=== PATIENT | female | born 1965 | race Caucasian/White ===

== ENCOUNTER 2023-01-17 08:25 | Emergency (ER) | payer OTHER, SELFPAY ==
[2023-01-17] VITALS (9 sets, daily range): BP systolic 104–143; BP diastolic 54–88; PULSE 70–86; RESP 14–19; TEMP 36.4; O2SAT 91–100; BMI 24.0
--- NOTE | 2023-01-17 08:52 | ECG_ITS ---
The [facility] Test Date: 2023-01-17 Pat Name: DOMINGA KAUR Department: Room: - Gender: Female Diving Fisher: : 1965 Requested By: Order Number: [id number] Reading MD: LUCY MORA Measurements Intervals [place] Rate: 79 P: 40 WI: 138 QRS: 84 QRSD: 88 T: 65 QT: 370 QTc: 404 Interpretive Statements 1100 Sinus rhythm 8102 Low QRS voltage in chest leads ST/T wave changes, can't exclude inferolateral ischemia 9120 atypical ECG No previous ECG available for comparison Electronically Signed On 01-19-2023 16:49:05 EDT by LUCY MORA
--- NOTE | 2023-01-17 08:52 | XR_ITS ---
The [address] [address] Patient Name: DOMINGA KAUR MRN: [id number] date: 1965 Sex: F Assigned Patient Location: ER Current Patient Location: ER Accession/Order Number: [id number] Exam Date: 01/17/2023 09:08 Report Date: 01/17/2023 09:23 At the request of: DEBBIE WHITTINGTON Procedure: XR chest 2V EXAM: XR chest 2V HISTORY: cp COMPARISON: None. TECHNIQUE: PA and lateral views of the chest. FINDINGS: The cardiomediastinal silhouette is normal. No focal consolidation is identified. There is no pneumothorax. No pleural effusion is noted. The osseous structures are intact. XR/XR chest 2V IMPRESSION: No acute cardiopulmonary process. Electronically authenticated by: HUGO SIMON Date: 01/17/2023 09:23
[2023-01-17 09:00] LABS: Basophils Percent Auto 0.8 % (0.2-2.0); Eosinophils Absolute Auto 0.2 10^3/uL (0.0-0.7); Eosinophils Percent Auto 4.6 % (0.9-7.0); Hematocrit 40.6 % (36.0-48.0); Hemoglobin 13.5 g/dL (12.0-16.0); Immature Granulocytes Abs Auto 0.01 10^3/uL (0.00-0.03); Immature Granulocytes Pct Auto 0.3 % (0.0-0.5); Lymphocytes Absolute Auto 0.9 10^3/uL (1.2-3.8); Lymphocytes Percent Auto 23.3 % (20.5-60.0); Mean Corpuscular HGB Conc 33.3 g/dL (29.9-35.2); Mean Corpuscular Hemoglobin 29.7 pg (26.7-34.0); Mean Corpuscular Volume 89.2 fL (81.0-99.0); Mean Platelet Volume 9.8 fL (9.5-13.5); Monocytes Absolute Auto 0.4 10^3/uL (0.3-0.8); Monocytes Percent Auto 8.9 % (1.7-12.0); Neutrophils Absolute Auto 2.5 10^3/uL (1.4-6.5); Neutrophils Percent Auto 62.1 % (43.0-75.0); Platelet Count 233 10^3/uL (150-450); Red Blood Count 4.55 10^6/uL (4.20-5.40)
[2023-01-17] MEDS: ASPIRIN 81 MG TAB.CHEW 162 MG PO (09:01)
[2023-01-17 09:18] LABS: D Dimer 0.26 mg/L FEU (<=0.59)
[2023-01-17 09:32] LABS: Alanine Aminotransferase 31 U/L (14-59); Albumin Globulin Ratio 1.2; Albumin Level 3.8 g/dL (3.4-5.0); Alkaline Phosphatase 82 U/L (46-116); Anion Gap 7.7; Aspartate Amino Transferase 13 U/L (15-37); BUN Creatinine Ratio 28.2; Bilirubin Total 0.5 mg/dL (0.2-1.0); Calcium 8.6 mg/dL (8.5-10.1); Chloride 104 mmol/L (98-107); Estimated GFR (African America >60 (>=60); Estimated GFR (Non-African Ame >60 (>=60); Globulin 3.2 g/dL; Glucose 91 mg/dL (74-106); Potassium 3.7 mmol/L (3.5-5.1); Sodium 136 mmol/L (136-145)
--- NOTE | 2023-01-17 09:42 | ED_ITS ---
HPI - General Adult General Chief complaint: Chest Pain Stated complaint: CHEST PAIN L SIDE Time Seen by Provider: 01/17/23 08:52 Source: patient Mode of arrival: walk-in Limitations: no limitations History of Present Illness HPI narrative: Patient is a 57-year-old female who is presenting to the Emergency Room with chief complaint of intermittent left-sided chest pain for the past 4 days, but has been intermittent for several months. Patient does have a oncology social worker in [place]. 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 Patient is driving to [place] today, she wanted to be Safe before she drove to [place] with her child. Patient has a Holter monitor set up for Friday. Patient has no significant traveling in the past month or 2, she has Travel to [place] before, 3 and half hour trip, But makes frequent stops. She states it's intermittent sharp pain that feels like radiates to her left thoracic area. It does not go into her neck, jaw, shoulder or arm. No correlation to shortness of breath, diaphoresis, nausea or vomiting. Patient's never been a smoker. Patient's father had a heart attack in his 50s. She does take losartan. No diabetes, cholesterol. No other acute complaints. No recent heavy lifting twisting or turning. Patient knows that she needs to have a outpatient stress test and echocardiogram. Patient has had difficulty with Medicaid and her insurance helping pay for the stress test, but she is working through this with her oncology social worker in [place], Dr. Méndez (sp?) No nausea, vomiting, diarrhea, no acute complaints. . All systems are negative except as noted/marked. All systems reviewed and otherwise negative. . Nurses note and vital signs reviewed and patient is not hypoxic. General: The patient appears well and in no apparent distress. Patient is resting comfortably on cart. Patient is not toxic, lethargic, or listless Skin: Warm, dry, no pallor noted. There is no rash noted. No petechiae, purpura. Head: Normocephalic, atraumatic Eye: Normal conjunctiva, no drainage, EOMI. PERRL Ears, Nose, Mouth, and Throat: oral mucosa is moist. Nares patent. Mouth without vesicles. Cardiovascular: Regular Rate and Rhythm, no murmur, gallop, rub; No reproducible tenderness to palpation To anterior, lateral, posterior chest wall. No rash. Respiratory: Patient is in no distress, no accessory muscle use, lungs are clear to auscultation, no wheezing, rales or rhonchi Back: non-tender, no CVA tenderness bilaterally to percussion. No CT LS midline pain GI: soft, no tenderness to palpation, no masses appreciated. No rebound, guarding, or rigidity noted. No flank pain bilateral, No distention Musculoskeletal: Patient has full range of motion of all of the extremities, no motor, sensory, or focal neurological deficits Neurological: A&O x3, normal speech Psychiatric: Cooperative Related Data Home Medications Medication Instructions Recorded Confirmed aripiprazole 2 mg tablet 2 mg PO DAILY 01/17/23 01/17/23 biotin 10,000 mcg capsule 10,000 mcg PO DAILY 01/17/23 01/17/23 bupropion HCl 150 mg 24 hr tablet, 300 mg PO DAILY 01/17/23 01/17/23 extended release Allergies Allergy/AdvReac Type Severity Reaction Status Date / Time No Known Drug Allergies Allergy Verified 01/17/23 08:30 Exam Constitutional Vital Signs, click to edit/add: Last Vital Signs Temp 97.6 F 01/17/23 08:31 Pulse 80 01/17/23 09:00 Resp 19 01/17/23 09:00 BP 143/88 H 01/17/23 09:00 Pulse Ox 99 01/17/23 09:00 O2 Del Method Room Air 01/17/23 08:31 Course Vital Signs Vital signs: Vital Signs Temperature 97.6 F 01/17/23 08:31 Pulse Rate 86 01/17/23 08:31 Respiratory Rate 16 01/17/23 08:31 Blood Pressure 140/54 01/17/23 08:31 Pulse Oximetry 100 01/17/23 08:31 Oxygen Delivery Method Room Air 01/17/23 08:31 Temperature 97.6 F 01/17/23 08:31 Pulse Rate 80 01/17/23 09:00 Respiratory Rate 19 01/17/23 09:00 Blood Pressure 143/88 H 01/17/23 09:00 Pulse Oximetry 99 01/17/23 09:00 Oxygen Delivery Method Room Air 01/17/23 08:31 Medical Decision Making MDM Narrative Medical decision making narrative: EKG, chest x-ray, lab work were negative. D-dimer negative. Education done at bedside. Patient knows the next step is to perform outpatient cardiac stress test and echocardiogram. Follow-up with PCP as needed. Patient felt better piece of mind is no acute findings on today's testing. Patient was recommended start taking baby aspirin a day. Lab Data Lab results reviewed: Yes I reviewed the patient's lab results Labs: Lab Results 01/17/23 Range/Units 08:41 WBC 4.0 (4.0-11.0) 10^3/uL RBC 4.55 (4.20-5.40) 10^6/uL Hgb 13.5 (12.0-16.0) g/dL Hct 40.6 (36.0-48.0) % MCV 89.2 (81.0-99.0) fL MCH 29.7 (26.7-34.0) pg MCHC 33.3 (29.9-35.2) g/dL RDW 13.0 (11.0-15.0) % Plt Count 233 (150-450) 10^3/uL MPV 9.8 (9.5-13.5) fL Neut % (Auto) 62.1 (43.0-75.0) % Lymph % (Auto) 23.3 (20.5-60.0) % [place] % (Auto) 8.9 (1.7-12.0) % Eos % (Auto) 4.6 (0.9-7.0) % Baso % (Auto) 0.8 (0.2-2.0) % Neut # (Auto) 2.5 (1.4-6.5) 10^3/uL Lymph # (Auto) 0.9 L (1.2-3.8) 10^3/uL [place] # (Auto) 0.4 (0.3-0.8) 10^3/uL Eos # (Auto) 0.2 (0.0-0.7) 10^3/uL Baso # (Auto) 0.0 (0.0-0.1) 10^3/uL Abs Immat Gran (auto) 0.01 (0.00-0.03) 10^3/uL Imm/Tot Granulo (auto) 0.3 (0.0-0.5) % D-Dimer 0.26 (<=0.59) mg/L FEU Sodium 136 (136-145) mmol/L Potassium 3.7 (3.5-5.1) mmol/L Chloride 104 (98-107) mmol/L Carbon Dioxide 28.0 (21.0-32.0) mmol/L Anion Gap 7.7 BUN 22.0 H (7.0-18.0) mg/dL Creatinine 0.78 (0.55-1.02) mg/dL Est GFR ( Amer) >60 (>=60) Est GFR (Non-Af Amer) >60 (>=60) BUN/Creatinine Ratio 28.2 Glucose 91 (74-106) mg/dL Calcium 8.6 (8.5-10.1) mg/dL Total Bilirubin 0.5 (0.2-1.0) mg/dL AST 13 L (15-37) U/L ALT 31 (14-59) U/L Alkaline Phosphatase 82 (46-116) U/L Troponin I High Sens 4.0 (4.0-51.3) pg/mL NT-Pro-B Natriuret Pep 50.0 (<=900.0) pg/mL Total Protein 7.0 (6.4-8.2) g/dL Albumin 3.8 (3.4-5.0) g/dL Globulin 3.2 g/dL Albumin/Globulin Ratio 1.2 Lipase 37.0 (16.0-77.0) U/L ECG Data Attestation: I personally reviewed and interpreted this ECG as follows: (EKG interpretation. Normal sinus rhythm at 79 beats a minute. Normal axis deviation. No acute ST elevation, no acute ectopy. QTC of 404.) Discharge Plan Discharge Chief Complaint: Chest Pain Clinical Impression: Chest pain Patient Disposition: Home, Self-Care Condition: Fair Prescriptions / Home Meds: No Action aripiprazole 2 mg tablet 2 mg PO DAILY biotin 10,000 mcg capsule 10,000 mcg PO DAILY bupropion HCl 150 mg tablet extended release 24 hr 300 mg PO DAILY Instructions: Chest Pain (ED) Additional Instructions: Continue to follow up with her oncology social worker, pursue Holter monitor on Friday, and pursue a stress test and echocardiogram when available soon as possible. Stand Alone Forms: Portal Instructions Referrals: ELVER GROSS [Primary Care Provider] - 1 week
== END 2023-01-17 10:10 | disposition home or self-care (01) ==
PROVIDERS: Emergency Provider Emergency Medicine; PCP Family Medicine
DX: R07.9 Chest pain, unspecified (principal); Z79.899 Other long term (current) drug therapy
CPT/HCPCS: 36415; 71046; 80053; 83690; 83880; 84484; 85025; 85378; 93005; 99285

== ENCOUNTER 2023-02-04 00:40 | Observation (INO) | payer OTHER, SELFPAY ==
[2023-02-04] VITALS (43 sets, daily range): BP systolic 112–127; BP diastolic 68–78; PULSE 57–102; RESP 11–22; TEMP 36.6–37.1; O2SAT 96–98; BMI 23.7; BMI 23.5
--- NOTE | 2023-02-04 01:05 | ED_ITS ---
HPI - Chest Pain General Chief Complaint: Chest Pain Stated Complaint: chest pain Time Seen by Provider: 02/04/23 00:59 Source: patient Mode of arrival: ambulance Limitations: no limitations History of Present Illness HPI narrative: chest pain on and off for a couple of years. States same pain again tonight. abrupt onset. pain 7/10 tonight. left sided chest pain. pain resolved after 20 minutes. Family history of heart disease. Father with TN in his 50s. States she has upcoming appointment with cardiology next week MD complaint: Reports chest pain Risk Factors Coronary artery disease risk factors: family history of CAD before age 50 Related Data Home Medications Medication Instructions Recorded Confirmed aripiprazole 2 mg tablet 2 mg PO DAILY 01/17/23 02/04/23 biotin 10,000 mcg capsule 10,000 mcg PO DAILY 01/17/23 02/04/23 bupropion HCl 150 mg 24 hr tablet, 300 mg PO DAILY 01/17/23 02/04/23 extended release Allergies Allergy/AdvReac Type Severity Reaction Status Date / Time No Known Drug Allergies Allergy Verified 02/04/23 00:44 Review of Systems ROS Status of ROS 10 or more systems reviewed and unremarkable except as noted in history and below [facility] Social History Smoking status: Never smoker Exam Constitutional Vital Signs, click to edit/add: Last Vital Signs Temp 98.7 F 02/04/23 00:40 Pulse 62 02/04/23 05:30 Resp 14 02/04/23 05:30 BP 122/68 02/04/23 05:30 Pulse Ox 98 02/04/23 05:30 O2 Del Method Room Air 02/04/23 00:40 Common normals: no apparent distress, average body habitus, oriented x3, no limitations, healthy appearing, alert and well nourished [facility] Common normals: normocephalic and head/scalp atraumatic Eye Common normals: PERRL, EOMs intact bilaterally, conjunctivae normal and no scleral icterus Respiratory Common normals: normal respiratory effort, no retractions, no use of accessory muscles and clear to auscultation bilaterally Cardio Common normals: regular rate, regular rhythm, S1 normal heart sound and S2 normal heart sound GI Common normals: Normal to inspection, nondistended, normoactive bowel sounds present, soft to palpation and non-tender Extremity Common normals: normal to inspection and full ROM Neuro Common normals: oriented x3, CN's II-XII intact bilaterally, moves all extremities and no focal motor deficits Psych Appearance: grossly normal Course Course Hospital Course: patient presents with recurrent episodes of chest pain on and off for a couple of years. chest pain again this AM similar to past episodes. Pain resolved by the time she arrived to the ER. Serial troponin neg x 2. d-dimer neg. EKG with RAD. low voltage. No acute findings and cxray WNL. She does have family history of TN in her father. States he had heart attack in his 50s. Discussed with the patient she should have a stress test. She is agreeable to stay in the hospital for workup. Discussed with Dr Pool and will plan obs admission Vital Signs Vital signs: Vital Signs Temperature 98.7 F 02/04/23 00:40 Pulse Rate 69 02/04/23 00:40 Respiratory Rate 15 02/04/23 00:40 Blood Pressure 127/77 02/04/23 00:40 Pulse Oximetry 98 02/04/23 00:40 Oxygen Delivery Method Room Air 02/04/23 00:40 Temperature 98.7 F 02/04/23 00:40 Pulse Rate 62 02/04/23 05:30 Respiratory Rate 14 02/04/23 05:30 Blood Pressure 122/68 02/04/23 05:30 Pulse Oximetry 98 02/04/23 05:30 Oxygen Delivery Method Room Air 02/04/23 00:40 MDM - Chest Pain Lab Data Labs: Lab Results 02/04/23 02/04/23 Range/Units 00:45 03:45 WBC 4.3 (4.0-11.0) 10^3/uL RBC 4.37 (4.20-5.40) 10^6/uL Hgb 12.6 (12.0-16.0) g/dL Hct 39.6 (36.0-48.0) % MCV 90.6 (81.0-99.0) fL MCH 28.8 (26.7-34.0) pg MCHC 31.8 (29.9-35.2) g/dL RDW 12.6 (11.0-15.0) % Plt Count 243 (150-450) 10^3/uL MPV 10.1 (9.5-13.5) fL Neut % (Auto) 44.5 (43.0-75.0) % Lymph % (Auto) 39.1 (20.5-60.0) % [place] % (Auto) 8.2 (1.7-12.0) % Eos % (Auto) 6.6 (0.9-7.0) % Baso % (Auto) 1.4 (0.2-2.0) % Neut # (Auto) 1.9 (1.4-6.5) 10^3/uL Lymph # (Auto) 1.7 (1.2-3.8) 10^3/uL [place] # (Auto) 0.4 (0.3-0.8) 10^3/uL Eos # (Auto) 0.3 (0.0-0.7) 10^3/uL Baso # (Auto) 0.1 (0.0-0.1) 10^3/uL Abs Immat Gran (auto) 0.01 (0.00-0.03) 10^3/uL Imm/Tot Granulo (auto) 0.2 (0.0-0.5) % D-Dimer 0.25 (<=0.59) mg/L FEU Sodium 141 (136-145) mmol/L Potassium 3.3 L (3.5-5.1) mmol/L Chloride 105 (98-107) mmol/L Carbon Dioxide 30.4 (21.0-32.0) mmol/L Anion Gap 8.9 BUN 17.0 (7.0-18.0) mg/dL Creatinine 0.81 (0.55-1.02) mg/dL Est GFR ( Amer) >60 (>=60) Est GFR (Non-Af Amer) >60 (>=60) BUN/Creatinine Ratio 21.0 Glucose 109 H (74-106) mg/dL Calcium 8.7 (8.5-10.1) mg/dL Troponin I High Sens 4.8 5.3 (4.0-51.3) pg/mL NT-Pro-B Natriuret Pep 62.0 (<=900.0) pg/mL Discharge Plan Discharge Chief Complaint: Chest Pain Clinical Impression: Chest pain Patient Disposition: Home, Self-Care Prescriptions / Home Meds: No Action aripiprazole 2 mg tablet 2 mg PO DAILY biotin 10,000 mcg capsule 10,000 mcg PO DAILY bupropion HCl 150 mg tablet extended release 24 hr 300 mg PO DAILY Additional Instructions: follow up with Cardiology. Return if pain recurs Stand Alone Forms: Portal Instructions Referrals: ELVER GROSS [Primary Care Provider] - 1 week
--- NOTE | 2023-02-04 01:08 | ECG_ITS ---
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
--- NOTE | 2023-02-04 01:08 | XR_ITS ---
The [address] [address] Patient Name: DOMINAG KAUR MRN: [id number] date: 1965 Sex: F Assigned Patient Location: ER Current Patient Location: ER Accession/Order Number: [id number] Exam Date: 02/04/2023 01:20 Report Date: 02/04/2023 01:35 At the request of: NASIMA GARCIA Procedure: XR chest 1V EXAM: XR chest 1V HISTORY: chest pain COMPARISON: Chest radiographs dated 01/17/2023. TECHNIQUE: One view of the chest was obtained. FINDINGS: The cardiac silhouette is normal in size. The lungs are clear. There is no significant pneumothorax or pleural effusion. No acute osseous abnormality is seen. XR/XR chest 1V IMPRESSION: 1. No acute cardiopulmonary abnormality. Electronically authenticated by: Jennifer SCHAEFER Date: 02/04/2023 01:35
[2023-02-04 01:26] LABS: Basophils Absolute Auto 0.1 10^3/uL (0.0-0.1); Basophils Percent Auto 1.4 % (0.2-2.0); Eosinophils Absolute Auto 0.3 10^3/uL (0.0-0.7); Eosinophils Percent Auto 6.6 % (0.9-7.0); Hematocrit 39.6 % (36.0-48.0); Hemoglobin 12.6 g/dL (12.0-16.0); Immature Granulocytes Abs Auto 0.01 10^3/uL (0.00-0.03); Immature Granulocytes Pct Auto 0.2 % (0.0-0.5); Lymphocytes Absolute Auto 1.7 10^3/uL (1.2-3.8); Lymphocytes Percent Auto 39.1 % (20.5-60.0); Mean Corpuscular HGB Conc 31.8 g/dL (29.9-35.2); Mean Corpuscular Hemoglobin 28.8 pg (26.7-34.0); Mean Corpuscular Volume 90.6 fL (81.0-99.0); Mean Platelet Volume 10.1 fL (9.5-13.5); Monocytes Absolute Auto 0.4 10^3/uL (0.3-0.8); Monocytes Percent Auto 8.2 % (1.7-12.0); Neutrophils Absolute Auto 1.9 10^3/uL (1.4-6.5); Neutrophils Percent Auto 44.5 % (43.0-75.0); Platelet Count 243 10^3/uL (150-450); Red Blood Count 4.37 10^6/uL (4.20-5.40); Red Cell Distribution Width 12.6 % (11.0-15.0); White Blood Count 4.3 10^3/uL (4.0-11.0)
[2023-02-04 01:33] LABS: D Dimer 0.25 mg/L FEU (<=0.59)
[2023-02-04 01:44] LABS: Anion Gap 8.9; Calcium 8.7 mg/dL (8.5-10.1); Carbon Dioxide 30.4 mmol/L (21.0-32.0); Chloride 105 mmol/L (98-107); Estimated GFR (African America >60 (>=60); Estimated GFR (Non-African Ame >60 (>=60); Glucose 109 mg/dL (74-106); Potassium 3.3 mmol/L (3.5-5.1); Sodium 141 mmol/L (136-145)
[2023-02-04 02:07] LABS: Troponin I High Sensitivity 4.8 pg/mL (4.0-51.3)
[2023-02-04 04:19] LABS: Troponin I High Sensitivity 5.3 pg/mL (4.0-51.3)
--- NOTE | 2023-02-04 06:53 | CA_ITS ---
Patient: DOMINGA KAUR Exam Date: 02/04/2023 : 1965 Gender:F Ordering : Shaikh Ana Pool . Admission #: [id number] Family : DR ELVER GROSS M.D. Order #: [id number] CLICK HERE TO VIEW EXAM ECHOCARDIOGRAM REPORT PROCEDURE: CA ECHO DOPPLER COMPLETE INDICATIONS: chest pain COMPARISON: None. DESCRIPTION: COMPLETE ECHOCARDIOGRAM Real-time transthoracic echocardiography with 2D, M-mode, spectral and color flow Doppler performed. QUALITY: Technical quality was good. LEFT VENTRICLE: Normal chamber size. Borderline left ventricular hypertrophy. Normal systolic function. LV EF: Normal left ventricular ejection fraction, (>55%). DIASTOLIC: Normal diastolic function. ATRIAL SEPTUM: LEFT ATRIUM: Normal chamber size. RIGHT ATRIUM: Normal chamber size. RIGHT VENTRICLE: Normal chamber size. Normal right ventricular systolic function. TRICUSPID VALVE: Normal mobility and thickness. No stenosis with no regurgitation. MITRAL VALVE: Normal mobility and thickness. No evidence of mitral valve stenosis. There is no mitral annular calcification. No mitral regurgitation. AORTIC VALVE: Normal trileaflet appearance. No visible sclerosis. Normal leaflet mobility. No evidence of aortic valve stenosis. No aortic regurgitation. AORTIC ROOT: Normal diameter and appearance. PULMONIC VALVE: Normal thickness and mobility. No stenosis. Trivial regurgitation. PERICARDIUM: No evidence of pericardial effusion. IVC: Collapses with inspirations. PLEURA: CONCLUSION: 1. Normal ventricular function. LVEF is 55 to 60%. 2. No significant valvular dysfunction. 3. No pericardial effusion. Adult Echocardiography Procedure Report Left Ventricle LVEDD (3.7 - 5.6 cm): 4.52 cm LVESD (2.2 - 4.0 cm): 3.17 cm LVIVS thickness (0.6 - 1.2 cm): 0.86 cm LVPW thickness (0.5 - 1.0 cm): 1.06 cm e': 0.13 m/s E - e': 5.24 LVOT Max Gradient: 2.91 mm[Hg] LVOT Area (cm2): 0.85 m/s Peak Velocity (LVOT): 0.85 m/s LVOT Diameter 2.14 cm Left Atrium Left Atrium Systolic Dimension: 2.82 cm Mitral Valve MV E to A Ratio: 0.84 Mitral Valve A-Wave Peak Velocity: 0.80 m/s Mitral Valve E-Wave Peak Velocity: 0.67 m/s Right Ventricle Aorta AO Root Diam: 3.32 cm Ascending Ao Diam: 3.13 cm Aortic Valve AoV Area (Peak Porfirio): 3.03 cm2, 3.03 cm2 Peak Velocity(Antegrade Flow): 1.01 m/s Peak Gradient(Antegrade Flow): 4.07 mm[Hg] Tricuspid Valve Pulmonic Valve Peak Velocity: 0.66 m/s Peak Gradient: 2.10 mm[Hg], 1.45 mm[Hg] Right Atrium Right Atrium Systolic Pressure: 47.40 ml, 47.40 ml Dictated by: John Guaman M.D. on 02/04/2023 at 18:50 Approved by: John Guaman M.D. on 02/04/2023 at 18:51
--- NOTE | 2023-02-04 11:19 | P.HP_ITS ---
H&P: HPI History of Present Illness Chief complaint: Chest pain Narrative: HPI and hospital course: 57 y o female presented with acute onset left sided chest pain, pressure like, no associated symptoms. Started when she was resting. Resolved in an hour or so. Reports intermittent chest pain, sporadic, not exertional, usually at rest, resolves in half an hour. This has been going on for about a year or two. She has no known hx of CAD/CHF. Non smoker and denies hx if HTN, HLD and T2 DM. Dad had premature CAD. But no other family has hx of CAD/CHF. Patient reports mod exercise at home 3/week and never experiences symptoms concerning for underlying CAD. Her w/u included negative troponins, normal D dimer, no acute ischemic changes on EKG. ECHO - official read is not available - will need to f/u on it. likely non cardiac and possibly related to poorly controlled depression/anxiety disorder Admission Diagnosis Chest r/o ACS Depression Poor memory Discharge diagnosis as above Discharge status stable Review of Systems ROS Status of ROS 10 or more systems reviewed and unremarkable except as noted in history and below PFSH PFS Medical History Depression ?F32.A - Depression, unspecified (ICD-10) Fracture of left tibia and fibula ?S82.202A - Unspecified fracture of shaft of left tibia, initial encounter for closed fracture (ICD-10) ?S82.402A - Unspecified fracture of shaft of left fibula, initial encounter for closed fracture (ICD-10) Memory loss of unknown cause ?R41.3 - Other amnesia (ICD-10) Family History Father Family history of cancer Family history of myocardial infarction Grandmother Family history of diabetes mellitus Family history of hypertension Family history of myocardial infarction Social History Within the past year, how often did you have a drink containing alcohol: never Score interpretation: A score less than 3 is consistent with normal alcohol consumption. 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 Known occupational exposures/hazards: No Highest level of school completed/degree received: Bachelor's degree Are you now , , , , never or living with a partner: never In a typical week, how many times do you talk on the telephone with family, friends, or neighbors: 3 or more times per week How often do you get together with friends or relatives: 3 or more times per week How often do you attend protestant or anglican services: never Do you belong to any clubs or organizations such as protestant groups unions, [employer] or [employer] groups, or school groups: no Total score: 1 Score interpretation: A score of less than or equal to 1 indicates the most socially isolated. Little interest or pleasure in doing things: not at all Feeling down, depressed, or hopeless: more than half the days Feel stressed/tense/nervous/anxious/difficulty sleeping: very much Life stressors: other Life stressor details: memory loss Do you think of yourself as: straight/heterosexual Gender Identity: female Meds Home Medications and Allergies Home Medications Medication Instructions Recorded Confirmed Type aripiprazole 2 mg tablet 2 mg PO DAILY 01/17/23 02/04/23 History biotin 10,000 mcg capsule 10,000 mcg PO DAILY 01/17/23 02/04/23 History bupropion HCl 150 mg 24 hr tablet, 300 mg PO DAILY 01/17/23 02/04/23 History extended release Allergies Allergy/AdvReac Type Severity Reaction Status Date / Time No Known Drug Allergies Allergy Verified 02/04/23 00:44 Exam Constitutional Vital Signs, click to edit/add: Last Vital Signs Temp 97.8 F 02/04/23 08:26 Pulse 62 02/04/23 09:55 Resp 18 02/04/23 08:26 BP 112/71 02/04/23 08:26 Pulse Ox 98 02/04/23 08:26 O2 Del Method Room Air 02/04/23 08:26 Documenting provider has reviewed patient's vital signs: yes Common normals: no apparent distress and oriented x3 General appearance: cooperative HENMT Common normals: normocephalic and head/scalp atraumatic Head and scalp: normocephalic and atraumatic Eye Common normals: conjunctivae normal and no scleral icterus Conjunctiva: conjunctiva(e) normal Respiratory Common normals: normal respiratory effort and clear to auscultation bilaterally Effort & inspection: able to speak in complete sentences Auscultation: clear to auscultation bilaterally Cardio Common normals: regular rate, S1 normal heart sound and S2 normal heart sound Rate: regular rate Heart sounds: S1 normal and S2 normal GI Common normals: Normal to inspection, nondistended, normoactive bowel sounds present, soft to palpation, non-tender and no hepatosplenomegaly Palpation: soft and no hepatosplenomegaly Extremity Common normals: no clubbing, cyanosis or edema Neuro Common normals: oriented x3, moves all extremities and no focal motor deficits Psych Common normals: mental status grossly normal, denies hallucinations, denies homicidal ideation and denies suicidal ideation Results Labs Labs: Short CBC 02/04/23 Range/Units 00:45 WBC 4.3 (4.0-11.0) 10^3/uL Hgb 12.6 (12.0-16.0) g/dL Hct 39.6 (36.0-48.0) % Plt Count 243 (150-450) 10^3/uL BMP 02/04/23 00:45 Sodium 141 Potassium 3.3 L Chloride 105 Carbon Dioxide 30.4 BUN 17.0 Creatinine 0.81 Glucose 109 H Calcium 8.7 Assessment and Plan Assessment and Plan (1) Chest pain: (2) Depression: Plan Admitted for CP - negative troponins. CP resolved. Ongoing for a year or two. Unlikely to be cardiac based on her hx, description of symptoms, risk factors. However, it is not unreasonable to order a exercise stress test for her to reliably r/o underlying CAD. Unfortunately, we do not have a physician in house to be able to do it. Will write her a prescription for outpatient exercise st ress test and she can f/u with her PCP and outpatient mobile web application developer for the results and continued care/management.
--- NOTE | 2023-02-04 12:36 | CM.NOTE ---
Rounded with Dr. Pool this AM. Dr. Pool had lengthy conversation with patient regarding chest pain and likely non-cardiac and will set patient up for outpatient stress test and nursing aware results needs to be sent to her women's soccer coach Dr. Devine in [place]. No other anticipated dischage needs. Dr. Pool also had lengthy conversation with patient about memory issues the patient voiced and the she has a follow up with [facility] in February. Dr. Pool encouraged patient to keep this appointment.
== END 2023-02-04 12:43 | disposition home or self-care (01) ==
LOC: ER 07:04 → MS 07:08
PROVIDERS: Admitting Provider Internal Medicine; Emergency Provider Internal Medicine; PCP Family Medicine; Visit Provider Internal Medicine
DX: R07.89 Other chest pain (principal); F32.A Depression, unspecified; R41.3 Other amnesia; F41.9 Anxiety disorder, unspecified; Z79.899 Other long term (current) drug therapy
CPT/HCPCS: 36415; 71045; 80048; 83880; 84484; 85025; 85378; 93005; 93306; 99285; G0378

== ENCOUNTER 2023-02-10 07:00 | Outpatient (OUT) | payer OTHER, SELFPAY ==
--- NOTE | 2023-02-10 12:42 | P.STRESS_ITS ---
Stress Test Stress Test Allergies Allergy/AdvReac Type Severity Reaction Status Date / Time No Known Drug Allergies Allergy Verified 02/04/23 00:44 Requesting physician: Shaikh Corine Procedure: Exercise stress test General Information: Reason for Stress Test: Angina Cardiac History and Risk Factors: No personal history. Father had LA, brother had MVP. Resting 12 - Lead Electrocardiogram: Rate & rhythm: Normal sinus at a rate of 71. [place]: Normal T-waves: Normal orientation ST-segments: Normal orientation Stress Test: Protocol: [place] protocol was followed. Exercise capacity: Good exercise capacity. Total exercise time of 9 minutes reached [place] stage 3 at 3.4MPH, 14% grade, & 10.1 METs. Blood pressure: Initial: 108/78, Maximum: 198/100, Recovery: 120/76 Rate & rhythm: Patient remained in sinus rhythm during the exercise and recovery portions of the study.? The maximum heart rate was 153, which was 93% of the maximum predicted heart rate 164. Rare PVCs & PACs ST-segments & T-waves: Approximately 4 minutes into recovery, there was up to 1mm ST-segment depression in the inferolateral leads. Patient response/symptoms: There were no symptoms similar to the chief complaint. Interpretation: This is an abnormal exercise stress test based on inferolateral ST-segment depression. Mohan Treadmill Score is 4, which places patient in a moderate risk category. Clinical correlation is required.
--- OUTSIDE RECORDS SUMMARY | 2023-03-18 17:32 | XMS_ITS | CCD ---
Author Name Unknown Address [address] [place] [address] Organization [facility] Care Team Providers Care Dispenser Operator Name Role Phone ESPERANZA GARCIA Unavailable Unavailable Rai, PhD Chaka Attending Provider [phone] MD Ghislaine Gross Primary Care Provider CINDY, DR HUGO Gongora Admitting Unavailable CINDY, DR HUGO Gongora Attending Unavailable CINDY, DR HUGO Gongora Consulting Unavailable PRISCILA, DR ELIDA Pack Admitting Unavailagusto FRANCOIS, DR ELIDA Pack Attending Unavailagusto FRANCOIS, DR ELIDA Pack Consulting Unavailabl e BETI SINGER Consulting Unavailable BELEN MARIN Consulting Unavailable CINDY, DR HUGO Gongora Consulting Unavailable CINDY, DR HUGO Gongora Admitting Unavailable CINDY, DR HUGO Gongora Attending Unavailable RENATO, DR RAYA Primary Care Unavailable MARLENE LEACH Consulting Unavailable GHISLAINE GROSS Primary Care Unavailable WILBER PRINGLE Consulting Unavailable EKTA Saez, WILBER Admitting Unavailable WILBER PRINGLE Attending Unavailable AG PEACOCK Consulting Unavailable GHISLAINE GROSS Primary Care Unavailable PRISCILA, DR ELIDA Pack Admitting Unavailagusto FRANCOIS, DR ELIDA Pack Attending Unavailagusto WHITE, DR HUGO Gongora Consulting Unavailable PRISCILA, DR ELIDA Pack Consulting UnavailLUKE Monge Consulting Unavailable YOKASTA BAINS Consulting Unavailable NATACHA DASH Admitting Unavailable NATACHA DASH Attending Unavailable GHISLAINE GROSS Primary Care Unavailable DR SHARON WOODRUFF Consulting Unavailable NATACHA DASH Admitting Unavailable NATACHA DASH Attending Unavailable GHISLAINE GROSS Primary Care Unavailable KACY, DR HERRERA Consulting Unavailable SHAIKH RAMEY Attending Unavailable Allergies Allergy Classification Reported Allergen(s) Allergy Type Date of Onset Reaction(s) Facility (3 sources) naproxen; Translations: [NAPROXEN] Drug Allergy 05-24-2017 [facility] Repository Problems Active Problems Problem Classification Problem Date Documented Da te Episodic/Chronic Anxiety disorders (1 source) Anxiety disorder, unspecified; Translations: [ANXIETY DISORDER UNSPECIFIED] Onset: 01-09-2021 Chronic Esophageal disorders (1 source) Gastro-esophageal reflux disease without esophagitis; Translations: [GERD WITHOUT ESOPHAGITIS] Onset: 02-11-2022 Chronic Essential hypertension (2 sources) Essential (primary) hypertension; Translations: [ESSENTIAL PRIMARY HYPERTENSION] Onset: 09-17-2021 Chronic Nonspecific chest pain (12 sources) Chest pain, unspecified; Translations: [Precordial pain] Onset: 05-25-2017 Episodic Other aftercare (2 sources) Other longterm (current) drug therapy; Translations: [OTH CORRECTION CURRENT DRUG THERAPY] Onset: 09-17-2021 Episodic Residual codes; unclassified (4 sources) Obstructive sleep apnea (adult) (pediatric); Translations: [OBSTRUCTIVE SLEEP APNEA] Onset: 04-17-2022 Chronic Residual codes; unclassified (1 source) Hypersomnia, unspecified; Translations: [HYPERSOMNIA UNSPECIFIED] Onset: 03-28-2022 Chronic Residual codes; unclassified (1 source) Acquired absence of other specified parts of digestive tract; Translations: [ACQ ABSENCE OTH PART DIGESTV TRACT] Onset: 07-15-2022 Episodic Past or Other Problems Problem Classification Problem Date Documented Da te Episodic/Chronic Abdominal pain (4 sources) Epigastric pain; Translations: [EPIGASTRIC PAIN] Onset: 02-07-2022 Episodic Chronic obstructive pulmonary disease and bronchiectasis (4 sources) Bronchitis, not specified as acute or chronic; Translations: [BRONCHITIS NOT SPEC ACUTE/CHRON] Onset: 02-11-2021 Episodic Other lower respiratory disease (1 source) Snoring; Translations: [SNORING] Onset: 03-28-2022 Episodic Residual codes; unclassified (4 sources) Other amnesia; Translations: [OTHER AMNESIA] Onset: 03-20-2022 Episodic Residual codes; unclassified (1 source) Insomnia, unspecified; Translations: [INSOMNIA UNSPECIFIED] Onset: 12-29-2022 Episodic Results Test Name Value Interpretation Reference Range Facil ity BNPon 07-13-2022 Natriuretic peptide B (Bld) [Mass/Vol] 51.0 pg/mL Normal <=900.0 [facility] pital Comment on above: Performed By: #### B LINEN CONTROLLER, CMADM, CMP #### [facility] [address] [address] [address] Fawn Anthony CARDIAC HUGO ADMITon 023 CK [Catalytic activity/Vol] 51 U/L Normal 26-192 [facility] Comment on above: Performed By: #### B LINEN CONTROLLER, CMADM, CMP ####[facility] [id number] [address]Dr. Fawn Anthony CK.MB [Mass/Vol] 1.15 ng/mL Normal <=3.60 [facility] Comment on above: Performed By: #### B LINEN CONTROLLER, CMADM, CMP ####[facility] [id number] [address]Dr[address] Anthony HSTROP 4.1 pg/mL Normal 4.0-51.3 [facility] Comment on above: Result Comment: CUT- OFF POINTS HAVE BEEN ESTABLISHED BASED ON THE FOURTH UNIVERSAL DEFINITIONS OF MYOCARDIAL INFARCTION. THE UPPER REFERENCE LIMIT (URL) OF TROPONIN, DEFINED THE 99TH PERCENTILE OF cTnI DISTRIBUTION IN A REFERENCE POPULATION, HAS BEEN CONFIRMED THE DECISION THRESHOLD FOR [place] DIAGNOSIS. Performed By: #### B LINEN CONTROLLER, CMADM, CMP ####[facility] [id number] [address]DrSe Anthony FREDDIE 29 ng/mL Normal 9-82 [facility] Comment on above: Performed By: #### B LINEN CONTROLLER, CMADM, CMP ####[facility] [id number] [id number][address] Fawn Anthony CBC AUTO DIFFon 07-13-2022 BASO # 0.1 103/ul Normal 0.0-0.1 [facility] Comment on above: Performed By: #### C BC #### [facility] [address] [address] [address] Fawn Anthony Basophils/100 WBC (Bld) 1.1 % Normal 0.2-2.0 [facility] Comment on above: Performed By: #### C BC #### [facility] [address] [place] [address] Dr. Fawn Anthony EO # 0.3 103/ul Normal 0.0-0.7 [facility] Comment on above: Performed By: #### C BC #### [facility] [address] [place] [address] Dr. Fawn Anthony Eosinophils/100 WBC (Bld) 5.7 % Normal 0.9-7.0 [facility] Comment on above: Performed By: #### C BC #### [facility] [address] [place] [address] Dr. Fawn Anthony Erythrocyte distribution wid th (RBC) [Ratio] 13.0 % Normal 11.0-15.[address] [facility] Comment on above: Performed By: #### C BC #### [facility] [address] [place] [address] Dr. Fawn Anthony Hematocrit (Bld) [Volume fraction] 39.7 % Normal 3 6.0-48.0 [facility] Comment on above: Performed By: #### C BC #### [facility] [address] [place] [address] Dr. Fawn Anthony Hemoglobin (Bld) [Mass/Vol] 13.0 g/dL Normal 12.0-16. 0 [facility] Comment on above: Performed By: #### C BC #### [facility] [address] [place] [address] Dr. Fawn Anthony IG # 0.02 10e3/ul Normal 0.00-0.03 [facility] Comment on above: Performed By: #### C BC #### [facility] [address] [place] [address] Dr. Fawn Anthony IG % 0.4 % Normal 0.0-0.5 [facility] Comment on above: Performed By: #### C BC #### [facility] [address] [place] [address] Dr. Fawn Anthony LYMPH # 2.0 103/ul Normal 1.2-3.8 [facility] Comment on above: Performed By: #### C BC #### [facility] [address] [place] [address] Dr. Fawn Anthony Lymphocytes/100 WBC (Bld) 36.9 % Normal 20.5-60.0 [facility] Comment on above: Performed By: #### C BC #### [facility] [address] [place] [address] Dr. Fawn Anthony MANUAL DIFF REQ NO Normal [facility] Comment on above: Performed By: #### C BC #### [facility] [address] [place] [address] Dr. Fawn Anthony MCH (RBC) [Entitic mass] 28.7 pg Normal 26.7-34.0 [facility] Comment on above: Performed By: #### C BC #### [facility] [address] [place] [address] Dr. Fawn Anthony MCHC (RBC) [Mass/Vol] 32.7 g/dL Normal 29.9-35.2 [facility] Comment on above: Performed By: #### C BC #### [facility] [address] [place] [address] Dr. Fawn Anthony MCV (RBC) [Entitic vol] 87.6 fL Normal 81.0-99.0 [facility] Comment on above: Performed By: #### C BC #### [facility] [address] [place] [address] Dr. Fawn Anthony MONO # 0.4 103/ul Normal 0.3-0.8 [facility] Comment on above: Performed By: #### C BC #### [facility] [address] [place] [address] Dr. Fawn Anthony Monocytes/100 WBC (Bld) 8.1 % Normal 1.7-12.0 [facility] Comment on above: Performed By: #### C BC #### [facility] [address] [place] [address] Dr. Fawn Anthony NEUT # 2.6 103/ul Normal 1.4-6.5 [facility] ospital Comment on above: Performed By: #### C BC #### [facility] [address] [place] [address] Dr. Fawn Anthony Neutrophils/100 WBC (Bld) 47.8 % Normal 43.0-75.0 [facility] Comment on above: Performed By: #### C BC #### [facility] [address] [place] [address] Dr. Fawn Anthony Platelet mean volume (Bld) [Entitic vol] 9.2 fL Critically low 9.5-13.[address] [facility] Comment on above: Performed By: #### C BC #### [facility] [address] [place] [address] Dr. Fawn Anthony PLT 232 103/ul Normal 150-450 [facility] Comment on above: Performed By: #### C BC #### [facility] [address] [place] [address] Dr. Fawn Anthony RBC 4.53 106/ul Normal 4.20-5.40 [facility] Comment on above: Performed By: #### C BC #### [facility] [address] [place] [address] Dr. Fawn Anthony WBC 5.5 103/ul Normal 4.0-11.0 [facility] Comment on above: Performed By: #### C BC #### [facility] [address] [place] [address] Dr. Fawn Anthony PROF 14(COMP METB)on 023 Albumin [Mass/Vol] 3.8 g/dL Normal 3.4-5.[address] [facility] Comment on above: Performed By: #### B LINEN CONTROLLER, ROSARIODM, CMP #### [facility] [address] [place] [address] Dr. Fawn Anthony Albumin/Globulin [Mass ratio] 1.2 {ratio} Normal [facility] Comment on above: Performed By: #### B LINEN CONTROLLER, CMADM, CMP #### [facility] [address] [place] [address] Dr. Fawn Anthony ALP [Catalytic activity/Vol] 89 U/L Normal 46-116 [facility] Comment on above: Performed By: #### B LINEN CONTROLLER, CMADM, CMP #### [facility] [address] [address] [address] Fawn Anthony ALT [Catalytic activity/Vol] 22 U/L Normal 14-59 [facility] Comment on above: Performed By: #### B LINEN CONTROLLER, CMADM, CMP #### [facility] [address] [address] [address] Fawn Anthony Anion gap [Moles/Vol] 9.5 mmol/L Normal [facility] Comment on above: Performed By: #### B LINEN CONTROLLER, CMADM, CMP #### [facility] [address] [place] [address] Dr. Fawn Anthony AST [Catalytic activity/Vol] 15 U/L Normal 15-37 [facility] Comment on above: Performed By: #### B LINEN CONTROLLER, CMADM, CMP #### [facility] [address] [address] [address] Fawn Anthony Bilirubin [Mass/Vol] 0.3 mg/dL Normal 0.2-1.0 [facility] Comment on above: Performed By: #### B LINEN CONTROLLER, CMADM, CMP #### [facility] [address] [address] [address] Fawn Anthony Calcium [Mass/Vol] 8.6 mg/dL Normal 8.5-10.1 [facility] Comment on above: Performed By: #### B LINEN CONTROLLER, CMADM, CMP #### [facility] [address] [address] [address] Fawn Anthony Chloride [Moles/Vol] 102 mmol/L Normal 98-107 [facility] Comment on above: Performed By: #### B LINEN CONTROLLER, CMADM, CMP #### [facility] [address] [address] [address] Fawn Anthony CO2 [Moles/Vol] 31.0 mmol/L Normal 21.0-32.0 [facility] Comment on above: Performed By: #### B LINEN CONTROLLER, CMADM, CMP #### [facility] [address] [address] [address] Fawn Anthony Creatinine [Mass/Vol] 0.74 mg/dL Normal 0.55-1.02 [facility] Comment on above: Performed By: #### B LINEN CONTROLLER, CMADM, CMP #### [facility] [address] [address] [address] Fawn Anthony EGFR-AF MALIAN >60 Normal >=60 [facility] Comment on above: Performed By: #### B LINEN CONTROLLER, CMADM, CMP #### [facility] [address] [address] [address] Fawn Anthony EGFR-NON AF MALIAN >60 Normal >=60 [facility] Comment on above: Performed By: #### B LINEN CONTROLLER, CMADM, CMP #### [facility] [address] [address] [address] Fawn Anthony Globulin (S) [Mass/Vol] 3.2 g/dL Normal [facility] Comment on above: Performed By: #### B LINEN CONTROLLER, CMADM, CMP #### [facility] [address] [address] [address] Fawn Anthony Glucose [Mass/Vol] 100 mg/dL Normal 74-106 [facility] Comment on above: Performed By: #### B LINEN CONTROLLER, CMADM, CMP #### [facility] [address] [address] [address] Fawn Anthony Potassium [Moles/Vol] 3.5 mmol/L Normal 3.5-5.1 [facility] Comment on above: Performed By: #### B LINEN CONTROLLER, CMADM, CMP #### [facility] [address] [address] [address] Fawn Anthony Protein [Mass/Vol] 7.0 g/dL Normal 6.4-8.2 [facility] Comment on above: Performed By: #### B LINEN CONTROLLER, CMADM, CMP #### [facility] [address] [address] [address] Fawn Anthony Sodium [Moles/Vol] 139 mmol/L Normal 136-145 [facility] Comment on above: Performed By: #### B LINEN CONTROLLER, CMADM, CMP #### [facility] [address] [address] [address] Fawn Anthony Urea nitrogen [Mass/Vol] 14.0 mg/dL Normal 7.0-18.0 [facility] Comment on above: Performed By: #### B LINEN CONTROLLER, CMADM, CMP #### [facility] [address] [address] [address] Fawn Anthony Urea nitrogen/Creatinine [Mass ratio] 18.9 mg/mg Normal [facility] Comment on above: Performed By: #### B LINEN CONTROLLER, CMADM, CMP #### [facility] [address] [address] [address] Fawn Anthony PROTIMEon 07-13-2022 INR Coag (PPP) [Relative time] 0.98 {INR} Normal [facility] Comment on above: Performed By: #### P TT, PT ####[facility] [id number] [address]DrSe Anthony INR GUIDELINES SEE BELOW Normal [facility] Comment on above: Result Comment: BROCK RED INR: 2.0 - 3.0 CONDITIONS NOT LISTED BELOW 2.5 - 3.5 FOR PROSTHETIC HEART VALVE REPLACEMENT 2.5 - 3.5 RECURRENT THROMBOSIS Performed By: #### P TT, PT ####[facility] [id number] [address]DrSe Anthony PT Coag (PPP) [Time] 10.4 s Normal 9.0-11.6 [facility] Comment on above: Performed By: #### P TT, PT ####[facility] [address] [address]Dr. Fawn Anthony PTTon 07-13-2022 aPTT Coag (Bld) [Time] 30.1 s Normal 22.3-36.2 [facility] Comment on above: Performed By: #### P TT, PT ####[facility] [address] [address]DrSe Anthony TROPONIN, HIGH SENSITIVITYon 07-13-2022 HSTROP 4.3 pg/mL Normal 4.0-51.3 [facility] ospital Comment on above: Result Comment: CUT- OFF POINTS HAVE BEEN ESTABLISHED BASED ON THE FOURTH UNIVERSAL DEFINITIONS OF MYOCARDIAL INFARCTION. THE UPPER REFERENCE LIMIT (URL) OF TROPONIN, DEFINED THE 99TH PERCENTILE OF cTnI DISTRIBUTION IN A REFERENCE POPULATION, HAS BEEN CONFIRMED THE DECISION THRESHOLD FOR [place] DIAGNOSIS. Performed By: #### H STROPN #### [facility] [address] [place] [address] Dr. Fawn Anthony TSHon 07-13-2022 TSH 3.430 uIU/mL Normal 0.358-3.740 [facility] Comment on above: Performed By: #### T SH #### [facility] [address] [place] [address] Dr. Fawn Anthony XR CHEST 1 Von 07-13-2022 XR CHEST 1 V XR CHEST 1 V 07/14/19 23 12:24 AM EDT CLINICAL INDICATION: Unspecified chest pain COMPARISON: 02/07/2022 TECHNIQUE: Portable semiupright AP view of the chest. FINDINGS: There are no tubes or implants noted. The cardiomediastinal silhouette and pulmonary vasculature are within normal limits. No focal parenchymal opacities. No pneumothorax or pleural effusion. No displaced rib fractures. Osseous structures demonstrate degenerative changes. Soft tissues are grossly normal. IMPRESSION: No acute cardiopulmonary abnormality. Electronically authenticated by: AG PEACOCK Date: 2022-07-13 02:34 Normal [facility] CBC AUTO DIFFon 02-07-2022 BASO # 0.1 103/ul Normal 0.0-0.1 [facility] o[facility]ital Comment on above: Performed By: #### C BC #### [facility] [address] [place] [address] Dr. Fawn Anthony Basophils/100 WBC (Bld) 0.6 % Normal 0.2-2.0 [facility] Comment on above: Performed By: #### C BC #### [facility] [address] [place] [address] Dr. Fawn Anthony EO # 0.2 103/ul Normal 0.0-0.7 [facility] Comment on above: Performed By: #### C BC #### [facility] [address] [place] [address] Dr. Fawn Anthony Eosinophils/100 WBC (Bld) 1.8 % Normal 0.9-7.0 [facility] Comment on above: Performed By: #### C BC #### [facility] [address] [place] [address] Dr. Fawn Anthony Erythrocyte distribution wid th (RBC) [Ratio] 13.1 % Normal 11.0-15.0 [facility] Comment on above: Performed By: #### C BC #### [facility] [address] [place] [address] Dr. Fawn Anthony Hematocrit (Bld) [Volume fraction] 39.8 % Normal 3 6.0-48.0 [facility] Comment on above: Performed By: #### C BC #### [facility] [address] [place] [address] Dr. Fawn Anthony Hemoglobin (Bld) [Mass/Vol] 13.1 g/dL Normal 12.0-16. 0 [facility] Comment on above: Performed By: #### C BC #### [facility] [address] [place] [address] Dr. Fawn Anthony IG # 0.04 10e3/ul Critically high 0.00-0.03 [facility] Comment on above: Performed By: #### C BC #### [facility] [address] [place] [address] Dr. Fawn Anthony IG % 0.4 % Normal 0.0-0.5 [facility] Comment on above: Performed By: #### C BC #### [facility] [address] [place] [address] Dr. Fawn Anthony LYMPH # 1.6 103/ul Normal 1.2-3.8 [facility] Comment on above: Performed By: #### C BC #### [facility] [address] [place] [address] Dr. Fawn Anthony Lymphocytes/100 WBC (Bld) 15.6 % Critically low 20.5-6 0.0 [facility] Comment on above: Performed By: #### C BC #### [facility] [address] [address] [address] Fawn Anthony MANUAL DIFF REQ NO Normal [facility] Comment on above: Performed By: #### C BC #### [facility] [address] [address] [address] Fawn Anthony MCH (RBC) [Entitic mass] 28.6 pg Normal 26.7-34.0 [facility] Comment on above: Performed By: #### C BC #### [facility] [address] [place] [address] Dr. Fawn Anthony MCHC (RBC) [Mass/Vol] 32.9 g/dL Normal 29.9-35.2 [facility] Comment on above: Performed By: #### C BC #### [facility] [address] [place] [address] Dr. Fawn Anthony MCV (RBC) [Entitic vol] 86.9 fL Normal 81.0-99.0 [facility] Comment on above: Performed By: #### C BC #### [facility] [address] [place] [address] Dr. Fawn Anthony MONO # 0.5 103/ul Normal 0.3-0.8 [facility] o[facility] Comment on above: Performed By: #### C BC #### [facility] [address] [place] [address] Dr. Fawn Anthony Monocytes/100 WBC (Bld) 5.2 % Normal 1.7-12.0 [facility] Comment on above: Performed By: #### C BC #### [facility] [address] [address] [address] Fawn Anthony NEUT # 7.7 103/ul Critically high 1.4-6.5 [facility] Comment on above: Performed By: #### C BC #### [facility] [address] [place] [address] Dr. Fawn Anthony Neutrophils/100 WBC (Bld) 76.4 % Critically high 43.0- 75.0 [facility] Comment on above: Performed By: #### C BC #### [facility] [address] [place], [place] [address] Dr. Fawn Anthony Platelet mean volume (Bld) [Entitic vol] 9.7 fL Normal 9.5-13.5 [facility] Comment on above: Performed By: #### C BC #### [facility] [address] [place], [place] [address] Dr. Fawn Anthony PLT 257 103/ul Normal 150-450 [facility] Comment on above: Performed By: #### C BC #### [facility] [address] [place], [place] [address] Dr. Fawn Anthony RBC 4.58 106/ul Normal 4.20-5.40 [facility] Comment on above: Performed By: #### C BC #### [facility] [address] [address] [address] Fawn Anthony WBC 10.1 103/ul Normal 4.0-11.0 [facility] Comment on above: Performed By: #### C BC #### [facility] [address] [place], [place] [address] Dr. Fawn Anthony CTA CHEST WO W CONon 022 CTA CHEST WO W CON EXAMINATION: CTA ONOFRE ST WO W CON HISTORY: CHEST PAIN, UNSPECIFIED COMPARISON: Chest x-ray 02/07/2022. TECHNIQUE: CT angiography of the pulmonary arteries following the administration of intravenous contrast. Coronal and sagittal MIP (maximum intensity projection) images were performed. Dose reduction techniques were achieved by using automated exposure control and/or adjustment of mA and/or kV according to patient size and/or use of iterative reconstruction technique. FINDINGS: CTA: Satisfactory contrast bolus is seen in the pulmonary arterial tree. As seen, no pulmonary artery embolism identified. The pulmonary trunk appears normal caliber. Thoracic aorta is normal caliber. As seen, no dissection is identified. CT CHEST: HEART AND PERICARDIUM: Cardiac size appears within normal limits. No pericardial fluid or nodularity. THYROID: Visualized thyroid gland appears homogeneous. SUPRACLAVICULAR REGION AND AXILLA: No lymphadenopathy. MEDIASTINUM AND PATTIE: No lymphadenopathy or masses. ESOPHAGUS: The visualized esophagus appears unremarkable. LUNGS: Central airways are patent. Minor dependent atelectasis. 5 mm groundglass opacity in the posterior left apex (image 12). PLEURA: No effusions or pleural nodularity. No pneumothorax. UPPER ABDOMEN: Visualized abdominal soft tissues appear unremarkable, as seen. OSSEOUS STRUCTURES: No aggressive appearing osseous lesions. No compression fracture is identified. Minor endplate degenerative spur. IMPRESSION: 1. No pulmonary artery embolism, aortic aneurysm or dissection. 2. Mild dependent atelectasis is seen. No acute cardiopulmonary process. 3. 5 mm groundglass nodule in the left upper lobe. If the patient is high risk, [address] could be considered. Fleischner society recommendations for pulmonary nodule assessment: 2017 guidelines Subsolid nodules Solitary pure ground-glass nodule * nodule size <6mm * no CT follow-up required Electronically authenticated by: YOKASTA BAINS Date: 2022-02-07 19:59 Normal [facility] PROF 14(COMP METB)on 022 Albumin [Mass/Vol] 4.0 g/dL Normal 3.4-5.0 [facility] Comment on above: Performed By: #### H LAURA, CMP ####[facility] [address] [place] [address]Dr. Fawn Anthony Albumin/Globulin [Mass ratio] 1.3 {ratio} Normal [facility] Comment on above: Performed By: #### H LAURA, CMP ####[facility] [address] [place] [address]Dr. Fawn Anthony ALP [Catalytic activity/Vol] 77 U/L Normal 46-116 [facility] Comment on above: Performed By: #### H TRACIPN, CMP ####[facility] [address] [place] [id number]. Fawn Anthony ALT [Catalytic activity/Vol] 15 U/L Normal 14-59 [facility] Comment on above: Performed By: #### H TRACIPN, CMP ####[facility] [address] [place] [address]Dr. Fawn Anthony Anion gap [Moles/Vol] 9.9 mmol/L Normal [facility] Comment on above: Performed By: #### H STROPN, CMP ####[facility] [address] [place] [address]Dr. Fawn Anthony AST [Catalytic activity/Vol] 13 U/L Critically low 15- 37 [facility] Comment on above: Performed By: #### H LAURA, CMP ####[facility] [address] [place] [address]Dr. Fawn Anthony Bilirubin [Mass/Vol] 0.5 mg/dL Normal 0.2-1.0 [facility] Comment on above: Performed By: #### H STROPN, CMP ####[facility] [address] [place] [address]Dr. Fawn Anthony Calcium [Mass/Vol] 9.2 mg/dL Normal 8.5-10.1 [facility] Comment on above: Performed By: #### H LAURA, CMP ####[facility] [address] [place], [place] [address]Dr. Fawn Anthony Chloride [Moles/Vol] 103 mmol/L Normal 98-107 [facility] Comment on above: Performed By: #### H LAURA, CMP ####[facility] [address] [place], [place] [address]Dr. Fawn Anthony CO2 [Moles/Vol] 27.5 mmol/L Normal 21.0-32.0 [facility] Comment on above: Performed By: #### H STROVAZQUEZ, CMP ####[facility] [address] [place], [place] [address]Dr. Fawn Anthony Creatinine [Mass/Vol] 0.71 mg/dL Normal 0.55-1.02 [facility] Comment on above: Performed By: #### H STROPN, CMP ####[facility] [address] [place] [address]Dr. Fawn Anthony EGFR-AF MALIAN >60 Normal >=60 [facility] Comment on above: Performed By: #### H STROPN, CMP ####[facility] [address] [place] [address]Dr. Fawn Anthony EGFR-NON AF MALIAN >60 Normal >=60 [facility] Comment on above: Performed By: #### H STROPN, CMP ####[facility] [address] [place] [address]Dr. Fawn Anthony Globulin (S) [Mass/Vol] 3.2 g/dL Normal [facility] Comment on above: Performed By: #### H STROPN, CMP ####[facility] [address] [place] [address]Dr. Fawn Anthony Glucose [Mass/Vol] 125 mg/dL Critically high 74-106 [facility] Comment on above: Performed By: #### H STROPN, CMP ####[facility] [address] [place] [address]Dr. Fawn Anthony Potassium [Moles/Vol] 3.4 mmol/L Critically low 3.5-5.1 [facility] Comment on above: Performed By: #### H STROPN, CMP ####[facility] [address] [place], [place] [address]Dr. Fawn Anthony Protein [Mass/Vol] 7.2 g/dL Normal 6.4-8.2 [facility] Comment on above: Performed By: #### H STROPN, CMP ####[facility] [address] [place], [place] [address]Dr. Fawn Anthony Sodium [Moles/Vol] 137 mmol/L Normal 136-145 [facility] Comment on above: Performed By: #### H STROPN, CMP ####[facility] [address] [place], [place] [address]Dr. Fawn Anthony Urea nitrogen [Mass/Vol] 15.0 mg/dL Normal 7.0-18.0 [facility] Comment on above: Performed By: #### H STROPN, CMP ####[facility] [address] [place], [place] [address]Dr. Fawn Anthony Urea nitrogen/Creatinine [Mass ratio] 21.1 mg/mg Normal [facility] Comment on above: Performed By: #### H STROPN, CMP ####[facility] [address] [place], [place] [address]Dr. Fawn Anthony TROPONIN, HIGH SENSITIVITYon 02-07-2022 HSTROP 4.8 pg/mL Normal 4.0-51.3 [facility] Comment on above: Result Comment: CUT- OFF POINTS HAVE BEEN ESTABLISHED BASED ON THE FOURTH UNIVERSAL DEFINITIONS OF MYOCARDIAL INFARCTION. THE UPPER REFERENCE LIMIT (URL) OF TROPONIN, DEFINED THE 99TH PERCENTILE OF cTnI DISTRIBUTION IN A REFERENCE POPULATION, HAS BEEN CONFIRMED THE DECISION THRESHOLD FOR VT DIAGNOSIS. Performed By: #### H STROVAZQUEZ #### [facility] [address] [place], [place] [address] Dr. Fawn Anthony HSTROP 4.6 pg/mL Normal 4.0-51.3 [facility] Comment on above: Result Comment: CUT- OFF POINTS HAVE BEEN ESTABLISHED BASED ON THE FOURTH UNIVERSAL DEFINITIONS OF MYOCARDIAL INFARCTION. THE UPPER REFERENCE LIMIT (URL) OF TROPONIN, DEFINED THE 99TH PERCENTILE OF cTnI DISTRIBUTION IN A REFERENCE POPULATION, HAS BEEN CONFIRMED THE DECISION THRESHOLD FOR VT DIAGNOSIS. Performed By: #### H LAURA, CMP ####[facility] [address] [place], [place] [address]PmDr. Fawn Anthony XR CHEST 1 Von 02-07-2022 XR CHEST 1 V CHEST X-RAY, 1 VIEW HISTORY: Chest pain. COMPARISON: 09/13/2021. FINDINGS: The heart, pattie, and mediastinum are unremarkable. The lungs are grossly clear. There are no pleural effusions. There is no pneumothorax. IMPRESSION: No evidence of acute cardiopulmonary disease. Electronically authenticated by: LUKE GUERRA Date: 2022-02-07 18:39 Normal [facility] SCREENING MAMMOGRAM W/KALLI, BILATERAL*on 12-14-2021 SCREENING MAMMOGRAM W/KALLI, BILATERAL* COMPARISON: Dating back to December 12, 2020 and November 19 2019. TECHNIQUE: 2D and 3D Tomosynthesis of the right and left breasts was performed. FINDINGS: Breast composition demonstrates scattered fibroglandular densities. Overall appearance stable. No suspicious microcalcifications, dominant mass lesions, or distortion is present. IMPRESSION: BI-RADS 1- Negative Mammogram Board Certified Radiologist. Accredited by the ACR and FDA. MAMMOGRAPHY IS VERY IMPORTANT TO YOUR HEALTH. THE CURRENT [place] [employer] AND [employer] GUIDELINES RECOMMENDS ANNUAL MAMMOGRAPHY BEGINNING AT AGE 40 THIS FACILITY USES A REMINDER SYSTEM TO ENSURE ALL PATIENTS RECEIVE REMINDER NOTIFICATIONS AT THE APPROPRIATE TIME BASED ON THE RECOMMENDATIONS OF THIS EXAM. Report reported and signed by Cosme Valentin on 12/17/2021 1400 Normal [facility] Specialist TROPONIN, HIGH SENSITIVITYon 09-14-2021 HSTROP 4.9 pg/mL Normal 4.0-51.3 [facility] Comment on above: Result Comment: CUT- OFF POINTS HAVE BEEN ESTABLISHED BASED ON THE FOURTH UNIVERSAL DEFINITIONS OF MYOCARDIAL INFARCTION. THE UPPER REFERENCE LIMIT (URL) OF TROPONIN, DEFINED THE 99TH PERCENTILE OF cTnI DISTRIBUTION IN A REFERENCE POPULATION, HAS BEEN CONFIRMED THE DECISION THRESHOLD FOR VT DIAGNOSIS. Performed By: #### H STROPN #### [facility] [address] [place] [address] Dr. Fawn Anthony XR CHEST 1 Von 09-14-2021 XR CHEST 1 V EXAMINATION: XR CHES T 1 V HISTORY: Chest pain COMPARISON: Chest x-rays 12/02/2020 TECHNIQUE: Portable chest FINDINGS: The lung parenchyma is free of consolidation or infiltrate. No pneumothorax or pleural effusion. The cardiac, mediastinal and hilar contours are normal. The visualized osseous structures exhibit no gross abnormality. IMPRESSION: Normal chest x-ray Electronically authenticated by: MARLENE LEACH Date: 2021-09-13 22:08 Normal [facility] [place] CBC AUTO DIFFon 09-13-2021 BASO # 0.1 103/ul Normal 0.0-0.1 [facility] Comment on above: Performed By: #### C BC #### [facility] [address] [place] [address] [address] Fawn Anthony Basophils/100 WBC (Bld) 1.1 % Normal 0.2-2.0 [facility] Comment on above: Performed By: #### C BC #### [facility] [address] [id number] Fawn Anthony EO # 0.2 103/ul Normal 0.0-0.7 [facility] Comment on above: Performed By: #### C BC #### [facility] [address] [id number] Fawn Anthony Eosinophils/100 WBC (Bld) 4.3 % Normal 0.9-7.0 [facility] Comment on above: Performed By: #### C BC #### [facility] [address] [place] [address] Dr. Fawn Anthony Erythrocyte distribution wid th (RBC) [Ratio] 13.2 % Normal 11.0-15.0 [facility] Comment on above: Performed By: #### C BC #### [facility] [address] [place] [address] Dr. Fawn Anthony Hematocrit (Bld) [Volume fraction] 39.8 % Normal 3 6.0-48.0 [facility] Comment on above: Performed By: #### C BC #### [facility] [address] [place] [address] Dr. Fawn Anthony Hemoglobin (Bld) [Mass/Vol] 13.2 g/dL Normal 12.0-16. 0 [facility] Comment on above: Performed By: #### C BC #### [facility] [address] [place] [address] Dr. Fawn Anthony IG # 0.02 10e3/ul Normal 0.00-0.03 [facility] Comment on above: Performed By: #### C BC #### [facility] [address] [place] [address] Dr. Fawn Anthony IG % 0.4 % Normal 0.0-0.5 [facility] Comment on above: Performed By: #### C BC #### [facility] [address] [place] [address] Dr. Fawn Anthony LYMPH # 1.9 103/ul Normal 1.2-3.8 [facility] Comment on above: Performed By: #### C BC #### [facility] [address] [place] [address] Dr. Fawn Anthony Lymphocytes/100 WBC (Bld) 34.3 % Normal 20.5-60.0 [facility] Comment on above: Performed By: #### C BC #### [facility] [address] [place] [address] Dr. Fawn Anthony MANUAL DIFF REQ NO Normal [facility] [place] Comment on above: Performed By: #### C BC #### [facility] [address] [place] [address] Dr. Fawn Anthony MCH (RBC) [Entitic mass] 29.1 pg Normal 26.7-34.0 [facility] Comment on above: Performed By: #### C BC #### [facility] [address] [place] [address] Dr. Fawn Anthony MCHC (RBC) [Mass/Vol] 33.2 g/dL Normal 29.9-35.2 [facility] Comment on above: Performed By: #### C BC #### [facility] [address] [place] [address] Dr. Fawn Anthony MCV (RBC) [Entitic vol] 87.9 fL Normal 81.0-99.0 [facility] Comment on above: Performed By: #### C BC #### [facility] [address] [place] [address] Dr. Fawn Anthony MONO # 0.5 103/ul Normal 0.3-0.8 [facility] Comment on above: Performed By: #### C BC #### [facility] [address] [place] [address] Dr. Fawn Anthony Monocytes/100 WBC (Bld) 8.3 % Normal 1.7-12.0 [facility] Comment on above: Performed By: #### C BC #### [facility] [address] [place] [address] Dr. Fawn Anthony NEUT # 2.9 103/ul Normal 1.4-6.5 [facility] Comment on above: Performed By: #### C BC #### [facility] [address] [place] [address] Dr. Fawn Anthony Neutrophils/100 WBC (Bld) 51.6 % Normal 43.0-75.0 [facility] Comment on above: Performed By: #### C BC #### [facility] [address] [place] [address] Dr. Fawn Anthony Platelet mean volume (Bld) [Entitic vol] 9.4 fL Critically low 9.5-13.5 [facility] pital Comment on above: Performed By: #### C BC #### [facility] [address] [place] [address] Dr. Fawn Anthony PLT 245 103/ul Normal 150-450 [facility] Comment on above: Performed By: #### C BC #### [facility] [address] [place] [address] Dr. Fawn Anthony RBC 4.53 106/ul Normal 4.20-5.40 [facility] Comment on above: Performed By: #### C BC #### [facility] [address] [place] [address] Dr. Fawn Anthony WBC 5.5 103/ul Normal 4.0-11.0 [facility] Comment on above: Performed By: #### C BC #### [facility] [address] [place] [address] Dr. Fawn nAthony PROF 14(COMP METB)on 022 Albumin [Mass/Vol] 3.7 g/dL Normal 3.4-5.0 [facility] Comment on above: Performed By: #### H LAURA, CMP #### [facility] [address] [place] [address] Dr. Fawn Anthony Albumin/Globulin [Mass ratio] 1.1 {ratio} Normal [facility] Comment on above: Performed By: #### H LAURA, CMP #### [facility] [address] [place] [address] Dr. Fawn Anthony ALP [Catalytic activity/Vol] 79 U/L Normal 46-116 [facility] Comment on above: Performed By: #### H TRACIPN, CMP #### [facility] [address] [place] [address] Dr. Fawn Anthony ALT [Catalytic activity/Vol] 27 U/L Normal 14-59 [facility] Comment on above: Performed By: #### H TRACIPN, CMP #### [facility] [address] [place] [address] Dr. Fawn Anthony Anion gap [Moles/Vol] 9.4 mmol/L Normal [facility] Comment on above: Performed By: #### H STROPN, CMP #### [facility] [address] [place] [address] Dr. Fawn Anthony AST [Catalytic activity/Vol] 15 U/L Normal 15-37 [facility] Comment on above: Performed By: #### H STROPN, CMP #### [facility] [address] [place] [address] Dr. Fawn Anthony Bilirubin [Mass/Vol] 0.5 mg/dL Normal 0.2-1.0 [facility] Comment on above: Performed By: #### H TRACIPN, CMP #### [facility] [address] [place] [address] Dr. Fawn Anthony Calcium [Mass/Vol] 8.7 mg/dL Normal 8.5-10.1 [facility] Comment on above: Performed By: #### H TRACIPN, CMP #### [facility] [address] [place] [address] Dr. Fawn Anthony Chloride [Moles/Vol] 105 mmol/L Normal 98-107 [facility] Comment on above: Performed By: #### H TRACIPN, CMP #### [facility] [address] [place] [address] Dr. Fawn Anthony CO2 [Moles/Vol] 28.2 mmol/L Normal 21.0-32.0 [facility] Comment on above: Performed By: #### H TRACIPN, CMP #### [facility] [address] [place] [address] Dr. Fawn Anthony Creatinine [Mass/Vol] 0.92 mg/dL Normal 0.55-1.02 [facility] Comment on above: Performed By: #### H STROPN, CMP #### [facility] [address] [place] [address] Dr. Fawn Anthony EGFR-AF MALIAN >60 Normal >=60 [facility] Comment on above: Performed By: #### H STROPN, CMP #### [facility] [address] [place] [address] Dr. Fawn Anthony EGFR-NON AF MALIAN >60 Normal >=60 [facility] Comment on above: Performed By: #### H TRACIPN, CMP #### [facility] [address] [place] [address] [address] Fawn Anthony Globulin (S) [Mass/Vol] 3.3 g/dL Normal [facility] Comment on above: Performed By: #### H TRACIPN, CMP #### [facility] [address] [place] [address] Dr. Fawn Anthony Glucose [Mass/Vol] 105 mg/dL Normal 74-106 [facility] Comment on above: Performed By: #### H TRACIPN, CMP #### [facility] [address] [place] [address] Dr. Fawn Anthony Potassium [Moles/Vol] 3.6 mmol/L Normal 3.5-5.1 [facility] Comment on above: Performed By: #### H TRACIPN, CMP #### [facility] [address] [place] [address] Dr. Fawn Anthony Protein [Mass/Vol] 7.0 g/dL Normal 6.4-8.2 [facility] Comment on above: Performed By: #### H LAURA, CMP #### [facility] [address] [place] [address] Dr. Fawn Anthony Sodium [Moles/Vol] 139 mmol/L Normal 136-145 [facility] Comment on above: Performed By: #### H TRACIPN, CMP #### [facility] [address] [place] [address] Dr. Fawn Anthony Urea nitrogen [Mass/Vol] 9.0 mg/dL Normal 7.0-18.0 [facility] Comment on above: Performed By: #### H TRACIPN, CMP #### [facility] [address] [place] [address] Dr. Fawn Anthony Urea nitrogen/Creatinine [Mass ratio] 9.8 mg/mg Normal [facility] Comment on above: Performed By: #### H TRACIPN, CMP #### [facility] [address] [place] [address] Dr. Fawn Anthony TROPONIN, HIGH SENSITIVITYon 09-13-2021 HSTROP 5.6 pg/mL Normal 4.0-51.3 [facility] Comment on above: Result Comment: CUT- OFF POINTS HAVE BEEN ESTABLISHED BASED ON THE FOURTH UNIVERSAL DEFINITIONS OF MYOCARDIAL INFARCTION. THE UPPER REFERENCE LIMIT (URL) OF TROPONIN, DEFINED THE 99TH PERCENTILE OF cTnI DISTRIBUTION IN A REFERENCE POPULATION, HAS BEEN CONFIRMED THE DECISION THRESHOLD FOR VT DIAGNOSIS. Performed By: #### H STROPN, CMP #### [facility] [address] [place] [address] Dr. Fawn Anthony CBC AUTO DIFFon 12-02-2020 BASO # 0.1 103/ul Normal 0.0-0.1 [facility] Comment on above: Performed By: #### C BC #### [facility] [address] [place] [address] Maricruz Kristen Basophils/100 WBC (Bld) 0.9 % Normal 0.2-2.0 [facility] Comment on above: Performed By: #### C BC #### [facility] [address] [place] [address] Maricruz Kristen EO # 0.2 103/ul Normal 0.0-0.7 [facility] Comment on above: Performed By: #### C BC #### [facility] [address] [place] [address] Maricruz Kristen Eosinophils/100 WBC (Bld) 3.3 % Normal 0.9-7.0 [facility] Comment on above: Performed By: #### C BC #### [facility] [address] [place], [place] [id number] Maricruz Kristen Erythrocyte distribution wid th (RBC) [Ratio] 12.7 % Normal 11.0-15.[address] [facility] Comment on above: Performed By: #### C BC #### [facility] [address] [place] [address] Maricruz Kristen Hematocrit (Bld) [Volume fraction] 44.5 % Normal 3 6.0-48.0 [facility] Comment on above: Performed By: #### C BC #### [facility] [address] [id number] Maricruz Kristen Hemoglobin (Bld) [Mass/Vol] 14.2 g/dL Normal 12.0-16. 0 [facility] Comment on above: Performed By: #### C BC #### [facility] [address] [place] [address] Maricruz Kristen IG # 0.05 10e3/ul Critically high 0.00-0.03 [facility] Comment on above: Performed By: #### C BC #### [facility] [address] [place] [address] Maricruz Kristen IG % 0.7 % Critically high 0.0-0.5 [facility] [place] Comment on above: Performed By: #### C BC #### [facility] [address] [place] [address] Maricruz Kristen LYMPH # 1.8 103/ul Normal 1.2-3.8 [facility] Comment on above: Performed By: #### C BC #### [facility] [address] [place] [address] Maricruz Kristen Lymphocytes/100 WBC (Bld) 26.4 % Normal 20.5-60.0 [facility] Comment on above: Performed By: #### C BC #### [facility] [address] [place] [address] Maricruz Kristen MANUAL DIFF REQ NO Normal [facility] [place] Comment on above: Performed By: #### C BC #### [facility] [address] [place] [address] Maricruz Kristen MCH (RBC) [Entitic mass] 29.1 pg Normal 26.7-34.0 [facility] Comment on above: Performed By: #### C BC #### [facility] [address] [place] [address] Maricruz Kristen MCHC (RBC) [Mass/Vol] 31.9 g/dL Normal 29.9-35.2 [facility] Comment on above: Performed By: #### C BC #### [facility] [address] [place], [place] [id number] Maricruzfuentes Bustillosen MCV (RBC) [Entitic vol] 91.2 fL Normal 81.0-99.0 [facility] Comment on above: Performed By: #### C BC #### [facility] [address] [place], [place] [id number] Maricruzfuentes Bustillosen MONO # 0.5 103/ul Normal 0.3-0.8 [facility] Comment on above: Performed By: #### C BC #### [facility] [address] [place], [place] [id number] Maricruz Kristen Monocytes/100 WBC (Bld) 7.6 % Normal 1.7-12.0 [facility] Comment on above: Performed By: #### C BC #### [facility] [address] [place] [address] Maricruz Kristen NEUT # 4.3 103/ul Normal 1.4-6.5 [facility] Comment on above: Performed By: #### C BC #### [facility] [address] [place], [place] [id number] Maricruz Kristen Neutrophils/100 WBC (Bld) 61.1 % Normal 43.0-75.0 [facility] Comment on above: Performed By: #### C BC #### [facility] [address] [place], [place] [address] Maricruzfuentes Bustillosen Platelet mean volume (Bld) [ Entitic vol] 10.0 fL Normal 9.5-13.[address] [facility] Comment on above: Performed By: #### C BC #### [facility] [address] [place], [place] [address] Maricruz Kristen PLT 259 103/ul Normal 150-450 [facility] Comment on above: Performed By: #### C BC #### [facility] [address] [place], [place] [address] Maricruz Kristen RBC 4.88 106/ul Normal 4.20-5.40 [facility] Comment on above: Performed By: #### C BC #### [facility] [address] [place], [place] [address] Maricruz Kristen WBC 7.0 103/ul Normal 4.0-11.0 [facility] Comment on above: Performed By: #### C BC #### [facility] [address] [place], [place] [address] Maricruzfuentes Peterson PROF 14(COMP METB)on 021 Albumin [Mass/Vol] 4.1 g/dL Normal 3.5-5.0 [facility] Comment on above: Performed By: #### C UCHE HSTROPN #### [facility] [address] [place] [address] Maricruz Kristen Albumin/Globulin [Mass ratio] 1.0 {ratio} Normal [facility] Comment on above: Performed By: #### C UCHE HSTROPN #### [facility] [address] [place], [place] [address] Maricruz Kristen ALP [Catalytic activity/Vol] 96 U/L Normal 38-126 [facility] Comment on above: Performed By: #### C UCHE HSTROPN #### [facility] [address] [place], [place] [address] Maricruz Kristen ALT [Catalytic activity/Vol] 83 U/L Critically high 9- 52 [facility] Comment on above: Performed By: #### C UCHE HSTROPN #### [facility] [address] [place] [address] Maricruz Kristen Anion gap [Moles/Vol] 13.2 mmol/L Normal [facility] Comment on above: Performed By: #### C UCHE HSTROPN #### [facility] [address] [place], [place] [address] Maricruz Kristen AST [Catalytic activity/Vol] 40 U/L Critically high 14 -36 [facility] Comment on above: Performed By: #### C UCHE, HSTROPN #### [facility] [address] [place], [place] [address] Maricruz Kristen Bilirubin [Mass/Vol] 0.5 mg/dL Normal 0.2-1.3 [facility] Comment on above: Performed By: #### C UCHE HSTROPN #### [facility] [address] [id number] Maricruz Kristen Calcium [Mass/Vol] 9.0 mg/dL Normal 8.4-10.[address] [facility] Comment on above: Performed By: #### C UCHE, HSTROPN #### [facility] [address] [id number] Maricruz Kristen Chloride [Moles/Vol] 104 mmol/L Normal 98-107 [facility] Comment on above: Performed By: #### C MP, HSTROPN #### [facility] [address] [place] [address] Maricruz Kristen CO2 [Moles/Vol] 29.6 mmol/L Normal 22.0-30.0 [facility] Comment on above: Performed By: #### C UCHE, HSTROPN #### [facility] [address] [place] [address] Maricruz Kristen Creatinine [Mass/Vol] 0.80 mg/dL Normal 0.52-1.04 [facility] Comment on above: Performed By: #### C UCHE, HSTROPN #### [facility] [address] [place], [place] [address] Maricruz Kristen EGFR-AF MALIAN >60 Normal >=60 [facility] Comment on above: Performed By: #### C UCHE, HSTROPN #### [facility] [address] [place], [place] [address] Maricruz Kristen EGFR-NON AF MALIAN >60 Normal >=60 [facility] Comment on above: Performed By: #### C MP, HSTROPN #### [facility] [address] [place], [place] [address] Maricruz Kristen Globulin (S) [Mass/Vol] 4.0 g/dL Normal T [facility] Comment on above: Performed By: #### C MP, HSTROPN #### [facility] [address] [place] [address] Maricruz Kristen Glucose [Mass/Vol] 98 mg/dL Normal 74-[address] [facility] Comment on above: Performed By: #### C UCHE, HSTROPN #### [facility] [address] [place], [place] [address] Maricruz Kristen Potassium [Moles/Vol] 3.8 mmol/L Normal 3.4-5.0 [facility] Comment on above: Performed By: #### C MP, HSTROPN #### [facility] [address] [place], [place] [address] Maricruz Kristen Protein [Mass/Vol] 8.1 g/dL Normal 6.1-8.[address] [facility] Comment on above: Performed By: #### C MP, HSTROPN #### [facility] [address] [place], [place] [address] Maricruz Kristen Sodium [Moles/Vol] 143 mmol/L Normal 137-[address] [facility] Comment on above: Performed By: #### C MP, HSTROPN #### [facility] [address] [place] [address] Maricruz Kristen Urea nitrogen [Mass/Vol] 9.0 mg/dL Normal 7.0-17.0 [facility] Comment on above: Performed By: #### C MP, HSTROPN #### [facility] [address] [place], [place] [address] Maricruz Kristen Urea nitrogen/Creatinine [Mass ratio] 11.2 mg/mg Normal [facility] Comment on above: Performed By: #### C MP, HSTROPN #### [facility] [address] [place] [address] Maricruz Kristen TROPONIN, HIGH SENSITIVITYon 12-02-2020 HSTROP <4.0 Normal 4.0-35.5 [facility] Comment on above: Result Comment: CUT- OFF POINTS HAVE BEEN ESTABLISHED BASED ON THE FOURTH UNIVERSAL DEFINITIONS OF MYOCARDIAL INFARCTION. THE UPPER REFERENCE LIMIT (URL) OF TROPONIN, DEFINED THE 99TH PERCENTILE OF cTnI DISTRIBUTION IN A REFERENCE POPULATION, HAS BEEN CONFIRMED THE DECISION THRESHOLD FOR VT DIAGNOSIS. Performed By: #### C MP, HSTROPN #### [facility] [address] [place], [place] [id number] Maricruz Kristen XR CHEST 2 Von 12-02-2020 XR CHEST 2 V CHEST X RAY, 2 VIEWS CLINICAL INFORMATION: Chest pain. COMPARISONS: Chest x-ray dated 05/12/2014. FINDINGS: No focal consolidation to suggest pneumonia. No pleural effusions or pneumothorax. No overt pulmonary edema. Cardiomediastinal silhouette within normal limits. IMPRESSION: 1. No acute cardiopulmonary disease. Electronically authenticated by: BELEN MARIN Date: 2020-12-02 16:43 Normal [facility] CBC and Differentialon 05-25 Abs Baso <0.03 Normal <0.11 [facility] Abs Greer 0.71 k/uL Normal <0.87 [facility] Abs Neut 4.37 k/uL Normal 1.45-7.50 [facility] Basophils/100 WBC Auto (Bld) 0.3 % Normal [facility] DTYPE Auto Diff Normal [facility] Eosinophils 0.24 10*3/uL Normal <0.46 [facility] Eosinophils/100 leukocytes 3.6 % Normal [facility] Erythrocyte distribution width Auto Ratio (RBC) 13.0 % Normal 11.5-15.0 [facility] Erythrocytes (RBC) 4.00 10*6/uL Normal 3.90-5.20 [facility] Hematocrit (HCT) 36.5 % Normal 36.0-46.0 [facility] Hemoglobin mass conc (Bld) 12.1 g/dL Normal 11.5-15.5 [facility] Lymphocytes 1.32 10*3/uL Normal 1.00-4.00 [facility] Lymphocytes/100 leukocytes 19.8 % Normal [facility] MCH 30.3 pG Normal 26.0-34.0 [facility] MCHC mass conc (RBC) 33.2 g/dL Normal 30.5-36.0 [facility] MCV 91.3 fL Normal 80.0-100.0 [facility] Monocytes/100 leukocytes 10.7 % Normal [facility] Neutrophils/100 WBC Auto (Bld) 65.6 % Normal [facility] Platelet mean volume (PMV) 10.0 fL Normal 9.0-12.7 [facility] Platelets 219 10*3/uL Normal 150-400 [facility] WBC (Leukocytes) 6.66 10*3/uL Normal 3.70-11.[address] [facility] Comp Metabolic Panelon 05-25 Alanine aminotransferase (ALT) 46 U/L High 0-45 [facility] Albumin 3.7 g/dL Normal 3.5-5.0 [facility] Alkaline phosphatase (ALP) 87 U/L Normal 40-150 [facility] Anion gap 15 mmol/L Normal 9-18 [facility] Aspartate aminotransferase (AST) 33 U/L Normal 7-4 0 [facility] Bilirubin (total) 0.4 mg/dL Normal 0.0-1.5 [facility] Calcium 8.9 mg/dL Normal 8.5-10.5 [facility] Chloride 100 mmol/L Normal 98-110 [facility] CO2 24 mmol/L Normal 23-32 [facility] Creatinine 0.70 mg/dL Normal 0.70-1.40 [facility] Glucose mass conc 113 mg/dL High 65-100 [facility] Potassium molar conc 4.1 mmol/L Normal 3.5-5.0 [facility] Protein 7.1 g/dL Normal 6.0-8.4 [facility] Sodium 139 mmol/L Normal 132-148 [facility] Urea nitrogen 13 mg/dL Normal 8-25 [facility] D dimeron 05-25-2017 D dimer 490 ng/mL FEU Normal <500 [facility] Comment on above: Result Comment: The D-dimer assay can be used to exclude pulmonary embolism (PE) and deep vein thrombosis (DVT) in conjunction with a low pre-test probability.For patients with a suspected DVT, a D-dimer level below 500 ng/mL FEU has a negative predictive value of 99.2%, a sensitivity of 98.9%, and a specificity of 36.1%. For patients with a suspected PE, a D-dimer level below 500 ng/mL FEU has a negative predictive value of 99.1%, a sensitivity of 97.8%, and a specificity of 41.7%. ED NOTEon 05-25-2017 ED NOTE HNO ID: [id number] thor: Ivory Smith (Rn) LUIS EDUARDO Nicholservice: Emergency MedicineAuthor Type: Registered NurseType: ED NotesFiled: 05/25/2017 1:46 AMNote Text: DC instructions reviewed, return to ed reviewed, fu care reviewed, rxreviewed. Encouraged pt to ask questions, none at this time. Ptambulatory from ed with family. Normal [facility] ED NOTE HNO ID: [id number] thor: Mayra (Rn) LUIS EDUARDO Ghoshervice: Emergency MedicineAuthor Type: Registered NurseType: ED NotesFiled: 05/24/2017 11:30 PMNote Text:Pt was diagnosed with bronchitis 2 days ago and placed on Amoxicillin.About 35 min ago pt started to have a pressure in her epigastric area ,tingling in her right arm. Pt also feels that she is not getting anybetter and still feels SOB. Also complains of a harsh nonproductivecough. Symptoms are starting to lessen. Normal [facility] ED PROV NOTEon 05-25-2017 ED PROV NOTE HNO ID: [id number] thor: KIRBY Fonsecaervice: Emergency MedicineAuthor Type: PhysicianType: ED Provider NotesFiled: 05/25/2017 1:34 AMNote Text:ED Provider NotePatient Name: Dominga CabelloMRN: [id number] DATE: 05/24/17HistoryPatient presents with:Shortness of BreathHPI Comments: 52-year-old female. She developed a dry cough, harsh, 2days ago, with some shortness of breath, went to her family doctor and wasput on amoxicillin and an albuterol inhaler. She says she tends todevelop bronchitis very easily. She continues to have the coughing.Around 40 minutes prior to coming in, she developed a sharp low [place] epigastric discomfort, nonradiating. It seems to resolvespontaneously, right now just a dull pressure. She developed sometingling in her right hand and arm that is gone away spontaneously. Noleft arm or neck or jaw discomfort. She feels like she is subjectivelyhaving a low-grade fever, but has not formally taken her temperature. Nosore throat or body aches or earaches. Patient denies leg pain orswelling or recent prolonged immobilizationShe has not taken anything for this. No history of heart or lung orthromboembolic disease hypertension diabetes or high cholesterol. Justmild asthma in the past. She is a nonsmoker. She has a family history ofheart diseaseHistory provided by: PatientLanguage technical adjuster used: NoPAST MEDICAL HISTORYDiagnosis Date- ADHD- Major depressionPAST SURGICAL HISTORYProcedure Laterality Date- SECTION HX- CHOLECYSTECTOMY HX- ORTHOPEDICS SURGERY HXNo family history on file.Social HistorySocial History Main Topics- Smoking status: Never Smoker- Smokeless tobacco: Never Used- Alcohol use No- Drug use: No- Sexual activity: Not AskedALLERGIESAllergen Reactions- Naproxen HivesReview of SystemsConstitutional: Positive for chills and fever. Negative for fatigue.HENT: Negative for facial swelling.Eyes: Negative for pain and visual disturbance.Respiratory: Positive for cough, chest tightness and shortness of breath.Negative for wheezing.Cardiovascular: Negative for chest pain, palpitations and leg swelling.Gastrointestinal: Negative for abdominal pain, diarrhea, nausea andvomiting.Genitourinary: Negative for difficulty urinating and dysuria.Musculoskeletal: Negative for arthralgias, back pain, myalgias and neckpain.Skin: Negative for rash.Neurological: Negative for syncope and headaches.Hematological: Does not bruise/bleed easily.Psychiatric/Behavioral: Negative for suicidal ideas.Physical ExamBP 126/77 Pulse 85 Temp (Src) 99.8 (Oral) Resp 18 Ht 5' 10 (1.78m) Wt 204 lb (92.5kg) SpO2 98% LMP 04/04/2017 BMI 29.27kg/(m2).Physical ExamConstitutional: She is oriented to person, place, and time. She appearswell-developed and well-nourished. No distress.HENT:Head: Normocephalic and atraumatic.Eyes: EOM are normal. Pupils are equal, round, and reactive to light.Neck: Neck supple. No JVD present. No tracheal deviation present. Nothyromegaly present.Cardiovascular: Normal rate, regular rhythm, normal heart sounds andintact distal pulses. Exam reveals no gallop and no friction rub.No murmur heard.Pulmonary/Chest: Effort normal and breath sounds normal. No respiratorydistress. She has no wheezes. She has no rales.Abdominal: Soft. Bowel sounds are normal. She exhibits no distension andno mass. There is no tenderness. There is no rebound and no guarding.No pulsatile masses or HSMMusculoskeletal: She exhibits no edema or tenderness.Neurological: She is alert and oriented to person, place, and time. Nocranial nerve deficit. Coordination normal.Skin: Skin is warm and dry. No rash noted.Psychiatric: She has a normal mood and affect. Her behavior is normal.Nursing note and vitals reviewed.Diagnostic TestingED Labs Ordered and Reviewed - No data to display ProceduresEKG I interpret as showing sinus rhythm rate of 84, normal intervals, noacute ST or T-wave changes pending internal review chest x-ray read as noacute pathology per radiologistCBC metabolic panel and TSH unremarkableD-dimer negativeEye sensitivity troponin negativeSecond troponinUnchangedMedical Decision Making / ED CourseED CoursePatient kept under observation, no problems while here.Findings were discussed with the patient. Patient has no PE risk factorsand d-dimer is negative. She is low risk for ACS with negative serialtroponins. She is having cough which could be contributing to her chestdiscomfort, but no evidence of pneumonia.She also got relief with the GI cocktail here, so some of this could be GIupset/indigestion, possibly due to the medication. Otherwise, she isstable for discharge, can follow-up with her family doctor or familypractice here in a few days for reevaluation. Follow-up sooner if worseor return to ED. Condition at discharge stableEncounter Diagnosis ICD-10-CM1. Chest pain, unspecified type R07.9PlanThe Patient was Discharged homeCondition at time of disposition: stableSIGNATURE: Jian Fonseca MD05/25/17 0134 Normal Cl [facility] High Sens Troponin Ton 05-25 High Sensitivity MATT <6 Normal [facility] [facility] Comment on above: Result Comment: When assessing risk for acute coronary syndromes: In patients undergoing blood draw greater than or equal to 2 hours from symptom onset, with history of very low to moderate risk and non-ischemic ECG, an initial hs-Troponin T less than 12 ng/L AND a 1 hour delta hs-Troponin T less than 3 ng/L should be considered very low risk for 30 day MACE. High Sensitivity MATT <6 Normal <12 [facility] Comment on above: Result Comment: When assessing risk for acute coronary syndromes: In patients undergoing blood draw greater than or equal to 2 hours from symptom onset, with history of very low to moderate risk and non-ischemic ECG, an initial hs-Troponin T less than 12 ng/L AND a 1 hour delta hs-Troponin T less than 3 ng/L should be considered very low risk for 30 day MACE. Magnesiumon 05-25-2017 Magnesium 2.0 mg/dL Normal 1.7-2.6 [facility] PROGRESSon 05-25-2017 PROGRESS HNO ID: [id number] thor: Miriam Olivarez RtService: (none)Author Type: (none)Type: Progress NotesFiled: 05/25/2017 12:07 AMNote Text: Radiology Service Progress NotePATIENT NAME: Dominga CabelloMRN: [id number] OF SERVICE: May 24, 2017TIME: 11:47 PMPATIENT IDENTITY VERIFICATION COMPLETED USING TWO (2) METHODS: Patientconfirmed name verbally and Date of .PATIENT GENDER DATA: Female. status: : NoBreastfeeding status: N/APATIENT RELEVANT IMPLANT DATA REVIEWED: Not ApplicableRADIOLOGY DEPARTMENT: General X-ray: Exam(s) Completed: Chest X-RayPERIPHERAL IV DATA: Not applicableSIGNED BY: Miriam lOivarez RtFebruary 2017 11:47 PM Normal [facility] XR CHEST 1V FRONTALon 2017 XR CHEST 1V FRONTAL * * *Final Report* * *DATE OF EXAM: May 25 2017 12:06AM TWX [id number] - XR CHEST 1V FRONTAL / REASON: Chest pain * * * * Physician Interpretation * * * * EXAMINATION: CHEST RADIOGRAPH (PORTABLE SINGLE VIEW AP)Clinical History: Chest painComparison: None.RESULT:See impression.IMPRESSION:Lines, tubes, and devices: None.Lungs and pleura: Slight elevated right hemidiaphragm. Minimal bibasilar atelectasis. No focal consolidation, pneumothorax or visualized effusion.Cardiomediastinal silhouette: Within normal limits.Hospitality Workers: MADDIE Transcribe Date/Time: May 25 2017 12:10ADictated by : BELEN FOSTER MDThis examination was interpreted and the report reviewed and electronically signed by: BELEN FOSTER MD on May 25 2017 12:10AM [id number] Normal [facility] Encounters Encounter Date Encounter Type Care Provider Facility Start: 03-05-2023 End: 03-05-2023 ambulatory SHAIKH KAROLINE Not Available Start: 07-13-2022 End: 07-13-2022 ambulatory GHISLAINE GROSS Facility:[facility] Start: 04-17-2022 End: 04-18-2022 ambulatory NATACHA DASH Facility:[facility] Start: 03-20-2022 End: 03-21-2022 ambulatory NATACHA DASH Facility:[facility] Start: 02-07-2022 End: 02-07-2022 ambulatory GHISLAINE GROSS Facility:[facility] Start: 09-13-2021 End: 09-14-[address] HUGO WHITE Facility:[facility] Start: 05-29-2021 End: 05-29-2021 Patient encounter procedure PhD Chaka Atwood Work Phone: [facility] Start: 02-11-2021 End: 02-11-[address] HUGO WHITE Facility:[facility] Start: 12-02-2020 End: 12-02-[address] ELIDA FRANCOIS Facility:[facility] Start: 05-25-2017 End: 05-25-2017 Emergency department patient visit ESPERANZA John GARCIA [facility] Payers Date Payer Category Payer Unknown [id number] 2.16.84 [id number] 1966 Unknown [id number] 2..84 [id number] 1966 Unknown [id number] 2.16.84 [id number] 1966 Unknown [id number] 2.16.84 [id number] 1966 Unknown [id number] 2.16.84 [id number] 1966 Unknown [id number] 2.16.84 [id number] 1966 Unknown [id number] 2.16.84 [id number] 1966 Unknown [id number] [id number] 1959 Private Health Insurance [id number] Private Health Insurance [id number] 1958 Self-pay [id number] 1958 Unknown [id number] Social History Date Type Detail Facility Tobacco smoking stat [facility] Unknown if ever smoked [facility] Work Phone: Start: 1965 Sex Assigned At Female [facility] Clinical Note 02-08-2022 Note Date & Type Note Facility 02-08-2022 Note PROCEDURE: Keen IO VCT 64, 5 mm slice axial images were acquired with coronal reconstruction through the abdomen and pelvis without contrast. HISTORY: Right lower quadrant pain x 3 days FINDINGS: Prominent mesenteric interstitial stranding within the right lower quadrant with right pericolic space fluid extending into the renal pelvis and abnormal wall thickening of the distended appendix (exceeding 10 mm), a non-distended distal ileum. No bowel obstruction or free air. The remainder of the small and large bowel is unremarkable. No ascites. Unremarkable lung bases, liver, biliary tree (s/p cholecystecomy), pancreas, adrenal glands, kidneys, collecting systems and bladder. Non-specific raissa-pancreatic lymph nodes (low volume) with mild splenomegaly. IMPRESSION: Right lower quadrant inflammation consistent with both appendicitis and ileitis, indeterminate which is the primary source. Inflammatory bowel disease remains a consideration. Report reported and signed by Cosme Valentin on 02/08/2022 [facility] Specialist Clinical Note 12-14-2021 Note Date & Type Note Facility 12-14-2021 Note HISTORY: Short tern memory loss x 3 years PROCEDURE: Multiplanar, multisequence imaging including routine T1, T2 without contrast. FINDINGS: No worrisome intra- or extra-axial mass lesions, mass effect or hemorrhage identified. No evidence of major vessel ischemia is noted. Periventricular and subcortical white matter is normal without significant small vessel ischemic or demyelination changes. Ventricular size is normal for this age, and commensurate with the cerebral sulci. Normal signal flow void is present within the major cerebral vessels. Corpus callosum, yasmany, midbrain sellar contents and suprasellar cistern are normal. The 7th and 8th cranial nerve complexes, internal auditory canals are unremarkable. Calvarium, mastoid air cells, paranasal sinuses and orbital contents are unremarkable. IMPRESSION: Normal brain MRI Report reported and signed by Cosme Valentin on 12/17/2021 1416 [facility] Specialist Clinical Note 10-05-2021 Note Date & Type Note Facility 10-05-2021 Note HISTORY: Right side headache x 2 weeks, jaw pain, earache PROCEDURE: Without IV contrast, images of the brain were performed. FINDINGS: No worrisome intra- or extra-axial mass lesions, mass effect or hemorrhage are identified. No evidence of major vessel ischemia is noted. Ventricular size is normal for this age, and commensurate with the cerebral sulci. Calvarium and orbital contents are unremarkable. Normal aeration of mastoid air cells, tympanic cavities, and paranasal sinuses. IMPRESSION: Normal non-contrast brain CT Report reported and signed by Cosme Valentin on 10/05/2021 [id number] [facility] Receiving Lead Evaluation note Note Date & Type Note Facility Evaluation note No assessment information availa [facility] Work Phone: Summary Purpose Family History No Family History Records FoundNo Family History Records FoundNo Family History Records FoundNo Family History Records FoundNo Family History Records Found Advance Directives No Advanced Directives Records Found Advance Directive Response Recorded Date/ Time Advance Directives No January 16, 2017 1:26pm Chief Complaint and Reason for Visit Chief Complaint Cognitive Disability Additional Source Comments INFORMATION SOURCE (unrecogn ized section and content) DATE CREATED AUTHOR 09/19/2017 [facility] DATE CREATED AUTHOR 'S ORGANIZ ATION 09/17/2021 [facility] DATE CREATED AUTHOR AUTHOR'S ORGANIZ ATION 02/09/2022 [facility] Specialist DATE CREATED AUTHOR AUTHOR'S ORGANIZ ATION 07/16/2022 [facility] DATE CREATED AUTHOR AUTHOR'S ORGANIZ ATION 03/07/2023 [facility] d[facility] Specialists EPIC Care Teams (unrecognized sec tion and content) Team Status: Inactive Member Role Status Dates Chaka Atwood , PhD Attending Provider Active Ghislaine Gross MD Primary Care Provider Active Team Status: Active Member Role Status Dates Ghislaine Gross MD Primary Care Provider Active Goals (unrecognized section and content) Goals may be documented in a n alternate section FOR RECORDS PERTAINING TO PATIENTS WHO ARE OR HAVE BEEN ENROLLED IN A CHEMICAL DEPENDENCY/SUBSTANCEABUSE PROGRAM, SOME INFORMATION MAY BE OMITTED. This clinical summary was aggregated from multiple sources. Caution should be exercised in using it in the provision of clinical care. This summary normalizes information from multiple sources, and as a consequence, information in this document may materially change the coding, format and clinical context of patient data. In addition, data may be omitted in some cases. CLINICAL DECISIONS SHOULD BE BASED ON THE PRIMARY CLINICAL RECORDS. [facility]. provides no warranty or guarantee of the accuracy or completeness of information in this document.
== END 2023-02-10 07:01 | disposition home or self-care (01) ==
LOC: CARD 07:00
PROVIDERS: PCP Internal Medicine; Visit Provider Internal Medicine
DX: R07.9 Chest pain, unspecified (principal)
CPT/HCPCS: 93017

== ENCOUNTER 2023-12-11 07:00 | Emergency (ER) | payer OTHER, SELFPAY ==
[2023-12-11] VITALS (15 sets, daily range): BP systolic 105–124; BP diastolic 62–77; PULSE 66–77; TEMP 36.8; O2SAT 96–100; BMI 21.8
--- OUTSIDE RECORDS SUMMARY | 2023-12-11 07:06 | XMS_ITS | CCD ---
Author Organization [facility] Inform ion [facility] Care Team Providers Care Harness Mender Name Role Phone Rai, PhD Chaka Attending Provider MD Ghislaine Gross Primary Care Provider DR HUGO RUIZ Admitting Unavailable JOSEPH, DR HUGO Gongora Attending Unavailable JOSEPH, DR HUGO Gongora Consulting Unavailable PRISCILA, DR ELIDA Pack Admitting Unavailagusto FRANCOIS, DR ELIDA Pack Attending Unavailagusto FRANCOIS, DR ELIDA Pack Consulting UnavailBETI Murillo Consulting Unavailable BELEN MARIN Consulting Unavailable JOSEPH, DR HUGO Gongora Consulting Unavailable JOSEPH, DR HUGO Gongora Admitting Unavailable JOSEPH, DR HUGO Gongora Attending Unavailable RENATO, DR RAYA Primary Care Unavailable MARLENE LEACH Consulting Unavailable GHISLAINE GROSS Primary Care Unavailable WILBER PRINGLE Consulting Unavailable EKTA Saez, WILBER Admitting Unavailable WILBER PRINGLE Attending Unavailable AG PEACOCK Consulting Unavailable GHISLAINE GROSS Primary Care Unavailable PRISCILA, DR ELIDA Pack Admitting Unavailagusto FRANCOIS, DR ELIDA Pack Attending Unavailagusto RUIZ, DR HUGO Gongora Consulting Unavailable PRISCILA, DR ELIDA Pack Consulting UnavailLUKE Monge Consulting Unavailable YOKASTA BAINS Consulting Unavailable NATACHA DASH Admitting Unavailable NATACHA DASH Attending Unavailable GHISLAINE GROSS Primary Care Unavailable DR SHARON WOODRUFF Consulting Unavailable NATACHA DASH Admitting Unavailable NATACHA DASH Attending Unavailable GHISLAINE GROSS Primary Care Unavailable DR SHARON WOODRUFF Consulting Unavailable Ghislaine Gross Primary Care Provider Preston CORBIN, Roque Middleton Unavailable MADDISON ALFONSO Referring Unavailable GHISLAINE GROSS Primary Care Unavailable Ghislaine Gross MD Primary Care Provider [phone] Ghislaine Gross Primary Care Provider ERICA MADHAV A Attending Unavailable ERICA, MADHAV A Referring Unavailable GHISLAINE GROSS Primary Care Unavailable ERICA, MADHAV A Referring Unavailable GHISLAINE GROSS Primary Care Unavailable ERICA, MADHAV A Referring Unavailable GHISLAINE GROSS Primary Care Unavailable ERICA, MADHAV A Attending Unavailable GHISLAINE GROSS Primary Care Unavailable DELMY FARFAN Attending Unavailable GHISLAINE GROSS Primary Care Unavailable ERICA, MADHAV A Referring Unavailable GHISLAINE GROSS Primary Care Unavailable ERICA, MADHAV A Referring Unavailable GHISLAINE GROSS Primary Care Unavailable CAMI DIALLO Attending Unavailable GHISLAINE GROSS Referring Unavailable GHISLAINE GROSS Primary Care Unavailable CAMI DIALLO Attending Unavailable GHISLAINE GRSOS Referring Unavailable GHISLAINE GROSS Primary Care Unavailable CAMI DIALLO Attending Unavailable GHISLAINE GROSS Referring Unavailable GHISLAINE GROSS Primary Care Unavailable CAMI DIALLO Attending Unavailable GHISLAINE GROSS Referring Unavailable GHISLAINE GROSS Primary Care Unavailable SHAIKH RAMEY Attending Unavailable SHAIKH RAMEY Attending Unavailable CARLITA ROMERO Attending Unavailable Allergies Allergy Classification Reported Allergen(s) Allergy Type Date of Onset Reaction(s) Facility NSAIDs (1 source) Naproxen Drug Allergy 05-24-2017 [facility] (5 sources) Naproxen; Translations: [NAPROXEN] Drug Allergy 11-14-2016 [facility] (15 sources) Naproxen Drug Allergy 11-14-2016 [facility] Medications Current Medications Medication Drug Class(es) Dates Sig (Normalized) Sig (Original) Amoxicillin (15 sources) Penicillin-class Antibacterial AMOXICILLIN ORAL Take by mouth. 0 Active Comment on above: Take by mouth. ARIPiprazole 2 mg oral tablet (16 sources) Atypical Antipsychotic Start: 02-26-2023 take 1 tablet by mouth in the morning ARIPiprazole (ABILIFY) 2 mg tablet Take 1 tablet (2 mg total) by mouth in the morning. 30 tablet 5 02/26/2023 Active ARIPIPRAZOLE (AB ILIFY ORAL) Take by mouth. 0 Active Comment on above: Take by mouth. ascorbic acid 100 mg oral tablet (1 source) Vitamin C take 1 tablet by mouth in the morning ascorbic acid, vitamin C, (VITAMIN C) 100 MG tablet Take 1 tablet (100 mg total) by mouth in the morning. 0 Active biotin 10 mg oral capsule (1 source) Start: 12-13-2021 take 1 tablet by mouth twice daily biotin 10,000 mcg capsule 1 tablet Orally two times daily for 30 day(s) 0 12/13/2021 Active Bromelains (14 sources) bromelains (BROMELAIN ORAL) Take by mouth. 0 Active Comment on above: Take by mouth. 24 hr buPROPion hydrochloride 150 mg extended release oral tablet (16 sources) Aminoketone Start: 12-31-2022 take 1 tablet by mouth once daily in the morning buPROPion XL (WELLBUTRIN XL) 150 mg 24 hr tablet Take 150 mg by mouth every morning. 0 12/31/2022 Active take 1 tablet by pattie th every twenty-four hours in the morning buPROPion XL (WELLBUTRIN XL) 150 mg 24 h r tablet Take 1 tablet (150 mg total) by mouth in the morning. 0 Active Comment on above: Take 150 mg by mouth every morning. Citalopram (15 sources) Serotonin Reuptake Inhibitor CITALOPRAM HYDROBROMIDE (CITALOPRAM ORAL) Take by mouth. 0 Active Comment on above: Take by mouth. 24 hr desvenlafaxine succinate 25 mg extended release oral tablet (14 sources) Serotonin and Norepinephrine Reuptake Inhibitor Start: take 1 tablet by mouth once daily in the morning, then take 1 tablet by mouth every twenty-four hours desvenlafaxine ER (PRISTIQ) 25 mg 24 hr tablet Take 25 mg by mouth every morning. 0 04/28/2023 Active Start: 04-09-2023 take 1 tablet by pattie th every twenty-four hours in the morning desvenlafaxine (PRISTIQ) 25 mg 24 hr tablet Take 1 tablet (25 mg total) by mouth in the morning. 30 tablet 2 04/09/2023 Active Comment on above: Take 25 mg by mouth every morning. DEXTROAMPHETAMINE/A MPHETAMINE (ADDERALL ORAL) (15 sources) DEXTROAMPHETAMIN E/AMP HETAMINE (ADDERALL ORAL) Take by mouth. 0 Active Comment on above: Take by mouth. gabapentin 800 mg oral tablet (1 source) Anti-epileptic Agent Start: 3 gabapentin (NEURONTIN) 800 mg tablet TAKE ONE-HALF TABLET - ONE TABLET BY MOUTH AT BEDTIME 0 08/08/2022 Active losartan potassium 25 mg oral tablet (16 sources) Angiotensin 2 Receptor Cj Start: 2 take 1 tablet by mouth in the morning losartan (COZAAR) 25 mg tablet Take 1 tablet (25 mg total) by mouth in the morning. 0 09/18/2021 Active Comment on above: Take 25 mg by mouth once daily. Magnesium (1 source) take 1 tablet by mouth in the morning MAGNESIUM ORAL Take 1 tablet by mouth in the morning. 0 Active metoprolol tartrate 25 mg oral tablet (1 source) beta-Adrenergic Cj Start: 4 metoprolol tartrate (LOPRESSOR) 25 mg tablet Take 1 tablet 12hrs and 1 tablet 2 hrs prior to test 2 tablet 0 04/03/2023 Active multivit with minerals/lutein (MULTIVITAMIN 50 PLUS ORAL) (1 source) multivit with minerals/lutein (MULTIVITAMIN 50 PLUS ORAL) Multivitamin 0 Active omega 4-yvb-pta-fish oil (Fish OiL) 300-1,000 mg capsule (1 source) take 300-1000 mg by mouth in the morning omega 3-crt-dat-fish oil (Fish OiL) 300-1,000 mg capsule Take 1 tablet by mouth in the morning. 0 Active pyridoxine HCl, vitamin B6, (VITAMIN B-6 ORAL) (15 sources) pyridoxine HCl, vitamin B6, (VITAMIN B-6 ORAL) Take by mouth. 0 Active Comment on above: Take by mouth. soybean, fermented (NATTOKINASE ORAL) (14 sources) soybean, ferment ed (NATTOKINASE ORAL) Take by mouth. 0 Active Comment on above: Take by mouth. Turmeric extract (15 sources) turmeric (CURCUM IN [facility]) Problems Active Problems Problem Classification Problem Date Documented Date Episodic/Chronic Anxiety disorders (1 source) Anxiety disorder, unspecified; Translations: [ANXIETY DISORDER UNSPECIFIED] Onset: 01-09-2021 Chronic Asthma (1 source) Asthma; Translations: [Unspecified asthma, uncomplicated] Onset: 02-15-2022 02-15-2022 Chronic Cardiac dysrhythmias (1 source) Palpitations; Translations: [Palpitations] Onset: 04-17-2023 Episodic Esophageal disorders (2 sources) Gastro-esophageal reflux disease without esophagitis; Translations: [Gastroesophageal reflux disease] Onset: 02-11-2022 02-15-2022 Chronic Essential hypertension (4 sources) Essential (primary) hypertension; Translations: [Hypertensive disorder] Onset: 09-17-2021 02-15-2022 Chronic Mood disorders (2 sources) Recurrent major depressive episodes, moderate ; Translations: [Major depressive disorder, recurrent, moderate] Onset: 04-17-2017 01-13-2023 Chronic Nonspecific chest pain (12 sources) Chest pain, unspecified; Translations: [Precordial pain] Onset: 12-02-2020 Episodic Other aftercare (2 sources) Other prison (current) drug therapy; Translations: [OTH ASSISTED CURRENT DRUG THERAPY] Onset: 09-17-2021 Episodic Other hereditary and degenerative nervous system conditions (5 sources) Impaired cognition; Translations: [Mild cognitive impairment, so stated] 03-19-2023 Chronic Other hereditary and degenerative nervous system conditions (2 sources) Mild cognitive impairment, so stated; Translations: [Cognitive impairment, mild, so stated] Onset: 05-22-2023 Chronic Other nervous system disorders (1 source) Disturbance of attention; Translations: [Attention and concentration deficit] Onset: 04-17-2017 04-17-2017 Chronic Other nervous system disorders (2 sources) Cognitive deficit in communication skills; Translations: [Cognitive communication deficit] 05-22-2023 Chronic Other nervous system disorders (1 source) Attention and concentration deficit; Translations: [Attention and concentration deficit] Onset: 04-17-2017 Chronic Other screening for suspected conditions (not mental disorders or infectious disease) (1 source) Abnormal electrocardiogram [ECG] [EKG]; Translations: [Abnormal electrocardiogram (ECG) (EKG)] Onset: 04-17-2023 Episodic Residual codes; unclassified (4 sources) Obstructive sleep apnea (adult) (pediatric); Translations: [OBSTRUCTIVE SLEEP APNEA] Onset: 04-17-2022 Chronic Residual codes; unclassified (1 source) Hypersomnia, unspecified; Translations: [HYPERSOMNIA UNSPECIFIED] Onset: 03-28-2022 Chronic Residual codes; unclassified (1 source) Obstructive sleep apnea syndrome; Translations: [Obstructive sleep apnea (adult) (pediatric)] 05-22-2023 Chronic Residual codes; unclassified (1 source) Acquired absence of other specified parts of digestive tract; Translations: [ACQ ABSENCE OTH PART DIGESTV TRACT] Onset: 07-15-2022 Episodic Residual codes; unclassified (1 source) Family history of ischemic heart disease and other diseases of the circulatory system; Translations: [Family history of ischemic heart disease and other diseases of the circulatory system] Onset: 04-17-2023 Episodic Residual codes; unclassified (1 source) Failed encounter; Translations: [No-show for appointment] 09-19-2023 Episodic Past or Other Problems Problem Classification Problem Date Documented Da te Episodic/Chronic Abdominal pain (4 sources) Epigastric pain; Translations: [EPIGASTRIC PAIN] Onset: 02-07-2022 Episodic Appendicitis and other appendiceal conditions (1 source) Acute appendicitis with generalized peritonitis; Translations: [Acute appendicitis with generalized peritonitis, without abscess, unspecified whether gangrene present, unspecified whether perforation present] Onset: 02-08-2022 02-08-2022 Episodic Chronic obstructive pulmonary disease and bronchiectasis (4 sources) Bronchitis, not specified as acute or chronic; Translations: [BRONCHITIS NOT SPEC ACUTE/CHRON] Onset: 02-11-2021 Episodic Other lower respiratory disease (1 source) Snoring; Translations: [SNORING] Onset: 03-28-2022 Episodic Other nervous system disorders (1 source) Impaired cognition; Translations: [Other symptoms and signs involving cognitive functions and awareness] Onset: 11-27-2022 01-13-2023 Episodic Other nervous system disorders (1 source) Other symptoms and signs involving cognitive functions and awareness; Translations: [Other symptoms and signs involving cognitive functions and awareness] Onset: 01-13-2023 Episodic Residual codes; unclassified (5 sources) Other amnesia; Translations: [OTHER AMNESIA] Onset: 03-20-2022 Episodic Residual codes; unclassified (1 source) Insomnia, unspecified; Translations: [INSOMNIA UNSPECIFIED] Onset: 03-28-2022 Episodic Results Test Name Value Interpretation Reference Range Jermain Blanc 10-06-2023 CNPN Telephone (OTOLMN) YANIQUE CABELLO ([id number]) 1965 F [place] Date Time Provider Department 10/06/23 ESTEFANY BLOCKEN OTOLMN During your visit today, we recorded the following information about you: Allergies As of Date: 10/06/2023 Noted Allergy Reaction NAPROXEN 05/24/2017 4 - Hives Date Reviewed: 05/22/2023 Reviewed by: Irasema Miller OCCA - Fully Assessed Reason for Visit: Returning Patient's Call [[id number]] Cmt: Received voicemail from patient requesting contact information for local speech providers. This information was previously provided to patient via [employer] and email on 09/19/2023. A second email listing the local speech providers was sent to patient on 10/03/2023 via email (patients preferred mode of communication). Called patient. Clarified that local speech providers were sent to her via email. Patient currently driving and planning to look at her email once home. Prescriptions as of 10/06/2023 - desvenlafaxine ER (PRISTIQ) 25 mg 24 hr tablet Take 25 mg by mouth every morning. - buPROPion XL (WELLBUTRIN XL) 150 mg 24 hr tablet Take 150 mg by mouth every morning. - losartan (COZAAR) 25 mg tablet Take 25 mg by mouth once daily. - turmeric (CURCUMIN MISC) - soybean, fermented (NATTOKINASE ORAL) Take by mouth. - bromelains (BROMELAIN ORAL) Take by mouth. - pyridoxine HCl, vitamin B6, (VITAMIN B-6 ORAL) Take by mouth. - CITALOPRAM HYDROBROMIDE (CITALOPRAM ORAL) Take by mouth. - ARIPIPRAZOLE (ABILIFY ORAL) Take by mouth. - DEXTROAMPHETAMINE/AMPHE TAMINE (ADDERALL ORAL) Take by mouth. - AMOXICILLIN ORAL Take by mouth. Problem List As Of Date: 10/06/2023 (None) Encounter Status:Closed by [facility]ARVIS [facility] VINCENTYANIQUE ([id number]) 1965 F [place] Date Time Provider Department 10/06/23 LINDSEY GRIFFITH During your visit today, we recorded the following information about you: Lindsey Griffith LISW 10/06/2023 1:36 PM Signed Contacted pt regarding scheduled virtual visit; pt reports she was not aware of the visit. Pt expressed frustration with plan of care. Pt reports impression of plan was to get another MRI and then follow-up with Dr. Maldonado to obtain a diagnosis. Advised that per message from direct care worker insurance will not cover more than one MRI per year (last was 05/2023). Pt became emotional reporting immense frustration with the process. Reviewed plans from visits with Dr. Maldonado on 03/19/23 and 05/22/2023. Pt reported she completed the MRI and is awaiting local [employer] referrals from speech therapist to continue visits. Pt became increasingly upset with pscyhology referral was addressed stating No one here does that shit and I don't have the time. I don't have PTO or sick time to take away from my job to do these things . Pt reports financial resource strain; when MEDICAL BILLER CODER attempted to address pt abruptly ended the call. Will discuss plan with medical team and request local speech therapies with [facility] therapist. DAVID Marquis Elaine, RN 10/06/2023 3:48 PM Signed RN called patient per request of Lindsey Griffith and informed her that MRI could not be repeated because she just had a MRI in May and insurance will not typically pay for a repeat MRI unless she we are a medicatio or other reason. We typically don't do frequent MRIs. She was upset that she was not informed by Dr. Maldonado because she had memory loss and has had no treatment. I discussed plan from May 2023 visit with her which included Consult sleep to ensure CPAP is adequately helping her OISA which she completed, Encouraged consultation with psychiatrist to revisit role for readjusting depression meds --which she didn't do because she stated she there is no one in her area to see and she cannot miss time from work and Cognitive therapy --she didn't do and didn't understand what cognitive therapy was. RN explained that she would work with speech therapist to address difficulties and regain independence with self-care and improve her quality of life. She said she could only do this over the phone because she couldn't take time off from work. RN informed her she would need to check if they did virtual appts. When discussing follow up [address] Mcwilliams from May appt she abruptly ended the call stating she was at a doctor's appt and asked me to call back tomorrow. YULI Almeida Elaine, RN 10/07/2023 2:31 PM Signed RN called patient as promised yesterday. Shared plan from Dr. Maldonado regarding disability: That she could apply for diasability under psychiatry and c/c pain as her congitive issues are secondary to them. She should continue with speech therapy/cognitive therapy, pharmacy informatics manager her CRUZ with BIPAP and see her psychiatrist for other issues. She denied wanting to apply for disability at this time. She doesn't think it is a good idea. She thought that this was : crap and that Dr. Maldonado was arrogant to think that her dementia was related to her psychiatric issues. RN explained to her that there can be multiple reasons for cognitive issues, including pain, psychiatric issues and CRUZ. She said she has had depression her whole life. She is going to see speech therapist. She doesn't think the psychiatrist can do much for her except prescribe her meds and she already is managing her CRUZ. She is requesting MRI when she is able to have it. She was informed she has a f/u with Dr. Maldonado in Nov. She requested that I send her the appt information via text. RN will have coordinator mail appt to her. Yolanda Gonzalez RN Allergies As of Date: 10/06/2023 Noted Allergy Reaction NAPROXEN 05/24/2017 4 - Hives Date Reviewed: 05/22/2023 Reviewed by: Irasema Miller OCCA - Fully Assessed Reason for Visit: Appointment [[id number]] Prescriptions as of 10/07/2023 - desvenlafaxine ER (PRISTIQ) 25 mg 24 hr tablet Take 25 mg by mouth every morning. - buPROPion XL (WELLBUTRIN XL) 150 mg 24 hr tablet Take 150 mg by mouth every morning. - losartan (COZAAR) 25 mg tablet Take 25 mg by mouth once daily. - turmeric (CURCUMIN MISC) - soybean, fermented (NATTOKINASE ORAL) Take by mouth. - bromelains (BROMELAIN ORAL) Take by mouth. - pyridoxine HCl, vitamin B6, (VITAMIN B-6 ORAL) Take by mouth. - CITALOPRAM HYDROBROMIDE (CITALOPRAM ORAL) Take by mouth. - ARIPIPRAZOLE (ABILIFY ORAL) Take by mouth. - DEXTROAMPHETAMINE/AMPHE TAMINE (ADDERALL ORAL) Take by mouth. - AMOXICILLIN ORAL Take by mouth. Problem List As Of Date: 10/06/2023 (None) Encounter Status:Closed by LINDSEY GRIFFITH on (more content not included)... [facility] Telephone (OTOLMN) YANIQUE CABELLO ([id number]) 1965 F [place] Date Time Provider Department 10/06/23 JARVIS BLOCK OTOLMN During your visit today, we recorded the following information about you: Jarvis Block CCC-[employer] 10/06/2023 2:35 PM Signed Duplicate encounter opened in error. See previous telephone encounter for details of call. Allergies As of Date: 10/06/2023 Noted Allergy Reaction NAPROXEN 05/24/2017 4 - Hives Date Reviewed: 05/22/2023 Reviewed by: Irasema Miller OCCA - Fully Assessed Prescriptions as of 10/06/2023 - desvenlafaxine ER (PRISTIQ) 25 mg 24 hr tablet Take 25 mg by mouth every morning. - buPROPion XL (WELLBUTRIN XL) 150 mg 24 hr tablet Take 150 mg by mouth every morning. - losartan (COZAAR) 25 mg tablet Take 25 mg by mouth once daily. - turmeric (CURCUMIN MISC) - soybean, fermented (NATTOKINASE ORAL) Take by mouth. - bromelains (BROMELAIN ORAL) Take by mouth. - pyridoxine HCl, vitamin B6, (VITAMIN B-6 ORAL) Take by mouth. - CITALOPRAM HYDROBROMIDE (CITALOPRAM ORAL) Take by mouth. - ARIPIPRAZOLE (ABILIFY ORAL) Take by mouth. - DEXTROAMPHETAMINE/AMPHE TAMINE (ADDERALL ORAL) Take by mouth. - AMOXICILLIN ORAL Take by mouth. Problem List As Of Date: 10/06/2023 (None) Encounter Status:Closed by JARVIS BLOCK [facility]06/[facility]ANI[facility] CABELL[facility] ([id number]) 1965 F [place] Date Time Provider Department 10/06/23 YOLANDA GONZALEZ [facility] During your visit today, we recorded the following information about you: Yolanda Gonzalez RN 10/06/2023 3:49 PM Signed RN called patient per request of Lindsey Griffith and informed her that MRI could not be repeated because she just had a MRI in May and insurance will not typically pay for a repeat MRI unless she we are a medicatio or other reason. We typically don't do frequent MRIs. She was upset that she was not informed by Dr. Maldonado because she had memory loss and has had no treatment. I discussed plan from May 2023 visit with her which included Consult sleep to ensure CPAP is adequately helping her OISA which she completed, Encouraged consultation with psychiatrist to revisit role for readjusting depression meds --which she didn't do because she stated she there is no one in her area to see and she cannot miss time from work and Cognitive therapy --she didn't do and didn't understand what cognitive therapy was. RN explained that she would work with speech therapist to address difficulties and regain independence with self-care and improve her quality of life. She said she could only do this over the phone because she couldn't take time off from work. RN informed her she would need to check if they did virtual appts. When discussing follow up [address] Mcwilliams from May appt she abruptly ended the call stating she was at a doctor's appt and asked me to call back tomorrow. Yolanda Gonzalez RN Allergies As of Date: 10/06/2023 Noted Allergy Reaction NAPROXEN 05/24/2017 4 - Hives Date Reviewed: 05/22/2023 Reviewed by: Irasema Miller OCCA - Fully Assessed Prescriptions as of 10/06/2023 - desvenlafaxine ER (PRISTIQ) 25 mg 24 hr tablet Take 25 mg by mouth every morning. - buPROPion XL (WELLBUTRIN XL) 150 mg 24 hr tablet Take 150 mg by mouth every morning. - losartan (COZAAR) 25 mg tablet Take 25 mg by mouth once daily. - turmeric (CURCUMIN MISC) - soybean, fermented (NATTOKINASE ORAL) Take by mouth. - bromelains (BROMELAIN ORAL) Take by mouth. - pyridoxine HCl, vitamin B6, (VITAMIN B-6 ORAL) Take by mouth. - CITALOPRAM HYDROBROMIDE (CITALOPRAM ORAL) Take by mouth. - ARIPIPRAZOLE (ABILIFY ORAL) Take by mouth. - DEXTROAMPHETAMINE/AMPHE TAMINE (ADDERALL ORAL) Take by mouth. - AMOXICILLIN ORAL Take by mouth. Problem List As Of Date: 10/06/2023 (None) Encounter Status:Closed by YOLANDA GONZALEZ on 10/06/23 [facility] CNTHERAPYon 09-19-2023 CNTHERAPY OT/PT/Speech Visit (SPWCMN) YANIQUE CABELLO ([id number]) 1965 F [place] Date Time Provider Department 09/19/23 1:00 PM [facility] Provider Department [place] 09/19/2023 1:00 PM [id number] Reason for Visit: No Show [1558] Primary Visit Diagnosis:No-show for appointment [Z91.199] Allergies As of Date: 09/19/2023 Noted Allergy Reaction NAPROXEN 05/24/2017 4 - Hives Date Reviewed: 05/22/2023 Reviewed by: Irasema Miller OCCA - Fully Assessed Prescriptions as of 09/19/2023 - desvenlafaxine ER (PRISTIQ) 25 mg 24 hr tablet Take 25 mg by mouth every morning. - buPROPion XL (WELLBUTRIN XL) 150 mg 24 hr tablet Take 150 mg by mouth every morning. - losartan (COZAAR) 25 mg tablet Take 25 mg by mouth once daily. - turmeric (CURCUMIN MISC) - soybean, fermented (NATTOKINASE ORAL) Take by mouth. - bromelains (BROMELAIN ORAL) Take by mouth. - pyridoxine HCl, vitamin B6, (VITAMIN B-6 ORAL) Take by mouth. - CITALOPRAM HYDROBROMIDE (CITALOPRAM ORAL) Take by mouth. - ARIPIPRAZOLE (ABILIFY ORAL) Take by mouth. - DEXTROAMPHETAMINE/AMPHE TAMINE (ADDERALL ORAL) Take by mouth. - AMOXICILLIN ORAL Take by mouth. [facility] Telephone (NIQ) YANIQUE CABELLO ([id number]) 1965 F [facility] Date Time Provider Department 09/13/23 LINDSEY GRIFFITH During your visit today, we recorded the following information about you: Fran Rodríguez 09/13/2023 9:11 AM Signed 09/13/23 - [facility], message sent / reminder mailed for [facility] eval. - GL Allergies As of Date: 09/13/2023 Noted Allergy Reaction NAPROXEN 05/24/2017 4 - Hives Date Reviewed: 05/22/2023 Reviewed by: Irasema Miller OCCA - Fully Assessed Reason for Visit: Appointment [186] Cmt: 09/13/23 - [facility], message sent / reminder mailed for [facility] eval. - GL Prescriptions as of 09/13/2023 - desvenlafaxine ER (PRISTIQ) 25 mg 24 hr tablet Take 25 mg by mouth every morning. - buPROPion XL (WELLBUTRIN XL) 150 mg 24 hr tablet Take 150 mg by mouth every morning. - losartan (COZAAR) 25 mg tablet Take 25 mg by mouth once daily. - turmeric (CURCUMIN MISC) - soybean, fermented (NATTOKINASE ORAL) Take by mouth. - bromelains (BROMELAIN ORAL) Take by mouth. - pyridoxine HCl, vitamin B6, (VITAMIN B-6 ORAL) Take by mouth. - CITALOPRAM HYDROBROMIDE (CITALOPRAM ORAL) Take by mouth. - ARIPIPRAZOLE (ABILIFY ORAL) Take by mouth. - DEXTROAMPHETAMINE/AMPHE TAMINE (ADDERALL ORAL) Take by mouth. - AMOXICILLIN ORAL Take by mouth. Problem List As Of Date: 09/13/2023 (None) Encounter Status:Closed by FRAN RODRÍGUEZ on 09/13/23 Normal [facility] Jayashree 09-12-2023 CNPN Telephone ([facility]) YANIQUE CABELLO ([id number]) 1965 F [place] Date Time Provider Department 09/12/23 MADHAV MALDONADOLeonor During your visit today, we recorded the following information about you: Allergies As of Date: 09/12/2023 Noted Allergy Reaction NAPROXEN 05/24/2017 4 - Hives Date Reviewed: 05/22/2023 Reviewed by: Irasema Miller OCCA - Fully Assessed Primary Visit Diagnosis:Cognitive impairment, mild, so stated [G31.84] Order(s):CTR BRAIN HEALTH SOCIAL WORK CONSULT [[id number]] Order #: [id number]: 1 Prescriptions as of 09/12/2023 - desvenlafaxine ER (PRISTIQ) 25 mg 24 hr tablet Take 25 mg by mouth every morning. - buPROPion XL (WELLBUTRIN XL) 150 mg 24 hr tablet Take 150 mg by mouth every morning. - losartan (COZAAR) 25 mg tablet Take 25 mg by mouth once daily. - turmeric (CURCUMIN MISC) - soybean, fermented (NATTOKINASE ORAL) Take by mouth. - bromelains (BROMELAIN ORAL) Take by mouth. - pyridoxine HCl, vitamin B6, (VITAMIN B-6 ORAL) Take by mouth. - CITALOPRAM HYDROBROMIDE (CITALOPRAM ORAL) Take by mouth. - ARIPIPRAZOLE (ABILIFY ORAL) Take by mouth. - DEXTROAMPHETAMINE/AMPHE TAMINE (ADDERALL ORAL) Take by mouth. - AMOXICILLIN ORAL Take by mouth. Problem List As Of Date: 09/12/2023 (None) Encounter Status:Closed by MADHAV MALDONADO on 09/12/23 Normal [facility] CNTHERAPYon 09-12-2023 CNTHERAPY OT/PT/Speech Visit (SPWCMN) YANIQUE CABELLO ([id number]) 1965 F [place] Date Time Provider Department 09/12/23 1:00 PM [facility] Provider Department [place] 09/12/2023 1:00 PM [id number][facility] Reason for Visit: Speech Therapy [3489] Primary Visit Diagnosis:Cognitive impairment, mild, so stated [G31.84] Other Visit Diagnosis:Cognitive communication deficit [R41.841] Allergies As of Date: 09/12/2023 Noted Allergy Reaction NAPROXEN 05/24/2017 4 - Hives Date Reviewed: 05/22/2023 Reviewed by: Irasema Miller OCCA - Fully Assessed Prescriptions as of 09/12/2023 - desvenlafaxine ER (PRISTIQ) 25 mg 24 hr tablet Take 25 mg by mouth every morning. - buPROPion XL (WELLBUTRIN XL) 150 mg 24 hr tablet Take 150 mg by mouth every morning. - losartan (COZAAR) 25 mg tablet Take 25 mg by mouth once daily. - turmeric (CURCUMIN MISC) - soybean, fermented (NATTOKINASE ORAL) Take by mouth. - bromelains (BROMELAIN ORAL) Take by mouth. - pyridoxine HCl, vitamin B6, (VITAMIN B-6 ORAL) Take by mouth. - CITALOPRAM HYDROBROMIDE (CITALOPRAM ORAL) Take by mouth. - ARIPIPRAZOLE (ABILIFY ORAL) Take by mouth. - DEXTROAMPHETAMINE/AMPHE TAMINE (ADDERALL ORAL) Take by mouth. - AMOXICILLIN ORAL Take by mouth. Normal [facility] 09-03-2023 [facility] YANIQUE CABELLO ([id number]) 1965 F [place] Date Time Provider Department 09/03/23 MADHAV MALDONADO During your visit today, we recorded the following information about you: Kirsten Damon 09/03/2023 3:46 PM Signed General scheduling called - patient called to schedule MRI but no order on file - needs order placed. Pateint would like a call to confirm [phone] Yolanda Gonzalez RN 09/03/2023 5:08 PM Signed Patient called to inform her that she had MRI in May.--mail box is full will send MC message that The insurance does not usually pay for more than one MRI per year and we cannot request one at this point given last MRI in May per Dr. Maldonado. YULI Almeida Elaine, RN 09/04/2023 4:46 PM Signed Still unable to leave VM message. Yolanda Gonzalez RN Allergies As of Date: 09/03/2023 Noted Allergy Reaction NAPROXEN 05/24/2017 4 - Hives Date Reviewed: 05/22/2023 Reviewed by: Irasema Miller OCCA - Fully Assessed Reason for Visit: MRI Order [Other] Prescriptions as of 09/04/2023 - desvenlafaxine ER (PRISTIQ) 25 mg 24 hr tablet Take 25 mg by mouth every morning. - buPROPion XL (WELLBUTRIN XL) 150 mg 24 hr tablet Take 150 mg by mouth every morning. - losartan (COZAAR) 25 mg tablet Take 25 mg by mouth once daily. - turmeric (CURCUMIN MISC) - soybean, fermented (NATTOKINASE ORAL) Take by mouth. - bromelains (BROMELAIN ORAL) Take by mouth. - pyridoxine HCl, vitamin B6, (VITAMIN B-6 ORAL) Take by mouth. - CITALOPRAM HYDROBROMIDE (CITALOPRAM ORAL) Take by mouth. - ARIPIPRAZOLE (ABILIFY ORAL) Take by mouth. - DEXTROAMPHETAMINE/AMPHE TAMINE (ADDERALL ORAL) Take by mouth. - AMOXICILLIN ORAL Take by mouth. Problem List As Of Date: 09/03/2023 (None) Encounter Status:Closed by YOLANDA GONZALEZ on 09/03/23 [facility] CNOVon 05-22-2023 CN Office Visit (JEISONLeonor ) YANIQUE CABELLO ([id number]) 1965 F [facility] Date Time Provider Department 05/22/23 12:00 PM MADHAV MALDONADO During your visit today, we recorded the following information about you: Pulse Blood pressure Weight 67/minute 119/70 70.7 kg Irasema Miller OCCA 05/22/2023 11:52 AM Signed Yanique Cabello is a 58 year old year old woman accompanied by: patient. Do you have any changes or new concerns you would like to address at the visit today? No concerns Vital Signs: BP 119/70 Pulse 67 Wt 70.7 kg (155 lb 14.4 oz) LMP (LMP Unknown) BMI 22.37 kg/m? Madhav Maldonado MD 05/22/2023 12:27 PM Signed Tasks to improve attention/working memory 1. Good sleep hygiene (7-8 hrs of sleep) 2. Learning a new skill (Painting, Carpentry, Pottery, new language, Knitting). 3.Cognitive exercises (keep a daily journal, Puzzles) 4. Physical exercise and training (30 min/day X 4 days week) 5. Being on Antidepressant if needed 6.Yoga, Meditation, Jaison Chi 7.Have a clear schedule and structure in daily routine Madhav Maldonado MD 05/22/2023 2:02 PM Signed Ms.Lori Carla Cabello is a 58 year old woman here for follow up evaluation of memory concerns. She is here by herself. In the interval she notes continuing frustration with her memory. She notes that it is impacting her ability to work. She also notes pro sleep and waking up tired despite using CPAP recently.She is also depressed but does not want to add new antidepressants due to concerns about sideffects. Limited physical activity, no weight loss.She is taking vitamin supplements given her fucntional med consult. I reviewed her MRI brain which noted Hippocampal volumes at the 15 percentile when compared to age matched normal controls by quantitative analysis. 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 F/p in 6 months Madhav Maldonado MD I spent 40 min on the date of service which included preparing to see the patient, face to face patient care, performing medically appropriate examination, completing clinical documentation and on counseling/educating the patient/family. Referring Provider: MADHAV MALDONADO [[id number]] Allergies As of Date: 05/22/2023 Noted Allergy Reaction NAPROXEN 05/24/2017 4 - Hives Date Reviewed: 05/22/2023 Reviewed by: Irasema Miller OCCA - Fully Assessed Reason for Visit: Follow Up [171] Primary Visit Diagnosis:CRUZ on CPAP [G47.33] Order(s):CONSULT TO SLEEP MEDICINE - ADULT [[id number]] Order #: [id number]: 1 FUTURE Prescriptions as of 05/22/2023 - desvenlafaxine ER (PRISTIQ) 25 mg 24 hr tablet Take 25 mg by mouth every morning. - buPROPion XL (WELLBUTRIN XL) 150 mg 24 hr tablet Take 150 mg by mouth every morning. - losartan (COZAAR) 25 mg tablet Take 25 mg by mouth once daily. - turmeric (CURCUMIN MISC) - soybean, fermented (NATTOKINASE ORAL) Take by mouth. - bromelains (BROMELAIN ORAL) Take by mouth. - pyridoxine HCl, vitamin B6, (VITAMIN B-6 ORAL) Take by mouth. - CITALOPRAM HYDROBROMIDE (CITALOPRAM ORAL) Take by mouth. - ARIPIPRAZOLE (ABILIFY ORAL) Take by mouth. - DEXTROAMPHETAMINE/AMPHE TAMINE (ADDERALL ORAL) Take by mouth. - AMOXICILLIN ORAL Take by mouth. Problem List As Of Date: 05/22/2023 (None) Other instructions from your clinician: Tasks to improve attention/working memory 1. Good sleep hygiene (7-8 hrs of sleep) 2. Learning a new skill (Painting, Carpentry, Pottery, new language, Knitting). 3.Cognitive exercises (keep a daily journal, Puzzles) 4. Physical exercise and training (30 min/day X 4 days week) 5. Being on Antidepressant if needed 6.Yoga, Meditation, Jaison Chi 7.Have a clear schedule and structure in daily routine Visit Notes: >> Irasema Miller OCCA Thu May 22, 2023 11:51 AM Status: Signed Yanique Cabello is a 58 year old year old woman accompanied by: patient. Do you have any changes or new concerns you would like to address at the visit today? No concerns Vital Signs: BP 119/70 Pulse 67 Wt 70.7 kg (155 lb 14.4 oz) LMP (LMP Unknown) BMI 22.37 kg/m? Disposition: Return in about 6 months (around 11/20/2023). Follow-up and Disposition History for Encounter Date Provider Department Center 05/22/2023 [id number] MALDONADO [facility] Encounter Status:Closed by MADHAV MALDONADO on 05/22/23 [facility] CNTHERAPYon 05-22-2023 CNTHERAPY OT/PT/Speech Visit (SPWCMN) VINCENTYANIQUE A ([id number]) 1965 F [place] Date Time Provider Department 05/22/23 2:30 PM BLOCKJARVIS [facility] Date Time Provider Department [place] 05/22/2023 2:30 PM [id number], [facility] Reason for Visit: Speech Evaluation [1167] Primary Visit Diagnosis:Cognitive communication deficit [R41.841] Other Visit Diagnosis:Cognitive impairment, mild, so stated [G31.84] Allergies As of Date: 05/22/2023 Noted Allergy Reaction NAPROXEN 05/24/2017 4 - Hives Date Reviewed: 05/22/2023 Reviewed by: Irasema Miller OCCA - Fully Assessed Prescriptions as of 05/22/2023 - desvenlafaxine ER (PRISTIQ) 25 mg 24 hr tablet Take 25 mg by mouth every morning. - buPROPion XL (WELLBUTRIN XL) 150 mg 24 hr tablet Take 150 mg by mouth every morning. - losartan (COZAAR) 25 mg tablet Take 25 mg by mouth once daily. - turmeric (CURCUMIN MISC) - soybean, fermented (NATTOKINASE ORAL) Take by mouth. - bromelains (BROMELAIN ORAL) Take by mouth. - pyridoxine HCl, vitamin B6, (VITAMIN B-6 ORAL) Take by mouth. - CITALOPRAM HYDROBROMIDE (CITALOPRAM ORAL) Take by mouth. - ARIPIPRAZOLE (ABILIFY ORAL) Take by mouth. - DEXTROAMPHETAMINE/AMPHE TAMINE (ADDERALL ORAL) Take by mouth. - AMOXICILLIN ORAL Take by mouth. Normal [facility] 3D POST PROCESSINGon MRI 3D POST PROCESSING * * *Final Report* * * DATE OF EXAM: May 22 2023 8:49AM [facility] 0280 - MRI 3D POST PROCESSING / PROCEDURE REASON: Cognitive impairment, mild, so stated * * * * Physician Interpretation * * * * EXAMINATION: MRI BRAIN W QUANT WO IVCON, MRI 3D POST PROCESSING CLINICAL HISTORY: Cognitive impairment TECHNIQUE: Axial CHRISTIE FLAIR, CHRISTIE T2, diffusion and susceptibility weighted imaging without contrast, using the ADNI dementia protocol and 3-D post-processing using the [employer] software at an independent workstation with concurrent physician supervision and images were created, reviewed and archived. MQ: [id number] COMPARISON: None RESULT: QUALITATIVE: Acute Intracranial Process: None. Chronic Intracranial Process: The white matter is within normal limits of signal intensity for age. Number of chronic lacunar infarcts: None Location of chronic lacunar infarcts: Not applicable Age related white matter changes (ARWMC) rating: White matter lesions: 0 Basal ganglia lesions: 0 Prior intracranial hemorrhage: Parenchymal microhemorrhages: 0 Other (siderosis/macrohemorrh ages (>10mm): Not Applicable Amyloid Related Imaging Abnormalities: ARIA-E: N/A ARIA-H Microhemorrhage: N/A ARIA-H Siderosis: N/A Qualitative brain and hippocampal volume loss for age: Cortex: Normal and symmetric White Matter: Normal and symmetric Hippocampi: Normal and Symmetric Ventricles: Commensurate with volume loss. Brain Parenchymal Signal and Morphology: The brain parenchyma is otherwise within normal limits of signal and morphology. There is no evidence of an intracranial mass or extraaxial fluid collection. Other Significant Findings: Incidentally noted asymmetric severe chronic inflammatory changes in the left petrous air cells.. QUANTITATIVE: Exam Quality: Good for volumetric analysis. Segmentation: Accurate segmentation by visual inspection Quantitative Data: Total Hippocampal Volume: Percentile for Age: 15 Asymmetry Index: -4.8 Inferior Lateral Vent Volume: Percentile for age: 45 Asymmetry Index: 27 Superior Lateral Vent Volume: Percentile for age: 64 Asymmetry Index: 17.9 Temporal Lobe Cortex Volume: Temporal Lobe Percentile for Age: 33 Temporal Lobe Asymmetry Index: 4.81 Frontal Lobe Cortex Volume: Frontal Lobe Percentile for Age: 55 Frontal Lobe Asymmetry Index: -1.05 Parietal Lobe Cortex Volume: Parietal Lobe Percentile for Age:6 Occipital Lobe Cortex Volume: Occipital Lobe Percentile for Age: 88 Whole Brain Volume Brain Percentile for Age: 10 Concordance between qualitative and quantitative hippocampal volume assessment: Concordant Change in brain volumes: No previous volumetric study for comparison Brain Volume Change: N/A Hippocampal Volume Change: N/A Superior Lateral Ventricle Volume Change: N/A Inferior Lateral Ventricle Volume Change: N/A Mean hippocampal volume loss among normal elderly: 0.7% per year, (-0.3 to 1.7; Elvis 2008; also Malcolm 2010). IMPRESSION: * No evidence of an acute intracranial process or intracranial mass. * Mild generalized volume loss. * Hippocampal volumes at the 15 percentile when compared to age matched normal controls by quantitative analysis. * No appreciable white matter changes identified. * No evidence of parenchymal microhemorrhages by MRI. REFERENCES: White Matter Lesions: 0 = No lesions, including symmetrical, well-defined caps or bands 1 = Focal Lesions 2 = Beginning of Rupert 3 = Diffuse Involvement of Entire Region Basal Ganglia Lesions: 0 = No Lesions 1 = 1 Focal Lesion (>5mm) 2 = >1 Focal Lesion (>5mm) 3 = Confluent Lesions Malcolm Saenz, et al. The clinical use of structural MRI in Alzheimer disease. Nature Reviews Neurology 6;67 (2010). Elvis et al. Validation of a fully automated 3D hippocampal segmentation method using subjects with Alzheimer's disease mild cognitive impairment, and elderly controls. Neuroimage 43;59 (2008). Venus et al. A New Rating Scale for Age-Related White Matter Changes Applicable to MRI and CT. Stroke. 32:1318 (2001). * Asymmetry index defined as difference between left and right volumes divided by mean or [(L-R/Mean) x 100] (%). Age-matched reference charts measure total hippocampal volume (% of intracranial volume). See results from the analysis charts for details. Manager Shift: PSC[facility] Transcribe Date/Time: May 22 2023 9:37A Dictated by : ROXANNE PALAFOX MD This examination was interpreted and the report reviewed and electronically signed by: ROXANNE PALAFOX MD on May 22 2023 9:53AM EST [id number] Normal [facility] MRI BRAIN W QUANT WO IVCONon 05-22-2023 MRI BRAIN W QUANT WO IVCON * * *Final Report* * * DATE OF EXAM: May 22 2023 8:49AM [facility] 3015 - MRI BRAIN W QUANT WO IVCON / PROCEDURE REASON: Cognitive impairment, mild, so stated * * * * Physician Interpretation * * * * EXAMINATION: MRI BRAIN W QUANT WO IVCON, MRI 3D POST PROCESSING CLINICAL HISTORY: Cognitive impairment TECHNIQUE: Axial CHRISTIE FLAIR, CHRISTIE T2, diffusion and susceptibility weighted imaging without contrast, using the ADNI dementia protocol and 3-D post-processing using the [employer] software at an independent workstation with concurrent physician supervision and images were created, reviewed and archived. MQ: [id number] COMPARISON: None RESULT: QUALITATIVE: Acute Intracranial Process: None. Chronic Intracranial Process: The white matter is within normal limits of signal intensity for age. Number of chronic lacunar infarcts: None Location of chronic lacunar infarcts: Not applicable Age related white matter changes (ARWMC) rating: White matter lesions: 0 Basal ganglia lesions: 0 Prior intracranial hemorrhage: Parenchymal microhemorrhages: 0 Other (siderosis/macrohemorrh ages (>10mm): Not Applicable Amyloid Related Imaging Abnormalities: ARIA-E: N/A ARIA-H Microhemorrhage: N/A ARIA-H Siderosis: N/A Qualitative brain and hippocampal volume loss for age: Cortex: Normal and symmetric White Matter: Normal and symmetric Hippocampi: Normal and Symmetric Ventricles: Commensurate with volume loss. Brain Parenchymal Signal and Morphology: The brain parenchyma is otherwise within normal limits of signal and morphology. There is no evidence of an intracranial mass or extraaxial fluid collection. Other Significant Findings: Incidentally noted asymmetric severe chronic inflammatory changes in the left petrous air cells.. QUANTITATIVE: Exam Quality: Good for volumetric analysis. Segmentation: Accurate segmentation by visual inspection Quantitative Data: Total Hippocampal Volume: Percentile for Age: 15 Asymmetry Index: -4.8 Inferior Lateral Vent Volume: Percentile for age: 45 Asymmetry Index: 27 Superior Lateral Vent Volume: Percentile for age: 64 Asymmetry Index: 17.9 Temporal Lobe Cortex Volume: Temporal Lobe Percentile for Age: 33 Temporal Lobe Asymmetry Index: 4.81 Frontal Lobe Cortex Volume: Frontal Lobe Percentile for Age: 55 Frontal Lobe Asymmetry Index: -1.05 Parietal Lobe Cortex Volume: Parietal Lobe Percentile for Age:6 Occipital Lobe Cortex Volume: Occipital Lobe Percentile for Age: 88 Whole Brain Volume Brain Percentile for Age: 10 Concordance between qualitative and quantitative hippocampal volume assessment: Concordant Change in brain volumes: No previous volumetric study for comparison Brain Volume Change: N/A Hippocampal Volume Change: N/A Superior Lateral Ventricle Volume Change: N/A Inferior Lateral Ventricle Volume Change: N/A Mean hippocampal volume loss among normal elderly: 0.7% per year, (-0.3 to 1.7; Elvis 2008; also Malcolm 2010). IMPRESSION: * No evidence of an acute intracranial process or intracranial mass. * Mild generalized volume loss. * Hippocampal volumes at the 15 percentile when compared to age matched normal controls by quantitative analysis. * No appreciable white matter changes identified. * No evidence of parenchymal microhemorrhages by MRI. REFERENCES: White Matter Lesions: 0 = No lesions, including symmetrical, well-defined caps or bands 1 = Focal Lesions 2 = Beginning of Rupert 3 = Diffuse Involvement of Entire Region Basal Ganglia Lesions: 0 = No Lesions 1 = 1 Focal Lesion (>5mm) 2 = >1 Focal Lesion (>5mm) 3 = Confluent Lesions Malcolm Saenz, et al. The clinical use of structural MRI in Alzheimer disease. Nature Reviews Neurology 6;67 (2010). Elvis et al. Validation of a fully automated 3D hippocampal segmentation method using subjects with Alzheimer's disease mild cognitive impairment, and elderly controls. Neuroimage 43;59 (2008). Wahlund et al. A New Rating Scale for Age-Related White Matter Changes Applicable to MRI and CT. Stroke. 32:1318 (2001). * Asymmetry index defined as difference between left and right volumes divided by mean or [(L-R/Mean) x 100] (%). Age-matched reference charts measure total hippocampal volume (% of intracranial volume). See results from the analysis charts for details. Manager Shift: [facility] Transcribe Date/Time: May 22 2023 9:37A Dictated by : ROXANNE PALAFOX MD This examination was interpreted and the report reviewed and electronically signed by: ROXANNE PALAFOX MD on May 22 2023 9:53AM EST [id number] Normal [facility] No Panel Informationon 05-[address] [facility] [address] CTA COR ARTERIES W OR WO SCORINGon 04-17-2023 CT CTA COR ARTERIES W OR WO SCORING CT CTA COR ARTERIES W OR WO SCORING CLINICAL INFORMATION: Primary hypertension. Family history of early coronary artery disease. Palpitations. Chest pain. Abnormal EKG TECHNIQUE: Computed tomography (CT) of the heart was obtained using electrocardiography (ECG) triggering. 100 mL of Omni 350 contrast was administered intravenously. In preparation for the examination, the patient received and 0.4 mg sublingual nitroglycerin spray for coronary vasodilation. There were no complications 3-D volume rendered maximum intensity projection images were generated and reviewed under concurrent physician supervision on an independent workstation.. No FFR performed. All CT scans at this facility use dose modulation, iterative reconstruction, and/or weight based dosing when appropriate to reduce radiation dose to as low as reasonably achievable. COMPARISON: No relevant prior studies available. EXTRACARDIAC FINDINGS: The visualized lungs The pulmonary arteries are normal. The visualized thoracic aorta is normal. CARDIAC MORPHOLOGY: The right atrium is normal. The right ventricle is normal. The left atrium is normal. The left ventricle is normal. The pericardium is normal CALCIUM SCORE: Agatston Score: The total (aggregate) calcium score using the AJ-130 method is . Total volume score is 0. Less than 50% of similar patients have a similar coronary artery calcium {this is reported using the interactive ALVARADO form found at [email or web address]-[email or web address] rg} Individual major vessel AJ-130 scores are: LM = 0 LAD = 0 LCX = 0 RCA/PDA = 0 Other = [address] Angiogram: The overall quality of the CT angiographic examination is excellent. Coronary Artery Angiogram Findings: Stenoses are reported as maximum percentage diameter stenosis. Stenosis grading is reported using the following scheme: Normal: no stenosis Mild: 1-49% stenosis Moderate: 50-70% stenosis Severe: >70% stenosis Occluded The coronary artery system is right dominant with normal origins. The LM has no stenosis with no plaque. The proximal LAD and first diagonal branch (D1) have no stenosis with no plaque. The mid-distal LAD, D2 and D3 branches) have no stenosis with no plaque. The LCx and its obtuse marginal (OM) branches have no stenosis with no plaque. The RCA and acute marginal right posterior descending artery (RPDA)/right posterolateral {RPL} branches branches have no stenosis with no plaque. Small left atrial diverticulum. IMPRESSION: Normal coronary artery CTA No FFR performed. Total calcium score of 0 The coronary arteries and cardiac structures were co-interpreted by Dr. Kasie Miller MD of the department of radiology and Dr. Coleman of department of cardiology. The extracardiac structures including the lungs were solely interpreted by Dr. Kasie Miller MD of the department of radiology. Calcium Score interpretation and guidelines for asymptomatic individuals, 45 - 75 years of age are as follows: Estimated Risk of a Total Score Relative Risk Coronary Event Each Year 0 very low risk 2 per 1000 1-10 low risk 5 per 1000 11-100 intermediate risk 5 to 20 per 1000 101-400 moderately high risk more than 2 per 100 over 400 high risk between 2 and 5 per 100; approximately 15% chance of significant blockages; consideration should be given to obtaining stress echo or stress nuclear testing. Finalized by Kasie Miller MD on 04/17/2023 4:28 PM [facility] CBC W Auto Differential pane l (Bld)on 03-19-2023 Basophils (Bld) [#/Vol] 0.06 10*3/uL <0.11 k/uL [facility] Basophils/100 WBC (Bld) 1.0 % [facility] Differential cell count method Nom (Bld) Auto [facility] Eosinophils (Bld) [#/Vol] 0.49 10*3/uL High <0.46 k/uL [facility] Eosinophils/100 WBC (Bld) 8.0 % [facility] Erythrocyte distribution width (RBC) [Ratio] 12.6 % 11.5 - 15.0 % [facility] Hematocrit (Bld) [Volume fraction] 43.0 % 36.0 - 46.0 % [facility] Hemoglobin (Bld) [Mass/Vol] 13.8 g/dL 11.5 - 15.5 g/dL [facility] Immature granulocytes (Bld) [#/Vol] <0.10 k/uL [facility] Immature granulocytes/100 WBC (Bld) 0.3 % [facility] Lymphocytes (Bld) [#/Vol] 1.66 10*3/uL 1.00 - 4.00 k/uL [facility] Lymphocytes/100 WBC (Bld) 26.9 % [facility] MCH (RBC) [Entitic mass] 28.3 pg 26.0 - 34.0 pg [facility] MCHC (RBC) [Mass/Vol] 32.1 g/dL 30.5 - 36.0 g/dL [facility] MCV (RBC) [Entitic vol] 88.1 fL 80.0 - 100.0 fL [facility] Monocytes (Bld) [#/Vol] 0.36 10*3/uL <0.87 k/uL [facility] Monocytes/100 WBC (Bld) 5.8 % [facility] Neutrophils (Bld) [#/Vol] 3.57 10*3/uL 1.45 - 7.50 k/uL [facility] Neutrophils/100 WBC (Bld) 58.0 % [facility] Nucleated RBC (Bld) [#/Vol] <0.01 k/uL [facility] Nucleated RBC/100 WBC (Bld) [Ratio] 0.0 /100 WBC [facility] Platelet mean volume (Bld) [Entitic vol] 10.2 fL 9.0 - 12.7 fL [facility] Platelets (Bld) [#/Vol] 254 10*3/uL 150 - 400 k/uL [facility] RBC (Bld) [#/Vol] 4.88 10*6/uL 3.90 - 5.2 0 m/uL [facility] WBC (Bld) [#/Vol] 6.16 10*3/uL 3.70 - 11. 00 k/uL [facility] Basophils (Bld) [#/Vol] 0.06 10*3/uL Normal <0.11 [facility] Comment on above: Order Comment: Speci men Type: BLOOD SPECIMENOrdering Facility: [facility] Address: [address] [place] [address] Performed By: #### 5 7021-8, 4536-7 ####[facility] LABCLIA [id number] [place] [address] [place] Basophils/100 WBC (Bld) 1.0 % Normal [facility] Comment on above: Order Comment: Speci men Type: BLOOD SPECIMENOrdering Facility: [facility] Address: [address] [place] [address] Performed By: #### 5 7021-8, 7 ####[facility] LABCLIA [id number] [place] [address] [place] Differential cell count method Nom (Bld) Auto Normal [facility] Comment on above: Order Comment: Speci men Type: BLOOD SPECIMENOrdering Facility: [facility] Address: [address] [place] [address] Performed By: #### 5 7021-8, 7 ####[facility] LABCLIA [id number] [place] [address] [place] Eosinophils (Bld) [#/Vol] 0.49 10*3/uL High <0.46 [facility] Comment on above: Order Comment: Speci men Type: BLOOD SPECIMENOrdering Facility: [facility] Address: [address] [place] [address] Performed By: #### 5 7021-8, 4536-09 ####[facility] LABCLIA [id number] [place] [address] [place] Eosinophils/100 WBC (Bld) 8.0 % Normal [facility] Comment on above: Order Comment: Speci men Type: BLOOD SPECIMENOrdering Facility: [facility] Address: [address] [place] [address] Performed By: #### 5 7021-8, 4536-09 ####[facility] LABCLIA [id number] [place] [address] [place] Erythrocyte distribution width (RBC) [Ratio] 12.6 % Normal 11.5-15.0 [facility] Comment on above: Order Comment: Speci men Type: BLOOD SPECIMENOrdering Facility: [facility] Address: [address] [place] [address] Performed By: #### 5 7021-8, 4537-7 ####[facility] LABCLIA [id number] [place] [address] [place] Hematocrit (Bld) [Volume fraction] 43.0 % Normal 36.0-46.0 [facility] Comment on above: Order Comment: Speci men Type: BLOOD SPECIMENOrdering Facility: [facility] Address: [address] [place] [address] Performed By: #### 5 7021-8, 4537-7 ####[facility] LABCLIA [id number] [place] [address] [place] Hemoglobin (Bld) [Mass/Vol] 13.8 g/dL Normal 11.5-15.5 [facility] Comment on above: Order Comment: Speci men Type: BLOOD SPECIMENOrdering Facility: [facility] Address: [address] [place] [address] Performed By: #### 5 7021-8, 7-7 ####[facility] LABCLIA [id number] [place] [address] [place] Immature granulocytes (Bld) [#/Vol] 10*3/uL Normal <0.10 [facility] Comment on above: Order Comment: Speci men Type: BLOOD SPECIMENOrdering Facility: [facility] Address: [address] [place] [address] Performed By: #### 5 7021-8, 4537-7 ####[facility] LABCLIA [id number] [place] [address] [place] Immature granulocytes/100 WBC (Bld) 0.3 % Normal [facility] Comment on above: Order Comment: Speci men Type: BLOOD SPECIMENOrdering Facility: [facility] Address: [address] [place] [address] Performed By: #### 5 7021-8, 4536-7 ####[facility] LABCLIA [id number] [place] [address] [place] Lymphocytes (Bld) [#/Vol] 1.66 10*3/uL Normal 1.00-4.00 [facility] Comment on above: Order Comment: Speci men Type: BLOOD SPECIMENOrdering Facility: [facility] Address: [address] [place] [address] Performed By: #### 5 7021-8, 7 ####[facility] LABCLIA [id number] [place] [address] [place] Lymphocytes/100 WBC (Bld) 26.9 % Normal [facility] Comment on above: Order Comment: Speci men Type: BLOOD SPECIMENOrdering Facility: [facility] Address: [address] [place] [address] Performed By: #### 5 7021-8, 7 ####[facility] LABCLIA [id number] [place] [address] [place] MCH (RBC) [Entitic mass] 28.3 pg Normal 26.0-34.0 [facility] Comment on above: Order Comment: Speci men Type: BLOOD SPECIMENOrdering Facility: [facility] Address: [address] [place] [address] Performed By: #### 5 7021-8, 7 ####[facility] LABCLIA [id number] [place] [address] [place] MCHC (RBC) [Mass/Vol] 32.1 g/dL Normal 30.5-36.0 [facility] Comment on above: Order Comment: Speci men Type: BLOOD SPECIMENOrdering Facility: [facility] Address: [address] [place] [address] Performed By: #### 5 7021-8, 7 ####[facility] LABCLIA [id number] [place] [address] [place] MCV (RBC) [Entitic vol] 88.1 fL Normal 80.0-100.0 [facility] Comment on above: Order Comment: Speci men Type: BLOOD SPECIMENOrdering Facility: [facility] Address: [address] [place] [address] Performed By: #### 5 7021-8, 7 ####[facility] LABIA [id number] [place] [address] [place] Monocytes (Bld) [#/Vol] 0.36 10*3/uL Normal <0.87 [facility] Comment on above: Order Comment: Speci men Type: BLOOD SPECIMENOrdering Facility: [facility] Address: [address] [place] [address] Performed By: #### 5 7021-8, 7 ####[facility] LABCLIA [id number] [place] [address] [place] Monocytes/100 WBC (Bld) 5.8 % Normal [facility] Comment on above: Order Comment: Speci men Type: BLOOD SPECIMENOrdering Facility: [facility] Address: [address] [place] [address] Performed By: #### 5 7021-8, 7 ####[facility] LABCLIA [id number] [place] [address] [place] Neutrophils (Bld) [#/Vol] 3.57 10*3/uL Normal 1.45-7.50 [facility] Comment on above: Order Comment: Speci men Type: BLOOD SPECIMENOrdering Facility: [facility] Address: [address] [place] [address] Performed By: #### 5 7021-8, 4536-7 ####[facility] LABCLIA [id number] [place] [address] [place] Neutrophils/100 WBC (Bld) 58.0 % Normal [facility] Comment on above: Order Comment: Speci men Type: BLOOD SPECIMENOrdering Facility: [facility] Address: [address] [place] [address] Performed By: #### 5 7021-8, 4536-7 ####[facility] LABCLIA [id number] [place] [address] [place] Nucleated RBC (Bld) [#/Vol] 10*3/uL Normal <0.01 [facility] Comment on above: Order Comment: Speci men Type: BLOOD SPECIMENOrdering Facility: [facility] Address: [address] [place] [address] Performed By: #### 5 7021-8, 7 ####[facility] LABCLIA [id number] [place] [address] [place] Nucleated RBC/100 WBC (Bld) [Ratio] 0.0 /100 WBC Normal [facility] Comment on above: Order Comment: Speci men Type: BLOOD SPECIMENOrdering Facility: [facility] Address: [address] [place] [address] Performed By: #### 5 7021-8, 7 ####[facility] LABCLIA [id number] [place] [address] [place] Platelet mean volume (Bld) [Entitic vol] 10.2 fL Normal 9.0-12.7 [facility] Comment on above: Order Comment: Speci men Type: BLOOD SPECIMENOrdering Facility: [facility] Address: [address] [place] [address] Performed By: #### 5 7021-8, 4536-7 ####[facility] LABCLIA [id number] [place] [address] [place] Platelets (Bld) [#/Vol] 254 10*3/uL Normal 150-400 [facility] Comment on above: Order Comment: Speci men Type: BLOOD SPECIMENOrdering Facility: [facility] Address: [address] [place] [address] Performed By: #### 5 7021-8, 4537-7 ####[facility] LABCLIA [id number] [place] [address] [place] RBC (Bld) [#/Vol] 4.88 10*6/uL Normal 3.90-5.20 [facility] Comment on above: Order Comment: Speci men Type: BLOOD SPECIMENOrdering Facility: [facility] Address: [address] [place] [address] Performed By: #### 5 7021-8, 4537-7 ####[facility] LABCLIA [id number] [place] [address] [place] WBC (Bld) [#/Vol] 6.16 10*3/uL Normal 3.70-11.00 [facility] Comment on above: Order Comment: Speci men Type: BLOOD SPECIMENOrdering Facility: [facility] Address: [address] [place] [address] Performed By: #### 5 7021-8, 4537-7 ####[facility] LABCLIA [id number] [place] [address] [place] CNOVon 03-19-2023 [facility] YANIQUE CABELLO ([id number]) 1965 F [place] Date Time Provider Department 03/19/23 10:00 AM MADHAV MALDONADO During your visit today, we recorded the following information about you: Madhav Maldonado MD 03/20/2023 8:42 AM Signed Yanique Cabello 1965 [id number] [facility] [address] [facility] [address] March 19, 2023 Time: 11:48 AM EVALUATION/CONSULT NOTE History of Present Illness Yanique Cabello is a 57 year old right handed woman seen today for memory concerns. 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 This is causing a lot of stress and depression and she feels overwhelmed. He mother notes that she is more irritable, has trouble multitasking and loosing her train of thought at times.She also noted word finding. Manges ADLS, makes mistakes in IADLS bit still manges them. She is depressed and on antidepressants but still struggles with mood. Has CRUZ that was diagnosed and uses CPAP unclear if the pressures are appropriate. Limited physical activity. No frequent falls, no fluctuations in cognition, no hallucinations, no delusions, no change in personality , normal social performance. 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 Single Children: yes Social History Tobacco Use Smoking status: Never Smokeless tobacco: Never Substance Use Topics Alcohol use: No Drug use: No Social History reviewed by Madhav Maldonado MD Family History No h/o dementia, PD, stroke, or other neurological problems in the family Review of Systems Negative for all major organ systems except?CRUZ, depression, HTN PHYSICAL EXAM General: WN/WD in NAD, pleasant, cooperative Head: NC/AT Neck: no bruits bilat, no thyromegaly Cardio: RRR w/o m/r/g Lungs: CTAB Extremities: no BLAYNE MENTAL STATUS EXAM Level of Consciousness- normal Attention- normal Name- able to give complete name [place] Cognitive Assessment (MoCA) MoCA Past Scores MoCA 03/19/2023 MOCA TOTAL SCORE 21 out of 30 Visuospatial/ Executive 4 Naming 3 Attention 4 Language 2 Abstraction 2 Delayed Recall 0 Orientation 6 Education Level 0 DEMENTIA MSE Orientation - Alert: Normal - Attention:Normal - Name: Normal - Day:Normal - Date: Normal - Month: Normal - Year: Normal Repeat phrase: BETH RUIZ, [address] [place] [address] Remote Memory - Who is the [place] president now: Normal - Who was before him: Normal - Who was involved in [place]: Normal Calculation - $5.00 - ($0.40 X 4) = $3.40: Normal - Serial 3's - 47: Normal - 44: Normal - 41: Normal - 38: Normal - 35: Normal Comprehension/performan ce-body parts-L/R - Stick out your tongue and touch your left ear with right hand: Normal - Touch your nose with left hand: Normal - Touch your right ear: Normal - Point to my right arm: Normal - Praxis (toothbrush): Normal Frontal Lobe Function - Luria 3 step: 3 cycles w/o error bilaterally Social judgments/ Cognitive flexibility: - Empathy: Normal - Recognition of negative facial emotions: - Faux Pas test: Normal Restlessness/Irritablit y/Hyperorality: Normal Satisfies Apathy criteria: Yes Immediate Recall: Abnormal Short Term Memory: - Lester: Abnormal - Ruiz: Abnormal - 51: Abnormal - Marker st: Abnormal - [place]: Normal Language Function - Naming : Normal - Fluency: Normal - Repetition ( no ifs, ands, or buts ): Normal - Paraphasic Errors: Normal - Read and do close your eyes : Normal - Writing from dictation ( The sun rises in [place] ): Normal Naming performance - Number of first names in one minute: _17___ not including ___0_ repeats Apraxias: Absent Construction - Figure: No errors - Clock: No errors - Picture interpretation: No errors - Spatial memory: No errors Mood/Affect: depressed and anhedonic Impression - Memory deficit: No Immediate recall>> delayed - Deficit in 2+ areas of cognition: No NEUROLOGICAL EXAM Speech: normal with no dysarthria CRANIAL NERVES: II: VFFTC III, IV, : EOMI w/o nystagmus, normal smooth pursuit and saccades V: Facial sensation intact, jaw closure is normal VII: Eye closure AND smile normal. No facial droop or flattening of nasal-labial fold. VIII: Hearing is normal to finger rub bilat IX, X: The uvula elevates in the midline bilat XI: The sternocleidomastoid and trapezius have normal strength XII: The tongue protrudes in the midline COORDINATION: - Normal ALON / Fingertap /FTN / open-close / toe tap / foot tap MOTOR: - Strength = 5/5 throughout - Pronator Drift = negative - Bulk = normal, no fasciculations - Tone = normal - Tremor = none - Dyskines (more content not included)... Normal [facility] ESR Westergren method (Bld) [Velocity]on 03-19-2023 ESR (Bld) [Velocity] 2 mm/h 0 - 20 mm/hr [facility] ESR (Bld) [Velocity] 2 mm/h Normal 0-20 [facility] Comment on above: Order Comment: Speci men Type: BLOOD SPECIMENOrdering Facility: [facility] Address: [address] [place] [address] Performed By: #### 5 7021-8, 4537-7 ####[facility] LABCLIA [id number] [place] [address] [place] FOLATE SERUMon 03-19-2023 Folate [Mass/Vol] 6.0 ng/mL >4.7 ng/mL [facility] Folate SerPl-mCncon 03-19-20 Folate [Mass/Vol] 6.0 ng/mL Normal >4.7 [facility] Comment on above: Order Comment: Speci men Type: BLOOD SPECIMENOrdering Facility: [facility] Address: [address] [place] [address] Performed By: #### 2 132-9, 2284-8 ####[facility] LABCLIA [id number] [place] [address] [place] Methylmalonate SerPl-sCncon 03-19-2023 Methylmalonate [Moles/Vol] 0.15 umol/L Normal <=0.40 [facility] Comment on above: Order Comment: Speci men Type: BLOOD SPECIMENOrdering Facility: [facility] Address: [address] [place] [address] Result Comment: This test was developed and its performance characteristics determined by [facility]'s [facility] [place] ([facility]). It has not been cleared or approved by the FDA. [facility] is regulated under CLIA as qualified to perform high-complexity testing. This test is used for clinical purposes. It should not be regarded as investigational or for research. Performed By: #### 1 3964-2 ####[facility] LABIA [id number] [place] [address] [place] Reagin and Treponema pallidu m IgG and IgM [Interp]on 03-19-2023 T. pallidum IgG+IgM IA Ql (S) Non-Reactive Nonreactive [facility] T. pallidum IgG+IgM IA Ql (S) Non-Reactive Normal Nonreactive [facility] Comment on above: Order Comment: Speci men Type: BLOOD SPECIMENOrdering Facility: [facility] Address: [address] [place] [address] Performed By: #### 7 3752-8 ####[facility] [id number] [place] [address] [place] Reagin+T pallidum IgG+IgM Se rPl-Impon 03-19-2023 Reagin and Treponema pallidum IgG and IgM [Interp] Cannot exclude recent Treponemal infection if specimen collected within 7-10 days after appearance of suspect lesions or 2-3 weeks after an exposure. Clinical correlation is required. Normal [facility] Comment on above: Order Comment: Speci men Type: BLOOD SPECIMENOrdering Facility: [facility] Address: [address] [place] [address] Performed By: #### 7 3752-8 ####[facility] [id number] [place] [address] [place] SYPHILIS TOTAL W/REFLEXon Reagin and Treponema pallidum IgG and IgM [Interp] Cannot exclude recent Treponemal infection if specimen collected within 7-10 days after appearance of suspect lesions or 2-3 weeks after an exposure. Clinical correlation is required. [facility] T4 FREE/FREE THYROXon 2022 Free T4 [Mass/Vol] 1.1 ng/dL 0.9 - 1.7 ng/dL [facility] T4 Free SerPl-mCncon 023 Free T4 [Mass/Vol] 1.1 ng/dL Normal 0.9-1.7 [facility] Comment on above: Order Comment: Speci men Type: BLOOD SPECIMENOrdering Facility: [facility] Address: [address] [place] [address] Performed By: #### 3 024-7, 3026-2, 3016-3 ####[facility] LABCLIA [id number] [place] [address] [place] T4 SerPl-ncon 03-19-2023 T4 [Mass/Vol] 6.8 ug/dL Normal 5.5-10.2 [facility] Comment on above: Order Comment: Speci men Type: BLOOD SPECIMENOrdering Facility: [facility] Address: [address] [place] [address] Performed By: #### 3 024-7, 3026-2, 3016-3 ####[facility] LABCLIA [id number] [place] [address] [place] T4/THYROXINE BLOODon 023 T4 [Mass/Vol] 6.8 ug/dL 5.5 - 10.2 ug/dL [facility] TSH BLDon 03-19-2023 TSH Qn 1.190 m[IU]/L 0.270 - 4.200 mIU/L [facility] TSH SerPl-aCncon 03-19-2023 TSH Qn 1.190 m[IU]/L Normal 0.270-4.200 [facility] Comment on above: Order Comment: Speci men Type: BLOOD SPECIMENOrdering Facility: [facility] Address: [address] [place] [address] Performed By: #### 3 024-7, 3026-2, 3016-3 ####[facility] LABCLIA [id number] [place] [address] [place] VITAMIN B1 (THIAMINE), WHOLE BLOODon 03-19-2023 Thiamine (Bld) [Moles/Vol] 183.6 nmol/L Normal 84.3-213.3 [facility] Comment on above: Order Comment: Goldie diop Type: BLOOD SPECIMENOrdering Facility: [facility] Address: [address] [place] [address] Result Comment: This assay measures the concentration of thiamine diphosphate (TDP), the primary active form of vitamin B1. Approximately 90 percent of vitamin B1 present in whole blood is TDP. Thiamine and thiamine monophosphate, which comprise the remaining 10 percent, are not measured. This test was developed and its performance characteristics determined by [facility]'s [facility] [place] ([facility] It has not been cleared or approved by the FDA. [facility] is regulated under CLIA as qualified to perform high-complexity testing. This test is used for clinical purposes. It should not be regarded as investigational or for research. Performed By: #### B 1WB ####[facility] LABCLIA [id number] [place] [address] [place] VITAMIN B12 BLOODon 03-19-20 23 Cobalamin (Vitamin B12) [Mass/Vol] 638 pg/mL 232 - 1,245 pg/mL [facility] Vit B12 SerPl-mCncon 023 Cobalamin (Vitamin B12) [Mass/Vol] 638 pg/mL Normal 232-1245 [facility] Comment on above: Order Comment: Goldie diop Type: BLOOD SPECIMENOrdering Facility: [facility] Address: [address] [place] [address] Performed By: #### 2 132-9, 2284-8 ####[facility] LABCLIA [id number] [place] [address] [place] BNPon 07-13-2022 Natriuretic peptide B (Bld) [Mass/Vol] 51.0 pg/mL Normal <=900.0 [facility] Comment on above: Performed By: #### B MANAGER BUSINESS, CMADM, CMP #### [facility] [address] [place] [address] Dr. Fawn Anthony CARDIAC HUGO ADMITon 023 CK [Catalytic activity/Vol] 51 U/L Normal 26-192 [facility] Comment on above: Performed By: #### B MANAGER BUSINESS, CMADM, CMP ####[facility] [id number] [place] [address]DrSe Anthony CK.MB [Mass/Vol] 1.15 ng/mL Normal <=3.60 [facility] Comment on above: Performed By: #### B MANAGER BUSINESS, CMADM, CMP ####[facility] [id number] [place] [address]Dr. Fawn Anthony HSTROP 4.1 pg/mL Normal 4.0-51.3 [facility] Comment on above: Result Comment: CUT- OFF POINTS HAVE BEEN ESTABLISHED BASED ON THE FOURTH UNIVERSAL DEFINITIONS OF MYOCARDIAL INFARCTION. THE UPPER REFERENCE LIMIT (URL) OF TROPONIN, DEFINED THE 99TH PERCENTILE OF cTnI DISTRIBUTION IN A REFERENCE POPULATION, HAS BEEN CONFIRMED THE DECISION THRESHOLD FOR AR DIAGNOSIS. Performed By: #### B MANAGER BUSINESS, CMADM, CMP ####[facility] [id number] [place] [address]DrSe Anthony FREDDIE 29 ng/mL Normal 9-82 [facility] Comment on above: Performed By: #### B MANAGER BUSINESS, CMADM, CMP ####[facility] [id number] [place] [address]Dr. Fawn Anthony CBC AUTO DIFFon 07-13-2022 BASO # 0.1 103/ul Normal 0.0-0.1 [facility] Comment on above: Performed By: #### C BC #### [facility] Laboratory [address] [address] [address] Fawn Anthony Basophils/100 WBC (Bld) 1.1 % Normal 0.2-2.0 [facility] Comment on above: Performed By: #### C BC #### [facility] [address] [address] [address] Fawn Anthony EO # 0.3 103/ul Normal 0.0-0.7 [facility] Comment on above: Performed By: #### C BC #### [facility] [address] [place] [address] Dr. Fawn Anthony Eosinophils/100 WBC (Bld) 5.7 % Normal 0.9-7.0 [facility] Comment on above: Performed By: #### C BC #### [facility] [address] [place] [address] Dr. Fawn Anthony Erythrocyte distribution width (RBC) [Ratio] 13.0 % Normal 11.0-15.0 [facility] Comment on above: Performed By: #### C BC #### [facility] [address] [place] [address] Dr. Fawn Anthony Hematocrit (Bld) [Volume fraction] 39.7 % Normal 36.0-48.0 [facility] Comment on above: Performed By: #### C BC #### [facility] [address] [place] [address] Dr. Fawn Anthony Hemoglobin (Bld) [Mass/Vol] 13.0 g/dL Normal 12.0-16.0 [facility] Comment on above: Performed By: #### C BC #### [facility] [address] [place] [address] Dr. Fawn Anthony IG # 0.02 10e3/ul Normal 0.00-0.03 [facility] Comment on above: Performed By: #### C BC #### [facility] [address] [place] [address] Dr. Fawn Anthony IG % 0.4 % Normal 0.0-0.5 [facility] Comment on above: Performed By: #### C BC #### [facility] [address] [place] [address] Dr. Fawn Anthony LYMPH # 2.0 103/ul Normal 1.2-3.8 [facility] Comment on above: Performed By: #### C BC #### [facility] [address] [place] [address] Dr. Fawn Anthony Lymphocytes/100 WBC (Bld) 36.9 % Normal 20.5-60.0 [facility] Comment on above: Performed By: #### C BC #### [facility] [address] [place] [address] Dr. Fawn Anthony MANUAL DIFF REQ NO Normal [facility] Comment on above: Performed By: #### C BC #### [facility] [address] [place] [address] Dr. Fawn Anthony MCH (RBC) [Entitic mass] 28.7 pg Normal 26.7-34.0 [facility] Comment on above: Performed By: #### C BC #### [facility] [address] [place] [address] Dr. Fawn Anthony MCHC (RBC) [Mass/Vol] 32.7 g/dL Normal 29.9-35.2 [facility] Comment on above: Performed By: #### C BC #### [facility] [address] [place] [address] Dr. Fawn Anthony MCV (RBC) [Entitic vol] 87.6 fL Normal 81.0-99.0 [facility] Comment on above: Performed By: #### C BC #### [facility] [address] [place] [address] Dr. Fawn Anthony MONO # 0.4 103/ul Normal 0.3-0.8 [facility] Comment on above: Performed By: #### C BC #### [facility] [address] [place] [address] Dr. Fawn Anthony Monocytes/100 WBC (Bld) 8.1 % Normal 1.7-12.0 [facility] Comment on above: Performed By: #### C BC #### [facility] [address] [place] [address] Dr. Fawn Anthony NEUT # 2.6 103/ul Normal 1.4-6.5 [facility] Comment on above: Performed By: #### C BC #### [facility] [address] [place] [address] Dr. Fawn Anthony Neutrophils/100 WBC (Bld) 47.8 % Normal 43.0-75.0 [facility] Comment on above: Performed By: #### C BC #### [facility] [address] [place] [address] Dr. Fawn Anthony Platelet mean volume (Bld) [Entitic vol] 9.2 fL Critically low 9.5-13.5 [facility] Comment on above: Performed By: #### C BC #### [facility] [address] [place] [address] Dr. Fawn Anthony PLT 232 103/ul Normal 150-450 [facility] Comment on above: Performed By: #### C BC #### [facility] [address] [place] [address] Dr. Fawn Anthony RBC 4.53 106/ul Normal 4.20-5.40 [facility] Comment on above: Performed By: #### C BC #### [facility] [address] [place] [address] Dr. Fawn Anthony WBC 5.5 103/ul Normal 4.0-11.0 [facility] Comment on above: Performed By: #### C BC #### [facility] [address] [place] [address] Dr. Fawn Anthony PROF 14(COMP METB)on 023 Albumin [Mass/Vol] 3.8 g/dL Normal 3.4-5.0 [facility] Comment on above: Performed By: #### B MANAGER BUSINESS, CMADM, CMP #### [facility] [address] [place] [address] Dr. Fawn Anthony Albumin/Globulin [Mass ratio] 1.2 {ratio} Normal [facility] Comment on above: Performed By: #### B MANAGER BUSINESS, CMADM, CMP #### [facility] [address] [place] [address] Dr. Fawn Anthony ALP [Catalytic activity/Vol] 89 U/L Normal 46-116 [facility] Comment on above: Performed By: #### B MANAGER BUSINESS, CMADM, CMP #### [facility] [address] [place] [address] Dr. Fawn Anthony ALT [Catalytic activity/Vol] 22 U/L Normal 14-59 [facility] Comment on above: Performed By: #### B MANAGER BUSINESS, CMADM, CMP #### [facility] [address] [place], [place] [id number] Dr. Fawn Anthony Anion gap [Moles/Vol] 9.5 mmol/L Normal [facility] Comment on above: Performed By: #### B MANAGER BUSINESS, CMADM, CMP #### [facility] [address] [place] [address] Dr. Fawn Anthony AST [Catalytic activity/Vol] 15 U/L Normal 15-37 [facility] Comment on above: Performed By: #### B MANAGER BUSINESS, CMADM, CMP #### [facility] [address] [place] [address] Dr. Fawn Anthony Bilirubin [Mass/Vol] 0.3 mg/dL Normal 0.2-1.0 [facility] Comment on above: Performed By: #### B MANAGER BUSINESS, CMADM, CMP #### [facility] [address] [place] [address] Dr. Fawn Anthony Calcium [Mass/Vol] 8.6 mg/dL Normal 8.5-10.1 [facility] Comment on above: Performed By: #### B MANAGER BUSINESS, CMADM, CMP #### [facility] [address] [place] [address] Dr. Fawn Anthony Chloride [Moles/Vol] 102 mmol/L Normal 98-107 [facility] Comment on above: Performed By: #### B MANAGER BUSINESS, CMADM, CMP #### [facility] [address] [place] [address] Dr. Fawn Anthony CO2 [Moles/Vol] 31.0 mmol/L Normal 21.0-32.0 [facility] Comment on above: Performed By: #### B MANAGER BUSINESS, CMADM, CMP #### [facility] [address] [place] [address] Dr. Fawn Anthony Creatinine [Mass/Vol] 0.74 mg/dL Normal 0.55-1.02 [facility] Comment on above: Performed By: #### B MANAGER BUSINESS, CMADM, CMP #### [facility] [address] [place] [address] Dr. Fawn Anthony EGFR-AF COMORAN >60 Normal >=60 [facility] Comment on above: Performed By: #### B MANAGER BUSINESS, CMADM, CMP #### [facility] [address] [address] [address] Fawn Anthony EGFR-NON AF COMORAN >60 Normal >=60 [facility] Comment on above: Performed By: #### B MANAGER BUSINESS, CMADM, CMP #### [facility] [address] [address] [address] Fawn Anthony Globulin (S) [Mass/Vol] 3.2 g/dL Normal [facility] Comment on above: Performed By: #### B MANAGER BUSINESS, CMADM, CMP #### [facility] [address] [address] [address] Fawn Anthony Glucose [Mass/Vol] 100 mg/dL Normal 74-106 [facility] Comment on above: Performed By: #### B MANAGER BUSINESS, CMADM, CMP #### [facility] [address] [place] [address] Dr. Fawn Anthony Potassium [Moles/Vol] 3.5 mmol/L Normal 3.5-5.1 [facility] Comment on above: Performed By: #### B MANAGER BUSINESS, CMADM, CMP #### [facility] [address] [address] [address] Fawn Anthony Protein [Mass/Vol] 7.0 g/dL Normal 6.4-8.2 [facility] Comment on above: Performed By: #### B MANAGER BUSINESS, CMADM, CMP #### [facility] [address] [address] [address] Fawn Anthony Sodium [Moles/Vol] 139 mmol/L Normal 136-145 [facility] Comment on above: Performed By: #### B MANAGER BUSINESS, CMADM, CMP #### [facility] [address] [address] [address] Fawn Anthony Urea nitrogen [Mass/Vol] 14.0 mg/dL Normal 7.0-18.0 [facility] Comment on above: Performed By: #### B MANAGER BUSINESS, CMADM, CMP #### [facility] [address] [address] [address] Fawn Anthony Urea nitrogen/Creatinin e [Mass ratio] 18.9 mg/mg Normal [facility] Comment on above: Performed By: #### B MANAGER BUSINESS, CMADM, CMP #### [facility] [address] [address] [address] Fawn Anthony PROTIMEon 07-13-2022 INR Coag (PPP) [Relative time] 0.98 {INR} Normal [facility] Comment on above: Performed By: #### P TT, PT ####[facility] [address] [address]Dr. Fawn Anthony INR GUIDELINES SEE BELOW Normal [facility] Comment on above: Result Comment: BROCK RED INR: 2.0 - 3.0 CONDITIONS NOT LISTED BELOW 2.5 - 3.5 FOR PROSTHETIC HEART VALVE REPLACEMENT 2.5 - 3.5 RECURRENT THROMBOSIS Performed By: #### P TT, PT ####[facility] [address] [address]DrSe Anthony PT Coag (PPP) [Time] 10.4 s Normal 9.0-11.6 [facility] Comment on above: Performed By: #### P TT, PT ####[facility] [address] [address]Dr. Fawn Anthony PTTon 07-13-2022 aPTT Coag (Bld) [Time] 30.1 s Normal 22.3-36.2 [facility] Comment on above: Performed By: #### P TT, PT ####[facility] [address] [address]DrSe Anthony TROPONIN, HIGH SENSITIVITYon 07-13-2022 HSTROP 4.3 pg/mL Normal 4.0-51.3 [facility] Comment on above: Result Comment: CUT- OFF POINTS HAVE BEEN ESTABLISHED BASED ON THE FOURTH UNIVERSAL DEFINITIONS OF MYOCARDIAL INFARCTION. THE UPPER REFERENCE LIMIT (URL) OF TROPONIN, DEFINED THE 99TH PERCENTILE OF cTnI DISTRIBUTION IN A REFERENCE POPULATION, HAS BEEN CONFIRMED THE DECISION THRESHOLD FOR AR DIAGNOSIS. Performed By: #### H STROPN #### [facility] [address] [address] [address] Fawn Anthony TSHon 07-13-2022 TSH 3.430 uIU/mL Normal 0.358-3.740 [facility] Comment on above: Performed By: #### T SH #### [facility] [address] [place] [address] Dr. Fawn Anthony XR CHEST 1 Von 07-13-2022 XR CHEST 1 V XR CHEST 1 V 07/14/19 12:24 AM EDT CLINICAL INDICATION: Unspecified chest [...] AG [place]AC[place] Date: 2022-07-13 02:34 Normal [facility] CBC AUTO DIFFon 02-07-2022 BASO # 0.1 103/ul Normal 0.0-0.1 [facility] Comment on above: Performed By: #### C BC #### [facility] [address] [place] [address] Dr. Fawn Anthony Basophils/100 WBC (Bld) 0.6 % Normal 0.2-2.0 [facility] Comment on above: Performed By: #### C BC #### [facility] [address] [place] [address] Dr. Fawn Anthony EO # 0.2 103/ul Normal 0.0-0.7 [facility] Comment on above: Performed By: #### C BC #### [facility] [address] [place] [address] Dr. Fawn Anthony Eosinophils/100 WBC (Bld) 1.8 % Normal 0.9-7.0 [facility] Comment on above: Performed By: #### C BC #### [facility] [address] [place] [address] Dr. Fawn Anthony Erythrocyte distribution width (RBC) [Ratio] 13.1 % Normal 11.0-15.0 [facility] Comment on above: Performed By: #### C BC #### [facility] [address] [place] [address] Dr. Fawn Anthony Hematocrit (Bld) [Volume fraction] 39.8 % Normal 36.0-48.0 [facility] Comment on above: Performed By: #### C BC #### [facility] [address] [place] [address] Dr. Fawn Anthony Hemoglobin (Bld) [Mass/Vol] 13.1 g/dL Normal 12.0-16.0 [facility] Comment on above: Performed By: #### C BC #### [facility] [address] [place] [address] Dr. Fawn Anthony IG # 0.04 10e3/ul Critically high 0.00-0.03 [facility] Comment on above: Performed By: #### C BC #### [facility] [address] [place] [address] Dr. Fawn Anthony IG % 0.4 % Normal 0.0-0.5 [facility] Comment on above: Performed By: #### C BC #### [facility] [address] [place] [address] Dr. Fawn Anthony LYMPH # 1.6 103/ul Normal 1.2-3.8 [facility] Comment on above: Performed By: #### C BC #### [facility] [address] [place] [address] Dr. Fawn Anthony Lymphocytes/100 WBC (Bld) 15.6 % Critically low 20.5-60.0 [facility] Comment on above: Performed By: #### C BC #### [facility] [address] [place] [address] Dr. Fawn Anthony MANUAL DIFF REQ NO Normal [facility] Comment on above: Performed By: #### C BC #### [facility] [address] [place] [address] Dr. Fawn Anthony MCH (RBC) [Entitic mass] 28.6 pg Normal 26.7-34.0 [facility] Comment on above: Performed By: #### C BC #### [facility] [address] [place] [address] Dr. Fawn Anthony MCHC (RBC) [Mass/Vol] 32.9 g/dL Normal 29.9-35.2 [facility] Comment on above: Performed By: #### C BC #### [facility] [address] [address] [address] Fawn Anthony MCV (RBC) [Entitic vol] 86.9 fL Normal 81.0-99.0 [facility] Comment on above: Performed By: #### C BC #### [facility] [address] [address] [address] Fawn Anthony MONO # 0.5 103/ul Normal 0.3-0.8 [facility] Comment on above: Performed By: #### C BC #### [facility] [address] [address] [address] Fawn Anthony Monocytes/100 WBC (Bld) 5.2 % Normal 1.7-12.0 [facility] Comment on above: Performed By: #### C BC #### [facility] [address] [address] [address] Fawn Anthony NEUT # 7.7 103/ul Critically high 1.4-6.5 [facility] Comment on above: Performed By: #### C BC #### [facility] [address] [address] [address] Fawn Anthony Neutrophils/100 WBC (Bld) 76.4 % Critically high 43.0-75.0 [facility] Comment on above: Performed By: #### C BC #### [facility] [address] [address] [address] Fawn Anthony Platelet mean volume (Bld) [Entitic vol] 9.7 fL Normal 9.5-13.5 [facility] Comment on above: Performed By: #### C BC #### [facility] [address] [place] [address] Dr. Fawn Anthony PLT 257 103/ul Normal 150-450 [facility] Comment on above: Performed By: #### C BC #### [facility] [address] [address] [address] Fawn Anthony RBC 4.58 106/ul Normal 4.20-5.40 [facility] Comment on above: Performed By: #### C BC #### [facility] [address] [place], [place] [address] Dr. Fawn Anthony WBC 10.1 103/ul Normal 4.0-11.0 [facility] Comment on above: Performed By: #### C BC #### [facility] [address] [place], [place] [address] Dr. Fawn Anthony CTA CHEST WO W [...] YOKASTA BAINS Date: 2022-02-07 19:59 Normal [facility] PROF 14(COMP METB)on 022 Albumin [Mass/Vol] 4.0 g/dL Normal 3.4-5.0 [facility] Comment on above: Performed By: #### H LAURA, CMP ####[facility] [address] [address]Dr. Fawn Anthony Albumin/Globulin [Mass ratio] 1.3 {ratio} Normal [facility] Comment on above: Performed By: #### H LAURA, CMP ####[facility] [address] [address]Dr. Fawn Anthony ALP [Catalytic activity/Vol] 77 U/L Normal 46-116 [facility] Comment on above: Performed By: #### H LAURA, CMP ####[facility] [address] [address]Dr. Fawn Anthony ALT [Catalytic activity/Vol] 15 U/L Normal 14-59 [facility] Comment on above: Performed By: #### H LAURA, CMP ####[facility] [address] [address]Dr. Fawn Anthony Anion gap [Moles/Vol] 9.9 mmol/L Normal [facility] Comment on above: Performed By: #### H LAURA, CMP ####[facility] [address] [address]Dr. Fawn Anthony AST [Catalytic activity/Vol] 13 U/L Critically low 15-37 [facility] Comment on above: Performed By: #### H STROPN, CMP ####[facility] [address] [address]Dr. Fawn Anthony Bilirubin [Mass/Vol] 0.5 mg/dL Normal 0.2-1.0 [facility] Comment on above: Performed By: #### H STROPN, CMP ####[facility] [address] [address]Dr. Fawn Anthony Calcium [Mass/Vol] 9.2 mg/dL Normal 8.5-10.1 [facility] Comment on above: Performed By: #### H LAURA, CMP ####[facility] [address] [address]Dr. Fawn Anthony Chloride [Moles/Vol] 103 mmol/L Normal 98-107 [facility] Comment on above: Performed By: #### H LAURA, CMP ####[facility] [address] [address]Dr. Fawn Anthony CO2 [Moles/Vol] 27.5 mmol/L Normal 21.0-32.0 [facility] Comment on above: Performed By: #### H LAURA, CMP ####[facility] [address] [place], [place] [address]Dr. Fawn Anthony Creatinine [Mass/Vol] 0.71 mg/dL Normal 0.55-1.02 [facility] Comment on above: Performed By: #### H LAURA, CMP ####[facility] [address] [place], [place] [address]Dr. Fawn Anthony EGFR-AF COMORAN >60 Normal >=60 [facility] Comment on above: Performed By: #### H LAURA, CMP ####[facility] [address] [place], [place] [address]Dr. Fawn Anthony EGFR-NON AF COMORAN >60 Normal >=60 [facility] Comment on above: Performed By: #### H LAURA, CMP ####[facility] [address] [address]Dr. Fawn Anthony Globulin (S) [Mass/Vol] 3.2 g/dL Normal [facility] Comment on above: Performed By: #### H LAURA, CMP ####[facility] [address] [place], [place] [address]Dr. Fawn Anthony Glucose [Mass/Vol] 125 mg/dL Critically high 74-106 [facility] Comment on above: Performed By: #### H LAURA, CMP ####[facility] [address] [place], [place] [address]Dr. Fawn Anthony Potassium [Moles/Vol] 3.4 mmol/L Critically low 3.5-5.1 [facility] Comment on above: Performed By: #### H LAURA, CMP ####[facility] [address] [address]Dr. Shannenjohn Raj Protein [Mass/Vol] 7.2 g/dL Normal 6.4-8.2 [facility] Comment on above: Performed By: #### H LAURA, CMP ####[facility] [address] [address]Dr. Fawn Anthony Sodium [Moles/Vol] 137 mmol/L Normal 136-145 [facility] Comment on above: Performed By: #### H LAURA, CMP ####[facility] [address] [address]Dr. Fawn Anthony Urea nitrogen [Mass/Vol] 15.0 mg/dL Normal 7.0-18.0 [facility] Comment on above: Performed By: #### H LAURA, CMP ####[facility] [address] [address]Dr. Fawn Anthony Urea nitrogen/Creatinin e [Mass ratio] 21.1 mg/mg Normal [facility] Comment on above: Performed By: #### H LAURA, CMP ####[facility] [address] [address]Dr. Fawn Anthony TROPONIN, HIGH SENSITIVITYon 02-07-2022 HSTROP 4.8 pg/mL Normal 4.0-51.3 [facility] Comment on above: Result Comment: CUT- OFF POINTS HAVE BEEN ESTABLISHED BASED ON THE FOURTH UNIVERSAL DEFINITIONS OF MYOCARDIAL INFARCTION. THE UPPER REFERENCE LIMIT (URL) OF TROPONIN, DEFINED THE 99TH PERCENTILE OF cTnI DISTRIBUTION IN A REFERENCE POPULATION, HAS BEEN CONFIRMED THE DECISION THRESHOLD FOR AR DIAGNOSIS. Performed By: #### H LAURA #### [facility] [address] [id number] [address]Se Anthony HSTROP 4.6 pg/mL Normal 4.0-51.3 [facility] Comment on above: Result Comment: CUT- OFF POINTS HAVE BEEN ESTABLISHED BASED ON THE FOURTH UNIVERSAL DEFINITIONS OF MYOCARDIAL INFARCTION. THE UPPER REFERENCE LIMIT (URL) OF TROPONIN, DEFINED THE 99TH PERCENTILE OF cTnI DISTRIBUTION IN A REFERENCE POPULATION, HAS BEEN CONFIRMED THE DECISION THRESHOLD FOR AR DIAGNOSIS. Performed By: #### H LAURA, [facility] ####[facility] [address] [place], [place] [address]XfDr. Fawn Anthony XR CHEST 1 Von 02-07-2022 XR CHEST 1 V CHEST X-RAY, 1 VIEW HISTORY: Chest pain. COMPARISON: 09/13/2021. FINDINGS: The heart, pattie, and mediastinum are unremarkable. The lungs are grossly clear. There are no pleural effusions. There is no pneumothorax. IMPRESSION: No evidence of acute cardiopulmonary disease. Electronically authenticated by: LUKE GUERRA Date: 2022-02-07 18:39 Normal [facility] SCREENING MAMMOGRAM W/KALLI, BILATERAL*on 12-14-2021 SCREENING MAMMOGRAM [...] VERY IMPORTANT TO YOUR HEALTH. THE CURRENT [employer] GUIDELINES RECOMMENDS ANNUAL MAMMOGRAPHY BEGINNING AT AGE 40 THIS FACILITY USES A REMINDER SYSTEM TO ENSURE ALL PATIENTS RECEIVE REMINDER NOTIFICATIONS AT THE APPROPRIATE TIME BASED ON THE RECOMMENDATIONS OF THIS EXAM. 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 THE UPPER REFERENCE LIMIT (URL) OF TROPONIN, DEFINED THE 99TH PERCENTILE OF cTnI DISTRIBUTION IN A REFERENCE POPULATION, HAS BEEN CONFIRMED THE DECISION THRESHOLD FOR AR DIAGNOSIS. Performed By: #### H LAURA #### [facility] [address], [place] [address] Dr. Fawn Anthony XR CHEST 1 Von [...] MARLENE LEACH Date: 2021-09-13 22:08 Normal [facility] CBC AUTO DIFFon 09-13-2021 BASO # 0.1 103/ul Normal 0.0-0.1 [facility] Comment on above: Performed By: #### C BC #### [facility] [address] [place] [address] Dr. Fawn Anthony Basophils/100 WBC (Bld) 1.1 % Normal 0.2-2.0 [facility] Comment on above: Performed By: #### C BC #### [facility] [address] [place] [address] Dr. Fawn Anthony EO # 0.2 103/ul Normal 0.0-0.7 [facility] Comment on above: Performed By: #### C BC #### [facility] [address] [place] [address] Dr. Fawn Anthony Eosinophils/100 WBC (Bld) 4.3 % Normal 0.9-7.0 [facility] Comment on above: Performed By: #### C BC #### [facility] [address] [place] [address] Dr. Fawn Anthony Erythrocyte distribution width (RBC) [Ratio] 13.2 % Normal 11.0-15.0 [facility] Comment on above: Performed By: #### C BC #### [facility] [address] [place] [address] Dr. Fawn Anthony Hematocrit (Bld) [Volume fraction] 39.8 % Normal 36.0-48.0 [facility] Comment on above: Performed By: #### C BC #### [facility] [address] [place] [address] Dr. Fawn Anthony Hemoglobin (Bld) [Mass/Vol] 13.2 g/dL Normal 12.0-16.0 [facility] Comment on above: Performed By: #### C BC #### [facility] [address] [place] [address] Dr. Fawn Anthony IG # 0.02 10e3/ul Normal 0.00-0.03 [facility] Comment on above: Performed By: #### C BC #### [facility] [address] [place] [address] Dr. Fawn Anthony IG % 0.4 % Normal 0.0-0.5 [facility] Comment on above: Performed By: #### C BC #### [facility] [address] [place] [address] Dr. Fawn Anthony LYMPH # 1.9 103/ul Normal 1.2-3.8 [facility] Comment on above: Performed By: #### C BC #### [facility] [address] [place] [address] Dr. Fawn Anthony Lymphocytes/100 WBC (Bld) 34.3 % Normal 20.5-60.0 [facility] Comment on above: Performed By: #### C BC #### [facility] [address] [place] [address] Dr. Fawn Anthony MANUAL DIFF REQ NO Normal [facility] Comment on above: Performed By: #### C BC #### [facility] [address] [place] [address] Dr. Fawn Anthony MCH (RBC) [Entitic mass] 29.1 pg Normal 26.7-34.0 [facility] Comment on above: Performed By: #### C BC #### [facility] [address] [place] [address] Dr. Fawn Anthony MCHC (RBC) [Mass/Vol] 33.2 g/dL Normal 29.9-35.2 [facility] Comment on above: Performed By: #### C BC #### [facility] [address] [place] [address] Dr. Fawn Anthony MCV (RBC) [Entitic vol] 87.9 fL Normal 81.0-99.0 [facility] Comment on above: Performed By: #### C BC #### [facility] [address] [place] [address] Dr. Fawn Anthony MONO # 0.5 103/ul Normal 0.3-0.8 [facility] Comment on above: Performed By: #### C BC #### [facility] [address] [place] [address] Dr. Fawn Anthony Monocytes/100 WBC (Bld) 8.3 % Normal 1.7-12.0 [facility] Comment on above: Performed By: #### C BC #### [facility] [address] [place] [address] Dr. Fawn Anthony NEUT # 2.9 103/ul Normal 1.4-6.5 [facility] Comment on above: Performed By: #### C BC #### [facility] [address] [place] [address] Dr. Fawn Anthony Neutrophils/100 WBC (Bld) 51.6 % Normal 43.0-75.0 [facility] Comment on above: Performed By: #### C BC #### [facility] [address] [place] [address] Dr. Fawn Anthony Platelet mean volume (Bld) [Entitic vol] 9.4 fL Critically low 9.5-13.5 [facility] Comment on above: Performed By: #### C BC #### [facility] [address] [place] [address] Dr. Fawn Anthony PLT 245 103/ul Normal 150-450 [facility] Comment on above: Performed By: #### C BC #### [facility] [address] [place] [address] Dr. Fawn Anthony RBC 4.53 106/ul Normal 4.20-5.40 [facility] Comment on above: Performed By: #### C BC #### [facility] [address] [place] [address] Dr. Fawn Anthony WBC 5.5 103/ul Normal 4.0-11.0 [facility] Comment on above: Performed By: #### C BC #### [facility] [address] [address] [address] Fawn Anthony PROF 14(COMP METB)on 022 Albumin [Mass/Vol] 3.7 g/dL Normal 3.4-5.0 [facility] Comment on above: Performed By: #### H STROPN, CMP #### [facility] [address] [address] [address] Fawn Anthony Albumin/Globulin [Mass ratio] 1.1 {ratio} Normal [facility] Comment on above: Performed By: #### H STROPN, CMP #### [facility] [address] [address] [address] Fawn Anthony ALP [Catalytic activity/Vol] 79 U/L Normal 46-116 [facility] Comment on above: Performed By: #### H STROPN, CMP #### [facility] [address] [address] [address] Fawn Anthony ALT [Catalytic activity/Vol] 27 U/L Normal 14-59 [facility] Comment on above: Performed By: #### H STROPN, CMP #### [facility] [address] [address] [address] Fawn Anthony Anion gap [Moles/Vol] 9.4 mmol/L Normal [facility] Comment on above: Performed By: #### H STROPN, CMP #### [facility] [address] [address] [address] Fawn Anthony AST [Catalytic activity/Vol] 15 U/L Normal 15-37 [facility] Comment on above: Performed By: #### H STROPN, CMP #### [facility] [address] [address] [address] Fawn Anthony Bilirubin [Mass/Vol] 0.5 mg/dL Normal 0.2-1.0 [facility] Comment on above: Performed By: #### H STROPN, CMP #### [facility] [address] [address] [address] Fawn Anthony Calcium [Mass/Vol] 8.7 mg/dL Normal 8.5-10.1 [facility] Comment on above: Performed By: #### H STROPN, CMP #### [facility] [address] [address] [address] Fawn Anthony Chloride [Moles/Vol] 105 mmol/L Normal 98-107 [facility] Comment on above: Performed By: #### H STROPN, CMP #### [facility] [address] [address] [address] Fawn Anthony CO2 [Moles/Vol] 28.2 mmol/L Normal 21.0-32.0 [facility] Comment on above: Performed By: #### H STROPN, CMP #### [facility] [address] [place] [address] Dr. Fawn Anthony Creatinine [Mass/Vol] 0.92 mg/dL Normal 0.55-1.02 [facility] Comment on above: Performed By: #### H STROPN, CMP #### [facility] [address] [address] [address] Fawn Anthony EGFR-AF COMORAN >60 Normal >=60 [facility] Comment on above: Performed By: #### H STROPN, CMP #### [facility] [address] [place] [address] Dr. Fawn Anthony EGFR-NON AF COMORAN >60 Normal >=60 [facility] Comment on above: Performed By: #### H STROPN, CMP #### [facility] [address] [place] [address] Dr. Fawn Anthony Globulin (S) [Mass/Vol] 3.3 g/dL Normal [facility] Comment on above: Performed By: #### H STROPN, CMP #### [facility] [address] [address] [address] Fawn Anthony Glucose [Mass/Vol] 105 mg/dL Normal 74-106 [facility] Comment on above: Performed By: #### H STROPN, CMP #### [facility] [address] [place] [address] Dr. Fawn Anthony Potassium [Moles/Vol] 3.6 mmol/L Normal 3.5-5.1 [facility] Comment on above: Performed By: #### H STROPN, CMP #### [facility] [address] [place] [address] Dr. Fawn Anthony Protein [Mass/Vol] 7.0 g/dL Normal 6.4-8.2 [facility] Comment on above: Performed By: #### H STROPN, CMP #### [facility] [address] [place] [address] Dr. Fawn Anthony Sodium [Moles/Vol] 139 mmol/L Normal 136-145 [facility] Comment on above: Performed By: #### H TRACIPN, CMP #### [facility] [address] [place] [address] Dr. Fawn Anthony Urea nitrogen [Mass/Vol] 9.0 mg/dL Normal 7.0-18.0 [facility] Comment on above: Performed By: #### H TRACIPN, CMP #### [facility] [address] [place] [address] Dr. Fawn Anthony Urea nitrogen/Creatinin e [Mass ratio] 9.8 mg/mg Normal [facility] Comment on above: Performed By: #### H TRACIPN, CMP #### [facility] [address] [place] [address] Dr. Fawn Anthony TROPONIN, HIGH SENSITIVITYon 09-13-2021 HSTROP 5.6 pg/mL Normal 4.0-51.3 [facility] Comment on above: Result Comment: CUT- OFF POINTS HAVE BEEN ESTABLISHED BASED ON THE FOURTH UNIVERSAL DEFINITIONS OF MYOCARDIAL INFARCTION. THE UPPER REFERENCE LIMIT (URL) OF TROPONIN, DEFINED THE 99TH PERCENTILE OF cTnI DISTRIBUTION IN A REFERENCE POPULATION, HAS BEEN CONFIRMED THE DECISION THRESHOLD FOR AR DIAGNOSIS. Performed By: #### H STROPN, CMP #### [facility] [address] [place] [address] Dr. Fawn Anthony CBC AUTO DIFFon 12-02-2020 BASO # 0.1 103/ul Normal 0.0-0.1 [facility] Comment on above: Performed By: #### C BC #### [facility] [address] [place] [address] Maricruz Kristen Basophils/100 WBC (Bld) 0.9 % Normal 0.2-2.0 [facility] Comment on above: Performed By: #### C BC #### [facility] [address] [place] [address] Maricruz Kristen EO # 0.2 103/ul Normal 0.0-0.7 [facility] Comment on above: Performed By: #### C BC #### [facility] [address] [place] [address] Maricruz Kristen Eosinophils/100 WBC (Bld) 3.3 % Normal 0.9-7.0 [facility] Comment on above: Performed By: #### C BC #### [facility] [address] [place] [address] Maricruz Kristen Erythrocyte distribution width (RBC) [Ratio] 12.7 % Normal 11.0-15.0 [facility] Comment on above: Performed By: #### C BC #### [facility] [address] [place] [address] Maricruz Kristen Hematocrit (Bld) [Volume fraction] 44.5 % Normal 36.0-48.0 [facility] Comment on above: Performed By: #### C BC #### [facility] [address] [place] [address] Maricruz Kristen Hemoglobin (Bld) [Mass/Vol] 14.2 g/dL Normal 12.0-16.0 [facility] Comment on above: Performed By: #### C BC #### [facility] [address] [place] [address] Maricruz Kristen IG # 0.05 10e3/ul Critically high 0.00-0.03 [facility] Comment on above: Performed By: #### C BC #### [facility] [address] [place], [place] [id number] Maricruz Kristen IG % 0.7 % Critically high 0.0-0.5 [facility] Comment on above: Performed By: #### C BC #### [facility] [address] [place] [address] Maricruz Kristen LYMPH # 1.8 103/ul Normal 1.2-3.8 [facility] Comment on above: Performed By: #### C BC #### [facility] [address] [place], [place] [phone] Maricruz Peterson Lymphocytes/100 WBC (Bld) 26.4 % Normal 20.5-60.0 [facility] Comment on above: Performed By: #### C BC #### [facility] [address] [place], [place] [phone] Maricruz Peterson MANUAL DIFF REQ NO Normal [facility] Comment on above: Performed By: #### C BC #### [facility] [address] [place], [place] [phone] Maricruz Peterson MCH (RBC) [Entitic mass] 29.1 pg Normal 26.7-34.0 [facility] Comment on above: Performed By: #### C BC #### [facility] [address] [place] [address] Maricruz Peterson MCHC (RBC) [Mass/Vol] 31.9 g/dL Normal 29.9-35.2 [facility] Comment on above: Performed By: #### C BC #### [facility] [address] [place] [address] Maricruz Peterson MCV (RBC) [Entitic vol] 91.2 fL Normal 81.0-99.0 [facility] Comment on above: Performed By: #### C BC #### [facility] [address] [place] [address] Maricruzfuentes Bustillosen MONO # 0.5 103/ul Normal 0.3-0.8 [facility] Comment on above: Performed By: #### C BC #### [facility] [address] [place], [place] [phone] Maricruz Peterson Monocytes/100 WBC (Bld) 7.6 % Normal 1.7-12.0 [facility] Comment on above: Performed By: #### C BC #### [facility] [address] [place] [address] Maricruz Kristen NEUT # 4.3 103/ul Normal 1.4-6.5 [facility] Comment on above: Performed By: #### C BC #### [facility] [address], [place] [address] Maricruzfuentes Peterson Neutrophils/100 WBC (Bld) 61.1 % Normal 43.0-75.0 [facility] Comment on above: Performed By: #### C BC #### [facility] [address], [place] [address] Maricruzfuentes Peterson Platelet mean volume (Bld) [Entitic vol] 10.0 fL Normal 9.5-13.5 [facility] Comment on above: Performed By: #### C BC #### [facility] [address] [place] [address] Maricruz Kristen PLT 259 103/ul Normal 150-450 [facility] Comment on above: Performed By: #### C BC #### [facility] [address] [place], [place] [phone] Maricruz Kristen RBC 4.88 106/ul Normal 4.20-5.40 [facility] Comment on above: Performed By: #### C BC #### [facility] [address] [place] [address] Maricruz Kristen WBC 7.0 103/ul Normal 4.0-11.0 [facility] Comment on above: Performed By: #### C BC #### [facility] [address] [place] [address] Maricruz Kristen PROF 14(COMP METB)on 021 Albumin [Mass/Vol] 4.1 g/dL Normal 3.5-5.0 [facility] Comment on above: Performed By: #### C UCHE HSTROPN #### [facility] [address] [place] [address] Maricruz Kristen Albumin/Globulin [Mass ratio] 1.0 {ratio} Normal [facility] Comment on above: Performed By: #### C UCHE HSTROPN #### [facility] [address] [place] [address] Maricruz Kristen ALP [Catalytic activity/Vol] 96 U/L Normal 38-126 [facility] Comment on above: Performed By: #### C UCHE, HSTROPN #### [facility] [address], [place] [address] Maricruz Kristen ALT [Catalytic activity/Vol] 83 U/L Critically high 9-52 [facility] Comment on above: Performed By: #### C UCHE, HSTROPN #### [facility] [address], [place] [address] Maricruz Kristen Anion gap [Moles/Vol] 13.2 mmol/L Normal [facility] Comment on above: Performed By: #### C UCHE, HSTROPN #### [facility] [address] [id number] Maricruz Kristen AST [Catalytic activity/Vol] 40 U/L Critically high 14-36 [facility] Comment on above: Performed By: #### C UCHE, HSTROPN #### [facility] [address] [place], [place] [phone] Maricruz Kristen Bilirubin [Mass/Vol] 0.5 mg/dL Normal 0.2-1.3 [facility] Comment on above: Performed By: #### C UCHE, HSTROPN #### [facility] [address] [place], [place] [phone] Maricruz Kristen Calcium [Mass/Vol] 9.0 mg/dL Normal 8.4-10.2 [facility] Comment on above: Performed By: #### C UCHE, HSTROPN #### [facility] [address] [place], [place] [phone] Maricruz Kristen Chloride [Moles/Vol] 104 mmol/L Normal 98-107 [facility] Comment on above: Performed By: #### C UCHE, HSTROPN #### [facility] [address] [id number] Maricruz Kristen CO2 [Moles/Vol] 29.6 mmol/L Normal 22.0-30.0 [facility] Comment on above: Performed By: #### C UCHE, HSTROPN #### [facility] [address] [id number] Maricruz Kristen Creatinine [Mass/Vol] 0.80 mg/dL Normal 0.52-1.04 [facility] Comment on above: Performed By: #### C MP, HSTROPN #### [facility] [address] [place], [place] [phone] Maricruz Kristen EGFR-AF COMORAN >60 Normal >=60 [facility] Comment on above: Performed By: #### C MP, HSTROPN #### [facility] [address] [phone] Maricruz Kristen EGFR-NON AF COMORAN >60 Normal >=60 [facility] Comment on above: Performed By: #### C MP, HSTROPN #### [facility] [address] [place], [place] [phone] Maricruz Kristen Globulin (S) [Mass/Vol] 4.0 g/dL Normal [facility] Comment on above: Performed By: #### C UCHE, HSTROPN #### [facility] [address] [place] [address] Maricruz Kristen Glucose [Mass/Vol] 98 mg/dL Normal 74-106 [facility] Comment on above: Performed By: #### C UCHE, HSTROPN #### [facility] [address] [place] [address] Maricruz Kristen Potassium [Moles/Vol] 3.8 mmol/L Normal 3.4-5.0 [facility] Comment on above: Performed By: #### C UCHE, HSTROPN #### [facility] [address] [place] [address] Maricruz Kristen Protein [Mass/Vol] 8.1 g/dL Normal 6.1-8.2 [facility] Comment on above: Performed By: #### C UCHE, HSTROPN #### [facility] [address] [place] [address] Maricruz Kristen Sodium [Moles/Vol] 143 mmol/L Normal 137-145 [facility] Comment on above: Performed By: #### C MP, HSTROPN #### [facility] [address] [place] [address] Maricruz Kristen Urea nitrogen [Mass/Vol] 9.0 mg/dL Normal 7.0-17.0 [facility] Comment on above: Performed By: #### C MP, HSTROPN #### [facility] [address], [place] [address] Maricruz Peterson Urea nitrogen/Creatinin e [Mass ratio] 11.2 mg/mg Normal [facility] Comment on above: Performed By: #### C MP, HSTROPN #### [facility] [address] [id number] Maricruz Peterson TROPONIN, HIGH SENSITIVITYon 12-02-2020 HSTROP <4.0 Normal 4.0-35.5 [facility] Comment on above: Result Comment: CUT- OFF POINTS HAVE BEEN ESTABLISHED BASED ON THE FOURTH UNIVERSAL DEFINITIONS OF MYOCARDIAL INFARCTION. THE UPPER REFERENCE LIMIT (URL) OF TROPONIN, DEFINED THE 99TH PERCENTILE OF cTnI DISTRIBUTION IN A REFERENCE POPULATION, HAS BEEN CONFIRMED THE DECISION THRESHOLD FOR AR DIAGNOSIS. Performed By: #### C UCHE, HSTROPN #### [facility] [address] [id number] Maricruz Peterson XR CHEST 2 Von 12-02-2020 XR CHEST 2 V CHEST X RAY, 2 VIEWS CLINICAL INFORMATION: Chest pain. COMPARISONS: Chest x-ray dated 05/12/2014. FINDINGS: No focal consolidation to suggest pneumonia. No pleural effusions or pneumothorax. No overt pulmonary edema. Cardiomediastinal silhouette within normal limits. IMPRESSION: 1. No acute cardiopulmonary disease. Electronically authenticated by: BELEN MARIN Date: 2020-12-02 16:43 Normal [facility] Vital Signs Date Time Vital Sign Value Performing Clinician Faci lity 05-22-2023 11:50-0500 Body weight 70.72 kg Madhav Maldonado MD Work Phone: [facility] 05-22-2023 11:50-0500 Diastolic blood pressure 70 mm[Hg] Madhav Maldonado MD Work Phone: [facility] 05-22-2023 11:50-0500 Heart rate 67 /min Madhav Maldonado MD Work Phone: [facility] 05-22-2023 11:50-0500 Systolic blood pressure 119 mm[Hg] Madhav Maldonado MD Work Phone: [facility] Encounters Encounter Date Encounter Type Care Provider Facility Start: 11-20-2023 End: 11-20-2023 ambulatory CARLITA ROMERO Not Available Start: 11-04-2023 End: 11-04-2023 ambulatory [facility] Start: 10-15-2023 End: 10-15-2023 ambulatory [facility] Start: 10-06-2023 Telephone encounter Lindsey HERNANDEZ Work Phone: Neurology Comment on above: Appointment Returning Patient's Call (Received voicemail from patient requesting contact information for local speech providers. This information was previously provided to patient via [employer] and email on 09/19/2023. A second email listing the local speech providers was sent to patient on 10/03/2023 via email (patients preferred mode of communication). Called patient. Clarified that local speech providers were sent to her via email. Patient currently driving and planning to look at her email once home. ) Start: 09-19-2023 End: 09-19-2023 ambulatory Jarvis Block [employer] Work Phone: [facility] Start: 09-19-2023 End: 09-19-2023 Patient encounter procedure Jarvis Block [employer] Work Phone: [facility] Comment on above: No-show for appointm ent (Primary Dx) Start: 09-16-2023 E-mail encounter fro m caregiver Jarvis Block [employer] Work Phone: [facility] Start: 09-16-2023 Patient encounter procedure Jarvis Block [employer] Work Phone: [facility] Comment on above: Virtual Visit 09/18 Start: 09-13-2023 Telephone encounter Lindsey HERNANDEZ Work Phone: Neurology Comment on above: Appointment (09/13/23 - [facility], message sent / reminder mailed for [facility] eval./- GL /) Start: 09-12-2023 Telephone encounter Madhav musa MD Work Phone: Neurology Start: 09-12-2023 End: 09-12-2023 ambulatory Jarvis Block [facility] Work Phone: [facility] Start: 09-12-2023 End: 09-12-2023 Patient encounter procedure Jarvis Block [facility] Work Phone: [facility] Comment on above: Cognitive impairment , mild, so stated (Primary Dx); Cognitive communication deficit Start: 09-04-2023 End: 09-04-2023 ambulatory [facility] Start: 09-03-2023 ambulatory Jarvis Alexandr Tsai -[employer] Work Phone: Otolaryngology Comment on above: Speech Therapy Start: 09-03-2023 E-mail encounter fro m caregiver Jarvis Block [facility] Work Phone: Otolaryngology Start: 09-03-2023 Telephone encounter Madhav musa MD Work Phone: Neurology Comment on above: MRI Order Start: 06-20-2023 End: 06-20-2023 ambulatory [facility] Start: 06-09-2023 End: 06-09-2023 ambulatory SHAIKH KAROLINE Not Available Start: 05-22-2023 End: 05-22-2023 Patient encounter procedure Madhav Maldonado MD Work Phone: Neurology Comment on above: CRUZ on CPAP (Primary Dx) Start: 05-22-2023 End: 05-22-2023 ambulatory Jarvis Block [facility] Work Phone: [facility] Speech Therapy Comment on above: Cognitive communicat ion deficit (Primary Dx); Cognitive impairment, mild, so stated Start: 05-22-2023 End: 05-22-2023 Subsequent hospital visit by physician Drake Skyra (I-Stat/3t) Work Phone: Radiology Comment on above: Cognitive impairment , mild, so stated [G31.84] Start: 05-01-2023 Telephone encounter Colleen Ryan RN [facility] Start: 04-17-2023 End: 04-18-2023 ambulatory ISAIASSUNG ALFONSO [facility] Start: 03-19-2023 End: 03-19-2023 ambulatory MADHAV MALDONADO Facility:[facility] Start: 03-19-2023 End: 03-19-2023 Patient encounter procedure Madhav Maldonado MD Work Phone: Neurology Comment on above: Cognitive impairment , mild, so stated (Primary Dx) Start: 03-19-2023 End: 03-19-2023 ambulatory DELMY FARFAN Facility:[facility] Start: 03-05-2023 End: 03-05-2023 ambulatory SHAIKH CHIQUIMOI Not Available Start: 07-13-2022 End: 07-13-2022 ambulatory GHISLAINE GROSS Facility:[facility] Start: 04-17-2022 End: 04-18-2022 ambulatory NATACHA DASH Facility:[facility] Start: 03-20-2022 End: 03-21-2022 ambulatory NATACHA DASH Facility:[facility] Start: 02-07-2022 End: 02-07-2022 ambulatory GHISLAINE GROSS Facility:[facility] Start: 09-13-2021 End: 09-14-[address] HUGO RUIZ Facility:[facility] Start: 05-29-2021 End: 05-29-2021 Patient encounter procedure PhD Chaka Atwood Work Phone: [facility] Start: 02-11-2021 End: 02-11-[address] HUGO RUIZ Facility:[facility] Start: 12-02-2020 End: 12-02-[address] ELIDA FRANCOIS Facility:[facility] Procedures Date Procedure Procedure Detail Performing Clinician Start: 05-22-2023 3d rendering w/interp&postproc diff work station Madhav Maldonado MD Work Phone: Start: 05-22-2023 Mri brain brain stem w/o contrast material Madhav Maldonado MD Work Phone: Start: 11-14-2016 Colonoscopy Jarvis Pepper se [employer] Work Phone: Plan of Treatment Date Care Activity Detail Author Start: 02-28-2026 Screening for malign ant neoplasm of colon [facility] Start: 02-12-2024 Adult BMI Screening Adult BMI Screen ing [facility] Start: 02-12-2024 Tobacco Screening Tobacco Screening [facility] Start: 12-17-2023 End: 12-17-2023 Patient encounter procedure 12/17/2023 10:00 AM EDT Office Visit Neurology [address] [address] Madhav Maldonado MD [address] [place] [address] Memory Loss Neurology Comment on above: Memory Loss Start: 11-30-2023 Influenza vaccination [facility] Start: 10-06-2023 End: 10-06-2023 Social Work 10/06/2023 1:00 PM EDT Social Work Neurology [address] [address] Lindsey Griffith LISW [address] [id number] [facility] diez Neurology Comment on above: [facility] diez Start: 09-26-2023 End: 09-26-2023 Patient encounter procedure 09/26/2023 1:00 PM EDT OT/PT/Speech Visit [facility] Therapy [address] [place] [address] Jarvis Block, [employer] [address] [place], [place] [id number] SPEECH [facility] Comment on above: SPEECH Start: 09-19-2023 End: 09-19-2023 Patient encounter procedure 09/19/2023 1:00 PM EDT OT/PT/Speech Visit [facility] [address] [place] [address] Jarvis Block, [employer] [address] [place] [address] SPEECH [facility] Comment on above: SPEECH Start: 09-12-2023 End: 09-12-2023 Patient encounter procedure 09/12/2023 1:00 PM EDT OT/PT/Speech Visit [facility] [address] [place] [address] Jarvis Block [facility] [address] [place], [place] [id number] SPEECH [facility] Comment on above: SPEECH Start: 09-05-2023 End: 09-05-2023 Patient encounter procedure 09/05/2023 1:00 PM EDT OT/PT/Speech Visit [facility] Therapy [address] [place] [address] Jarvis Block, [facility] [address] [place], [place] [id number] SPEECH [facility] Speech Therapy Comment on above: SPEECH Start: 03-31-2023 Behavioral Health Screening Behavioral Health Screening [facility] Start: 03-31-2023 Depression Assessment Depression Ass essment [facility] Start: 03-19-2023 End: 06-18-2023 Methylmalonate [Moles/volume] in Serum or Plasma [facility] Work Phone: Comment on above: Expected: 03/19/2023 , Expires: 06/18/2023 Start: 03-19-2023 End: 06-18-2023 VITAMIN B1 (THIAMINE), WHOLE BLOOD [facility] Work Phone: Comment on above: Expected: 03/19/2023 , Expires: 06/18/2023 Start: 12-14-2022 Screening for malign ant neoplasm of breast Mammogram Screening [facility] Start: 11-29-2022 Covid-19 Vaccine () Covid-19 Vaccine () [facility] Start: 11-29-2022 COVID-19 Vaccine () COVID-19 Vaccine () [facility] Start: 11-29-2022 Influenza vaccination [facility] Start: 03-31-2022 Depression Assessment Depression Ass essment [facility] Start: 05-24-2020 Diabetes Screening Diabetes Screenin g [facility] Start: 11-14-2017 Screening for malign ant neoplasm of colon Colonoscopy [facility] Start: 2016 Administration of varicella zoster vaccine Zoster (Shingles) Vaccine (1 of 2) [facility] Start: 2016 Shingrix Vaccine (1 of 2) Shingrix Vaccine (1 of 2) [facility] Start: 2011 Lipid panel Lipid Screening [facility] Start: 2011 Screening for malign ant neoplasm of colon [facility] Start: 2006 Screening for malign ant neoplasm of breast Mammogram Screening [facility] Start: 1996 Screening for malign ant neoplasm of cervix HPV Testing [facility] Start: 1987 Screening for malign ant neoplasm of cervix [facility] Start: 1985 DTaP,Tdap and Td Vaccines (1 - Tdap) DTaP,Tdap and Td Vaccines (1 - Tdap) [facility] Start: 1985 Hepatitis B Vaccine (1 of 3 - 19+ 3-dose series) Hepatitis B Vaccine (1 of 3 - 19+ 3-dose series) [facility] Start: 1985 Urine microalbumin profile DTaP,Tdap,Td Vaccine (1 - Tdap) [facility] Start: 1984 Hepatitis C screening Hepatitis C Sc reening [facility] Start: 1984 HIV screening HIV Screening [facility] Start: 1978 Depression Screening Depression Scre ening [facility] Start: 1966 Covid-19 Vaccine (#1) Covid-19 Vacci ne (#1) [facility] Start: 1966 Hepatitis B Vaccine (1 of 3 - 3-dose series) Hepatitis B Vaccine (1 of 3 - 3-dose series) [facility] End: 04-17-2024 MRI 3D POST PROCESSING MRI 3D POST PROCESSING Radiology Routine Cognitive impairment, mild, so stated 1 Occurrences starting 03/19/2023 until 04/17/2024 [facility] Work Phone: Comment on above: 1 Occurrences starti ng 03/19/2023 until 04/17/2024 End: 04-17-2024 MRI BRAIN W QUANT WO IVCON MRI BRAIN W QUANT WO IVCON Radiology Routine Cognitive impairment, mild, so stated 1 Occurrences starting 03/19/2023 until 04/17/2024 [facility] Work Phone: Comment on above: 1 Occurrences starti ng 03/19/2023 until 04/17/2024 SPEECH PLAN OF CARE CERTIFICATION SPEECH PLAN OF CARE CERTIFICATION Procedures Routine Cognitive impairment, mild, so stated Cognitive communication deficit Ordered: 05/22/2023 [facility] Work Phone: Comment on above: Ordered: 05/22/2023 SPEECH PLAN OF CARE CERTIFICATION SPEECH PLAN OF CARE CERTIFICATION Procedures Routine Cognitive impairment, mild, so stated Cognitive communication deficit Ordered: 09/12/2023 [facility] Work Phone: Comment on above: Ordered: 09/12/2023 [facility] Immunizations Immunization Date Immunization Notes Care Provider [facility] 01-27-2020 influenza virus vaccine, unspecified formulation Colleen Ryan RN [facility] Payers Date Payer Category Payer Medicaid [id number] 1966 Unknown [id number] 2.16.84 [id number] 1966 Unknown [id number] 2.16.84 [id number] 1966 Unknown [id number] 2.16.84 [id number] 1966 Unknown [id number] 2.16.84 0.1.211577.3.579.2.593 1966 Unknown [id number] 2.16.84 0.1.411820.3.579.2.593 1966 Unknown [id number] 2.16.84 0.1.404079.3.579.2.593 1966 Unknown [id number] 2.16.84 0.1.892985.3.579.2.593 1966 Unknown [id number] 2.16.84 0.1.078581.3.579.2.1286 1966 Unknown [id number] 2.16.8 40.1.101473.3.579.2.1286 1966 Unknown [id number] 2.16.8 40.1.295983.3.579.2.1286 1966 Unknown [id number] 2.16.8 40.1.573906.3.579.2.1286 1966 Unknown [id number] 2.16.8 40.1.219665.3.579.2.1286 1966 Unknown [id number] 2.16.84 0.1.648094.3.579.2.1259 1966 Unknown [id number] 2.16.84 0.1.128151.3.579.2.1259 1966 Unknown [id number] 2.16.840 .[id number] 1959 Private Health Insurance [id number] 1959 Private Health Insurance [id number] 1958 Self-pay [id number] 1958 Unknown [id number] Social History Date Type Detail Facility Tobacco smoking stat us WVIS Unknown if ever smoked [facility] Work Phone: Start: 1965 Sex Assigned At Female [facility] Start: 08-05-2022 End: 03-19-2023 Tobacco smoking status WVIS Never smoked tobacco [facility] Start: 08-05-2022 End: 03-19-2023 Tobacco use and exposure Smokeless tobacco non-user [facility] Start: 03-19-2023 End: 05-22-2023 Alcohol intake Current non-drinker of alcohol (finding) [facility] Start: 03-19-2023 End: 05-22-2023 [facility] Start: 03-19-2023 End: 05-22-2023 [facility] use [facility] (1-100), lower number is lower risk 60 [facility] Start: 1965 Sex Assigned At Not on file [facility] Clinical Notes 10-05-2021 to 10-06-2023 Telephone Encounter - Yolanda Gonzalez RN - 10/06/2023 3:49 PM EDTTelephone Encounter - Yolanda Gonzalez RN - 10/06/2023 3:49 PM EDTTelephone Encounter - Yolanda Gonzalez RN - 10/06/2023 3:36 PM EDT Note Date & Type Note Facility 10-06-2023 Miscellaneous Notes RN called patient per request of Lindsey Griffith and informed her that MRI could not be repeated because she just had a MRI in May and insurance will not typically pay for a repeat MRI unless she we are a medicatio or other reason. We typically don't do frequent MRIs. She was upset that she was not informed by Dr. Maldonado because she had memory loss and has had no treatment. I discussed plan from May 2023 visit with her which included Consult sleep to ensure CPAP is adequately helping her OISA which she completed, Encouraged consultation with psychiatrist to revisit role for readjusting depression meds --which she didn't do because she stated she there is no one in her area to see and she cannot miss time from work and Cognitive therapy --she didn't do and didn't understand what cognitive therapy was. RN explained that she would work with speech therapist to address difficulties and regain independence with self-care and improve her quality of life. She said she could only do this over the phone because she couldn't take time off from work. RN informed her she would need to check if they did virtual appts. When discussing follow up [address] Mcwilliams from May appt she abruptly ended the call stating she was at a doctor's appt and asked me to call back tomorrow. Yolanda Gonzalez RN documented in this encounter [facility] 10-06-2023 Telephone encounter Note RN called patient per request of Lindsey Griffith and informed her that MRI could not be repeated because she just had a MRI in May and insurance will not typically pay for a repeat MRI unless she we are a medicatio or other reason. We typically don't do frequent MRIs. She was upset that she was not informed by Dr. Maldonado because she had memory loss and has had no treatment. I discussed plan from May 2023 visit with her which included Consult sleep to ensure CPAP is adequately helping her OISA which she completed, Encouraged consultation with psychiatrist to revisit role for readjusting depression meds --which she didn't do because she stated she there is no one in her area to see and she cannot miss time from work and Cognitive therapy --she didn't do and didn't understand what cognitive therapy was. RN explained that she would work with speech therapist to address difficulties and regain independence with self-care and improve her quality of life. She said she could only do this over the phone because she couldn't take time off from work. RN informed her she would need to check if they did virtual appts. When discussing follow up [address] Mcwilliams from May appt she abruptly ended the call stating she was at a doctor's appt and asked me to call back tomorrow. Yolanda Gonzalez RN [facility] 10-06-2023 Telephone encounter Note RN called patient per request of Lindsey Griffith and informed her that MRI could not be repeated because she just had a MRI in May and insurance will not typically pay for a repeat MRI unless she we are a medicatio or other reason. We typically don't do frequent MRIs. She was upset that she was not informed by Dr. Maldonado because she had memory loss and has had no treatment. I discussed plan from May 2023 visit with her which included Consult sleep to ensure CPAP is adequately helping her OISA which she completed, Encouraged consultation with psychiatrist to revisit role for readjusting depression meds --which she didn't do because she stated she there is no one in her area to see and she cannot miss time from work and Cognitive therapy --she didn't do and didn't understand what cognitive therapy was. RN explained that she would work with speech therapist to address difficulties and regain independence with self-care and improve her quality of life. She said she could only do this over the phone because she couldn't take time off from work. RN informed her she would need to check if they did virtual appts. When discussing follow up [address] Mcwilliams from May appt she abruptly ended the call stating she was at a doctor's appt and asked me to call back tomorrow. Yolanda Gonzalez RN [facility] 10-06-2023 Miscellaneous Notes RN called patient per request of Lindsey Griffith and informed her that MRI could not be repeated because she just had a MRI in May and insurance will not typically pay for a repeat MRI unless she we are a medicatio or other reason. We typically don't do frequent MRIs. She was upset that she was not informed by Dr. Maldonado because she had memory loss and has had no treatment. I discussed plan from May 2023 visit with her which included Consult sleep to ensure CPAP is adequately helping her OISA which she completed, Encouraged consultation with psychiatrist to revisit role for readjusting depression meds --which she didn't do because she stated she there is no one in her area to see and she cannot miss time from work and Cognitive therapy --she didn't do and didn't understand what cognitive therapy was. RN explained that she would work with speech therapist to address difficulties and regain independence with self-care and improve her quality of life. She said she could only do this over the phone because she couldn't take time off from work. RN informed her she would need to check if they did virtual appts. When discussing follow up [address] Mcwilliams from May appt she abruptly ended the call stating she was at a doctor's appt and asked me to call back tomorrow. Yolanda Eidam, RN Contacted pt regarding scheduled virtual visit; pt reports she was not aware of the visit. Pt expressed frustration with plan of care. Pt reports impression of plan was to get another MRI and then follow-up with Dr. Maldonado to obtain a diagnosis. Advised that per message from direct care worker insurance will not cover more than one MRI per year (last was 05/2023). Pt became emotional reporting immense frustration with the process. Reviewed plans from visits with Dr. Maldonado on 03/19/23 and 05/22/2023. Pt reported she completed the MRI and is awaiting local [employer] referrals from speech therapist to continue visits. Pt became increasingly upset with pscyhology referral was addressed stating No one here does that shit and I don't have the time. I don't have PTO or sick time to take away from my job to do these things . Pt reports financial resource strain; when [employer] attempted to address pt abruptly ended the call. Will discuss plan with medical team and request local speech therapies with [facility] therapist. DAVID Marquis documented in this encounter [facility] 10-06-2023 Telephone encounter Note Duplicate encounter opened in error. See previous telephone encounter for details of call. [facility] Work Phone: 10-06-2023 Miscellaneous Notes Duplicate encounter opened in error. See previous telephone encounter for details of call. documented in this encounter [facility] 10-06-2023 Telephone encounter Note Contacted pt regarding scheduled virtual visit; pt reports she was not aware of the visit. Pt expressed frustration with plan of care. Pt reports impression of plan was to get another MRI and then follow-up with Dr. Maldonado to obtain a diagnosis. Advised that per message from direct care worker insurance will not cover more than one MRI per year (last was 05/2023). Pt became emotional reporting immense frustration with the process. Reviewed plans from visits with Dr. Maldonado on 03/19/23 and 05/22/2023. Pt reported she completed the MRI and is awaiting local [employer] referrals from speech therapist to continue visits. Pt became increasingly upset with pscyhology referral was addressed stating No one here does that shit and I don't have the time. I don't have PTO or sick time to take away from my job to do these things . Pt reports financial resource strain; when MEDICAL BILLER CODER attempted to address pt abruptly ended the call. Will discuss plan with medical team and request local speech therapies with [facility] therapist. DAVID Marquis [facility] Work Phone: 09-19-2023 Note HNO ID: [id number] Author: JARVIS BLOCK, [facility] Service: ? Author Type: Speech Language Pathologist Type: Progress Notes Filed: 09/19/2023 13:40 Note Text: [facility] Speech Language Pathology Progress Note September 19, 2023 Patient did not show for scheduled appointment. Called patient. No response and voice mailbox full. Patient returned this clinicians call within 5 minutes. She quickly became emotional and agitated when discussing requirements for virtual visits (i.e.access to [employer] for secure Zoom access). 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 Listened with HEART. Shared with patient that Dr. Maldonado placed a referral to social work and that social work attempted to connect with her on 09/13/2023 (phone call and [employer] message sent). Patient insists she received no call and again declared that she was unable to access information on [employer]. Given the aforementioned access issues, transfer of care to a Speech Language Pathologist closer to home is advised. Patient again reported feelings of helplessness and hopelessness. Empathy provided and patient encouraged to contact this clinician with any further questions or should circumstances change. Jarvis Block M.A. [facility] Speech Language Pathology Cell/Pager: [phone] [facility] 09-19-2023 History of Present illness Narrative [facility] Speech Language Pathology Progress Note September 19, 2023 Patient did not show for scheduled appointment. Called patient. No response and voice mailbox full. Patient returned this clinicians call within 5 minutes. She quickly became emotional and agitated when discussing requirements for virtual visits (i.e.access to [employer] for secure Zoom access). 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 Listened with HEART. Shared with patient that Dr. Maldonado placed a referral to social work and that social work attempted to connect with her on 09/13/2023 (phone call and [employer] message sent). Patient insists she received no call and again declared that she was unable to access information on [employer]. Given the aforementioned access issues, transfer of care to a Speech Language Pathologist closer to home is advised. Patient again reported feelings of helplessness and hopelessness. Empathy provided and patient encouraged to contact this clinician with any further questions or should circumstances change. Jarvis Block M.A. [facility] Speech Language Pathology Cell/Pager: [phone] documented in this encounter [facility] 09-13-2023 Telephone encounter Note Summary: Appointment 09/13/23 - [facility], message sent / reminder mailed for [facility] VV eval. - GL [facility] 09-13-2023 Miscellaneous Notes Summary: Appointment 09/13/23 - F, message sent / reminder mailed for [facility] VV eval. - GL documented in this encounter [facility] 09-12-2023 Instructions Jarvis Block [employer] - 09/12/2023 2:03 PM EDT Speech Recommendations I will reach out to Dr. Maldonado regarding alternative supports available, and for suggestions for psychological support within the Brain Health team. Set an alarm on your phone to prompt you to organize / sort / discard papers on your desk. Set the alarm for a time you can reasonably stop what you are doing to sort / organized papers. We discussed setting an alarm for 10:00 on Friday or Friday. To set an alarm on your phone: Clock on the clock icon. At the bottom of the screen, click on alarm. Click the + sign at the top right corner. Set the time (10:00). Click on repeat and select either Friday or Friday (this way the alarm goes off every Friday or Friday) Add a label to the alarm - sort papers or something specific so you know what the alarm is for. Word finding strategies: Pause, breath, think about what you want to say. Talk around the word - be descriptive! Reading comprehension / attention strategies: Read for short intervals (this can be determined by number of pages, chapters, minutes, etc.). Consider setting a timer (as needed) to adhere to short work / reading windows. Highlight, underline annotate in margins/notebook. Try reading out loud - this can improve attention and comprehension (because the demands are higher). documented in this encounter [facility] 09-12-2023 Note HNO ID: [id number] Author: JARVIS BLOCK [employer] Service: ? Author Type: Speech Language Pathologist Type: Progress Notes Filed: 09/12/2023 14:13 Note Text: [facility] SPEECH-LANGUAGE PATHOLOGY RE-EVALUATION / RE-CERTIFICATION - VIRTUAL VISIT September 12, 2023 SUBJECTIVE: I have been through hell in the last 24 hours! Patient emotionally charged and tearful on multiple occasions. Patient made the following statements in relation to her brain health: it appears I am getting dementia , I am a fcorby brain idiot , and I have 20% of my memory out of 100%. Patient notes that it was extremely difficult for her to connect virtually. High levels of stress reported with virtual session. She spent an hour logging in, and had to request assistance from a stranger. Patient attended the virtual session in a parked car?? UPDATES: - more consistent with CPAP use; however, sleep quality remains poor as a result of RLS - exercises more often, as advised by Dr. Maldonado - everything I have to do to live is written down OBJECTIVE: Progress towards short term goals: Patient will contact psychiatrist to discuss alternative options for pharmacological management of depression. - antidepressant she is currently on is okay - suggested follow-up with psychology for psychotherapy; patient reluctant indicating that she has not has constructive encounters in the past; will reach out to Dr. Maldonado to request referral within the [facility] - goal completed 09/12/2023 Patient will establish one uniform note writing system to improve recall and task completion. - using one notebook for all notes, indicates this has been beneficial - using phone calendar to keep track of appointments - progressing towards goal, will continue Patient will identify a home base and use routine to avoid misplacing or forgetting target items as evidenced by a score of 2-sometimes or higher on MMQ item 5 (baseline 1- often ). - misplacing paperwork, trouble discerning what to keep and what to throw away - discussed strategies (see patient instruction section for details) - progressing towards goal, will continue Patient will verbalize 1-3 reading comprehension strategies across 2 consecutive sessions. - reading for short intervals - taking notes 50% of the time - I might read it 3 times but that doesn't mean I will retain it - encouraged patient to read out loud to improve retention and recall - progressing towards goal, will continue Further counseling and education on cognitive communication skills and tailored strategies. - reiterated impact of emotional and psychological state on brain health, specifically in relation to attention and memory - progressing towards goal, will continue ADDITIONAL INFORMATION: - ongoing complaints of anomia all the time - when asked about strategy use, patient stated, I sit and wait until it comes to me; sometimes it doesn't - reiterated word finding strategies, specifically, allowing time to pause and breath (reset) TRAINING AND INSTRUCTION WERE PROVIDED FOLLOWS: Cognitive-linguistic skills Patient / caregiver education: strategies PLAN OF CARE UPDATE: Name: Yanique Aguirre Vincent : May [birth year] 2023 CC#: [id number] Referring physician: Madhav Maldonado Date of Onset: 05/02/2021 Start of Care: May 22, 2023 Certification Period: July 21, 2023 to September 23, 2023 Planned Interventions, Frequency, and Duration: Continue skilled speech therapy 1 x week for 4 sessions (to start) completed virtually OR completed in person closer to home Treatment session #: 2 Time: 40 minutes DIAGNOSIS FOR TREATMENT: Cognitive communication disorder ASSESSMENT: Summary of progress towards goals: Yanique Cabello is not progressing toward goals. Patient demonstrates improvements in terms of goal 1 with positive response to unified note writing system. Session complicated by emotionality with frequent bouts of tearfulness. Patient verbalizing feelings of anger, frustration, hopelessness, and helplessness. Active listening and empathy employed. The patient may benefit from ongoing skilled speech therapy to progress toward set goals provided provided she maintains an open mind to therapeutic suggestions and strategies introduced by this clinician. PATIENT CONTINUES TO PRESENT WITH IMPAIRMENTS: Cognitive communication disorder CURRENT PROGNOSIS IS: Fair UPDATED TREATMENT GOALS FOR EPISODE OF CARE: -Long-term goal: improve cognitive communication skills -Short-term goals: Patient will establish one uniform note writing system to improve recall and task completion. Patient will identify a home base and use routine to avoid misplacing or forgetting target items as evidenced by a score of 2-sometimes or higher on MMQ item 5 (baseline 1- often ). Patient will verbalize 1-3 reading comprehension strategies across 2 consecutive sessions. F (more content not included)... [facility] 09-12-2023 History of Present illness Narrative [facility] SPEECH-LANGUAGE PATHOLOGY RE-EVALUATION / RE-CERTIFICATION - VIRTUAL VISIT September 12, 2023 SUBJECTIVE: I have been through hell in the last 24 hours! Patient emotionally charged and tearful on multiple occasions. Patient made the following statements in relation to her brain health: it appears I am getting dementia , I am a fcorby brain idiot , and I have 20% of my memory out of 100%. Patient notes that it was extremely difficult for her to connect virtually. High levels of stress reported with virtual session. She spent an hour logging in, and had to request assistance from a stranger. Patient attended the virtual session in a parked car?? UPDATES: - more consistent with CPAP use; however, sleep quality remains poor as a result of RLS - exercises more often, as advised by Dr. Maldonado - everything I have to do to live is written down OBJECTIVE: Progress towards short term goals: Patient will contact psychiatrist to discuss alternative options for pharmacological management of depression. - antidepressant she is currently on is okay - suggested follow-up with psychology for psychotherapy; patient reluctant indicating that she has not has constructive encounters in the past; will reach out to Dr. Maldonado to request referral within the [facility] - goal completed 09/12/2023 Patient will establish one uniform note writing system to improve recall and task completion. - using one notebook for all notes, indicates this has been beneficial - using phone calendar to keep track of appointments - progressing towards goal, will continue Patient will identify a home base and use routine to avoid misplacing or forgetting target items as evidenced by a score of 2-sometimes or higher on MMQ item 5 (baseline 1- often ). - misplacing paperwork, trouble discerning what to keep and what to throw away - discussed strategies (see patient instruction section for details) - progressing towards goal, will continue Patient will verbalize 1-3 reading comprehension strategies across 2 consecutive sessions. - reading for short intervals - taking notes 50% of the time - I might read it 3 times but that doesn't mean I will retain it - encouraged patient to read out loud to improve retention and recall - progressing towards goal, will continue Further counseling and education on cognitive communication skills and tailored strategies. - reiterated impact of emotional and psychological state on brain health, specifically in relation to attention and memory - progressing towards goal, will continue ADDITIONAL INFORMATION: - ongoing complaints of anomia all the time - when asked about strategy use, patient stated, I sit and wait until it comes to me; sometimes it doesn't - reiterated word finding strategies, specifically, allowing time to pause and breath (reset) TRAINING AND INSTRUCTION WERE PROVIDED FOLLOWS: Cognitive-linguistic skills Patient / caregiver education: strategies PLAN OF CARE UPDATE: Name: Yanique Aguirre Vincent : May 22, 2023 CC#: [id number] Referring physician: Madhav Maldonado Date of Onset: 05/02/2021 Start of Care: May 22, 2023 Certification Period: July 21, 2023 to September 23, 2023 Planned Interventions, Frequency, and Duration: Continue skilled speech therapy 1 x week for 4 sessions (to start) completed virtually OR completed in person closer to home Treatment session #: 2 Time: 40 minutes DIAGNOSIS FOR TREATMENT: Cognitive communication disorder ASSESSMENT: Summary of progress towards goals: Yanique Cabello is not progressing toward goals. Patient demonstrates improvements in terms of goal 1 with positive response to unified note writing system. Session complicated by emotionality with frequent bouts of tearfulness. Patient verbalizing feelings of anger, frustration, hopelessness, and helplessness. Active listening and empathy employed. The patient may benefit from ongoing skilled speech therapy to progress toward set goals provided provided she maintains an open mind to therapeutic suggestions and strategies introduced by this clinician. PATIENT CONTINUES TO PRESENT WITH IMPAIRMENTS: Cognitive communication disorder CURRENT PROGNOSIS IS: Fair UPDATED TREATMENT GOALS FOR EPISODE OF CARE: -Long-term goal: improve cognitive communication skills -Short-term goals: Patient will establish one uniform note writing system to improve recall and task completion. Patient will identify a home base and use routine to avoid misplacing or forgetting target items as evidenced by a score of 2-sometimes or higher on MMQ item 5 (baseline 1- often ). Patient will verbalize 1-3 reading comprehension strategies across 2 consecutive sessions. Further counseling and education on cognitive communication skills and tailored strategies. PLANNED INTERVENTIONS: Pt will benefit from continued skilled therapy services to meet the updated goals for this plan of care as listed above. Jarvis Block M.A. [facility] Speech Language Pathology Cell/Pager: [phone] PATIENT EDUCATION Results and recommendations, Plan of care, and Informational handouts Billing: Virtual Visit: Verified the correct individual and the ability to speak confidentially via name and date of . Patient consented to receive health care services via virtual visit for this encounter Patient has verified that they are currently in the [facility] during this virtual visit. Risks, benefits, and limitations of receiving care virtually were discussed with the patient. The patient expressed understanding and is willing to proceed. Reason for Visit: Patient initiated the request for the Speech Therapy virtual visit for cognitive communication deficits. Patient consented to Speech Therapy virtual visit. Patient is unable to come for a face to face visit due to COVID-19 known risk factors including diagnosis, age and comorbidities Video Platform: Zoom Clinical Decision Making: see assessment above Visit conducted from: [facility] SPEECH THERAPY Patient location at time of visit: [place] Virtual visit billable time: 40 minutes NEXT TREATMENT PRIORITY: - able to set an alarm and to improve organization / structure to papers - note writing (unified) - choosing a few things to complete - word finding strategies helpful? Jarvis Block M.A. [facility] Speech Language Pathology Cell/Pager: [phone] documented in this encounter [facility] 09-03-2023 Telephone encounter Note Patient called to inform her that she had MRI in May.--mail box is full will send MC message that The insurance does not usually pay for more than one MRI per year and we cannot request one at this point given last MRI in May per Dr. Maldonado. Yolanda Gonzalez RN [facility] 09-03-2023 Miscellaneous Notes Patient called to inform her that she had MRI in May.--mail box is full will send MC message that The insurance does not usually pay for more than one MRI per year and we cannot request one at this point given last MRI in May per Dr. Maldonado. Yolanda Gonzalez RN General scheduling called - patient called to schedule MRI but no order on file - needs order placed. Pateint would like a call to confirm [phone] documented in this encounter [facility] 09-03-2023 Telephone encounter Note General scheduling called - patient called to schedule MRI but no order on file - needs order placed. Pateint would like a call to confirm [phone] [facility] 05-22-2023 Instructions Jarvis Block [facility] - 05/22/2023 3:23 PM EST Speech Recommendations 05/22/2023 *Prioritize emotional / psychological well-being - speak with your careteam about alternative treatments for depression *Be consistent with CPAP use - good sleep promotes brain performance / health. Cognitive communication strategies: Eliminate distractions. Complete one task at a time until completed. Use written lists - simple (1-3 tasks) Reference lists often and check off as completed. When in doubt, write it down - this lightens the cognitive load. Establish one place for notes. Be consistent and reference notes often. Create a home base for items. Establish a routine to ensure items are returned to home base. Be consistent and intentional with returning items to home base. Work windows and brain breaks. Word finding strategies: Pause, breath, think about what you want to say. Talk around the word - be descriptive! Reading comprehension / attention strategies: Consider time of day and location - choose a quiet environment and minimize distractions. Symptoms responsiveness is lucas - read when low to no symptoms and is symptoms occur, take a break and return at a later time. Read for short intervals (this can be determined by number of pages, chapters, minutes, etc.). Consider setting a timer (as needed) to adhere to short work / reading windows. Highlight, underline annotate in margins/notebook. Consider creating a written outline or 1 sentence summary to prime recall of content (at chapter manzano or breaks in text). Reread and pre-read as needed. This includes a skim of notes / highlights. Try reading out loud - this can improve attention and comprehension (because the demands are higher). documented in this encounter [facility] 05-22-2023 Note HNO ID: [id number] Author: MADHAV MALDONADO MD Service: ? Author Type: Physician Type: Progress Notes Filed: 05/22/2023 14:02 Note Text: Ms.Lori Carla Cabello is a 58 year old woman here for follow up evaluation of memory concerns. She is here by herself. In the interval she notes continuing frustration with her memory. She notes that it is impacting her ability to work. She also notes pro sleep and waking up tired despite using CPAP recently.She is also depressed but does not want to add new antidepressants due to concerns about sideffects. Limited physical activity, no weight loss.She is taking vitamin supplements given her fucntional med consult. I reviewed her MRI brain which noted Hippocampal volumes at the 15 percentile when compared to age matched normal controls by quantitative analysis. 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 F/p in 6 months Madhav Maldonado MD I spent 40 min on the date of service which included preparing to see the patient, face to face patient care, performing medically appropriate examination, completing clinical documentation and on counseling/educating the patient/family. [facility] 05-22-2023 History of Present illness Narrative Ms.Lori Carla Cabello is a 58 year old woman here for follow up evaluation of memory concerns. She is here by herself. In the interval she notes continuing frustration with her memory. She notes that it is impacting her ability to work. She also notes pro sleep and waking up tired despite using CPAP recently.She is also depressed but does not want to add new antidepressants due to concerns about sideffects. Limited physical activity, no weight loss.She is taking vitamin supplements given her fucntional med consult. I reviewed her MRI brain which noted Hippocampal volumes at the 15 percentile when compared to age matched normal controls by quantitative analysis. 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 F/p in 6 months Madhav Maldonado MD I spent 40 min on the date of service which included preparing to see the patient, face to face patient care, performing medically appropriate examination, completing clinical documentation and on counseling/educating the patient/family. documented in this encounter [facility] 05-22-2023 Instructions Madhav Maldonado MD - 05/22/2023 12:27 PM EST Tasks to improve attention/working memory 1. Good sleep hygiene (7-8 hrs of sleep) 2. Learning a new skill (Painting, Carpentry, Pottery, new language, Knitting). 3.Cognitive exercises (keep a daily journal, Puzzles) 4. Physical exercise and training (30 min/day X 4 days week) 5. Being on Antidepressant if needed 6.Yoga, Meditation, Jaison Chi 7.Have a clear schedule and structure in daily routine documented in this encounter [facility] 05-22-2023 Nurse Note Yanique Cabello is a 58 year old year old woman accompanied by: patient. Do you have any changes or new concerns you would like to address at the visit today? No concerns Vital Signs: BP 119/70 Pulse 67 Wt 70.7 kg (155 lb 14.4 oz) LMP (LMP Unknown) BMI 22.37 kg/m documented in this encounter [facility] 05-22-2023 Note HNO ID: [id number] Author: JARVIS BLOCK [facility] Service: ? Author Type: Speech Language Pathologist Type: Progress Notes Filed: 05/22/2023 19:57 Note Text: [facility] SPEECH LANGUAGE PATHOLOGY CONSULT COGNITIVE COMMUNICATION EVALUATION May 22, 2023 PLAN OF CARE UPDATE: Name: Yanique Cabello : May 22, 2023 CC#: [id number] Referring physician: Madhav Maldonado Date of Onset: 05/02/2021 Start of Care: May 22, 2023 Certification Period: May 22, 2023 to July 20, 2023 Planned Interventions, Frequency, and Duration: Continue skilled speech therapy 1 x week for 4 sessions (to start) completed virtually OR completed in person closer to home Treatment session #: 1 Time: 60 minutes IMPRESSIONS: Memory and attention based symptoms seemingly exacerbated by depression and poor sleep. Cognitive communication symptoms negatively impacting patient quality of life. Patient receptive to counseling and education provided on this date. Encouraged patient to prioritize medical management of depression and sleep hygiene prior to consideration of skilled speech intervention. 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 Patient will establish one uniform note writing system to improve recall and task completion. Patient will identify a home base and use routine to avoid misplacing or forgetting target items as evidenced by a score of 2-sometimes or higher on MMQ item 5 (baseline 1- often ). Patient will verbalize 1-3 reading comprehension strategies across 2 consecutive sessions. Further counseling and education on cognitive communication skills and tailored strategies. RECOMMENDATIONS: Outpatient speech therapy Jarvis Block M.A. [facility] Speech Language Pathology Cell/Pager: [phone] DIAGNOSIS/HISTORY: Yanique Cabello is a 58 year old female referred by Madhav Maldonado for evaluation and treatment of cognitive communication skills. PMH notable for depression, ADHD, and CRUZ. PAST MEDICAL HISTORY Diagnosis Date ADHD Major depression Patient Stated Goals/ Problems: - memory loss and cognitive problems x a few years - I couldn't retain information anymore - symptoms consistent, non-progressive - difficulty multitasking and recalling keystrokes (when working) - I lost the ability to use my computer functionally - MRI normal, per patient - patient reports that she has had depression my whole life , previously managed well by a particular medication which patient stopped due to risk for cognitive side effects, two recent medications have not managed symptoms of depressions at all , per patient - CRUZ, patient has CPAP but reports it is use is not consistent - often wakes feeling fatigue, sleeping 8-10 hours, multiple night waking's (for extended periods of time) - unable to return to sleep because I am worrying about something - established with a psychiatrist for pharmacological management of depression - I will forget words - experiencing symptoms on a daily basis, multiple times per day ?Pt is identified by name and date: Yes? PAIN: No complaint or sign of pain. 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 However, oral motor skills appear normal based on speech production and observation of spontaneous oral motor movements. TESTS ADMINISTERED: Informational interview and Non-standardized evaluation, Repeatable Battery for the Assessment of Neuropsychological Status. SPEECH PRODUCTION Articulation: Within Functional Limits Intelligibility: Within Functional Limits Vocal Quality: Within Functional Limits Vocal Intensity: Within Functional Limits Rate / Prosody: Within Functional Limits COMMENTS: Speech is clear and intelligible. Reduced prosodic variance. EXPRESSIVE AND RECEPTIVE LANGUAGE: AUDITORY COMPREHENSION: Seemingly intact. READING COMPREHENSION: Patient read, comprehended, and completed 2 person reported outcome measures. VERBAL EXPRESSION: Fluent verbal expression speaking in well formed, g (more content not included)... [facility] 05-22-2023 History of Present illness Narrative [facility] SPEECH LANGUAGE PATHOLOGY CONSULT COGNITIVE COMMUNICATION EVALUATION May 22, 2023 PLAN OF CARE UPDATE: Name: Yanique Aguirre Cabello : May 22, 2023 CC#: [id number] Referring physician: Madhav Maldonado Date of Onset: 05/02/2021 Start of Care: May 22, 2023 Certification Period: May 22, 2023 to July 20, 2023 Planned Interventions, Frequency, and Duration: Continue skilled speech therapy 1 x week for 4 sessions (to start) completed virtually OR completed in person closer to home Treatment session #: 1 Time: 60 minutes IMPRESSIONS: Memory and attention based symptoms seemingly exacerbated by depression and poor sleep. Cognitive communication symptoms negatively impacting patient quality of life. Patient receptive to counseling and education provided on this date. Encouraged patient to prioritize medical management of depression and sleep hygiene prior to consideration of skilled speech intervention. 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 Patient will establish one uniform note writing system to improve recall and task completion. Patient will identify a home base and use routine to avoid misplacing or forgetting target items as evidenced by a score of 2-sometimes or higher on MMQ item 5 (baseline 1- often ). Patient will verbalize 1-3 reading comprehension strategies across 2 consecutive sessions. Further counseling and education on cognitive communication skills and tailored strategies. RECOMMENDATIONS: Outpatient speech therapy Jarvis Block M.A. [facility] Speech Language Pathology Cell/Pager: [phone] DIAGNOSIS/HISTORY: Yanique Cabello is a 58 year old female referred by Madhav Maldonado for evaluation and treatment of cognitive communication skills. PMH notable for depression, ADHD, and CRUZ. PAST MEDICAL HISTORY Diagnosis Date ADHD Major depression Patient Stated Goals/ Problems: - memory loss and cognitive problems x a few years - I couldn't retain information anymore - symptoms consistent, non-progressive - difficulty multitasking and recalling keystrokes (when working) - I lost the ability to use my computer functionally - MRI normal, per patient - patient reports that she has had depression my whole life , previously managed well by a particular medication which patient stopped due to risk for cognitive side effects, two recent medications have not managed symptoms of depressions at all , per patient - CRUZ, patient has CPAP but reports it is use is not consistent - often wakes feeling fatigue, sleeping 8-10 hours, multiple night waking's (for extended periods of time) - unable to return to sleep because I am worrying about something - established with a psychiatrist for pharmacological management of depression - I will forget words - experiencing symptoms on a daily basis, multiple times per day Pt is identified by name and date: Yes PAIN: No complaint or sign of pain. 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 VISION: Wears glasses HEARING: Appeared functional in a quiet room SOCIAL HISTORY: 17 year old son with Autism, [employer] business SOCIAL ENGAGEMENT / INTERESTS: - I like to read but I don't do a lot of it - go for walks BEHAVIORAL OBSERVATIONS: Alert and Oriented ORAL MECHANISM EVALUATION FACIAL SYMMETRY AT REST: Within Functional Limits MANAGEMENT OF SECRETIONS: Within Normal Limits DENTITION: Complete/Intact COMMENTS: Not assessed. However, oral motor skills appear normal based on speech production and observation of spontaneous oral motor movements. TESTS ADMINISTERED: Informational interview and Non-standardized evaluation, Repeatable Battery for the Assessment of Neuropsychological Status. SPEECH PRODUCTION Articulation: Within Functional Limits Intelligibility: Within Functional Limits Vocal Quality: Within Functional Limits Vocal Intensity: Within Functional Limits Rate / Prosody: Within Functional Limits COMMENTS: Speech is clear and intelligible. Reduced prosodic variance. EXPRESSIVE AND RECEPTIVE LANGUAGE: AUDITORY COMPREHENSION: Seemingly intact. READING COMPREHENSION: Patient read, comprehended, and completed 2 person reported outcome measures. VERBAL EXPRESSION: Fluent verbal expression speaking in well formed, grammatically correct sentences. Report of word finding difficulties during discourse. COGNITIVE COMMUNICATION: Attempted to complete the Repeatable Battery for the Assessment of Neuropsychological Status-Form A COMMENTS: - unable to compute index score for any subtest's - during immediate memory task patient became frustrated and tearful; quick to disengage and terminate activity ( that's it and I can't do this ) - patient felt too upset to focus on therapeutic, stating no one can help me, empathy and support provided - allowed time for patient to recover and settle - able to complete portions of language and visuospatial based activities, though none completed entirely - patient elected to complete PROM rather than returning to memory portions of standardized assessment SUBJECTIVE COGNITIVE COMMUNICATION SYMPTOMS: MEMORY: Recent memory (day to day activities / events, appointments): Uses calendar - I have to , electronic calendar on phone (primary), also carries around a wedding planner housing notes / reminders, uses alarms / alerts on phone as well Misplacing items: all the time - always puts lucas in the same place, paperwork is overwhelming and often misplaced Remembering where driving: Intact EXECUTIVE FUNCTION / ATTENTION: Managing finances: everything has to be set up on auto-pay or I would never remember to pay them on time Attention / concentration: most things just slip away after I read them Medication management: no issues - it's just such a routine Work-related tasks: no issues with current work-related responsibilities because its soeasy OUTCOME MEASURES: Multifactorial Memory Questionnaire (MMQ) MMQ Test Date Raw Score T-Score Interpretation of T-Score (range) Memory Mistakes May 22, 2023 29 32 Below average Memory Strategies May 22, 2023 53 65 Above average T-Score Interpretation T-score range Interpretation Below 20 Very low 20-29 Low 30-39 Below average 40-60 Average 60-70 Above average 71-80 High Above 80 Very high Satisfaction scale. Individuals with high scores on this scale are generally quite satisfied with their memory abilities. The lower the score, the worse one feels about his or her memory. Ability scale. Individuals with high scores on this scale have a better subjective impression of their memory capabilities than do those with lower scores. Strategy scale. Higher scores on this scale indicate a greater reported frequency of use of memory aids and strategies relative to lower scores. PATIENT EDUCATION (provided to patient): Results and recommendations, Plan of care, and Informational handouts - discussed negative impact of poor sleep and depression on cognitive performance - see patient instruction section for additional strategies discussed in depth with patient NEXT TREATMENT PRIORITY: - note writing (unified) - choosing a few things to complete - word finding strategies helpful? - depression managed / improved? - change to sleep with consistent CPAP use? Jarvis Block M.A. CCC-WEDDING PLANNER Speech Language Pathology Cell/Pager: [phone] documented in this encounter [facility] 05-22-2023 History of Present illness Narrative Radiology Service Progress Note PATIENT NAME: Yanique Cabello DATE OF SERVICE: May 22, 2023 TIME: 8:37 AM PATIENT IDENTITY VERIFICATION COMPLETED USING TWO (2) IDENTIFIERS: Name and Date of confirmed by patient verbally and Name and Date of confirmed by identification band. FALL SCREENING: Has the patient had 2 falls in the last year or 1 fall with injury or currently using an Ambulatory Assistive Device (Walker, Cane, Wheelchair, Crutches, etc.)? No PATIENT GENDER DATA: Female. status: : No status: NO. PATIENT RELEVANT IMPLANT DATA REVIEWED: Yes PATIENT PRESENTS WITH AN IMPLANTABLE OR ATTACHED PROPRIETARY TRADER: No RADIOLOGY DEPARTMENT: MR; Exam(s) Completed: Head: Routine Brain +adni PERIPHERAL IV DATA: Not applicable SIGNED BY: RT Jenelle(R) May 22, 2023 8:37 AM documented in this encounter [facility] 05-22-2023 Note HNO ID: [id number] Author: MOHINI HERNANDEZ RT(R) Service: Radiology Author Type: Technologist Type: Progress Notes Filed: 05/22/2023 08:46 Note Text: Radiology Service Progress Note PATIENT NAME: Yanique Cabello DATE OF SERVICE: May 22, 2023 TIME: 8:37 AM PATIENT IDENTITY VERIFICATION COMPLETED USING TWO (2) IDENTIFIERS: Name and Date of confirmed by patient verbally and Name and Date of confirmed by identification band. FALL SCREENING: Has the patient had 2 falls in the last year or 1 fall with injury or currently using an Ambulatory Assistive Device (Walker, Cane, Wheelchair, Crutches, etc.)? No PATIENT GENDER DATA: Female. status: : No status: NO. PATIENT RELEVANT IMPLANT DATA REVIEWED: Yes PATIENT PRESENTS WITH AN IMPLANTABLE OR ATTACHED PROPRIETARY TRADER: No RADIOLOGY DEPARTMENT: MR; Exam(s) Completed: Head: Routine Brain +adni PERIPHERAL IV DATA: Not applicable SIGNED BY: RT Jenelle(R) May 22, 2023 8:37 AM [facility] 05-01-2023 Miscellaneous Notes Received p/c from pt. Would like to start a carnivore Diet- States is all meats and animal products. Would like opinion. Diets of this nature are not necessarily recommended for long-term maintenance but rather perhaps short term weight loss in a rapid fashion The concern would be about excessive sodium as well as cholesterol intake, and insufficient plant based proteins, nutrients, fiber, and minerals Would recommend [employer] diet which can be found on their website www.heart.org for balanced nutritional intake as opposed to predominantly meat based diet Please let us know if any further questions or concerns Thank you Response called to pt documented in this encounter [facility] 05-01-2023 Telephone encounter Note Received p/c from pt. Would like to start a carnivore Diet- States is all meats and animal products. Would like opinion. [facility] Telephone encounter Note Diets of this nature are not necessarily recommended for long-term maintenance but rather perhaps short term weight loss in a rapid fashion The concern would be about excessive sodium as well as cholesterol intake, and insufficient plant based proteins, nutrients, fiber, and minerals Would recommend [employer] diet which can be found on their website www.heart.org for balanced nutritional intake as opposed to predominantly meat based diet Please let us know if any further questions or concerns Thank you [facility] 05-01-2023 Telephone encounter Note Response called to pt [facility] 03-19-2023 Note HNO ID: [id number] Author: Madhav Maldonado MD Service: ? Author Type: Physician Type: Progress Notes Filed: 03/20/2023 8:42 AM Note Text: Yanique Cabello 1965 [id number] [facility] [address] [facility] [address] March 19, 2023 Time: 11:48 AM EVALUATION/CONSULT NOTE History of Present Illness Yanique Cabello is a 57 year old right handed woman seen today for memory concerns. 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 This is causing a lot of stress and depression and she feels overwhelmed. He mother notes that she is more irritable, has trouble multitasking and loosing her train of thought at times.She also noted word finding. Manges ADLS, makes mistakes in IADLS bit still manges them. She is depressed and on antidepressants but still struggles with mood. Has CRUZ that was diagnosed and uses CPAP unclear if the pressures are appropriate. Limited physical activity. No frequent falls, no fluctuations in cognition, no hallucinations, no delusions, no change in personality , normal social performance. 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 Single Children: yes Social History Tobacco Use Smoking status: Never Smokeless tobacco: Never Substance Use Topics Alcohol use: No Drug use: No Social History reviewed by Madhav Maldonado MD Family History No h/o dementia, PD, stroke, or other neurological problems in the family Review of Systems Negative for all major organ systems except?CRUZ, depression, HTN PHYSICAL EXAM General: WN/WD in NAD, pleasant, cooperative Head: NC/AT Neck: no bruits bilat, no thyromegaly Cardio: RRR w/o m/r/g Lungs: CTAB Extremities: no BLAYNE MENTAL STATUS EXAM Level of Consciousness- normal Attention- normal Name- able to give complete name [place] Cognitive Assessment (MoCA) MoCA Past Scores MoCA 03/19/2023 MOCA TOTAL SCORE 21 out of 30 Visuospatial/ Executive 4 Naming 3 Attention 4 Language 2 Abstraction 2 Delayed Recall 0 Orientation 6 Education Level 0 DEMENTIA MSE Orientation - Alert: Normal - Attention:Normal - Name: Normal - Day:Normal - Date: Normal - Month: Normal - Year: Normal Repeat phrase: BETH RUIZ, [address] [place] [address] Memory - Who is the president now: Normal - Who was before him: Normal - Who was involved in [place]: Normal Calculation - $5.00 - ($0.40 X 4) = $3.40: Normal - Serial 3's - 47: Normal - 44: Normal - 41: Normal - 38: Normal - 35: Normal Comprehension/performance-body parts-L/R - Stick out your tongue and touch your left ear with right hand: Normal - Touch your nose with left hand: Normal - Touch your right ear: Normal - Point to my right arm: Normal - Praxis (toothbrush): Normal Frontal Lobe Function - Luria 3 step: 3 cycles w/o error bilaterally Social judgments/ Cognitive flexibility: - Empathy: Normal - Recognition of negative facial emotions: - Faux Pas test: Normal Restlessness/Irritablity/Hyperora lity: Normal Satisfies Apathy criteria: Yes Immediate Recall: Abnormal Short Term Memory: - Lester: Abnormal - Joseph: Abnormal - 51: Abnormal - Marker st: Abnormal - [place]: Normal Language Function - Naming : Normal - Fluency: Normal - Repetition ( no ifs, ands, or buts ): Normal - Paraphasic Errors: Normal - Read and do close your eyes : Normal - Writing from dictation ( [place] ): Normal Naming performance - Number of first names in one minute: _17___ not including ___0_ repeats Apraxias: Absent Construction - Figure: No errors - Clock: No errors - Picture interpretation: No errors - Spatial memory: No errors Mood/Affect: depressed and anhedonic Impression - Memory deficit: No Immediate recall>> delayed - Deficit in 2+ areas of cognition: No NEUROLOGICAL EXAM Speech: normal with no dysarthria CRANIAL NERVES: II: VFFTC III, IV, : EOMI w/o nystagmus, normal smooth pursuit and saccades V: Facial sensation intact, jaw closure is normal VII: Eye closure AND smile normal. No facial droop or flattening of nasal-labial fold. VIII: Hearing is normal to finger rub bilat IX, X: The uvula elevates in the midline bilat XI: The sternocleidomastoid and trapezius have normal strength XII: The tongue protrudes in the midline COORDINATION: - Normal ALON / Fingertap /FTN / open-close / toe tap / foot tap MOTOR: - Strength = 5/5 throughout - Pronator Drift = negative - Bulk = normal, no fasciculations - Tone = normal - Tremor = none - Dyskinesias = none - Facial expression = no hypomimia - Bradykinesia = no slowness of movement SENSATION: - LT: nl all 4 ext - PP: nl all 4 ext - No agraphesthesia, astereoagnosia, or neglect (more content not included)... [facility] 03-19-2023 History of Present illness Narrative Images from the original note were not included. Yanique Cabello 1965 [id number] [facility] [address] [facility] [address] March 19, 2023 Time: 11:48 AM EVALUATION/CONSULT NOTE History of Present Illness Yanique Cabello is a 57 year old right handed woman seen today for memory concerns. 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 This is causing a lot of stress and depression and she feels overwhelmed. He mother notes that she is more irritable, has trouble multitasking and loosing her train of thought at times.She also noted word finding. Manges ADLS, makes mistakes in IADLS bit still manges them. She is depressed and on antidepressants but still struggles with mood. Has CRUZ that was diagnosed and uses CPAP unclear if the pressures are appropriate. Limited physical activity. No frequent falls, no fluctuations in cognition, no hallucinations, no delusions, no change in personality , normal social performance. 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 Single Children: yes Social History Tobacco Use Smoking status: Never Smokeless tobacco: Never Substance Use Topics Alcohol use: No Drug use: No Social History reviewed by Madhav Maldonado MD Family History No h/o dementia, PD, stroke, or other neurological problems in the family Review of Systems Negative for all major organ systems except CRUZ, depression, HTN PHYSICAL EXAM General: WN/WD in NAD, pleasant, cooperative Head: NC/AT Neck: no bruits bilat, no thyromegaly Cardio: RRR w/o m/r/g Lungs: CTAB Extremities: no BLAYNE MENTAL STATUS EXAM Level of Consciousness- normal Attention- normal Name- able to give complete name [place] Cognitive Assessment (MoCA) MoCA Past Scores MoCA 03/19/2023 MOCA TOTAL SCORE 21 out of 30 Visuospatial/ Executive 4 Naming 3 Attention 4 Language 2 Abstraction 2 Delayed Recall 0 Orientation 6 Education Level 0 DEMENTIA MSE Orientation - Alert: Normal - Attention:Normal - Name: Normal - Day:Normal - Date: Normal - Month: Normal - Year: Normal Repeat phrase: BETH RUIZ, [address] [place] [address] Remote Memory - Who is the president now: Normal - Who was before him: Normal - Who was involved in [place]: Normal Calculation - $5.00 - ($0.40 X 4) = $3.40: Normal - Serial 3's - 47: Normal - 44: Normal - 41: Normal - 38: Normal - 35: Normal Comprehension/performance-body parts-L/R - Stick out your tongue and touch your left ear with right hand: Normal - Touch your nose with left hand: Normal - Touch your right ear: Normal - Point to my right arm: Normal - Praxis (toothbrush): Normal Frontal Lobe Function - Luria 3 step: 3 cycles w/o error bilaterally Social judgments/ Cognitive flexibility: - Empathy: Normal - Recognition of negative facial emotions: - Faux Pas test: Normal Restlessness/Irritablity/Hyperora lity: Normal Satisfies Apathy criteria: Yes Immediate Recall: Abnormal Short Term Memory: - Lester: Abnormal - Ruiz: Abnormal - 51: Abnormal - Marker st: Abnormal - [place]: Normal Language Function - Naming : Normal - Fluency: Normal - Repetition ( no ifs, ands, or buts ): Normal - Paraphasic Errors: Normal - Read and do close your eyes : Normal - Writing from dictation ( [place] ): Normal Naming performance - Number of first names in one minute: _17___ not including ___0_ repeats Apraxias: Absent Construction - Figure: No errors - Clock: No errors - Picture interpretation: No errors - Spatial memory: No errors Mood/Affect: depressed and anhedonic Impression - Memory deficit: No Immediate recall>> delayed - Deficit in 2+ areas of cognition: No NEUROLOGICAL EXAM Speech: normal with no dysarthria CRANIAL NERVES: II: VFFTC III, IV, : EOMI w/o nystagmus, normal smooth pursuit and saccades V: Facial sensation intact, jaw closure is normal VII: Eye closure & smile normal. No facial droop or flattening of nasal-labial fold. VIII: Hearing is normal to finger rub bilat IX, X: The uvula elevates in the midline bilat XI: The sternocleidomastoid and trapezius have normal strength XII: The tongue protrudes in the midline COORDINATION: - Normal ALON / Fingertap /FTN / open-close / toe tap / foot tap MOTOR: - Strength = 5/5 throughout - Pronator Drift = negative - Bulk = normal, no fasciculations - Tone = normal - Tremor = none - Dyskinesias = none - Facial expression = no hypomimia - Bradykinesia = no slowness of movement SENSATION: - LT: nl all 4 ext - PP: nl all 4 ext - No agraphesthesia, astereoagnosia, or neglect to 2x simultaneous stimulation REFLEXES: DTR's - R biceps = 2+ L biceps = 2+ - R triceps = 2+ L triceps = 2+ - R brachiorad = 2+ L brachiorad = 2+ - R knee jerk = 2+ L knee jerk = 2+ - R ankle jerk = 0 L ankle jerk = 0 Babinski: - R plantar response = downgoing - L plantar response = downgoing CEREBELLAR: - No Dysmetria//Dysdiadochokinesis - No Ataxia POSTURE/GAIT: - Arising from chair: could get up without the aide of arms - Posture: normal - Romberg: negative - Retropulsion: none - Gait: normal casual and heel, toe, tandem walk IMPRESSION/ASSESSMENT: cognitive changes likely in the context of CRUZ, depression Pleasant 57 year old year old female with deficits in attention, working memory, and processing speed. Independant with ADL's and IADL's. PLAN -MRI brain scan -Blood work: CBC, CMP, TSH, B1, B12, folate serum, RPR, MMA, T3, T4 -Psychology consult -Cognitive therapy consult -Counseled on tasks to improve working memory -Follow up after tests Madhav Maldonado MD [facility] Brain Health I spent 80 min on the date of service which included preparing to see the patient, face to face patient care, performing medically appropriate examination, completing clinical documentation and on counseling/educating the patient/family. documented in this encounter [facility] 03-19-2023 Note HNO ID: [id number] Author: Delmy Farfan MD Service: ? Author Type: Physician Type: Progress Notes Filed: 04/02/2023 10:16 AM Note Text: No show Connection aborted at 10:20 [facility] 02-08-2022 Note PROCEDURE: Arden Reed VCT 64, 5 mm slice axial images [...] and signed by Cosme Valentin on 02/08/2022 1442 [facility] Specialist 12-14-2021 Note HISTORY: Short tern memory loss [...] signed by Cosme Valentin on 12/17/2021 1416 [facility] Insurance Claims Assistant 10-05-2021 Note HISTORY: Right side headache x [...] signed by Cosme Valentin on 10/05/2021 0931 [facility] Insurance Claims Assistant Evaluation note No assessment inform ation [facility] Work Phone: Evaluation note Diagnosis Cognitive impairment, mild, so stated- Primary Mild cognitive impairment, so stated [facility]* Diagnosis CRUZ on CPAP- Primary Obstructive sleep apnea (adult) (pediatric) documented in this encounter [facility] note* Diagnosis Cognitive communication deficit- Primary Cognitive impairment, mild, so stated Mild cognitive impairment, so stated documented in this encounter [facility] note* Diagnosis Cognitive impairment, mild, so stated Mild cognitive impairment, so stated [facility]* Diagnosis Cognitive impairment, mild, so stated- Primary Mild cognitive impairment, so stated Cognitive communication deficit [facility] Diagnosis Cognitive impairment, mild, so stated- Primary Mild cognitive impairment, so stated [facility] Diagnosis No-show for appointment- Primary [facility] Complaint and Reason for Visit Chief Complaint Cognitive Disability Advance Directives No Advanced Directives Records Found Advance Directive Response Recorded Date/ Time Advance Directives No January 16, 2017 1:26pm Summary Purpose Family History No Family History Records FoundNo Family History Records FoundNo Family History Records FoundNo Family History Records FoundNo Family History Records FoundNo Family History Records FoundNo Family History Records Found Reason for Referral Specialty Diagnoses / Procedures Referred By Gracia andrea Referred To Contact [facility] Diagnoses Cognitive impairment, mild, so stated Procedures CONSULT TO SPEECH THERAPY OFFICE/OUTPATIENT [facility] 60-[place] [address] [place], [place] [address] [address] [facility] [place] [address] Referral ID Status Reason Start Date Expiration Date Visits Requested Visits Authorized [id number] Pending Review Auto-Generat ed Referral 3 03/18/2024 1 1 Specialty Diagnoses / Procedures Referred By Gracia andrea Referred To Contact Psychology Diagnoses Cognitive impairment, mild, so stated Procedures CONSULT TO PSYCHOLOGY OFFICE/OUTPATIENT [facility] 60-[place] [address] [place] [address] Referral ID Status Reason Start Date Expiration Date Visits Requested Visits Authorized [id number] Pending Review PCP Requested Referral 3 03/18/2024 1 1 Specialty Diagnoses / Procedures Referred By Gracia andrea Referred To Contact [facility] Diagnoses Cognitive impairment, mild, so stated Procedures MRI 3D POST PROCESSING 3D RENDERING W/INTERP&POSTPROC DIFF WORK STATION Madhav Maldonado MD [address] [place] [address] [facility] [place] [address] Referral ID Status Reason Start Date Expiration Date Visits Requested Visits Authorized [id number] Authorized Auto-Generat ed Referral 04/17/2024 1 1 Specialty Diagnoses / Procedures Referred By Gracia andrea Referred To Contact [facility] Diagnoses Cognitive impairment, mild, so stated Procedures MRI BRAIN W QUANT WO IVCON MRI BRAIN BRAIN STEM W/[place] [id number] [place] [address] [facility] [place] [address] Referral ID Status Reason Start Date Expiration Date Visits Requested Visits Authorized [id number] Pending Review Auto-Generat ed Referral 04/17/2024 1 1 Specialty Diagnoses / Procedures Referred By Gracia andrea Referred To Contact Diagnoses CRUZ on CPAP Procedures CONSULT TO SLEEP MEDICINE - ADULT OFFICE/OUTPATIENT [facility] 60 MINUTES Madhav Maldonado MD [address] [place] [address] Referral ID Status Reason Start Date Expiration Date Visits Requested Visits Authorized [id number] Authorized PCP Requested Referral 05/22/2023 05/21/2024 1 1 Specialty Diagnoses / Procedures Referred By Gracia andrea Referred To Contact [facility] Diagnoses Cognitive impairment, mild, so stated Cognitive communication deficit Procedures SPEECH REHAB FOLLOW UP ORDER TX SPEECH LANG VOICE COMMJ &/AUDITORY PROC IND Madhav Maldonado MD [address] [place] [address] [facility] [place] [address] Referral ID Status Reason Start Date Expiration Date Visits Requested Visits Authorized [id number] Pending Review PCP Requested Referral Auto-Generate d Referral 05/22/2023 08/20/2023 1 1 Referral ID Status Reason Start Date Expiration Date V isits Requested Visits Authorized [id number] Closed Auto-Generate d Referral 03/19/2023 04/17/2024 1 1 Referral ID Status Reason Start Date Expiration Date Visits Requested Visits Authorized [id number] Pending Peer to Peer Review Auto-Genera jeannie Referral Patient Cleared - Admin/Chair man/Directo r advise to proceed or did not respond 05/09/2023 07/08/2023 2 2 Additional Source Comments Care Teams (unrecognized sec tion and content) Team Status: Inactive Member Role Status Dates Chaka Atwood , PhD Attending Provider Active Ghislaine Gross MD Primary Care Provider Active Team Status: Active Member Role Status Dates Ghislaine Gross MD Primary Care Provider Active Harness Mender Relationship Specialty Start Date End Date Ghislaine Gross [address] [facility] [place] [phone] PCP - General Family Medicine 05/25/17 Roque Johnston MD [address] [place] [id number] Referring Neurology 01/27/23 Harness Mender Relationship Specialty Start Date End Date Ghislaine Gross MD [address] [place], [place] [phone] PCP - General Family Medicine 11/14/16 Harness Mender Relationship Specialty Start Date End Date Ghislaine Gross [address] [facility] [place] [phone] PCP - General Family Medicine 05/25/17 Roque Johnston MD [address] [place] [address] Referring Neurology 01/27/23 Harness Mender Relationship Specialty Start Date End Date Ghislaine Gross [address] [place] [phone] PCP - General Family Medicine 05/25/17 Roque Johnston MD [address] Dashawn [address] [place] [address], [place] [address] Referring Neurology 01/27/23 Harness Mender Relationship Specialty Start Date End Date Ghislaine Gross Ramone [address] [facility] [place] [phone] PCP - General Family Medicine 05/25/17 Roque Johnston MD [address] [facility] [address] T[address] [place] [address], [place] [address] Referring Neurology 01/27/23 Harness Mender Relationship Specialty Start Date End Date Ghislaine Gross [address] [facility] [place] [phone] PCP - General Family Medicine 05/25/17 Roque Johnston MD [address] [facility] [address] [place] [address], [place] [address] Referring Neurology 01/27/23 Harness Mender Relationship Specialty Start Date End Date Ghislaine Gross [address] [facility] [place] [phone] PCP - General Family Medicine 05/25/17 Roque Johnston MD [address] [place] [address], [place] [phone] Referring Neurology 01/27/23 Harness Mender Relationship Specialty Start Date End Date Ghislaine Gross [address] [facility] [place] [phone] PCP - General Family Medicine 05/25/17 Roque Johnston MD [address] [facility] [address] [place] [address], [place] [address] Referring Neurology 01/27/23 Harness Mender Relationship Specialty Start Date End Date Ghislaine Gross Ramone [address] [facility] [place] [phone] PCP - General Family Medicine 05/25/17 Roque Johnston MD [address] [facility] [address] [place] [address], [place] [address] Referring Neurology 01/27/23 Harness Mender Relationship Specialty Start Date End Date Ghislaine Gross Ramone [address] [facility] [place] [phone] PCP - General Family Medicine 05/25/17 Roque Johnston MD [address] [facility] [address] [place] [address], [place] [address] Referring Neurology 01/27/23 Harness Mender Relationship Specialty Start Date End Date Ghislaine Gross Ramone [address] [facility] [place] [phone] PCP - General Family Medicine 05/25/17 Roque Johnston MD [address] [facility] [address] [place] [address], [place] [phone] Referring Neurology 01/27/23 Harness Mender Relationship Specialty Start Date End Date Ghislaine Gross [address] [facility] [place] [place] [phone] PCP - General Family Medicine 05/25/17 Roque Johnston MD [address] [facility] [address] [place] [address] Referring Neurology 01/27/23 Goals (unrecognized section and content) Goals may be documented in a n alternate sectionNot on filedocumented as of this encounter INFORMATION SOURCE (unrecogn ized section and content) DATE CREATED AUTHOR 09/17/2021 [facility] pital DATE CREATED AUTHOR AUTHOR'S ORGANIZ ATION 02/09/2022 [facility] dical Specialist DATE CREATED AUTHOR AUTHOR'S ORGANIZ ATION 07/16/[address] [facility] DATE CREATED AUTHOR AUTHOR'S ORGANIZ ATION 04/20/2023 [facility] DATE CREATED AUTHOR AUTHOR'S ORGANIZ ATION 10/13/2023 [facility] DATE CREATED AUTHOR AUTHOR'S ORGANIZ ATION 11/06/2023 [facility] DATE CREATED AUTHOR AUTHOR'S ORGANIZ ATION 11/24/2023 [facility] dical Specialists EPIC Source Comments (unrecognize d section and content) In the event this informatio n is protected by the Federal Confidentiality of Alcohol and Drug Abuse Patient Records regulations: The Federal rules restrict any use of the information to criminally investigate or prosecute any alcohol or drug abuse patient.[facility] the event this information is protected by the Federal Confidentiality of Alcohol and Drug Abuse Patient Records regulations: The Federal rules restrict any use of the information to criminally investigate or prosecute any alcohol or drug abuse patient.[facility] the event this information is protected by the Federal Confidentiality of Alcohol and Drug Abuse Patient Records regulations: The Federal rules restrict any use of the information to criminally investigate or prosecute any alcohol or drug abuse patient.[facility] the event this information is protected by the Federal Confidentiality of Alcohol and Drug Abuse Patient Records regulations: The Federal rules restrict any use of the information to criminally investigate or prosecute any alcohol or drug abuse patient.[facility] the event this information is protected by the Federal Confidentiality of Alcohol and Drug Abuse Patient Records regulations: The Federal rules restrict any use of the information to criminally investigate or prosecute any alcohol or drug abuse patient.[facility] the event this information is protected by the Federal Confidentiality of Alcohol and Drug Abuse Patient Records regulations: The Federal rules restrict any use of the information to criminally investigate or prosecute any alcohol or drug abuse patient.[facility] the event this information is protected by the Federal Confidentiality of Alcohol and Drug Abuse Patient Records regulations: The Federal rules restrict any use of the information to criminally investigate or prosecute any alcohol or drug abuse patient.[facility] Hospital[facility] the event this information is protected by the Federal Confidentiality of Alcohol and Drug Abuse Patient Records regulations: The Federal rules restrict any use of the information to criminally investigate or prosecute any alcohol or drug abuse patient.[facility] Hospital[facility] the event this information is protected by the Federal Confidentiality of Alcohol and Drug Abuse Patient Records regulations: The Federal rules restrict any use of the information to criminally investigate or prosecute any alcohol or drug abuse patient.[facility] Hospital[facility] the event this information is protected by the Federal Confidentiality of Alcohol and Drug Abuse Patient Records regulations: The Federal rules restrict any use of the information to criminally investigate or prosecute any alcohol or drug abuse patient.[facility] HospitalIn the event this information is protected by the Federal Confidentiality of Alcohol and Drug Abuse Patient Records regulations: The Federal rules restrict any use of the information to criminally investigate or prosecute any alcohol or drug abuse patient.[facility] Hospital[facility] the event this information is protected by the Federal Confidentiality of Alcohol and Drug Abuse Patient Records regulations: The Federal rules restrict any use of the information to criminally investigate or prosecute any alcohol or drug abuse patient.[facility] HospitalIn the event this information is protected by the Federal Confidentiality of Alcohol and Drug Abuse Patient Records regulations: The Federal rules restrict any use of the information to criminally investigate or prosecute any alcohol or drug abuse patient.[facility] Hospital[facility] the event this information is protected by the Federal Confidentiality of Alcohol and Drug Abuse Patient Records regulations: The Federal rules restrict any use of the information to criminally investigate or prosecute any alcohol or drug abuse patient.[facility] HospitalIn the event this information is protected by the Federal Confidentiality of Alcohol and Drug Abuse Patient Records regulations: The Federal rules restrict any use of the information to criminally investigate or prosecute any alcohol or drug abuse patient.[facility] Reason for Visit (unrecogniz ed section and content) Reason Comments No Show Specialty Diagnoses / Procedures Referred By Contac t Referred To Contact [facility] Diagnoses G31.84ICD-10-CM Cognitive impairment, mild, so stated Procedures THERAPEUTIC EXERCISES RE, EA 15 MIN. Madhav Maldonado MD [address] [place] [address] [facility] [place] [address] Referral ID Status Reason Start Date Expiration Date V isits Requested Visits Authorized [id number] Authorized 09/09/2023 01/29/2024 30 30 Reason Comments Follow Up Specialty Diagnoses / Procedures Referred By Contac t Referred To Contact [facility] Diagnoses Cognitive impairment, mild, so stated Procedures MRI BRAIN W QUANT WO IVCON MRI BRAIN BRAIN STEM W/O CONTRAST MATERIAL Madhav Maldonado MD [address] [place] [address] [facility] [place] [address] Referral ID Status Reason Start Date Expiration Date Visits Requested Visits Authorized [id number] Pending Peer to Peer Review Auto-Genera jeannie Referral Patient Cleared - Admin/Chair man/Directo r advise to proceed or did not respond 05/09/2023 07/08/2023 2 2 Reason Comments Speech Evaluation Specialty Diagnoses / Procedures Referred By Gracia andrea Referred To Contact [facility] Diagnoses Cognitive impairment, mild, so stated Procedures CONSULT TO SPEECH THERAPY OFFICE/OUTPATIENT [facility] 60-74 MINUTES Madhav Maldonado MD [address] [place] [phone] [facility] [place] [address] Referral ID Status Reason Start Date Expiration Date V isits Requested Visits Authorized [id number] Closed Auto-Generate d Referral 03/31/2023 03/30/2024 1 1 Reason Comments Radiology MRI Specialty Diagnoses / Procedures Referred By Gracia andrea Referred To Contact [facility] Diagnoses Cognitive impairment, mild, so stated Procedures MRI 3D POST PROCESSING 3D RENDERING W/INTERP&POSTPROC DIFF WORK STATION Madhav Maldonado MD [address] [place] [phone] [facility] [place] [address] Referral ID Status Reason Start Date Expiration Date V isits Requested Visits Authorized [id number] Closed Auto-Generate d Referral 03/19/2023 04/17/2024 1 1 Reason Comments MRI Order Reason Comments Speech Therapy Reason Comments Appointment 09/13/23 - JERICHO Coombsge sent / reminder mailed for [facility].- GL Reason Comments Appointment Reason Comments Returning Patient's Call Received voicem ail from patient requesting contact information for local speech providers. This information was previously provided to patient via [employer] and email on 09/19/2023. A second email listing the local speech providers was sent to patient on 10/03/2023 via email (patients preferred mode of communication). Called patient. Clarified that local speech providers were sent to her via email. Patient currently driving and planning to look at her email once home. FOR RECORDS PERTAINING TO PATIENTS WHO ARE [...] BE BASED ON THE PRIMARY CLINICAL RECORDS. [facility]. provides no warranty or guarantee of the accuracy or completeness of information in this document.
--- NOTE | 2023-12-11 07:11 | ECG_ITS ---
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
--- NOTE | 2023-12-11 07:11 | XR_ITS ---
The [place] [id number] Patient Name: DOMINGA KAUR MRN: [id number] date: 1965 Sex: F Assigned Patient Location: ER Current Patient Location: ER Accession/Order Number: [id number] Exam Date: 12/11/2023 07:35 Report Date: 12/11/2023 08:05 At the request of: LAURA DIAMOND Procedure: XR chest 1V EXAMINATION: XR chest 1V HISTORY: SOB COMPARISON: 02/04/2023 TECHNIQUE: AP portable FINDINGS: LUNGS: No significant pulmonary parenchymal abnormalities. VASCULATURE: No increased pulmonary vasculature. PLEURA: No pneumothorax, effusion, or pleural thickening. CARDIAC: No cardiomegaly or cardiac silhouette abnormality. MEDIASTINUM: No visible mass or adenopathy. BONES: No fracture or visible bone lesion. OTHER: Negative. XR/XR chest 1V IMPRESSION: No acute cardiopulmonary process Electronically authenticated by: MARLENE AQUINO Date: 12/11/2023 08:05
--- NOTE | 2023-12-11 07:12 | ED.CHESTPAI1 ---
HPI - Chest Pain General Chief Complaint: Chest Pain Stated Complaint: CHEST PAIN Time Seen by Provider: 12/11/23 07:07 Source: patient Mode of arrival: ambulance Limitations: no limitations History of Present Illness HPI narrative: 58-year-old female presents for chest pain which is now resolved. It woke her up from sleep about an hour ago and was almost completely gone by the time the paramedics arrived. It was in the middle part of her chest and went into her back but not to her arms or neck. She is not short of breath and has no chest pain and no symptoms at all right now. She states that this happened about a year ago and she went to see a doctor but she does not remember what he did because she has early onset dementia. No fever or cough. Related Data Home Medications ?Medication ?Instructions ?Recorded ?Confirmed desvenlafaxine succinate 25 mg 25 mg PO DAILY 12/11/23 12/11/23 tablet,extended release 24 hr Allergies Allergy/AdvReac Type Severity Reaction Status Date / Time No Known Drug Allergies Allergy Verified 12/11/23 07:03 Review of Systems ROS Narrative A ten point review of systems is negative except as noted above. PFSH PFS Medical History Depression ?F32.A - Depression, unspecified (ICD-10) Fracture of left tibia and fibula ?S82.202A - Unspecified fracture of shaft of left tibia, initial encounter for closed fracture (ICD-10) ?S82.402A - Unspecified fracture of shaft of left fibula, initial encounter for closed fracture (ICD-10) Memory loss of unknown cause ?R41.3 - Other amnesia (ICD-10) Family History Father Family history of cancer Family history of myocardial infarction Grandmother Family history of diabetes mellitus Family history of hypertension Family history of myocardial infarction Social History Within the past year, how often did you have a drink containing alcohol: never Score interpretation: A score less than 3 is consistent with normal alcohol consumption. 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 Known occupational exposures/hazards: No Highest level of school completed/degree received: Bachelor's degree Are you now , , , , never or living with a partner: never In a typical week, how many times do you talk on the telephone with family, friends, or neighbors: 3 or more times per week How often do you get together with friends or relatives: 3 or more times per week How often do you attend latter day or jewish services: never Do you belong to any clubs or organizations such as latter day groups unions, fraWonder[employer] or athletic groups, or school groups: no Total score: 1 Score interpretation: A score of less than or equal to 1 indicates the most socially isolated. Little interest or pleasure in doing things: not at all Feeling down, depressed, or hopeless: more than half the days Feel stressed/tense/nervous/anxious/difficulty sleeping: very much Life stressors: other Life stressor details: memory loss Do you think of yourself as: straight/heterosexual Gender Identity: female Exam Narrative Exam Narrative: Nurses note and vital signs reviewed and patient is not hypoxic. General: The patient appears well and in no apparent distress. Patient is resting comfortably on cart. Skin: Warm, dry, no pallor noted. There is no rash noted. Head: Normocephalic, atraumatic Eye: Normal conjunctiva, no drainage Ears, Nose, Mouth, and Throat: oral mucosa is moist. Nares patent. Cardiovascular: Regular Rate and Rhythm, not tachycardic Respiratory: Patient is in no distress, no accessory muscle use, lungs are clear to auscultation, no wheezing, rales or rhonchi Back: non-tender GI: Soft and nontender Musculoskeletal: The patient has no evidence of calf tenderness, no pitting edema, symmetrical pulses noted bilaterally Neurological: Awake and alert Psychiatric: Cooperative Constitutional Vital Signs, click to edit/add: Last Vital Signs Temp 98.3 F 12/11/23 07:00 Pulse 69 12/11/23 08:20 Resp 14 12/11/23 08:20 BP 118/77 12/11/23 08:00 Pulse Ox 96 09/12/24 08:20 O2 Del Method Room Air 12/11/23 07:23 Course Vital Signs Vital signs: Vital Signs Temperature 98.3 F 12/11/23 07:00 Pulse Rate 77 12/11/23 07:00 Respiratory Rate 18 12/11/23 07:00 Blood Pressure 120/69 12/11/23 07:00 Pulse Oximetry 100 12/11/23 07:00 Oxygen Delivery Method Room Air 12/11/23 07:00 Temperature 98.3 F 12/11/23 07:00 Pulse Rate 69 12/11/23 08:20 Respiratory Rate 14 12/11/23 08:20 Blood Pressure 118/77 12/11/23 08:00 Pulse Oximetry 96 12/11/23 08:20 Oxygen Delivery Method Room Air 12/11/23 07:23 MDM - Chest Pain MDM Narrative Medical decision making narrative: Her workup including 2 sets of troponin is negative. She remained symptom-free and is able to be discharged home. Treatment diagnosis and follow-up were discussed with the patient. At this point I do not suspect acute coronary syndrome. Differential Diagnosis Differential diagnosis: Likely pneumothorax, stable angina, unstable angina pectoris, atypical chest pain, st elevation myocardial infarction and chest pain Lab Data Attestation: I reviewed the patient's lab results. Labs: Lab Results 12/11/23 12/11/23 Range/Units 07:07 08:37 WBC 5.8 (4.0-11.0) 10^3/uL RBC 4.35 (4.20-5.40) 10^6/uL Hgb 12.6 (12.0-16.0) g/dL Hct 39.0 (36.0-48.0) % MCV 89.7 (81.0-99.0) fL MCH 29.0 (26.7-34.0) pg MCHC 32.3 (29.9-35.2) g/dL RDW 13.0 (11.0-15.0) % Plt Count 164 (150-450) 10^3/uL MPV 9.8 (9.5-13.5) fL Neut % (Auto) 72.2 (43.0-75.0) % Lymph % (Auto) 15.4 L (20.5-60.0) % [place] % (Auto) 10.2 (1.7-12.0) % Eos % (Auto) 1.2 (0.9-7.0) % Baso % (Auto) 0.7 (0.2-2.0) % Neut # (Auto) 4.2 (1.4-6.5) 10^3/uL Lymph # (Auto) 0.9 L (1.2-3.8) 10^3/uL [place] # (Auto) 0.6 (0.3-0.8) 10^3/uL Eos # (Auto) 0.1 (0.0-0.7) 10^3/uL Baso # (Auto) 0.0 (0.0-0.1) 10^3/uL Abs Immat Gran (auto) 0.02 (0.00-0.03) 10^3/uL Imm/Tot Granulo (auto) 0.3 (0.0-0.5) % Sodium 141 (136-145) mmol/L Potassium 3.4 L (3.5-5.1) mmol/L Chloride 103 (98-107) mmol/L Carbon Dioxide 28.0 (21.0-32.0) mmol/L Anion Gap 13.4 BUN 12.0 (7.0-18.0) mg/dL Creatinine 0.80 (0.55-1.02) mg/dL Est GFR ( Amer) >60 (>=60) Est GFR (Non-Af Amer) >60 (>=60) BUN/Creatinine Ratio 15.0 Glucose 116 H (74-106) mg/dL Calcium 8.9 (8.5-10.1) mg/dL Troponin I High Sens <4.0 L 5.2 (4.0-51.3) pg/mL Imaging Data Chest x-ray: Radiologist's impression: ITS Impressions Chest X-Ray 12/11/23 07:11 IMPRESSION: No acute cardiopulmonary process Electronically authenticated by: MARLENE AQUINO Date: 12/11/2023 08:05 ECG Data Attestation: I personally reviewed and interpreted this ECG as follows: (EKG on my interpretation shows normal sinus rhythm with no acute changes and a rate of 70.) Heart Score History: Slightly/Non-Suspicious ECG: Normal Age: >45-<65 years Risk Factors: No Risk Factors Troponin: <Normal Limit Total Heart Score Recommendations & Risks:: 1 Discharge Plan Discharge Chief Complaint: Chest Pain Clinical Impression: Chest pain Patient Disposition: Home, Self-Care Time of Disposition Decision: 09:20 Condition: Good Mode of Transportation: Private Vehicle Prescriptions / Home Meds: No Action desvenlafaxine succinate 25 mg tablet extended release 24 hr 25 mg PO DAILY Print Language: Greek Instructions: Chest Pain (ED) Referrals: Shaikh Pool MD [Primary Care Provider] - 1 week
[2023-12-11 07:21] LABS: Basophils Percent Auto 0.7 % (0.2-2.0); Eosinophils Absolute Auto 0.1 10^3/uL (0.0-0.7); Eosinophils Percent Auto 1.2 % (0.9-7.0); Hemoglobin 12.6 g/dL (12.0-16.0); Immature Granulocytes Abs Auto 0.02 10^3/uL (0.00-0.03); Immature Granulocytes Pct Auto 0.3 % (0.0-0.5); Lymphocytes Absolute Auto 0.9 10^3/uL (1.2-3.8); Lymphocytes Percent Auto 15.4 % (20.5-60.0); Mean Corpuscular HGB Conc 32.3 g/dL (29.9-35.2); Mean Corpuscular Volume 89.7 fL (81.0-99.0); Mean Platelet Volume 9.8 fL (9.5-13.5); Monocytes Absolute Auto 0.6 10^3/uL (0.3-0.8); Monocytes Percent Auto 10.2 % (1.7-12.0); Neutrophils Absolute Auto 4.2 10^3/uL (1.4-6.5); Neutrophils Percent Auto 72.2 % (43.0-75.0); Platelet Count 164 10^3/uL (150-450); Red Blood Count 4.35 10^6/uL (4.20-5.40); White Blood Count 5.8 10^3/uL (4.0-11.0)
[2023-12-11] MEDS: ASPIRIN 81 MG TAB.CHEW 324 MG PO (07:29)
[2023-12-11 07:41] LABS: Calcium 8.9 mg/dL (8.5-10.1); Chloride 103 mmol/L (98-107); Estimated GFR (African America >60 (>=60); Estimated GFR (Non-African Ame >60 (>=60); Glucose 116 mg/dL (74-106); Potassium 3.4 mmol/L (3.5-5.1); Sodium 141 mmol/L (136-145); Troponin I High Sensitivity <4.0 pg/mL (4.0-51.3)
[2023-12-11 07:47] LABS: Anion Gap 13.4
[2023-12-11 09:13] LABS: Troponin I High Sensitivity 5.2 pg/mL (4.0-51.3)
== END 2023-12-11 09:31 | disposition home or self-care (01) ==
PROVIDERS: Emergency Provider Emergency Medicine; PCP Internal Medicine
DX: R07.9 Chest pain, unspecified (principal)
CPT/HCPCS: 36415; 71045; 80048; 84484; 85025; 93005; 99285

== ENCOUNTER 2024-03-23 07:43 | Outpatient (OUT) | payer OTHER, SELFPAY ==
--- OUTSIDE RECORDS SUMMARY | 2024-03-23 07:45 | XMS_ITS | CCD ---
Author Organization [facility] Care Team Providers Care Hospital Staff Pharmacist Name Role Phone PhD Chaka Atwood Attending Provider MD Ghislaine Gross Primary Care Provider CINDY, DR HUGO Gongora Admitting Unavailable CINDY, DR HUGO Gongora Attending Unavailable CINDY, DR HUGO Gongora Consulting Unavailable PRISCILA, DR ELIDA Pack Admitting Unavailagusto FRANCOIS, DR ELIDA Pack Attending Unavailagusto FRANCOIS, DR ELIDA Pack Consulting Unavailabl e ENMANUEL, BETI TOBIN Consulting Unavailable BELEN MARIN Consulting Unavailable CINDY, DR HUGO Gongora Consulting Unavailable CINDY, DR HUGO Gongora Admitting Unavailable CINDY, DR HUGO Gongora Attending Unavailable RENATO, DR RAYA Primary Care Unavailable MARLENE LEACH Consulting Unavailable GHISLAINE GROSS Primary Care Unavailable WILBER PRINGLE Consulting Unavailable EKTA ., WILBER Admitting Unavailable EKTA ., WILBER Attending Unavailable AG PEACOCK Consulting Unavailable GHISLAINE GROSS Primary Care Unavailable PRISCILA, DR ELIDA Pack Admitting Unavailagusto FRANCOIS, DR ELIDA Pack Attending Unavailagusto RUIZ, DR HUGO Gongora Consulting Unavailable PRISCILA, DR ELIDA Pack Consulting Unavailabl e CHARLIE LUKE Consulting Unavailable YOKASTA BAINS Consulting Unavailable NATACHA DASH Admitting Unavailable NATACHA DASH Attending Unavailable GHISLAINE GROSS Primary Care Unavailable KACY, DR HERRERA Consulting Unavailable NATACHA DASH Admitting Unavailable NATACHA DASH Attending Unavailable GHISLAINE GROSS Primary Care Unavailable KACY, DR HERRERA Consulting Unavailable Ghislaine Gross Primary Care Provider [phone] Roque Johnston MD Unavailable [phone] Ghislaine Gross MD Primary Care Provider Ghislaine Gross Primary Care Provider [phone] TAYLOR MALDONADOAN A Attending Unavailable ERICA, MADHAV A Referring Unavailable GHISLAINE GROSS G Primary Care Unavailable ERICA, MADHAV A Referring Unavailable RENATO, GHISLAINE G Primary Care Unavailable ERICA, MADHAV A Referring Unavailable RENATO, GHISLAINE G Primary Care Unavailable ERICA, MADHAV A Attending Unavailable RENATO, GHISLAINE G Primary Care Unavailable DELMY FARFAN Attending Unavailable RENATO, GHISLAINE G Primary Care Unavailable ERICA, MADHAV A Referring Unavailable RENATO, GHISLAINE G Primary Care Unavailable ERICA, MADHAV A Referring Unavailable RENATO, GHISLAINE G Primary Care Unavailable CAMI DIALLO Attending Unavailable RENATO, GHISLAINE G Referring Unavailable RENATO, GHISLAINE G Primary Care Unavailable CAMI DIALLO Attending Unavailable GHISLAINE GROSS G Referring Unavailable RENATO, GHISLAINE G Primary Care Unavailable CAMI DIALLO Attending Unavailable RENATO, GHISLAINE G Referring Unavailable RENATO, GHISLAINE G Primary Care Unavailable CAMI DIALLO Attending Unavailable GHISLAINE GROSS G Referring Unavailable RENATO, GHISLAINE G Primary Care Unavailable SHAIKH POOL Attending Unavailable SHAIKH POOL Attending Unavailable CARLITA GONZALEZ Attending Unavailable CAMI DIALLO Attending Unavailable GHISLAINE GROSS G Referring Unavailable RENATO, GHISLAINE G Primary Care Unavailable MALAS, HAZEM Referring Unavailable RENATO, GHISLAINE G Primary Care Unavailable Ghislaine Pablo Primary Care Un available Chaka Atwood Attending Unavailable Chaka Atwood Admitting Unavailable Shaikh Pool MD Unavailable Beth Roque MD Primary Care Provider [phone] Shaikh Pool MD Primary Care Provider [phone] Shaikh Pool MD Primary Care Provider [phone] Allergies Allergy Classification Reported Allergen(s) Allergy Type Date of Onset Reaction(s) Facility NSAIDs (1 source) Naproxen Drug Allergy 05-24-2017 [facility] (5 sources) Naproxen; Translations: [NAPROXEN] Drug Allergy 11-14-2016 [facility] (20 sources) Naproxen Drug Allergy 11-14-2016 [facility] (1 source) Naproxen Drug Allergy 02-09-2021 [facility] Repository Medications Current Medications Medication Drug Class(es) Dates Sig (Normalized) Sig (Original) Amoxicillin (15 sources) Penicillin-class Antibacterial AMOXICILLIN ORAL Take by mouth. 0 Active Comment on above: Take by mouth. 24 hr amphetamine aspartate 2.5 mg / amphetamine sulfate 2.5 mg / dextroamphetamine saccharate 2.5 mg / dextroamphetamine sulfate 2.5 mg extended release oral capsule (1 source) Central Nervous System Stimulant Start: 09-04-2023 take 1 capsule by mouth once daily in the morning amphetamine-dextro amphetamine XR (ADDERALL XR) 10 mg 24 hr capsule Indications: Attention and concentration deficit Take 1 capsule (10 mg total) by mouth in the morning. Max Daily Amount: 10 mg. 30 capsule 09/04/2023 Active ARIPiprazole 2 mg oral tablet (17 sources) Atypical Antipsychotic Start: 11-06-2022 End: 02-26-2023 take 1 tablet by mouth in the morning ARIPiprazole (ABILIFY) 2 mg tablet Take 1 tablet (2 mg total) by mouth in the morning. 30 tablet 5 02/26/2023 Active ARIPIPRAZOLE (AB ILIFY ORAL) Take by mouth. 0 Active Comment on above: Take by mouth. ascorbic acid 100 mg oral tablet (3 sources) Vitamin C take 1 tablet by mouth in the morning ascorbic acid, vitamin C, (VITAMIN C) 100 MG tablet Take 1 tablet (100 mg total) by mouth in the morning. Active biotin 10 mg oral capsule (7 sources) Start: 12-13-2021 take 1 tablet by mouth twice daily biotin 10,000 mcg capsule 1 tablet Orally two times daily for 30 day(s) 12/13/2021 Active take 1 capsule by mouth in the m orning biotin 10 MG capsule Take 1 capsule by mouth in the morning and 1 capsule before bedtime. Active Bromelains (18 sources) take 1 tablet by pattie th in the morning Bromelains (BROMELAIN PO) Take 1 tablet by mouth in the morning. Active bromelains (BROM ELAIN ORAL) Take by mouth. 0 Active Comment on above: Take by mouth. 24 hr buPROPion hydrochloride 150 mg extended release oral tablet (17 sources) Aminoketone Start: 12-31-2022 take 1 tablet by mouth once daily in the morning buPROPion XL (WELLBUTRIN XL) 150 mg 24 hr tablet Take 150 mg by mouth every morning. 0 12/31/2022 Active Start: 09-17-2022 End: 12-31-2022 take 1 tablet by mouth every twenty-four hours in the morning buPROPion XL (WELLBUTRIN XL) 300 mg 24 hr tablet Indications: Major depressive disorder, recurrent episode, moderate (CMS-HCC) Take 1 tablet (300 mg total) by mouth in the morning. 90 tablet 09/17/2022 12/31/2022 Discontinued (Reorder) take 1 tablet by pattie th every twenty-four hours in the morning buPROPion XL (WELLBUTRIN XL) 150 mg 24 hr tablet Take 1 tablet (150 mg total) by mouth in the morning. 0 Active Comment on above: Take 150 mg by mouth every morning. citalopram 20 mg oral tablet (16 sources) Serotonin Reuptake Inhibitor Start: 12-15-2023 take 1 tablet by mouth once daily citalopram (CeleXA) 20 mg tablet Take 1 tablet (20 mg total) by mouth nightly. 90 tablet 3 12/15/2023 Active CITALOPRAM HYDRO BROMIDE (CITALOPRAM ORAL) Take by mouth. 0 Active Comment on above: Take by mouth. 24 hr desvenlafaxine succinate 25 mg extended release oral tablet (18 sources) Serotonin and Norepinephrine Reuptake Inhibitor Start: 024 take 1 tablet by mouth once daily in the morning, then take 1 tablet by mouth every twenty-four hours desvenlafaxine ER (PRISTIQ) 25 mg 24 hr tablet Take 25 mg by mouth every morning. 0 04/28/2023 Active Start: 12-31-2022 take 1 tablet by pattie th every twenty-four hours in the morning desvenlafaxine (PRISTIQ) 25 mg 24 hr tablet Take 1 tablet (25 mg total) by mouth in the morning. 30 tablet 2 04/09/2023 Active Comment on above: Take 25 mg by mouth every morning. DEXTROAMPHETAMINE/AMPHET AMINE (ADDERALL ORAL) (15 sources) DEXTROAMPHETAMIN E/A MPHETAMINE (ADDERALL ORAL) Take by mouth. 0 Active Comment on above: Take by mouth. docosahexaenoic acid 120 mg / eicosapentaenoic acid 180 mg oral capsule (4 sources) take 1 tablet by mouth in the morning omega-3 1000 MG capsule capsule Take 1 tablet by mouth in the morning. Active losartan potassium 25 mg oral tablet (20 sources) Angiotensin 2 Receptor Cj Start: 09-19-19 End: 11-20-19 24 take 1 tablet by mouth once daily losartan (Cozaar) 25 MG tablet Indications: Essential (primary) hypertension (CMS/HCC) TAKE 1 TABLET BY MOUTH DAILY 100 tablet 1 09/23/2023 Active Comment on above: Take 25 mg by mouth once daily. Magnesium (3 sources) take 1 tablet by mouth in the morning MAGNESIUM ORAL Take 1 tablet by mouth in the morning. Active take 1 tablet by mouth in the mo rning MAGNESIUM ORAL Take 1 tablet by mouth in the morning. 0 Active metoprolol tartrate 25 mg oral tablet (1 source) beta-Adrenergic Cj Start: 04-03-2023 metopr olol tartrate (LOPRESSOR) 25 mg tablet Take 1 tablet 12hrs and 1 tablet 2 hrs prior to test 2 tablet 0 04/03/2023 Active multivit with minerals/lutein (MULTIVITAMIN 50 PLUS ORAL) (3 sources) multivit with minerals/lutein (MULTIVITAMIN 50 PLUS ORAL) Multivitamin Active multivit with mi nerals/lutein (MULTIVITAMIN 50 PLUS ORAL) Multivitamin 0 Active omega 9-ecx-gvl-fish oil (Fish OiL) 300-1,000 mg capsule (3 sources) take 300-1000 mg by mouth in the morning omega 5-xaa-lvs-fish oil (Fish OiL) 300-1,000 mg capsule Take 1 tablet by mouth in the morning. Active take 300-1000 mg by mouth in the morning omega 5-xtu-rvl-fish oil (Fish OiL) 300-1,000 mg capsule Take [...] on above: Take by mouth. Turmeric extract (19 sources) take 1 tablet by mouth in the morning TURMERIC PO Take 1 tablet by mouth in the morning. Active turmeric (CURCUM IN [facility]) Completed/Discontinued Medications Medication Drug Class(es) Dates Sig (Normalized) Sig (Original) gabapentin 800 mg oral tablet (2 sources) Anti-epileptic Agent Start: 08-08-2022 End: 06-20-2023 gabapentin (NEURONTIN) 800 mg tablet TAKE ONE-HALF TABLET - ONE TABLET BY MOUTH AT BEDTIME 08/08/2022 06/20/2023 Discontinued (Discontinued by another clinician) hydrocortisone 25 mg/ml topical cream (1 source) Corticosteroid Start: 06-18-2022 End: 02-11-2023 hydrocortisone (ANUSOL-HC) 2.5 % rectal cream Insert 1 Application into the rectum in the morning and at bedtime. 06/18/2022 02/11/2023 Discontinued (Therapy completed) sod sulf-pot chloride-mag sulf 1.479-0.188- 0.225 gram tablet (1 source) Start: 08-05-2022 End: 02-11-2023 sod sulf-pot chloride-mag sulf 1.479-0.188- 0.225 gram tablet Indications: History of colon polyps Please see instructional sheet given by physicians office. 24 tablet 08/05/2022 02/11/2023 Discontinued (Therapy completed) thiamine 100 mg oral tablet (3 sources) Start: 10-09-2023 End: 10-08-2024 take 1 tablet by mouth once daily thiamine (Vitamin B-1) 100 MG tablet Indications: Functional neurological symptom disorder with mixed symptoms (CMS/HCC) Take 1 tablet (100 mg) by mouth Daily 30 tablet 11 10/09/2023 11/20/2023 Discontinued (Therapy completed) Problems Active Problems Problem Classification Problem Date Documented Date Episodic/Chronic Acquired foot deformities (4 sources) Acquired hallux valgus; Translations: [Hallux valgus (acquired), unspecified foot] Onset: 06-29-2020 10-18-2022 Chronic Anxiety disorders (5 sources) Anxiety disorder, unspecified; Translations: [Anxiety] Onset: 01-12-2017 10-18-2022 Chronic Asthma (7 sources) Asthma; Translations: [Unspecified asthma, uncomplicated] Onset: 02-15-2022 02-15-2022 Chronic Attention-deficit, conduct, and disruptive behavior disorders (4 sources) Attention deficit hyperactivity disorder, predominantly inattentive type; Translations: [Attention-deficit hyperactivity disorder, predominantly inattentive type] Onset: 09-02-2015 10-18-2022 Chronic Blindness and vision defects (4 sources) Visual impairment; Translations: [Unspecified visual loss] Onset: 01-07-2017 10-18-2022 Chronic Disorders of lipid metabolism (4 sources) Hypertriglyceridemia; Translations: [Pure hyperglyceridemia] Onset: 07-15-2018 10-18-2022 Chronic Esophageal disorders (8 sources) Gastro-esophageal reflux disease without esophagitis; Translations: [Gastroesophageal reflux disease] Onset: 02-11-2022 02-15-2022 Chronic Essential hypertension (14 sources) Essential (primary) hypertension; Translations: [Hypertensive disorder] Onset: 09-29-2020 02-15-2022 Chronic Headache; including migraine (4 sources) New daily persistent headache; Translations: [New daily persistent headache (NDPH)] Onset: 10-18-2022 10-18-2022 Chronic Joint disorders and dislocations; trauma-related (4 sources) Chondromalacia of patella; Translations: [Chondromalacia patellae, unspecified knee] Onset: 02-07-2016 10-18-2022 Chronic Malaise and fatigue (4 sources) Fatigue; Translations: [Chronic fatigue, unspecified] Onset: 10-18-2022 10-18-2022 Chronic Menopausal disorders (4 sources) Menopausal flushing; Translations: [Menopausal and female climacteric states] Onset: 06-09-2023 06-09-2023 Chronic Miscellaneous mental health disorders (4 sources) Dissociative neurological symptom disorder; 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] Onset: 01-21-2023 01-21-2023 Chronic Mood disorders (13 sources) Recurrent major depressive episodes, moderate ; Translations: [Major depressive disorder, recurrent, moderate] Onset: 04-17-2017 01-13-2023 Chronic Osteoarthritis (4 sources) Osteoarthritis of right knee joint; Translations: [Unilateral primary osteoarthritis, right knee] Onset: 02-07-2016 10-18-2022 Chronic Other acquired deformities (4 sources) Contracture of joint of left ankle; Translations: [Contracture, left ankle] Onset: 06-29-2020 10-18-2022 Chronic Other aftercare (2 sources) Other fci (current) drug therapy; Translations: [OTH RETIREMENT CURRENT DRUG THERAPY] Onset: 09-17-2021 Episodic Other ear and sense organ disorders (4 sources) Decreased hearing ; Translations: [Unspecified hearing loss, unspecified ear] Onset: 10-18-2022 10-18-2022 Chronic Other ear and sense organ disorders (4 sources) Hearing loss in left ear; Translations: [Unspecified hearing loss, left ear] Onset: 11-19-2019 10-18-2022 Chronic Other ear and sense organ disorders (4 sources) Sensorineural hearing loss, bilateral; Translations: [Sensorineural hearing loss, bilateral] Onset: 12-15-2019 10-18-2022 Chronic Other hereditary and degenerative nervous system conditions (9 sources) Impaired cognition; Translations: [Mild cognitive impairment, so stated] Onset: 06-09-2023 03-19-2023 Chronic Other hereditary and degenerative nervous system conditions (9 sources) Mild cognitive impairment, so stated; Translations: [Mild cognitive impairment, so stated] Onset: 10-28-2022 10-28-2022 Chronic Other nervous system disorders (3 sources) Disturbance of attention; Translations: [Attention and concentration deficit] Onset: 04-17-2017 04-17-2017 Chronic Other nervous system disorders (2 sources) Cognitive deficit in communication skills; Translations: [Cognitive communication deficit] 05-22-2023 Chronic Other nervous system disorders (1 source) Attention and concentration deficit; Translations: [Attention and concentration deficit] Onset: 04-17-2017 Chronic Other nervous system disorders (4 sources) Neuropathy; Translations: [Polyneuropathy, unspecified] Onset: 12-06-2016 10-18-2022 Chronic Other nervous system disorders (4 sources) Poor concentration; Translations: [Attention and concentration deficit] Onset: 04-17-2017 10-18-2022 Chronic Other nervous system disorders (8 sources) Chronic pain; Translations: [Other chronic pain] Onset: 08-17-2020 10-18-2022 Chronic Residual codes; unclassified (4 sources) Obstructive sleep apnea (adult) (pediatric); Translations: [OBSTRUCTIVE SLEEP APNEA] Onset: 04-17-2022 Chronic Residual codes; unclassified (1 source) Hypersomnia, unspecified; Translations: [HYPERSOMNIA UNSPECIFIED] Onset: 03-28-2022 Chronic Residual codes; unclassified (5 sources) Obstructive sleep apnea syndrome; Translations: [Obstructive sleep apnea (adult) (pediatric)] Onset: 10-18-2022 05-22-2023 Chronic Residual codes; unclassified (4 sources) Hypersomnia; Translations: [Hypersomnia, unspecified] Onset: 10-18-2022 10-18-2022 Chronic Residual codes; unclassified (4 sources) Periodic limb movement disorder; Translations: [Periodic limb movement disorder] Onset: 10-21-2022 10-21-2022 Chronic Residual codes; unclassified (1 source) Acquired absence of other specified parts of digestive tract; Translations: [ACQ ABSENCE OTH PART DIGESTV TRACT] Onset: 07-15-2022 Episodic Residual codes; unclassified (1 source) Failed encounter; Translations: [No-show for appointment] 09-19-2023 Episodic Thyroid disorders (4 sources) Acquired hypothyroidism; Translations: [Hypothyroidism, unspecified] Onset: 09-02-2015 10-18-2022 Chronic Past or Other Problems Problem Classification Problem Date Documented Date Episodic/Chronic Abdominal pain (4 sources) Epigastric pain; Translations: [EPIGASTRIC PAIN] Onset: 02-07-2022 Episodic Appendicitis and other appendiceal conditions (7 sources) Acute appendicitis with generalized peritonitis; Translations: [Acute appendicitis with generalized peritonitis, without abscess, unspecified whether gangrene present, unspecified whether perforation present] Onset: 02-08-2022 02-08-2022 Episodic Cardiac dysrhythmias (1 source) Palpitations; Translations: [Palpitations] Onset: 04-17-2023 Episodic Chronic obstructive pulmonary disease and bronchiectasis (4 sources) Bronchitis, not specified as acute or chronic; Translations: [BRONCHITIS NOT SPEC ACUTE/CHRON] Onset: 02-11-2021 Episodic Conditions associated with dizziness or vertigo (4 sources) Dizziness; Translations: [Dizziness and giddiness] Onset: 10-18-2022 10-18-2022 Episodic Headache; including migraine (4 sources) Headache; Translations: [Chronic nonintractable headache] Onset: 03-05-2023 03-05-2023 Episodic Nonspecific chest pain (16 sources) Chest pain, unspecified; Translations: [Precordial pain] Onset: 12-02-2020 Episodic Other connective tissue disease (4 sources) Pain in bilateral legs; Translations: [Pain in right leg] Onset: 03-05-2023 03-05-2023 Episodic Other female genital disorders (4 sources) Pruritus of vagina; Translations: [Other specified noninflammatory disorders of vagina] Onset: 10-18-2022 10-18-2022 Episodic Other lower respiratory disease (1 source) Snoring; Translations: [SNORING] Onset: 03-28-2022 Episodic Other nervous system disorders (7 sources) Impaired cognition; Translations: [Other symptoms and signs involving cognitive functions and awareness] Onset: 11-27-2022 Resolved: 12-15-2023 01-13-2023 Episodic Other nervous system disorders (1 source) Other symptoms and signs involving cognitive functions and awareness; Translations: [Other symptoms and signs involving cognitive functions and awareness] Onset: 01-13-2023 Episodic Other non-traumatic joint disorders (4 sources) Pain in wrist; Translations: [Pain in unspecified wrist] Onset: 06-11-2019 10-18-2022 Episodic Other screening for suspected conditions (not mental disorders or infectious disease) (9 sources) Abnormal electrocardiogram [ECG] [EKG]; Translations: [Patient encounter status] Onset: 03-05-2023 03-05-2023 Episodic Other skin disorders (4 sources) Multiple actinic keratoses; Translations: [Actinic keratosis] Onset: 09-02-2015 10-18-2022 Episodic Other upper respiratory infections (8 sources) Acute pharyngitis; Translations: [Acute pharyngitis, unspecified] Onset: 09-02-2015 10-18-2022 Episodic Residual codes; unclassified (6 sources) Other amnesia; Translations: [OTHER AMNESIA] Onset: 05-29-2021 Episodic Residual codes; unclassified (1 source) Insomnia, unspecified; Translations: [INSOMNIA UNSPECIFIED] Onset: 03-28-2022 Episodic Residual codes; unclassified (1 source) Family history of ischemic heart disease and other diseases of the circulatory system; Translations: [Family history of ischemic heart disease and other diseases of the circulatory system] Onset: 04-17-2023 Episodic Residual codes; unclassified (4 sources) Insomnia; Translations: [Insomnia, unspecified] Onset: 10-18-2022 10-18-2022 Episodic Residual codes; unclassified (4 sources) Amnesia; Translations: [Other amnesia] Onset: 03-13-2021 10-18-2022 Episodic Results Test Name Value Interpretation Reference Range Facility Laboratory - Cytologyon 10-30 Pit Recorder Cyto stain Nom (Cvx/Vag) [ID] [facility] Comment on above: , CT(ASCP) CT scre ening location: [place] [place] [address]. [facility], CT(ASCP) CT scr eening location: [place] [address]. Cytology study comment Cyto stain Alexi (Cvx/Vag) [Interp] [facility] Comment on above: This Pap test has be en evaluated with computer assisted technology. Microscopic observation Cyto stain Nom (Cvx) [facility] Comment on above: Cytology Results: Ne gative for intraepithelial lesion or malignancy. Atrophic pattern; predominantly parabasal cells Specimen source Cyto stain Nom (Cvx/Vag) [facility] Comment on above: None given Statement of adequacy Cyto stain (Cvx/Vag) [Interp] [facility] Comment on above: Satisfactory for sandie luation. Endocervical/transformation zone component present. Laboratory - Microbiology an d Antimicrobial susceptibilityon 11-26-2023 HPV 16+18+31+33+35+39+45 +51+52+56+58+59+66+6 8 DNA ADWOA+probe Ql (Cvx) Not detected NOT DETECTED [facility] Comment on above: Not Detected High Risk HPV types (16,18,31,33,35,39,45,51,52, 56,58,59,66,68) were not detected. Other HPV types which cause anogenital lesions may be present. The significance of the other types of HPV in malignant processes has not been established. Methodology: Real Time PCR No Panel Informationon 11-25 (ALWAYS MESSAGE) [facility] Comment on above: EXPLANATORY NOTE: The Pap is a screening test for cervical cancer. It is not a diagnostic test and is subject to false negative and false positive results. It is most reliable when a satisfactory sample, regularly obtained, is submitted with relevant clinical findings and history, and when the Pap result is evaluated along with historic and current clinical information. Clinical information [facility] Comment on above: None given Date of previous biopsy [facility] Comment on above: NONE GIVEN Date of previous PAP smear [facility] Comment on above: NONE GIVEN Last menstrual period start date [facility] Comment on above: NONE GIVEN Performing Organization Information Site ID: [id number] Name[facility] Address: [address] [place] [address] [place] Director: Geoffrey Stratton M.D.,PhD Site ID: [id number] Name: [facility] [facility] Address: [address] [place] [address], [address] [place] [id number] Director: Mynor Huizar MD [facility] 10-06-2023 CNPN Telephone (OTOLMN) YANIQUE KAUR ([id number]) 1965 [facility] Date Time Provider Department 10/06/23 JARVIS BLOCK [...] information was previously provided to patient via [employer] and email on 09/19/2023. A second email [...] ARIPIPRAZOLE (ABILIFY ORAL) Take by mouth. - DEXTROAMPHETAMINE/AMPH ETAMINE (ADDERALL ORAL) Take by mouth. - AMOXICILLIN ORAL Take by mouth. Problem List As Of Date: 10/06/2023 (None) Encounter Status:Closed by JARVIS BLOCK [facility]06[facility] YANIQUE KAUR ([id number]) 1965 F [facility] Date Time Provider Department 10/06/23 LINDSEY DAWN During your visit today, we recorded the following information about you: Lindsey Dawn LISW 10/06/2023 1:36 PM Signed Contacted pt regarding scheduled virtual visit; pt reports she was not aware of the visit. Pt expressed frustration with plan of care. Pt reports impression of plan was to get another MRI and then follow-up with Dr. Maldonado to obtain a diagnosis. Advised that per message from animal daycare provider insurance will not cover more than one MRI per year (last was 05/2023). Pt became emotional reporting immense frustration with the process. Reviewed plans from visits with Dr. Maldonado on 03/19/23 and 05/22/2023. Pt reported she completed the MRI and is awaiting local [employer] referrals from speech therapist to continue visits. Pt became increasingly upset with pscyhology referral was addressed stating No one here does that shit and I don't have the time. I don't have PTO or sick time to take away from my job to do these things . Pt reports financial resource strain; when MARKET RESEARCH INTERVIEWER attempted to address pt abruptly ended the call. Will discuss plan with medical team and request local speech therapies with [facility] therapist. 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 She denied wanting to apply for disability at this time. She doesn't think it is a good idea. She thought that this was : emelyn and that Dr. Maldonado was arrogant to [...] ARIPIPRAZOLE (ABILIFY ORAL) Take by mouth. - DEXTROAMPHETAMINE/AMPH ETAMINE (ADDERALL ORAL) Take by mouth. - AMOXICILLIN ORAL Take by mouth. Problem List As Of Date: 10/06/2023 (None) Encounter Status:Closed by LINDSEY DAWN on (more content not included)... Normal [facility] Telephone (OTOLMN) KAURYANIQUE ([id number]) 1965 F [place] Date Time Provider Department 10/06/23 [facility] During your visit today, we recorded the following information about you: Jarvis Block, [facility] 10/06/2023 2:35 PM Signed Duplicate encounter opened [...] ARIPIPRAZOLE (ABILIFY ORAL) Take by mouth. - DEXTROAMPHETAMINE/AMPH ETAMINE (ADDERALL ORAL) Take by mouth. - AMOXICILLIN ORAL Take by mouth. Problem List As Of Date: 10/06/2023 (None) Encounter Status:Closed by JARVIS BLOCK on 10/06/23 [facility] Telephone (NEMN) VINCENTYANIQUE Aguirre ([id number]) 1965 F [place] Date Time Provider Department 10/06/23 YOLANDA GONZALEZ During your visit today, we recorded the following information about you: Yolanda Gonzalez RN 10/06/2023 3:49 PM Signed RN called patient per request of Lindsey Dawn and informed her that MRI could not [...] ARIPIPRAZOLE (ABILIFY ORAL) Take by mouth. - DEXTROAMPHETAMINE/AMPH ETAMINE (ADDERALL ORAL) Take by mouth. - AMOXICILLIN ORAL Take by mouth. Problem List As Of Date: 10/06/2023 (None) Encounter Status:Closed by YOLANDA GONZALEZ on 10/06/23 [facility] CNTHERAPYon 09-19-2023 CNTHERAPY OT/PT/Speech Visit (SPWCMN) YANIQUE KAUR ([id number]) 1965 F [place] Date Time Provider Department 09/19/23 1:00 PM JARVIS BLOCK [facility] Date Time Provider Department [place] 09/19/2023 1:00 PM [id number], [facility] [place] C Bld[address] Reason for Visit: No Show [...] ARIPIPRAZOLE (ABILIFY ORAL) Take by mouth. - DEXTROAMPHETAMINE/AMPH ETAMINE (ADDERALL ORAL) Take by mouth. - AMOXICILLIN ORAL Take by mouth. Normal [facility] Jayashree 09-13-2023 CNPN Telephone (NIQ) YANIQUE KAUR ([id number]) 1965 F [place] Date Time Provider Department 09/13/23 LINDSEY DAWN During your visit today, we recorded the following information about you: Fran Rodríguez 09/13/2023 9:11 AM Signed 09/13/23 - F, [employer] message sent / reminder mailed for [facility] eval. - GL Allergies As of Date: 09/13/2023 Noted Allergy Reaction NAPROXEN 05/24/2017 4 - Hives Date Reviewed: 05/22/2023 Reviewed by: Irasema Miller OCCA - Fully Assessed Reason for Visit: Appointment [186] Cmt: 09/13/23 - F, message sent / reminder mailed for [facility] eval. - GL Prescriptions as of 09/13/2023 [...] ARIPIPRAZOLE (ABILIFY ORAL) Take by mouth. - DEXTROAMPHETAMINE/AMPH ETAMINE (ADDERALL ORAL) Take by mouth. - AMOXICILLIN ORAL Take by mouth. Problem List As Of Date: 09/13/2023 (None) Encounter Status:Closed by FRAN RODRÍGUEZ on 09/13/23 [facility] Jayashree 09-12-2023 [facility] Telephone ([facility]) YANIQUE KAUR ([id number]) 1965 F [place] Date Time Provider Department 09/12/23 MADHAV MALDONADOLeonor During your visit today, we recorded the following information about you: Allergies As of Date: 09/12/2023 Noted Allergy Reaction NAPROXEN 05/24/2017 4 - Hives Date Reviewed: 05/22/2023 Reviewed by: Irasema Miller OCCA - Fully Assessed Primary Visit Diagnosis:Cognitive impairment, mild, so stated [G31.84] Order(s):CTR BRAIN HEALTH SOCIAL WORK CONSULT [[id number]] Order #: [id number]: 1 Prescriptions as of 09/12/2023 - desvenlafaxine [...] ARIPIPRAZOLE (ABILIFY ORAL) Take by mouth. - DEXTROAMPHETAMINE/AMPH ETAMINE (ADDERALL ORAL) Take by mouth. - AMOXICILLIN ORAL Take by mouth. Problem List As Of Date: 09/12/2023 (None) Encounter Status:Closed by MADHAV MALDONADO on 09/12/23 [facility] CNTHERAPYon 09-12-2023 CNTHERAPY OT/PT/Speech Visit (SPWCMN) YANIQUE KAUR ([id number]) 1965 F [place] Date Time Provider Department 09/12/23 1:00 PM [facility]ARVIS BLOCK [facility] Date Time Provider Department Center 09/12/2023 1:00 PM [id number], [facility] [place] [address] B[address] Reason for Visit: [...] ARIPIPRAZOLE (ABILIFY ORAL) Take by mouth. - DEXTROAMPHETAMINE/AMPH ETAMINE (ADDERALL ORAL) Take by mouth. - AMOXICILLIN ORAL Take by mouth. Normal [facility] 09-03-2023 [facility] YANIQUE KAUR ([id number]) 1965 F [place] Date Time Provider Department 09/03/23 MADHAV MALDONADOLeonor During your visit today, we recorded the following information about you: Kirsten Damon 09/03/2023 3:46 PM Signed General scheduling called - patient called to schedule MRI but no order on file - needs order placed. Pateint would like a call to confirm [phone] Yolanda Gonzalez, YULI 09/03/2023 5:08 PM Signed Patient called to [...] 4:46 PM Signed Still unable to leave message. Yolanda Gonzalez RN Allergies As of [...] ARIPIPRAZOLE (ABILIFY ORAL) Take by mouth. - DEXTROAMPHETAMINE/AMPH ETAMINE (ADDERALL ORAL) Take by mouth. - AMOXICILLIN ORAL Take by mouth. Problem List As Of Date: 09/03/2023 (None) Encounter Status:Closed by YOLANDA GONZALEZ on 09/03/23 [facility] CNOVon 05-22-2023 CNOV Office Visit ([facility] ) YANIQUE KAUR ([id number]) 1965 F [facility] Date Time Provider Department 05/22/23 12:00 PM MADHAV MALDONADO During your visit today, we recorded the following information about you: Pulse Blood pressure Weight 67/minute 119/70 70.7 kg Irasema Miller OCCA 05/22/2023 11:52 AM Signed Yanique Kaur is a 58 year old year old [...] Madhav Maldonado MD 05/22/2023 2:02 PM Signed MsNaun Kaur is a 58 year old woman here [...] counseling/educating the patient/family. Referring Provider: MADHAV MALDONADO [[id number]] Allergies As of Date: 05/22/2023 Noted Allergy Reaction NAPROXEN 05/24/2017 4 - Hives Date Reviewed: 05/22/2023 Reviewed by: Irasema Miller OCCA - Fully Assessed Reason for Visit: Follow Up [171] Primary Visit Diagnosis:CRUZ on CPAP [G47.33] Order(s):CONSULT TO SLEEP MEDICINE - ADULT [[id number]] Order #: [id number]: 1 FUTURE Prescriptions as of 05/22/2023 - [...] ARIPIPRAZOLE (ABILIFY ORAL) Take by mouth. - DEXTROAMPHETAMINE/AMPH ETAMINE (ADDERALL ORAL) Take by mouth. - AMOXICILLIN [...] routine Visit Notes: >> Irasema Miller OCCA Nadia May 22, 2023 11:51 AM Status: Signed Yanique Kaur is a 58 year old year old [...] for Encounter Date Provider Department Center 05/22/2023 [id number] MALDONADO U Bldg Encounter Status:Closed by MADHAV MALDONADO on 05/22/23 [facility] CNTHERAPYon 05-22-2023 CNTHERAPY OT[facility]PT[facility] YANIQUE KAUR ([id number]) 1965 F [place] Date Time Provider Department 05/22/23 2:30 PM JARVIS BLOCK [facility] Date Time Provider Department Center 05/22/2023 2:30 PM [id number], [facility] [place] C d[place] Reason for Visit: Speech Evaluation [4587] Primary Visit Diagnosis:Cognitive communication deficit [R41.841] Other [...] ARIPIPRAZOLE (ABILIFY ORAL) Take by mouth. - DEXTROAMPHETAMINE/AMPH ETAMINE (ADDERALL ORAL) Take by mouth. - AMOXICILLIN ORAL Take by mouth. Normal [facility] MRI 3D POST PROCESSINGon MRI 3D POST PROCESSING * * *Final Report* * * DATE OF EXAM: May 22 2023 8:49AM [facility] 0280 - MRI 3D POST PROCESSING / PROCEDURE REASON: Cognitive impairment, mild, so stated * * * * Physician Interpretation * * * * EXAMINATION: MRI BRAIN W QUANT WO IVCON, MRI 3D POST PROCESSING CLINICAL HISTORY: Cognitive impairment TECHNIQUE: Axial CHRISTIE FLAIR, CHRISTIE T2, diffusion and susceptibility weighted imaging without contrast, using the ADNI dementia protocol and 3-D post-processing using the NeuroQuant software at an independent workstation with concurrent [...] Prior intracranial hemorrhage: Parenchymal microhemorrhages: 0 Other (siderosis/macrohemorr hages (>10mm): Not Applicable Amyloid Related Imaging Abnormalities: [...] = Focal Lesions 2 = Beginning of [place] 3 = Diffuse Involvement of Entire Region [...] results from the analysis charts for details. Help Desk Agent: MADDIE Transcribe Date/Time: May 22 2023 9:37A Dictated by : ROXANNE PALAFOX MD This examination was interpreted and the report reviewed and electronically signed by: ROXANNE PALAFOX MD on May 22 2023 9:53AM EST [id number] Normal [facility] MRI BRAIN W QUANT WO IVCONon 05-22-2023 MRI BRAIN W QUANT WO IVCON * * *Final Report* * * DATE OF EXAM: May 22 2023 8:49AM [facility] 3015 - MRI BRAIN W QUANT WO [...] dementia protocol and 3-D post-processing using the Bizmore software at an independent workstation with concurrent [...] Prior intracranial hemorrhage: Parenchymal microhemorrhages: 0 Other (siderosis/macrohemorr hages (>10mm): Not Applicable Amyloid Related Imaging Abnormalities: [...] = Focal Lesions 2 = Beginning of [place] 3 = Diffuse Involvement of Entire Region [...] results from the analysis charts for details. Help Desk Agent: PSCB Transcribe Date/Time: May 22 2023 9:37A Dictated by : ROXANNE PALAFOX MD This examination was interpreted and the report reviewed and electronically signed by: ROXANNE PALAFOX MD on May 22 2023 9:53AM EST [id number] Normal [facility] No Panel Informationon 05-22 [facility] CT CTA COR ARTERIES W OR [...] using the interactive ALVARADO form found at [email or web address]-[email or web address] org} Individual major vessel AJ-130 scores are: LM [...] Miller MD of the department of radiology. __ Calcium Score interpretation and guidelines for asymptomatic individuals, 45 - 75 years of age are as follows: Estimated Risk of a Total Score Relative Risk Coronary Event Each Year __ 0 very low risk 2 per 1000 1-10 low risk 5 per 1000 11-100 intermediate risk 5 to 20 per 1000 101-400 moderately high risk more than 2 per 100 over 400 high risk between 2 and 5 per 100; approximately 15% chance of significant blockages; consideration should be given to obtaining stress echo or stress nuclear testing. __ Finalized by Kasie Miller MD on 04/17/2023 4:28 PM Normal [facility] CBC W Auto Differential pane l (Bld)on 03-19-2023 Basophils (Bld) [#/Vol] 0.06 10*3/uL <0.11 k/uL [facility] Basophils/100 WBC (Bld) 1.0 % [facility] Differential cell count method Nom (Bld) Auto [facility] Eosinophils (Bld) [#/Vol] 0.49 10*3/uL High <0.46 k/uL [facility] Eosinophils/100 WBC (Bld) 8.0 % [facility] Erythrocyte distribution width (RBC) [Ratio] 12.6 % 11.5 - 15.0 % [facility] Hematocrit (Bld) [Volume fraction] 43.0 % 36.0 - 46.0 % [facility] Hemoglobin (Bld) [Mass/Vol] 13.8 g/dL 11.5 - 15.5 g/dL [facility] Immature granulocytes (Bld) [#/Vol] <0.10 k/uL [facility] Immature granulocytes/100 WBC (Bld) 0.3 % [facility] Lymphocytes (Bld) [#/Vol] 1.66 10*3/uL 1.00 - 4.00 k/uL [facility] Lymphocytes/100 WBC (Bld) 26.9 % [facility] MCH (RBC) [Entitic mass] 28.3 pg 26.0 - 34.0 pg [facility] MCHC (RBC) [Mass/Vol] 32.1 g/dL 30.5 - 36.0 g/dL [facility] MCV (RBC) [Entitic vol] 88.1 fL 80.0 - 100.0 fL [facility] Monocytes (Bld) [#/Vol] 0.36 10*3/uL <0.87 k/uL [facility] Monocytes/100 WBC (Bld) 5.8 % [facility] Neutrophils (Bld) [#/Vol] 3.57 10*3/uL 1.45 - 7.50 k/uL [facility] Neutrophils/100 WBC (Bld) 58.0 % [facility] Nucleated RBC (Bld) [#/Vol] <0.01 k/uL [facility] Nucleated RBC/100 WBC (Bld) [Ratio] 0.0 /100 WBC [facility] Platelet mean volume (Bld) [Entitic vol] 10.2 fL 9.0 - 12.7 fL [facility] Platelets (Bld) [#/Vol] 254 10*3/uL 150 - 400 k/uL [facility] RBC (Bld) [#/Vol] 4.88 10*6/uL 3.90 - 5.2 0 m/uL [facility] WBC (Bld) [#/Vol] 6.16 10*3/uL 3.70 - 11. 00 k/uL [facility] Basophils (Bld) [#/Vol] 0.06 10*3/uL Normal <0.11 [facility] Comment on above: Order Comment: Speci men Type: BLOOD SPECIMENOrdering Facility: [facility] Address: [address] [place] [address] Performed By: #### 5 7021-8, 4537-7 ####[facility] [id number] [place] [address] [place] Basophils/100 WBC (Bld) 1.0 % Normal [facility] Comment on above: Order Comment: Speci men Type: BLOOD SPECIMENOrdering Facility: [facility] Address: [address] [place] [address] Performed By: #### 5 7021-8, 4537-7 ####[facility] [id number] [place] [address] [place] Differential cell count method Nom (Bld) Auto Normal [facility] Comment on above: Order Comment: Speci men Type: BLOOD SPECIMENOrdering Facility: [facility] Address: [address] [place] [address] Performed By: #### 5 7021-8, 4537-7 ####[facility] [id number] [place] [address] [place] Eosinophils (Bld) [#/Vol] 0.49 10*3/uL High <0.46 [facility] Comment on above: Order Comment: Speci men Type: BLOOD SPECIMENOrdering Facility: [facility] Address: [address] [place] [address] Performed By: #### 5 7021-8, 4536-7 ####[facility] [id number] [place] [address] [place] Eosinophils/100 WBC (Bld) 8.0 % Normal [facility] Comment on above: Order Comment: Speci men Type: BLOOD SPECIMENOrdering Facility: [facility] Address: [address] [place] [address] Performed By: #### 5 7021-8, 4536-7 ####[facility] [id number] [place] [address] [place] Erythrocyte distribution width (RBC) [Ratio] 12.6 % Normal 11.5-15.0 [facility] Comment on above: Order Comment: Speci men Type: BLOOD SPECIMENOrdering Facility: [facility] Address: [address] [place] [address] Performed By: #### 5 7021-8, 4536-7 ####[facility] [id number] [place] [address] [place] Hematocrit (Bld) [Volume fraction] 43.0 % Normal 36.0-46.0 [facility] Comment on above: Order Comment: Speci men Type: BLOOD SPECIMENOrdering Facility: [facility] Address: [address] [place] [address] Performed By: #### 5 7021-8, 4536-7 ####[facility]IA [id number] [place] [address] [place] Hemoglobin (Bld) [Mass/Vol] 13.8 g/dL Normal 11.5-15.5 [facility] Comment on above: Order Comment: Speci men Type: BLOOD SPECIMENOrdering Facility: [facility] Address: [address] [place] [address] Performed By: #### 5 7021-8, 4536-7 ####[facility] [id number] [place] [address] [place] Immature granulocytes (Bld) [#/Vol] 10*3/uL Normal <0.10 [facility] Comment on above: Order Comment: Speci men Type: BLOOD SPECIMENOrdering Facility: [facility] Address: [address] [place] [address] Performed By: #### 5 7021-8, 4536-7 ####[facility] [id number] [place] [address] [place] Immature granulocytes/100 WBC (Bld) 0.3 % Normal [facility] Comment on above: Order Comment: Speci men Type: BLOOD SPECIMENOrdering Facility: [facility] Address: [address] [place] [address] Performed By: #### 5 7021-8, 7 ####[facility] [id number] [place] [address] [place] Lymphocytes (Bld) [#/Vol] 1.66 10*3/uL Normal 1.00-4.00 [facility] Comment on above: Order Comment: Speci men Type: BLOOD SPECIMENOrdering Facility: [facility] Address: [address] [place] [address] Performed By: #### 5 7021-8, 7 ####[facility] [id number] [place] [address] [place] Lymphocytes/100 WBC (Bld) 26.9 % Normal [facility] Comment on above: Order Comment: Speci men Type: BLOOD SPECIMENOrdering Facility: [facility] Address: [address] [place] [address] Performed By: #### 5 7021-8, 4536-7 ####[facility]CL[facility] [id number] [place] [address] [place] MCH (RBC) [Entitic mass] 28.3 pg Normal 26.0-34.0 [facility] Comment on above: Order Comment: Speci men Type: BLOOD SPECIMENOrdering Facility: [facility] Address: [address] [place] [address] Performed By: #### 5 7021-8, 4536-7 ####[facility]IA [id number] [place] [address] [place] MCHC (RBC) [Mass/Vol] 32.1 g/dL Normal 30.5-36.0 [facility] Comment on above: Order Comment: Speci men Type: BLOOD SPECIMENOrdering Facility: [facility] Address: [address] [place] [address] Performed By: #### 5 7021-8, 7 ####[facility] [id number] [place] [address] [place] MCV (RBC) [Entitic vol] 88.1 fL Normal 80.0-100.0 [facility] Comment on above: Order Comment: Speci men Type: BLOOD SPECIMENOrdering Facility: [facility] Address: [address] [place] [address] Performed By: #### 5 7021-8, 4536-7 ####[facility] [id number] [place] [address] [place] Monocytes (Bld) [#/Vol] 0.36 10*3/uL Normal <0.87 [facility] Comment on above: Order Comment: Speci men Type: BLOOD SPECIMENOrdering Facility: [facility] Address: [address] [place] [address] Performed By: #### 5 7021-8, 4536-7 ####[facility] [id number] [place] [address] [place] Monocytes/100 WBC (Bld) 5.8 % Normal [facility] Comment on above: Order Comment: Speci men Type: BLOOD SPECIMENOrdering Facility: [facility] Address: [address] [place] [address] Performed By: #### 5 7021-8, 4536-7 ####[facility] [id number] [place] [address] [place] Neutrophils (Bld) [#/Vol] 3.57 10*3/uL Normal 1.45-7.50 [facility] Comment on above: Order Comment: Speci men Type: BLOOD SPECIMENOrdering Facility: [facility] Address: [address] [place] [address] Performed By: #### 5 7021-8, 4536-7 ####[facility] [id number] [place] [address] [place] Neutrophils/100 WBC (Bld) 58.0 % Normal [facility] Comment on above: Order Comment: Speci men Type: BLOOD SPECIMENOrdering Facility: [facility] Address: [address] [place] [address] Performed By: #### 5 7021-8, 7 ####[facility] [id number] [place] [address] [place] Nucleated RBC (Bld) [#/Vol] 10*3/uL Normal <0.01 [facility] Comment on above: Order Comment: Speci men Type: BLOOD SPECIMENOrdering Facility: [facility] Address: [address] [place] [address] Performed By: #### 5 7021-8, 4536-7 ####[facility] [id number] [place] [address] [place] Nucleated RBC/100 WBC (Bld) [Ratio] 0.0 /100 WBC Normal [facility] Comment on above: Order Comment: Speci men Type: BLOOD SPECIMENOrdering Facility: [facility] Address: [address] [place] [address] Performed By: #### 5 7021-8, 4537-7 ####[facility] [id number] [place] [address] [place] Platelet mean volume (Bld) [Entitic vol] 10.2 fL Normal 9.0-12.7 [facility] Comment on above: Order Comment: Speci men Type: BLOOD SPECIMENOrdering Facility: [facility] Address: [address] [place] [address] Performed By: #### 5 7021-8, 453-7 ####[facility] [id number] [place] [address] [place] Platelets (Bld) [#/Vol] 254 10*3/uL Normal 150-400 [facility] Comment on above: Order Comment: Speci men Type: BLOOD SPECIMENOrdering Facility: [facility] Address: [address] [place] [address] Performed By: #### 5 7021-8, 4536-7 ####[facility] [id number] [place] [address] [place] RBC (Bld) [#/Vol] 4.88 10*6/uL Normal 3.90-5.[address] [facility] Comment on above: Order Comment: Speci men Type: BLOOD SPECIMENOrdering Facility: [facility] Address: [address] [place] [address] Performed By: #### 5 7021-8, 4536-7 ####[facility] [id number] [place] [address] [place] WBC (Bld) [#/Vol] 6.16 10*3/uL Normal 3.70-11.[address] [facility] Comment on above: Order Comment: Speci men Type: BLOOD SPECIMENOrdering Facility: [facility] Address: [address] [place] [address] Performed By: #### 5 7021-8, 4537-7 ####[facility] LABHENRY [id number] [place] [id number] [place] [facility] CNOVon 03-19-2023 CNOV Office Visit (JEISONT ) KAURALISONI Carla ([id number]) 1965 F [place] Date Time Provider Department 03/19/23 10:00 AM MADHAV MALDONADO During your visit today, we recorded the following information about you: Madhav Maldonado MD 03/20/2023 8:42 AM Signed Yaniquephilip Kaur 1965 [address] [facility] [address] [facility] [address] March 19, 2023 Time: 11:48 AM EVALUATION/CONSULT NOTE History of Present Illness Yanique Kaur is a 57 year old right handed woman seen today for memory concerns. 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 [...] normal Name- able to give complete name Elizabeth Cognitive Assessment (MoCA) MoCA Past Scores MoCA 03/19/2023 MOCA TOTAL SCORE 21 out of 30 Visuospatial/ Executive 4 Naming 3 Attention 4 Language 2 Abstraction 2 Delayed Recall 0 Orientation 6 Education Level 0 DEMENTIA MSE Orientation - Alert: Normal - Attention:Normal - Name: Normal - Day:Normal - Date: Normal - Month: Normal - Year: Normal Repeat phrase: BETH RUIZ, [address] [place] [address] Remote Memory - Who is the president now: Normal - Who was before him: Normal - Who was involved in [place]: Normal Calculation - $5.00 - ($0.40 X 4) = $3.40: Normal - Serial 3's - 47: Normal - 44: Normal - 41: Normal - 38: Normal - 35: Normal Comprehension/performa nce-body parts-L/R - Stick out your tongue and [...] facial emotions: - Faux Pas test: Normal Restlessness/Irritabli ty/Hyperorality: Normal Satisfies Apathy criteria: Yes Immediate Recall: Abnormal Short Term Memory: - Lester: Abnormal - Ruiz: Abnormal - 51: Abnormal - Marker st: Abnormal - [place]: Normal Language Function - Naming : Normal [...] - Dyskines (more content not included)... Normal [facility] ESR Westergren method (Bld) [Velocity]on 03-19-2023 ESR (Bld) [Velocity] 2 mm/h 0 - 20 mm/hr [facility] ESR (Bld) [Velocity] 2 mm/h Normal 0-20 [facility] Comment on above: Order Comment: Speci men Type: BLOOD SPECIMENOrdering Facility: [facility] Address: [address] [place] [address] Performed By: #### 5 7021-8, 4537-7 ####[facility] [id number] [facility] [id number] [place] [address] [place] FOLATE SERUMon 03-19-2023 Folate [Mass/Vol] 6.0 ng/mL >4.7 ng/mL [facility] Folate SerPl-mCncon 03-19-20 Folate [Mass/Vol] 6.0 ng/mL Normal >4.7 [facility] Comment on above: Order Comment: Speci men Type: BLOOD SPECIMENOrdering Facility: [facility] Address: [address] [place] [address] Performed By: #### 2 132-9, 2284-8 ####[facility] [id number] [place] [address] [place] Methylmalonate SerPl-sCncon 03-19-2023 Methylmalonate [Moles/Vol] 0.15 umol/L Normal <=0.40 [facility] Comment on above: Order Comment: Speci men Type: BLOOD SPECIMENOrdering Facility: [facility] Address: [address] [place] [address] Result Comment: This test was developed and its performance characteristics determined by [facility]'s [facility]ology [facility] [place] ([facility] It has not been cleared or approved by the FDA. -[facility] is regulated under CLIA as qualified to perform high-complexity testing. This test is used for clinical purposes. It should not be regarded as investigational or for research. Performed By: #### 1 3964-2 ####[facility] [id number] [place] [address] [place] Reagin and Treponema pallidu m IgG and IgM [Interp]on 03-19-2023 T. pallidum IgG+IgM IA Ql (S) Non-Reactive Nonreactive [facility] T. pallidum IgG+IgM IA Ql (S) Non-Reactive Normal Nonreactive [facility] Comment on above: Order Comment: Speci men Type: BLOOD SPECIMENOrdering Facility: [facility] Address: [address] [place] [address] Performed By: #### 7 3752-8 ####[facility] [id number] [place] [address] [place] Reagin+T pallidum IgG+IgM Se rPl-Impon 03-19-2023 Reagin and Treponema pallidum IgG and IgM [Interp] Cannot exclude recent Treponemal infection if specimen collected within 7-10 days after appearance of suspect lesions or 2-3 weeks after an exposure. Clinical correlation is required. Normal [facility] Comment on above: Order Comment: Speci men Type: BLOOD SPECIMENOrdering Facility: [facility] Address: [place] [address] Performed By: #### 7 3752-8 ####[facility] [id number] [place] [address] [place] SYPHILIS TOTAL W/REFLEXon Reagin and Treponema pallidum IgG and IgM [Interp] Cannot exclude recent Treponemal infection if specimen collected within 7-10 days after appearance of suspect lesions or 2-3 weeks after an exposure. Clinical correlation is required. [facility] T4 FREE/FREE THYROXon 2022 Free T4 [Mass/Vol] 1.1 ng/dL 0.9 - 1.7 ng/dL [facility] T4 Free SerPl-mCncon 023 Free T4 [Mass/Vol] 1.1 ng/dL Normal 0.9-1.7 [facility] Comment on above: Order Comment: Speci men Type: BLOOD SPECIMENOrdering Facility: [facility] Address: [place] [address] Performed By: #### 3 024-7, 3026-2, 3016-3 ####[facility] [id number] [place] [address] [place] T4 SerPl-mCncon 03-19-2023 T4 [Mass/Vol] 6.8 ug/dL Normal 5.5-10.2 [facility] Comment on above: Order Comment: Speci men Type: BLOOD SPECIMENOrdering Facility: [facility] Address: [address] [place] [address] Performed By: #### 3 024-7, 3026-2, 3016-3 ####[facility] [id number] [place] [id number] [place] T4/THYROXINE BLOODon 023 T4 [Mass/Vol] 6.8 ug/dL 5.5 - 10.2 ug/dL [facility] TSH BLDon 03-19-2023 TSH Qn 1.190 m[IU]/L 0.270 - 4.200 mIU/L [facility] TSH SerPl-aCncon 03-19-2023 TSH Qn 1.190 m[IU]/L Normal 0.270-4.200 [facility] Comment on above: Order Comment: Speci men Type: BLOOD SPECIMENOrdering Facility: [facility] Address: [address] [place] [address] Performed By: #### 3 024-7, 3026-2, 3016-3 ####[facility] [id number] [place] [address] [place] VITAMIN B1 (THIAMINE), WHOLE BLOODon 03-19-2023 Thiamine (Bld) [Moles/Vol] 183.6 nmol/L Normal 84.3-213.3 [facility] Comment on above: Order Comment: Speci men Type: BLOOD SPECIMENOrdering Facility: [facility] Address: [address] [place] [address] Result Comment: This assay measures the concentration of thiamine diphosphate (TDP), the primary active form of vitamin B1. Approximately 90 percent of vitamin B1 present in whole blood is TDP. Thiamine and thiamine monophosphate, which comprise the remaining 10 percent, are not measured. This test was developed and its performance characteristics determined by [facility]'s [facility] Pathology and Laboratory [facility] [place] ([facility]). It has not been cleared or approved by the FDA. [facility] is regulated under CLIA as qualified to perform high-complexity testing. This test is used for clinical purposes. It should not be regarded as investigational or for research. Performed By: #### B 1WB ####[facility] [id number] [place] [address] [place] VITAMIN B12 BLOODon 03-19-20 23 Cobalamin (Vitamin B12) [Mass/Vol] 638 pg/mL 232 - 1,245 pg/mL [facility] Vit B12 SerPl-mCncon 023 Cobalamin (Vitamin B12) [Mass/Vol] 638 pg/mL Normal 232-1245 [facility] Comment on above: Order Comment: Speci men Type: BLOOD SPECIMENOrdering Facility: [facility] Address: [address] [place] [address] Performed By: #### 2 132-9, 2284-8 ####[facility] [id number] [address] [id number] [address] [place] BNPon 07-13-2022 Natriuretic peptide B (Bld) [Mass/Vol] 51.0 pg/mL Normal <=900.0 [facility] Comment on above: Performed By: #### B BRONZE CHASER, CMADM, CMP #### [facility] Laboratory [address] [place], [place] [address] Dr. Fawn Anthony CARDIAC HUGO ADMITon 023 CK [Catalytic activity/Vol] 51 U/L Normal 26-192 [facility] Comment on above: Performed By: #### B BRONZE CHASER, CMADM, CMP ####[facility] [id number] [place] [id number]. Fawn Anthony CK.MB [Mass/Vol] 1.15 ng/mL Normal <=3.60 [facility] Comment on above: Performed By: #### B BRONZE CHASER, CMADM, CMP ####[facility] [id number] [place] [id number] Anthony HSTROP 4.1 pg/mL Normal 4.0-51.3 [facility] Comment on above: Result Comment: CUT- OFF POINTS HAVE BEEN ESTABLISHED BASED ON THE FOURTH UNIVERSAL DEFINITIONS OF MYOCARDIAL INFARCTION. THE UPPER REFERENCE LIMIT (URL) OF TROPONIN, DEFINED THE 99TH PERCENTILE OF cTnI DISTRIBUTION IN A REFERENCE POPULATION, HAS BEEN CONFIRMED THE DECISION THRESHOLD FOR IN DIAGNOSIS. Performed By: #### B BRONZE CHASER, CMADM, CMP ####[facility] [id number] [place] [address]DrSe Anthony FREDDIE 29 ng/mL Normal 9-82 [facility] Comment on above: Performed By: #### B BRONZE CHASER, CMADM, CMP ####[facility] [address] [place] [id number]. Fawn Anthony CBC AUTO DIFFon 07-13-2022 BASO # 0.1 103/ul Normal 0.0-0.1 [facility] Comment on above: Performed By: #### C BC #### [facility] Laboratory [address] [place] [address] Dr. Fawn Anthony Basophils/100 WBC (Bld) 1.1 % Normal 0.2-2.0 [facility] Comment on above: Performed By: #### C BC #### [facility] [address] [place] [address] Dr. Fawn Anthony EO # 0.3 103/ul Normal 0.0-0.7 [facility] Comment on above: Performed By: #### C BC #### [facility] [address] [place] [address] Dr. Fawn Anthony Eosinophils/100 WBC (Bld) 5.7 % Normal 0.9-7.0 [facility] Comment on above: Performed By: #### C BC #### [facility] [address] [place] [address] Dr. Fawn Anthony Erythrocyte distribution width (RBC) [Ratio] 13.0 % Normal 11.0-15.0 [facility] Comment on above: Performed By: #### C BC #### [facility] [address] [place] [address] Dr. Fawn Anthony Hematocrit (Bld) [Volume fraction] 39.7 % Normal 36.0-48.0 [facility] Comment on above: Performed By: #### C BC #### [facility] [address] [place] [address] Dr. Fawn Anthony Hemoglobin (Bld) [Mass/Vol] 13.0 g/dL Normal 12.0-16.0 [facility] Comment on above: Performed By: #### C BC #### [facility] [address] [place] [address] Dr. Fawn Anthony IG # 0.02 10e3/ul Normal 0.00-0.03 [facility] Comment on above: Performed By: #### C BC #### [facility] [address] [place] [address] Dr. Fawn Anthony IG % 0.4 % Normal 0.0-0.5 [facility] Comment on above: Performed By: #### C BC #### [facility] [address] [place] [address] Dr. Fawn Anthony LYMPH # 2.0 103/ul Normal 1.2-3.8 [facility] Comment on above: Performed By: #### C BC #### [facility] [address] [place] [address] Dr. Fawn Anthony Lymphocytes/100 WBC (Bld) 36.9 % Normal 20.5-60.0 [facility] Comment on above: Performed By: #### C BC #### [facility] [address] [place] [address] Dr. Fawn Anthony MANUAL DIFF REQ NO Normal [facility] Comment on above: Performed By: #### C BC #### [facility] [address] [place] [address] Dr. Fawn Anthony MCH (RBC) [Entitic mass] 28.7 pg Normal 26.7-34.0 [facility] Comment on above: Performed By: #### C BC #### [facility] [address] [place] [address] Dr. Fawn Anthony MCHC (RBC) [Mass/Vol] 32.7 g/dL Normal 29.9-35.2 [facility] Comment on above: Performed By: #### C BC #### [facility] [address] [place] [address] Dr. Fawn Anthony MCV (RBC) [Entitic vol] 87.6 fL Normal 81.0-99.0 [facility] Comment on above: Performed By: #### C BC #### [facility] [address] [place] [address] Dr. Fawn Anthony MONO # 0.4 103/ul Normal 0.3-0.8 [facility] Comment on above: Performed By: #### C BC #### [facility] [address] [place] [address] Dr. Fawn Anthony Monocytes/100 WBC (Bld) 8.1 % Normal 1.7-12.0 [facility] Comment on above: Performed By: #### C BC #### [facility] [address] [place] [address] Dr. Fawn Anthony NEUT # 2.6 103/ul Normal 1.4-6.5 [facility] Comment on above: Performed By: #### C BC #### [facility] [address] [place] [address] Dr. Fawn Anthony Neutrophils/100 WBC (Bld) 47.8 % Normal 43.0-75.0 [facility] Comment on above: Performed By: #### C BC #### [facility] [address] [place] [address] Dr. Fawn Anthony Platelet mean volume (Bld) [Entitic vol] 9.2 fL Critically low 9.5-13.5 [facility] Comment on above: Performed By: #### C BC #### [facility] [address] [place] [address] Dr. Fawn Anthony PLT 232 103/ul Normal 150-450 [facility] Comment on above: Performed By: #### C BC #### [facility] [address] [place] [address] Dr. Fawn Anthony RBC 4.53 106/ul Normal 4.20-5.40 [facility] Comment on above: Performed By: #### C BC #### [facility] [address] [place] [address] Dr. Fawn Anthony WBC 5.5 103/ul Normal 4.0-11.0 [facility] Comment on above: Performed By: #### C BC #### [facility] [address] [place] [address] Dr. Fawn Anthony PROF 14(COMP METB)on 023 Albumin [Mass/Vol] 3.8 g/dL Normal 3.4-5.0 [facility] Comment on above: Performed By: #### B BRONZE CHASER, CMADM, CMP #### [facility] [address] [place] [address] Dr. Fawn Anthony Albumin/Globulin [Mass ratio] 1.2 {ratio} Normal [facility] Comment on above: Performed By: #### B BRONZE CHASER, CMADM, CMP #### [facility] [address] [place] [address] [address] Fawn Anthony ALP [Catalytic activity/Vol] 89 U/L Normal 46-116 [facility] Comment on above: Performed By: #### B BRONZE CHASER, CMADM, CMP #### [facility] [address] [place] [address] [address] Fawn Anthony ALT [Catalytic activity/Vol] 22 U/L Normal 14-59 [facility] Comment on above: Performed By: #### B BRONZE CHASER, CMADM, CMP #### [facility] [address] [place] [address] Dr. Fawn Anthony Anion gap [Moles/Vol] 9.5 mmol/L Normal [facility] Comment on above: Performed By: #### B BRONZE CHASER, CMADM, CMP #### [facility] [address] [place] [address] [address] Fawn Anthony AST [Catalytic activity/Vol] 15 U/L Normal 15-37 [facility] Comment on above: Performed By: #### B BRONZE CHASER, CMADM, CMP #### [facility] [address] [place] [address] Dr. Fawn Anthony Bilirubin [Mass/Vol] 0.3 mg/dL Normal 0.2-1.0 [facility] Comment on above: Performed By: #### B BRONZE CHASER, CMADM, CMP #### [facility] [address] [place] [address] Dr. Fawn Anthony Calcium [Mass/Vol] 8.6 mg/dL Normal 8.5-10.1 [facility] Comment on above: Performed By: #### B BRONZE CHASER, CMADM, CMP #### [facility] [address] [place] [address] Dr. Fawn Anthony Chloride [Moles/Vol] 102 mmol/L Normal 98-107 [facility] Comment on above: Performed By: #### B BRONZE CHASER, CMADM, CMP #### [facility] [address] [place] [address] [address] Fawn Anthony CO2 [Moles/Vol] 31.0 mmol/L Normal 21.0-32.0 [facility] Comment on above: Performed By: #### B BRONZE CHASER, CMADM, CMP #### [facility] [address] [place] [address] [address] Fawn Anthony Creatinine [Mass/Vol] 0.74 mg/dL Normal 0.55-1.02 [facility] Comment on above: Performed By: #### B BRONZE CHASER, CMADM, CMP #### [facility] [address] [place] [address] [address] Fawn Anthony EGFR-AF LIBERIAN >60 Normal >=60 [facility] Comment on above: Performed By: #### B BRONZE CHASER, CMADM, CMP #### [facility] [address] [place] [address] [address] Fawn Anthony EGFR-NON AF LIBERIAN >60 Normal >=60 [facility] Comment on above: Performed By: #### B BRONZE CHASER, CMADM, CMP #### [facility] [address] [place] [address] [address] Fawn Anthony Globulin (S) [Mass/Vol] 3.2 g/dL Normal [facility] Comment on above: Performed By: #### B BRONZE CHASER, CMADM, CMP #### [facility] [address] [place] [address] [address] Fawn Anthony Glucose [Mass/Vol] 100 mg/dL Normal 74-106 [facility] Comment on above: Performed By: #### B BRONZE CHASER, CMADM, CMP #### [facility] [address] [place] [address] [address] Fawn Anthony Potassium [Moles/Vol] 3.5 mmol/L Normal 3.5-5.1 [facility] Comment on above: Performed By: #### B BRONZE CHASER, CMADM, CMP #### [facility] [address] [place] [address] [address] Fawn Anthony Protein [Mass/Vol] 7.0 g/dL Normal 6.4-8.2 [facility] Comment on above: Performed By: #### B BRONZE CHASER, CMADM, CMP #### [facility] [address] [place] [address] [address] Fawn Anthony Sodium [Moles/Vol] 139 mmol/L Normal 136-145 [facility] Comment on above: Performed By: #### B BRONZE CHASER, CMADM, CMP #### [facility] [address] [place] [address] [address] Fawn Anthony Urea nitrogen [Mass/Vol] 14.0 mg/dL Normal 7.0-18.0 [facility] Comment on above: Performed By: #### B BRONZE CHASER, CMADM, CMP #### [facility] [address] [place] [address] [address] Fawn Anthony Urea nitrogen/Creatinine [Mass ratio] 18.9 mg/mg Normal [facility] Comment on above: Performed By: #### B BRONZE CHASER, CMADM, CMP #### [facility] [address] [place] [address] [address] Fawn Anthony PROTIMEon 07-13-2022 INR Coag (PPP) [Relative time] 0.98 {INR} Normal [facility] Comment on above: Performed By: #### P TT, PT ####[facility] [id number] [place] [address]DrSe Anthony INR GUIDELINES SEE BELOW Normal [facility] Comment on above: Result Comment: BROCK RED INR: 2.0 - 3.0 CONDITIONS NOT LISTED BELOW 2.5 - 3.5 FOR PROSTHETIC HEART VALVE REPLACEMENT 2.5 - 3.5 RECURRENT THROMBOSIS Performed By: #### P TT, PT ####[facility] [address] [place] [address]Dr. Fawn Anthony PT Coag (PPP) [Time] 10.4 s Normal 9.0-11.6 [facility] Comment on above: Performed By: #### P TT, PT ####[facility] [address] [place] [address]Dr. Fawn Anthony PTTon 07-13-2022 aPTT Coag (Bld) [Time] 30.1 s Normal 22.3-36.2 [facility] Comment on above: Performed By: #### P TT, PT ####[facility] [address] [place], [place] [address]HrDr. Fawn Anthony TROPONIN, HIGH SENSITIVITYon 07-13-2022 HSTROP 4.3 pg/mL Normal 4.0-51.3 [facility] Comment on above: Result Comment: CUT- OFF POINTS HAVE BEEN ESTABLISHED BASED ON THE FOURTH UNIVERSAL DEFINITIONS OF MYOCARDIAL INFARCTION. THE UPPER REFERENCE LIMIT (URL) OF TROPONIN, DEFINED THE 99TH PERCENTILE OF cTnI DISTRIBUTION IN A REFERENCE POPULATION, HAS BEEN CONFIRMED THE DECISION THRESHOLD FOR IN DIAGNOSIS. Performed By: #### H STROPN #### [facility] [address] [place] [address] [address] Fawn Anthony TSHon 07-13-2022 TSH 3.430 uIU/mL Normal 0.358-3.740 [facility] Comment on above: Performed By: #### T SH #### [facility] [address] [place] [address] [address] Fawn Anthony XR CHEST 1 Von [...] Date: 2022-07-13 02:34 Normal [facility] CBC AUTO DIFFon 02-07-2022 BASO # 0.1 103/ul Normal 0.0-0.1 [facility] Comment on above: Performed By: #### C BC #### [facility] [address] [place] [address] [address] Fawn Anthony Basophils/100 WBC (Bld) 0.6 % Normal 0.2-2.0 [facility] Comment on above: Performed By: #### C BC #### [facility] [address] [place] [address] Dr. Fawn Anthony EO # 0.2 103/ul Normal 0.0-0.7 [facility] Comment on above: Performed By: #### C BC #### [facility] [address] [place] [address] Dr. Fawn Anthony Eosinophils/100 WBC (Bld) 1.8 % Normal 0.9-7.0 [facility] Comment on above: Performed By: #### C BC #### [facility] [address] [place] [address] Dr. Fawn Anthony Erythrocyte distribution width (RBC) [Ratio] 13.1 % Normal 11.0-15.0 [facility] Comment on above: Performed By: #### C BC #### [facility] [address] [place] [address] Dr. Fawn Anthony Hematocrit (Bld) [Volume fraction] 39.8 % Normal 36.0-48.0 [facility] Comment on above: Performed By: #### C BC #### [facility] [address] [place] [address] Dr. Fawn Anthony Hemoglobin (Bld) [Mass/Vol] 13.1 g/dL Normal 12.0-16.0 [facility] Comment on above: Performed By: #### C BC #### [facility] [address] [place] [address] Dr. Fawn Anthony IG # 0.04 10e3/ul Critically high 0.00-0.03 [facility] Comment on above: Performed By: #### C BC #### [facility] [address] [place] [address] Dr. Fawn Anthony IG % 0.4 % Normal 0.0-0.5 [facility] Comment on above: Performed By: #### C BC #### [facility] [address] [place] [address] Dr. Fawn Anthony LYMPH # 1.6 103/ul Normal 1.2-3.8 [facility] Comment on above: Performed By: #### C BC #### [facility] [address] [place] [address] Dr. Fawn Anthony Lymphocytes/100 WBC (Bld) 15.6 % Critically low 20.5-60.0 [facility] Comment on above: Performed By: #### C BC #### [facility] [address] [place] [address] Dr. Fawn Anthony MANUAL DIFF REQ NO Normal [facility] Comment on above: Performed By: #### C BC #### [facility] [address] [place] [address] Dr. Fawn Anthony MCH (RBC) [Entitic mass] 28.6 pg Normal 26.7-34.0 [facility] Comment on above: Performed By: #### C BC #### [facility] [address] [place] [address] Dr. Fawn Anthony MCHC (RBC) [Mass/Vol] 32.9 g/dL Normal 29.9-35.2 [facility] Comment on above: Performed By: #### C BC #### [facility] [address] [place] [address] Dr. Fawn Anthony MCV (RBC) [Entitic vol] 86.9 fL Normal 81.0-99.0 [facility] Comment on above: Performed By: #### C BC #### [facility] [address] [place] [address] Dr. Fawn Anthony MONO # 0.5 103/ul Normal 0.3-0.8 [facility] Comment on above: Performed By: #### C BC #### [facility] [address] [place] [address] Dr. Fawn Anthony Monocytes/100 WBC (Bld) 5.2 % Normal 1.7-12.0 [facility] Comment on above: Performed By: #### C BC #### [facility] [address] [place] [address] Dr. Fawn Anthony NEUT # 7.7 103/ul Critically high 1.4-6.5 [facility] Comment on above: Performed By: #### C BC #### [facility] [address] [place] [address] Dr. Fawn Anthony Neutrophils/100 WBC (Bld) 76.4 % Critically high 43.0-75.0 [facility] Comment on above: Performed By: #### C BC #### [facility] [address] [place] [address] Dr. Fawn Anthony Platelet mean volume (Bld) [Entitic vol] 9.7 fL Normal 9.5-13.5 [facility] Comment on above: Performed By: #### C BC #### [facility] [address] [place] [address] Dr. Fawn Anthony PLT 257 103/ul Normal 150-450 [facility] Comment on above: Performed By: #### C BC #### [facility] [address] [place] [address] Dr. Fawn Anthony RBC 4.58 106/ul Normal 4.20-5.40 [facility] Comment on above: Performed By: #### C BC #### [facility] [address] [place] [address] Dr. Fawn Anthony WBC 10.1 103/ul Normal 4.0-11.0 [facility] Comment on above: Performed By: #### C BC #### [facility] [address] [place] [address] Dr. Fawn Anthony CTA CHEST WO W [...] YOKASTA BAINS Date: 2022-02-07 19:59 Normal [facility] PROF 14(COMP METB)on 022 Albumin [Mass/Vol] 4.0 g/dL Normal 3.4-5.0 [facility] Comment on above: Performed By: #### H TRACIPN, CMP ####[facility] [address] [place] [id number]. Fawn Anthony Albumin/Globulin [Mass ratio] 1.3 {ratio} Normal [facility] Comment on above: Performed By: #### H STROPN, CMP ####[facility] [address] [place] [id number]. Fawn Anthony ALP [Catalytic activity/Vol] 77 U/L Normal 46-116 [facility] Comment on above: Performed By: #### H STROPN, CMP ####[facility] [address] [place], [place] [address]Jt. Fawn Anthony ALT [Catalytic activity/Vol] 15 U/L Normal 14-59 [facility] Comment on above: Performed By: #### H STROPN, CMP ####[facility] [address] [place] [id number]. Fawn Anthony Anion gap [Moles/Vol] 9.9 mmol/L Normal [facility] Comment on above: Performed By: #### H STROPN, CMP ####[facility] [address] [place] [address]Dr. Fawn Anthony AST [Catalytic activity/Vol] 13 U/L Critically low 15-37 [facility] Comment on above: Performed By: #### H STROPN, CMP ####[facility] [address] [place], [place] [address]Dr. Fawn Anthony Bilirubin [Mass/Vol] 0.5 mg/dL Normal 0.2-1.0 [facility] Comment on above: Performed By: #### H STROPN, CMP ####[facility] [address] [place], [place] [address]Dr. Fawn Anthony Calcium [Mass/Vol] 9.2 mg/dL Normal 8.5-10.1 [facility] Comment on above: Performed By: #### H STROPN, CMP ####[facility] [address] [place], [place] [address]Dr. Fawn Anthony Chloride [Moles/Vol] 103 mmol/L Normal 98-107 [facility] Comment on above: Performed By: #### H STROPN, CMP ####[facility] [address] [place], [place] [address]Dr. Fawn Anthony CO2 [Moles/Vol] 27.5 mmol/L Normal 21.0-32.0 [facility] Comment on above: Performed By: #### H STROPN, CMP ####[facility] [address] [place], [place] [address]Dr. Fawn Anthony Creatinine [Mass/Vol] 0.71 mg/dL Normal 0.55-1.02 [facility] Comment on above: Performed By: #### H STROPN, CMP ####[facility] [address] [place], [place] [address]Dr. Fawn Anthony EGFR-AF LIBERIAN >60 Normal >=60 [facility] Comment on above: Performed By: #### H STROPN, CMP ####[facility] [address] [place], [place] [address]Dr. Fawn Anthony EGFR-NON AF LIBERIAN >60 Normal >=60 [facility] Comment on above: Performed By: #### H LAURA, CMP ####[facility] [address] [place] [address]Dr. Fawn Anthony Globulin (S) [Mass/Vol] 3.2 g/dL Normal [facility] Comment on above: Performed By: #### H LAURA, CMP ####[facility] [address] [place] [address]Dr. Fawn Anthony Glucose [Mass/Vol] 125 mg/dL Critically high 74-106 [facility] Comment on above: Performed By: #### H LAURA, CMP ####[facility] [address] [place], [place] [address]Dr. Fawn Anthony Potassium [Moles/Vol] 3.4 mmol/L Critically low 3.5-5.1 [facility] Comment on above: Performed By: #### H LAURA, CMP ####[facility] [address] [place], [place] [address]Dr. Fawn Anthony Protein [Mass/Vol] 7.2 g/dL Normal 6.4-8.2 [facility] Comment on above: Performed By: #### H LAURA, CMP ####[facility] [address] [place], [place] [address]Dr. Fawn Anthony Sodium [Moles/Vol] 137 mmol/L Normal 136-145 [facility] Comment on above: Performed By: #### H LAURA, CMP ####[facility] [address] [place], [place] [address]Dr. Fawn Anthony Urea nitrogen [Mass/Vol] 15.0 mg/dL Normal 7.0-18.0 [facility] Comment on above: Performed By: #### H LAURA, CMP ####[facility] [address] [place], [place] [address]Dr. Fawn Anthony Urea nitrogen/Creatinine [Mass ratio] 21.1 mg/mg Normal [facility] Comment on above: Performed By: #### H LAURA, CMP ####[facility] [address] [place] [address]Ki. Fawn Anthony TROPONIN, HIGH SENSITIVITYon 02-07-2022 HSTROP 4.8 pg/mL Normal 4.0-51.3 [facility] Comment on above: Result Comment: CUT- OFF POINTS HAVE BEEN ESTABLISHED BASED ON THE FOURTH UNIVERSAL DEFINITIONS OF MYOCARDIAL INFARCTION. THE UPPER REFERENCE LIMIT (URL) OF TROPONIN, DEFINED THE 99TH PERCENTILE OF cTnI DISTRIBUTION IN A REFERENCE POPULATION, HAS BEEN CONFIRMED THE DECISION THRESHOLD FOR IN DIAGNOSIS. Performed By: #### H STROPN #### [facility] [address] [place], [place] [address] Dr. Fawn Anthony HSTROP 4.6 pg/mL Normal 4.0-51.3 [facility] Comment on above: Result Comment: CUT- OFF POINTS HAVE BEEN ESTABLISHED BASED ON THE FOURTH UNIVERSAL DEFINITIONS OF MYOCARDIAL INFARCTION. THE UPPER REFERENCE LIMIT (URL) OF TROPONIN, DEFINED THE 99TH PERCENTILE OF cTnI DISTRIBUTION IN A REFERENCE POPULATION, HAS BEEN CONFIRMED THE DECISION THRESHOLD FOR IN DIAGNOSIS. Performed By: #### H STROPN, CMP ####[facility] [address] [place], [place] [address]PkSe Fawn Anthony XR CHEST 1 Von 02-07-2022 XR CHEST 1 V CHEST X-RAY, 1 VIEW HISTORY: Chest pain. COMPARISON: 09/13/2021. FINDINGS: The heart, pattie, and mediastinum are unremarkable. The lungs are grossly clear. There are no pleural effusions. There is no pneumothorax. IMPRESSION: No evidence of acute cardiopulmonary disease. Electronically authenticated by: LUKE GUERRA Date: 2022-02-07 18:39 Normal [facility] SCREENING MAMMOGRAM W/KALLI, BILATERAL*on 12-14-2021 SCREENING MAMMOGRAM [...] VERY IMPORTANT TO YOUR HEALTH. THE CURRENT [employer] GUIDELINES RECOMMENDS ANNUAL MAMMOGRAPHY BEGINNING AT AGE 40 THIS FACILITY USES A REMINDER SYSTEM TO ENSURE ALL PATIENTS RECEIVE REMINDER NOTIFICATIONS AT THE APPROPRIATE TIME BASED ON THE RECOMMENDATIONS OF THIS EXAM. Report reported and signed by Cosem Valentin on 12/17/2021 [address] [facility] TROPONIN, HIGH SENSITIVITYon 09-14-2021 HSTROP 4.9 pg/mL Normal 4.0-51.3 [facility] Comment on above: Result Comment: CUT- OFF POINTS HAVE BEEN ESTABLISHED BASED ON THE FOURTH UNIVERSAL DEFINITIONS OF MYOCARDIAL INFARCTION. THE UPPER REFERENCE LIMIT (URL) OF TROPONIN, DEFINED THE 99TH PERCENTILE OF cTnI DISTRIBUTION IN A REFERENCE POPULATION, HAS BEEN CONFIRMED THE DECISION THRESHOLD FOR IN DIAGNOSIS. Performed By: #### H STROPN #### [facility] [address] [place] [address] Dr. Fawn Anthony XR CHEST 1 Von [...] MARLENE LEACH Date: 2021-09-13 22:08 Normal [facility] CBC AUTO DIFFon 09-13-2021 BASO # 0.1 103/ul Normal 0.0-0.1 [facility] Comment on above: Performed By: #### C BC #### [facility] [address] [place] [address] Dr. Fawn Anthony Basophils/100 WBC (Bld) 1.1 % Normal 0.2-2.0 [facility] Comment on above: Performed By: #### C BC #### [facility] [address] [place] [address] Dr. Fawn Anthony EO # 0.2 103/ul Normal 0.0-0.7 [facility] Comment on above: Performed By: #### C BC #### [facility] [address] [place] [address] Dr. Fawn Anthony Eosinophils/100 WBC (Bld) 4.3 % Normal 0.9-7.0 [facility] Comment on above: Performed By: #### C BC #### [facility] [address] [place] [address] Dr. Fawn Anthony Erythrocyte distribution width (RBC) [Ratio] 13.2 % Normal 11.0-15.0 [facility] Comment on above: Performed By: #### C BC #### [facility] [address] [place] [address] Dr. Fawn Anthony Hematocrit (Bld) [Volume fraction] 39.8 % Normal 36.0-48.0 [facility] Comment on above: Performed By: #### C BC #### [facility] [address] [place] [address] Dr. Fawn Anthony Hemoglobin (Bld) [Mass/Vol] 13.2 g/dL Normal 12.0-16.0 [facility] Comment on above: Performed By: #### C BC #### [facility] [address] [place] [address] Dr. Fawn Anthony IG # 0.02 10e3/ul Normal 0.00-0.03 [facility] Comment on above: Performed By: #### C BC #### [facility] [address] [place] [address] Dr. Fawn Anthony IG % 0.4 % Normal 0.0-0.5 [facility] Comment on above: Performed By: #### C BC #### [facility] [address] [place] [address] Dr. Fawn Anthony LYMPH # 1.9 103/ul Normal 1.2-3.8 [facility] Comment on above: Performed By: #### C BC #### [facility] [address] [place] [address] Dr. Fawn Anthony Lymphocytes/100 WBC (Bld) 34.3 % Normal 20.5-60.0 [facility] Comment on above: Performed By: #### C BC #### [facility] [address] [place] [address] Dr. Fawn Anthony MANUAL DIFF REQ NO Normal [facility] Comment on above: Performed By: #### C BC #### [facility] [address] [place] [address] [address] Fawn Anthony MCH (RBC) [Entitic mass] 29.1 pg Normal 26.7-34.0 [facility] Comment on above: Performed By: #### C BC #### [facility] [address] [place] [address] Dr. Fawn Anthony MCHC (RBC) [Mass/Vol] 33.2 g/dL Normal 29.9-35.2 [facility] Comment on above: Performed By: #### C BC #### [facility] [address] [place] [address] Dr. Fawn Anthony MCV (RBC) [Entitic vol] 87.9 fL Normal 81.0-99.0 [facility] Comment on above: Performed By: #### C BC #### [facility] [address] [place] [address] Dr. Fawn Anthony MONO # 0.5 103/ul Normal 0.3-0.8 [facility] Comment on above: Performed By: #### C BC #### [facility] [address] [place] [address] Dr. Fawn Anthony Monocytes/100 WBC (Bld) 8.3 % Normal 1.7-12.0 [facility] Comment on above: Performed By: #### C BC #### [facility] [address] [place] [address] Dr. Fawn Anthony NEUT # 2.9 103/ul Normal 1.4-6.5 [facility] Comment on above: Performed By: #### C BC #### [facility] [address] [place] [address] Dr. Fawn Anthony Neutrophils/100 WBC (Bld) 51.6 % Normal 43.0-75.0 [facility] Comment on above: Performed By: #### C BC #### [facility] [address] [place] [address] Dr. Fawn Anthony Platelet mean volume (Bld) [Entitic vol] 9.4 fL Critically low 9.5-13.5 [facility] Comment on above: Performed By: #### C BC #### [facility] [address] [place] [address] [address] Fawn Anthony PLT 245 103/ul Normal 150-450 [facility] Comment on above: Performed By: #### C BC #### [facility] [address] [place] [address] [address] Fawn Anthony RBC 4.53 106/ul Normal 4.20-5.40 [facility] Comment on above: Performed By: #### C BC #### [facility] [address] [place] [address] [address] Fawn Anthony WBC 5.5 103/ul Normal 4.0-11.0 [facility] Comment on above: Performed By: #### C BC #### [facility] [address] [place] [address] Dr. Fawn Anthony PROF 14(COMP METB)on 022 Albumin [Mass/Vol] 3.7 g/dL Normal 3.4-5.0 [facility] Comment on above: Performed By: #### H STROPN, CMP #### [facility] [address] [place] [address] Dr. Fawn Anthony Albumin/Globulin [Mass ratio] 1.1 {ratio} [facility] Comment on above: Performed By: #### H STROPN, CMP #### [facility] [address] [place] [address] Dr. Fawn Anthony ALP [Catalytic activity/Vol] 79 U/L Normal 46-116 [facility] Comment on above: Performed By: #### H STROPN, CMP #### [facility] [address] [place] [address] Dr. Fawn Anthony ALT [Catalytic activity/Vol] 27 U/L Normal 14-59 [facility] Comment on above: Performed By: #### H STROPN, CMP #### [facility] [address] [place] [address] Dr. Fawn Anthony Anion gap [Moles/Vol] 9.4 mmol/L Normal [facility] Comment on above: Performed By: #### H STROPN, CMP #### [facility] [address] [place] [address] [address] Fawn Anthony AST [Catalytic activity/Vol] 15 U/L Normal 15-37 [facility] Comment on above: Performed By: #### H STROPN, CMP #### [facility] [address] [place] [address] [address] Fawn Anthony Bilirubin [Mass/Vol] 0.5 mg/dL Normal 0.2-1.0 [facility] Comment on above: Performed By: #### H STROPN, CMP #### [facility] [address] [place] [address] [address] Fawn Anthony Calcium [Mass/Vol] 8.7 mg/dL Normal 8.5-10.1 [facility] Comment on above: Performed By: #### H STROPN, CMP #### [facility] [address] [place] [address] [address] Fawn Anthony Chloride [Moles/Vol] 105 mmol/L Normal 98-107 [facility] Comment on above: Performed By: #### H STROPN, CMP #### [facility] [address] [place] [address] [address] Fawn Anthony CO2 [Moles/Vol] 28.2 mmol/L Normal 21.0-32.0 [facility] Comment on above: Performed By: #### H STROPN, CMP #### [facility] [address] [place] [address] [address] Fawn Anthony Creatinine [Mass/Vol] 0.92 mg/dL Normal 0.55-1.02 [facility] Comment on above: Performed By: #### H STROPN, CMP #### [facility] [address] [place] [address] [address] Fawn Anthony EGFR-AF LIBERIAN >60 Normal >=60 [facility] Comment on above: Performed By: #### H STROPN, CMP #### [facility] [address] [place] [address] [address] Fawn Anthony EGFR-NON AF LIBERIAN >60 Normal >=60 [facility] Comment on above: Performed By: #### H STROPN, CMP #### [facility] [address] [place] [address] [address] Fawn Anthony Globulin (S) [Mass/Vol] 3.3 g/dL Normal [facility] Comment on above: Performed By: #### H STROPN, CMP #### [facility] [address] [place] [address] [address] Fawn Anthony Glucose [Mass/Vol] 105 mg/dL Normal 74-106 [facility] Comment on above: Performed By: #### H STROPN, CMP #### [facility] [address] [place] [address] [address] Fawn Anthony Potassium [Moles/Vol] 3.6 mmol/L Normal 3.5-5.1 [facility] Comment on above: Performed By: #### H STROPN, CMP #### [facility] [address] [place] [address] Dr. Fawn Anthony Protein [Mass/Vol] 7.0 g/dL Normal 6.4-8.2 [facility] Comment on above: Performed By: #### H STROPN, CMP #### [facility] [address] [place] [address] [address] Fawn Anthony Sodium [Moles/Vol] 139 mmol/L Normal 136-145 [facility] Comment on above: Performed By: #### H STROPN, CMP #### [facility] [address] [place] [address] [address] Fawn Anthony Urea nitrogen [Mass/Vol] 9.0 mg/dL Normal 7.0-18.0 [facility] Comment on above: Performed By: #### H STROPN, CMP #### [facility] [address] [place] [address] [address] Fawn Anthony Urea nitrogen/Creatinine [Mass ratio] 9.8 mg/mg Normal [facility] Comment on above: Performed By: #### H STROPN, CMP #### [facility] [address] [place] [address] [address] Fawn Anthony TROPONIN, HIGH SENSITIVITYon 09-13-2021 HSTROP 5.6 pg/mL Normal 4.0-51.3 [facility] Comment on above: Result Comment: CUT- OFF POINTS HAVE BEEN ESTABLISHED BASED ON THE FOURTH UNIVERSAL DEFINITIONS OF MYOCARDIAL INFARCTION. THE UPPER REFERENCE LIMIT (URL) OF TROPONIN, DEFINED THE 99TH PERCENTILE OF cTnI DISTRIBUTION IN A REFERENCE POPULATION, HAS BEEN CONFIRMED THE DECISION THRESHOLD FOR IN DIAGNOSIS. Performed By: #### H STROPN, CMP #### [facility] [address] [place] [address] Dr. Fawn Anthony CBC AUTO DIFFon 12-02-2020 BASO # 0.1 103/ul Normal 0.0-0.1 [facility] Comment on above: Performed By: #### C BC #### [facility] [address] [place] [address] Maricruz Kristen Basophils/100 WBC (Bld) 0.9 % Normal 0.2-2.0 [facility] Comment on above: Performed By: #### C BC #### [facility] [address] [place] [address] Maricruz Kristen EO # 0.2 103/ul Normal 0.0-0.7 [facility] Comment on above: Performed By: #### C BC #### [facility] [address] [place] [address] Maricruz Kristen Eosinophils/100 WBC (Bld) 3.3 % Normal 0.9-7.0 [facility] Comment on above: Performed By: #### C BC #### [facility] [address] [place] [address] Maricruz Kristen Erythrocyte distribution width (RBC) [Ratio] 12.7 % Normal 11.0-15.0 [facility] Comment on above: Performed By: #### C BC #### [facility] [address] [place], [place] [id number] Maricruz Kristen Hematocrit (Bld) [Volume fraction] 44.5 % Normal 36.0-48.0 [facility] Comment on above: Performed By: #### C BC #### [facility] [address] [place], [place] [id number] Maricruz Kristen Hemoglobin (Bld) [Mass/Vol] 14.2 g/dL Normal 12.0-16.0 [facility] Comment on above: Performed By: #### C BC #### [facility] [address] [place], [place] [id number] Maricruzfuentes Peterson IG # 0.05 10e3/ul Critically high 0.00-0.03 [facility] Comment on above: Performed By: #### C BC #### [facility] [address] [place] [address] Maricruz Kristen IG % 0.7 % Critically high 0.0-0.5 [facility] Comment on above: Performed By: #### C BC #### [facility] [address] [place] [address] Maricruz Kristen LYMPH # 1.8 103/ul Normal 1.2-3.8 [facility] Comment on above: Performed By: #### C BC #### [facility] [address] [place] [address] Maricruz Peterson Lymphocytes/100 WBC (Bld) 26.4 % Normal 20.5-60.0 [facility] Comment on above: Performed By: #### C BC #### [facility] [address] [place], [place] [id number] Maricruzfuentes Peterson MANUAL DIFF REQ NO Normal [facility] Comment on above: Performed By: #### C BC #### [facility] [address] [place] [address] Maricruzfuentes Bustillosen MCH (RBC) [Entitic mass] 29.1 pg Normal 26.7-34.0 [facility] Comment on above: Performed By: #### C BC #### [facility] [address] [place] [address] Maricruzfuentes Peterson MCHC (RBC) [Mass/Vol] 31.9 g/dL Normal 29.9-35.2 [facility] Comment on above: Performed By: #### C BC #### [facility] [address] [place] [address] Maricruz Kristen MCV (RBC) [Entitic vol] 91.2 fL Normal 81.0-99.0 [facility] Comment on above: Performed By: #### C BC #### [facility] [address] [place] [id number] Maricruz Kristen MONO # 0.5 103/ul Normal 0.3-0.8 [facility] Comment on above: Performed By: #### C BC #### [facility] [address] [place], [place] [id number] Maricruz Kristen Monocytes/100 WBC (Bld) 7.6 % Normal 1.7-12.0 [facility] Comment on above: Performed By: #### C BC #### [facility] [address] [place] [address] Maricruz Kristen NEUT # 4.3 103/ul Normal 1.4-6.5 [facility] Comment on above: Performed By: #### C BC #### [facility] [address] [place] [address] Maricruz Kristen Neutrophils/100 WBC (Bld) 61.1 % Normal 43.0-75.0 [facility] Comment on above: Performed By: #### C BC #### [facility] [address] [place], [place] [phone] Maricruz Kristen Platelet mean volume (Bld) [Entitic vol] 10.0 fL Normal 9.5-13.5 [facility] Comment on above: Performed By: #### C BC #### [facility] [address] [place], [place] [phone] Maricruz Kristen PLT 259 103/ul Normal 150-450 [facility] Comment on above: Performed By: #### C BC #### [facility] [address] [place] [address] Maricruz Kristen RBC 4.88 106/ul Normal 4.20-5.40 [facility] Comment on above: Performed By: #### C BC #### [facility] [address] [place] [address] Maricruz Kristen WBC 7.0 103/ul Normal 4.0-11.0 [facility] Comment on above: Performed By: #### C BC #### [facility] [address] [place], [place] [phone] Maricruz Kristen PROF 14(COMP METB)on 021 Albumin [Mass/Vol] 4.1 g/dL Normal 3.5-5.0 [facility] Comment on above: Performed By: #### C UCHE, HSTROPN #### [facility] [address] [id number] Maricruz Kristen Albumin/Globulin [Mass ratio] 1.0 {ratio} Normal [facility] Comment on above: Performed By: #### C UCHE, HSTROPN #### [facility] [address] [address] Maricruz Kristen ALP [Catalytic activity/Vol] 96 U/L Normal 38-126 [facility] Comment on above: Performed By: #### C UCHE, HSTROPN #### [facility] [address] [place] [address] Maricruz Kristen ALT [Catalytic activity/Vol] 83 U/L Critically high 9-52 [facility] Comment on above: Performed By: #### C UCHE, HSTROPN #### [facility] [address] [address] Maricruz Kristen Anion gap [Moles/Vol] 13.2 mmol/L Normal [facility] Comment on above: Performed By: #### C UCHE, HSTROPN #### [facility] [address] [address] Maricruz Kristen AST [Catalytic activity/Vol] 40 U/L Critically high 14-36 The [facility] Comment on above: Performed By: #### C UCHE, HSTROPN #### [facility] [address] [address] Maricruz Kristen Bilirubin [Mass/Vol] 0.5 mg/dL Normal 0.2-1.3 The [facility] Comment on above: Performed By: #### C UCHE, HSTROPN #### [facility] [address] [id number] Maricruz Kristen Calcium [Mass/Vol] 9.0 mg/dL Normal 8.4-10.2 The [facility] Comment on above: Performed By: #### C UCHE, HSTROPN #### [facility] [address] [id number] Maricruz Kristen Chloride [Moles/Vol] 104 mmol/L Normal 98-107 The [facility] Comment on above: Performed By: #### C MP, HSTROPN #### [facility] [address] [address] Maricruz Kristen CO2 [Moles/Vol] 29.6 mmol/L Normal 22.0-30.0 [facility] Comment on above: Performed By: #### C UCHE, HSTROPN #### [facility] [address] [address] Maricruz Kristen Creatinine [Mass/Vol] 0.80 mg/dL Normal 0.52-1.04 [facility] Comment on above: Performed By: #### C UCHE, HSTROPN #### [facility] [address] [place] [address] Maricruz Kristen EGFR-AF LIBERIAN >60 Normal >=60 [facility] Comment on above: Performed By: #### C UCHE, HSTROPN #### [facility] [address] [id number] Maricruz Kristen EGFR-NON AF LIBERIAN >60 Normal >=60 [facility] Comment on above: Performed By: #### C UCHE, HSTROPN #### [facility] [address] [place], [place] [phone] Maricruz Kristen Globulin (S) [Mass/Vol] 4.0 g/dL Normal [facility] Comment on above: Performed By: #### C UCHE, HSTROPN #### [facility] [address] [id number] Maricruz Kristen Glucose [Mass/Vol] 98 mg/dL Normal 74-106 [facility] Comment on above: Performed By: #### C MP, HSTROPN #### [facility] [address] [address] Maricruz Kristen Potassium [Moles/Vol] 3.8 mmol/L Normal 3.4-5.0 [facility] Comment on above: Performed By: #### C MP, HSTROPN #### [facility] [address] [place], [place] [address] Maricruz Kristen Protein [Mass/Vol] 8.1 g/dL Normal 6.1-8.2 [facility] Comment on above: Performed By: #### C MP, HSTROPN #### [facility] [address] [place], [place] [address] Maricruz Kristen Sodium [Moles/Vol] 143 mmol/L Normal 137-145 [facility] Comment on above: Performed By: #### C MP, HSTROPN #### [facility] [address] [place] [address] Maricruz Kristen Urea nitrogen [Mass/Vol] 9.0 mg/dL Normal 7.0-17.0 [facility] Comment on above: Performed By: #### C MP, HSTROPN #### [facility] [address] [place], [place] [phone] Maricruz Kristen Urea nitrogen/Creatinine [Mass ratio] 11.2 mg/mg Normal [facility] Comment on above: Performed By: #### C MP, HSTROPN #### [facility] [address] [place], [place] [phone] Maricruz Bustillosen TROPONIN, HIGH SENSITIVITYon 12-02-2020 HSTROP <4.0 Normal 4.0-35.5 [facility] Comment on above: Result Comment: CUT- OFF POINTS HAVE BEEN ESTABLISHED BASED ON THE FOURTH UNIVERSAL DEFINITIONS OF MYOCARDIAL INFARCTION. THE UPPER REFERENCE LIMIT (URL) OF TROPONIN, DEFINED THE 99TH PERCENTILE OF cTnI DISTRIBUTION IN A REFERENCE POPULATION, HAS BEEN CONFIRMED THE DECISION THRESHOLD FOR IN DIAGNOSIS. Performed By: #### C MP, HSTROPN #### [facility] [address] [place] [address] Maricruz Kristen XR CHEST 2 Von 12-02-2020 XR CHEST 2 V CHEST X RAY, 2 VIEWS CLINICAL INFORMATION: Chest pain. COMPARISONS: Chest x-ray dated 05/12/2014. FINDINGS: No focal consolidation to suggest pneumonia. No pleural effusions or pneumothorax. No overt pulmonary edema. Cardiomediastinal silhouette within normal limits. IMPRESSION: 1. No acute cardiopulmonary disease. Electronically authenticated by: BELEN MARIN Date: 2020-12-02 16:43 Normal [facility] Vital Signs Date Time Vital Sign Value Performing Clinician Jerardo bianchi 11-20-2023 14:07-0400 Body mass index (BMI) [Ratio] 21.34 kg/m2 Carlita Gonzalez CNM Work Phone: [facility] 11-20-2023 14:07-0400 Body weight 69.4 kg Carlita Gonzalez CNM Work Phone: [facility] 11-20-2023 14:07-0400 Diastolic blood pressure 70 mm[Hg] Carlita Gonzalez CNM Work Phone: [facility] 11-20-2023 14:07-0400 Systolic blood pressure 110 mm[Hg] Carlita Gonzalez CNM Work Phone: [facility] 05-22-2023 11:50-0500 Body weight 70.72 kg Madhav Maldonado MD Work Phone: [facility] 05-22-2023 11:50-0500 Diastolic blood pressure 70 mm[Hg] Madhav Maldonado MD Work Phone: [facility] 05-22-2023 11:50-0500 Heart rate 67 /min Madhav Maldonado MD Work Phone: [facility] 05-22-2023 11:50-0500 Systolic blood pressure 119 mm[Hg] Madhav Maldonado MD Work Phone: [facility] Encounters Encounter Date Encounter Type Care Provider Facility Start: 02-24-2024 End: 03-02-2024 Telephone encounter Sherman Busch DO Work Phone: [facility] Internal [facility] - Family Medicine Start: 01-23-2024 End: 01-26-2024 Telephone encounter Carlitaterry Gonzalez CNM Work Phone: [facility] Start: 12-15-2023 End: 12-15-2023 ambulatory CAMI DIALLO [facility] Start: 11-20-2023 End: 11-20-2023 Bamboo flowsheet Carlita Gonzalez CNM Work Phone: [facility] Start: 11-20-2023 End: 11-20-2023 Bamboo flowsheet Carlita Gonzalez CNM Work Phone: [facility] Start: 11-20-2023 End: 11-20-2023 Gynecological examination normal Carlita Gonzalez CNM Work Phone: [facility] Start: 11-20-2023 End: 11-20-2023 Periodic preventive med est patient 40-64yrs Carlita Gonzalez CNM Work Phone: [facility] Comment on above: Normal gynecologic e xamination; Screening for cervical cancer; Breast cancer screening by mammogram Start: 11-20-2023 End: 11-20-2023 ambulatory CARLITA GONZALEZ Not Available Start: 11-04-2023 End: 11-04-2023 ambulatory [facility] Start: 10-15-2023 End: 10-15-2023 ambulatory [facility] Start: 10-06-2023 Telephone encounter Lindsey HERNANDEZ Work Phone: Neurology Comment on above: Appointment Returning Patient's Call (Received voicemail from patient requesting contact information for local speech providers. This information was previously provided to patient via [employer] and email on 09/19/2023. A second email listing the local speech providers was sent to patient on 10/03/2023 via email (patients preferred mode of communication). Called patient. Clarified that local speech providers were sent to her via email. Patient currently driving and planning to look at her email once home. ) Start: 09-19-2023 End: 09-19-2023 ambulatory Jarvis Block [facility] Work Phone: [facility] Start: 09-19-2023 End: 09-19-2023 Patient encounter procedure Jarvis Block [facility] Work Phone: [facility] Comment on above: No-show for appointm ent (Primary Dx) Start: 09-16-2023 E-mail encounter todd titus caregiver Jarvis Block [facility] [employer] Work Phone: [facility] Start: 09-16-2023 Patient encounter procedure Jarvis Block [facility]-[employer]ULAR [employer] Work Phone: [facility] Comment on above: Virtual Visit 09/18 Start: 09-13-2023 Telephone encounter Lindsey HERNANDEZ Work Phone: Neurology Comment on above: Appointment (09/13/23 - [facility], message sent / reminder mailed for [facility] VV eval./- GL /) Start: 09-12-2023 Telephone encounter Madhav musa MD Work Phone: Neurology Start: 09-12-2023 End: 09-12-2023 ambulatory Jarvis Pepperse [facility]-[employer] [employer] Work Phone: [facility] Start: 09-12-2023 End: 09-12-2023 Patient encounter procedure Jarvis Block [facility] Work Phone: [facility] Comment on above: Cognitive impairment , mild, so stated (Primary Dx); Cognitive communication deficit Start: 09-04-2023 End: 09-04-2023 ambulatory [facility] Start: 09-03-2023 ambulatory Jarvis Alexandr Tsai [facility]-[employer] Work Phone: Otolaryngology Comment on above: Speech Therapy Start: 09-03-2023 E-mail encounter todd titus caregiver Jarvis Block [employer] Work Phone: Otolaryngology Start: 09-03-2023 Telephone encounter Madhav musa MD Work Phone: Neurology Comment on above: MRI Order Start: 06-20-2023 End: 06-20-2023 ambulatory [facility] Start: 06-09-2023 End: 06-09-2023 ambulatory SHAIKH KAROLINE Not Available Start: 05-22-2023 End: 05-22-2023 Patient encounter procedure Madhav Maldonado MD Work Phone: Neurology Comment on above: CRUZ on CPAP (Primary Dx) Start: 05-22-2023 End: 05-22-2023 ambulatory Jarvis Block [facility] [employer] Work Phone: [facility] Comment on above: Cognitive communicat ion deficit (Primary Dx); Cognitive impairment, mild, so stated Start: 05-22-2023 End: 05-22-2023 Subsequent hospital visit by physician Drake Gonzalez (I-Stat/3t) Work Phone: Radiology Comment on above: Cognitive impairment , mild, so stated [G31.84] Start: 05-01-2023 Telephone encounter Colleen Ryan RN [facility] Card[facility] Start: 04-17-2023 End: 04-17-2023 ambulatory [facility] Start: 03-19-2023 End: 03-19-2023 ambulatory MADHAV MALDONADO Facility:[facility] Start: 03-19-2023 End: 03-19-2023 Patient encounter procedure Madhav Maldonado MD Work Phone: Neurology Comment on above: Cognitive impairment , mild, so stated (Primary Dx) Start: 03-19-2023 End: 03-19-2023 ambulatory DELMY FARFAN Facility:[facility] Start: 03-05-2023 End: 03-05-2023 ambulatory SHAIKH KAROLINE Not Available Start: 12-23-2022 End: 02-03-2024 Telephone encounter Andrew Salomon DO Work Phone: [facility] Start: 07-13-2022 End: 07-13-2022 ambulatory GHISLAINE GROSS Facility:[facility] Start: 04-17-2022 End: 04-18-2022 ambulatory NATACHA DASH Facility:[facility] Start: 03-20-2022 End: 03-21-2022 ambulatory NATACHA DASH Facility:[facility] Start: 02-07-2022 End: 02-07-2022 ambulatory GHISLAINE GROSS Facility:[facility] Start: 09-13-2021 End: 09-14-[address] HUGO RUIZ Facility:[facility] Start: 05-29-2021 End: 05-29-2021 ambulatory Ghislaine Lopez Traeannabelle Renato Facility:[facility] Start: 05-29-2021 End: 05-29-2021 Patient encounter procedure PhD Chaka Atwood Work Phone: [facility] Start: 02-11-2021 End: 02-11-[address] HUGO RUIZ Facility:[facility] Start: 12-02-2020 End: 12-02-[address] ELIDA FRANCOIS Facility:[facility] Procedures Date Procedure Procedure Detail Performing Clinician Start: 11-20-2023 THINPREP IMAGING PAP AND HPV DNA REFLEX HPV 16,18 Carlita Gonzalez CNM Work Phone: Start: 05-22-2023 3d rendering w/interp&postproc diff work station Madhav Maldonado MD Work Phone: Start: 05-22-2023 Mri brain brain stem w/o contrast material Madhav Maldonado MD Work Phone: Start: 12-14-2021 Mammography Carlita Fl marlen CNM Work Phone: Start: 11-14-2016 Colonoscopy Jarvis Peppre se [facility] Work Phone: Plan of Treatment Date Care Activity Detail Author Start: 11-14-2026 Screening for malign ant neoplasm of colon [facility] Start: 02-28-2026 Screening for malign ant neoplasm of colon [facility] Start: 12-07-2025 Screening for malign ant neoplasm of cervix [facility] Start: 12-14-2024 Tobacco Screening Tobacco Screening [facility] Start: 04-22-2024 End: 04-22-2024 Patient encounter procedure 04/22/2024 9:30 AM EST Office Visit [facility] [address] [place] [address] Sherman Busch, DO [address], [place] [address] [facility] Start: 03-26-2024 End: 03-26-2024 Patient encounter procedure 03/26/2024 4:00 PM EST Office Visit [facility] [address] [place] [phone] Candie Hutchins MD [address] [place] [address], [address] [phone] [facility] Start: 02-12-2024 Adult BMI Screening Adult BMI Screen ing [facility] Start: 02-12-2024 Tobacco Screening Tobacco Screening [facility] Start: 12-17-2023 End: 12-17-2023 Patient encounter procedure 12/17/2023 10:00 AM EDT Office Visit Neurology [address] [address] Madhav Maldonado MD [address] [place] [address] Memory Loss Neurology Comment on above: Memory Loss Start: 11-30-2023 COVID-19 Vaccine ( season) COVID-19 Vaccine ( season) [facility] Start: 11-30-2023 Influenza [facility] Start: 11-20-2023 End: 01-19-2025 DBT Breast - bilateral screening Bilateral screening mammogram with tomosynthesis Imaging Routine Breast cancer screening by mammogram Expected: 11/20/2023, Expires: 01/19/2025 [facility] Work Phone: Comment on above: Expected: 11/20/2023 , Expires: 01/19/2025 Start: 11-20-2023 End: 11-20-2023 Patient encounter procedure 11/20/2023 2:00 PM EDT Office Visit [facility] [address] [place] [address] Carlita Gonzalez CNM [address] [place] [address] Arrived [facility] Comment on above: Arrived Start: 10-06-2023 End: 10-06-2023 Social Work 10/06/2023 1:00 PM EDT Social Work Neurology [address] [address] Lindsey Dawn LISW [address] [address] [facility] Neurology Comment on above: [facility] eval Start: 09-26-2023 End: 09-26-2023 Patient encounter procedure 09/26/2023 1:00 PM EDT OT/PT/Speech Visit [facility] [address] [place] [address] Jarvis Block, CCC-[employer]ANGULAR [employer] [address] [place], [place] [id number] SPEECH [facility] Comment on above: SPEECH Start: 09-19-2023 End: 09-19-2023 Patient encounter procedure 09/19/2023 1:00 PM EDT OT/PT/Speech Visit [facility] [address] [place] [address] Jarvis Block, CCC-[employer]ANGULAR [employer] [address] [place] [address] SPEECH [facility] Comment on above: SPEECH Start: 09-12-2023 End: 09-12-2023 Patient encounter procedure 09/12/2023 1:00 PM EDT OT/PT/Speech Visit [facility] [address] [place] [address] Jarvis Block, CCC-[employer]ANGULAR [employer] [address] [place] [address] SPEECH [facility] Comment on above: SPEECH Start: 09-05-2023 End: 09-05-2023 Patient encounter procedure 09/05/2023 1:00 PM EDT OT/PT/Speech Visit [facility] [address] [place] [address] Jarvis Block, [facility] [address] [id number] SPEECH [facility] Comment on above: SPEECH Start: 03-31-2023 Behavioral Health Screening Behavioral Health Screening [facility] Start: 03-31-2023 Depression Assessment Depression Ass essment [facility] Start: 03-19-2023 End: 06-18-2023 Methylmalonate [Moles/volume] in Serum or Plasma [facility] Work Phone: Comment on above: Expected: 03/19/2023 , Expires: 06/18/2023 Start: 03-19-2023 End: 06-18-2023 VITAMIN B1 (THIAMINE), WHOLE BLOOD [facility] Work Phone: Comment on above: Expected: 03/19/2023 , Expires: 06/18/2023 Start: 12-14-2022 Screening for malign ant neoplasm of breast [facility] Start: 11-29-2022 Covid-19 Vaccine ( season) Covid-19 Vaccine ( season) [facility] Start: 11-29-2022 COVID-19 Vaccine ( season) COVID-19 Vaccine ( season) [facility] Start: 11-29-2022 Influenza vaccination C [facility] Start: 03-31-2022 Depression Assessment Depression Ass essment [facility] Start: 05-24-2020 Diabetes Screening Diabetes Screenin g [facility] Start: 11-14-2017 Screening for malign ant neoplasm of colon Colonoscopy [facility] Start: 2016 Administration of varicella zoster vaccine Zoster (Shingles) Vaccine (1 of 2) [facility] Start: 2016 Shingrix Vaccine (1 of 2) Shingrix Vaccine (1 of 2) [facility] Start: 2011 Lipid panel Lipid Screening [facility] Start: 2011 Screening for malign ant neoplasm of colon [facility] Start: 2006 Screening for malign ant neoplasm of breast Mammogram Screening [facility] Start: 1996 Screening for malign ant neoplasm of cervix HPV Testing [facility] Start: 1987 Screening for malign ant neoplasm of cervix [facility] Start: 1985 DTaP,Tdap and Td Vaccines (1 - Tdap) DTaP,Tdap and Td Vaccines (1 - Tdap) [facility] Start: 1985 Hepatitis B Vaccine (1 of 3 - 19+ 3-dose series) Hepatitis B Vaccine (1 of 3 - 19+ 3-dose series) [facility] Start: 1985 Urine microalbumin profile DTaP,Tdap,Td Vaccine (1 - Tdap) [facility] Start: 1984 Hepatitis C screening Hepatitis C Sc reening [facility] Start: 1984 HIV screening HIV Screening [facility] Start: 1978 Depression Screening Depression Scre [facility] Start: 1966 Covid-19 Vaccine (#1) Covid-19 Vacci ne (#1) [facility] Start: 1966 Hepatitis B Vaccine (1 of 3 - 3-dose series) Hepatitis B Vaccine (1 of 3 - 3-dose series) [facility] Start: 1966 Screening for malign ant neoplasm of colon [facility] End: 04-17-2024 MRI 3D POST PROCESSING MRI 3D POST PROCESSING Radiology Routine Cognitive impairment, mild, so stated 1 Occurrences starting 03/19/2023 until 04/17/2024 [facility] Work Phone: Comment on above: 1 Occurrences starti ng 03/19/2023 until 04/17/2024 End: 04-17-2024 MRI BRAIN W QUANT WO IVCON MRI BRAIN W QUANT WO IVCON Radiology Routine Cognitive impairment, mild, so stated 1 Occurrences starting 03/19/2023 until 04/17/2024 [facility] Work Phone: Comment on above: 1 Occurrences starti ng 03/19/2023 until 04/17/2024 SPEECH PLAN OF CARE CERTIFICATION SPEECH PLAN OF CARE CERTIFICATION Procedures Routine Cognitive impairment, mild, so stated Cognitive communication deficit Ordered: 05/22/2023 [facility] Work Phone: Comment on above: Ordered: 05/22/2023 SPEECH PLAN OF CARE CERTIFICATION SPEECH PLAN OF CARE CERTIFICATION Procedures Routine Cognitive impairment, mild, so stated Cognitive communication deficit Ordered: 09/12/2023 [facility] Work Phone: Comment on above: Ordered: 09/12/2023 [place] [facility] Immunizations Immunization Date Immunization Notes Care Provider Charley arreguin 01-27-2020 influenza virus vaccine, unspecified formulation Colleen Ryan RN [facility] Payers Date Payer Category Payer Medicaid [facility] [id number] 2022 Medicaid [id number] 2022 Private Health Insurance [facility] MEDICA[facility] [id number] 1966 Unknown [id number] 2.16840.1.401807.3.579.2. 59 1966 Unknown [id number] 2.16840.1.210449.3.579.2. 59 1966 Unknown [id number] 2.16.840.1.707203.3.579.2. 593 1966 Unknown [id number] 2.16.840.1.107877.3.579.2. 593 1966 Unknown [id number] 2.16.840.1.344825.3.579.2. 593 1966 Unknown [id number] 2.16.840.1.933533.3.579.2. 593 1966 Unknown [id number] 2.16.840.1.804499.3.579.2. 593 1966 Unknown [id number] 2.16.840.1.246666.3.579.2. 1286 1966 Unknown [id number] 2.16.840.1.956475.3.579.2. 1286 1966 Unknown [id number] 2.16.840.1.197012.3.579.2. 1286 1966 Unknown [id number] 2.16.840.1.453993.3.579.2. 1286 1966 Unknown [id number] 2.16.840.1.295994.3.579.2. 1259 1966 Unknown [id number] 2.16.840.1.171401.3.579.2. 1259 1966 Unknown [id number] 2.16.840.1.373403.3.579.2. 1259 1966 Unknown [id number] 2.16.840.1.368477.3.579.2. 1286 1966 Unknown [id number] 2.16.840.1.645338.3.579.2. 1286 1959 Private Health Insurance [id number] 1959 Private Health Insurance [id number] 1959 Self-pay [id number] 1959 Unknown [id number] Unknown [id number] 2.16.840.1.603228.3.579.2. 531 Social History Date Type Detail Facility Tobacco smoking stat us NHIS Unknown if ever smoked [facility] Work Phone: Start: 1965 Sex Assigned At Female F [facility] Start: 03-19-2023 End: 06-09-2023 Tobacco smoking status NHIS Never smoked tobacco [facility] Start: 03-19-2023 End: 06-09-2023 Tobacco use and exposure Smokeless tobacco non-user [facility] Start: 03-19-2023 End: 12-15-2023 Alcohol intake Current non-drinker of alcohol (finding) [facility] Start: 01-01-2023 End: 03-19-2023 History of Social function [facility] [employer] [facility] Start: 01-01-2023 End: 03-19-2023 Tobacco use panel [facility] National Score (1-10 0), lower number is lower risk 60 [facility] Start: 1965 Sex Assigned At Not on file C [facility] Start: 06-09-2023 End: 11-20-2023 Alcoholic beverage intake Lifetime non-drinker (finding) [facility] Do you belong to any clubs or organizations such as cheondoism groups, unions, fraternal or athletic groups, or school groups? No [facility] How often to you hav e a drink containing alcohol? Never [facility] How hard is it for y ou to pay for the very basics like food, housing, medical care, and heating Somewhat hard [facility] Do you feel stress - tense, restless, nervous, or anxious, or unable to sleep at night because your mind is troubled all the time - these days [OSQ] Very much [facility] (I/We) worried wheth er (my/our) food would run out before (I/we) got money to buy more. Sometimes true [facility] In the past 12 month s, was there a time when you were not able to pay the mortgage or rent on time? Yes [facility] Start: 12-10-2022 Alcohol Comment caffeine 1-2 c ups per day [facility] Start: 11-03-2014 Sex Female (finding) [facility] NEGATED: Highlighted rowStart: RUSSELL History of tobacco use Passive smoker [facility] Clinical Notes 10-05-2021 to 02-24-2024 Telephone Encounter - Julieta Isaac - 02/24/2024 1:09 PM ESTTelephone Encounter - Sherman Busch DO - 02/24/2024 1:09 PM ESTTelephone Encounter - Julietarita Isaac - 02/24/2024 1:09 PM EST Note Date & Type Note Facility 02-24-2024 Miscellaneous Notes Is looking for a new pcp, got diagnosed with dementia. Will you accept Okay documented in this encounter [facility] 02-24-2024 Telephone encounter Note Is looking for a new pcp, got diagnosed with dementia. Will you accept [facility] 02-24-2024 Telephone encounter Note Okay [facility] Work Phone: 01-26-2024 Telephone encounter Note Pt called today and left a vm at 11:48 am She said that she is returning a call to Kellen about a lab draw for Hormone testing. (Sent to both Kellen and Angelica.. because I dont know if pt meant Kellen actually called her or if she was just checking in again) :) [facility] 01-26-2024 Miscellaneous Notes Pt called today and left a vm at 11:48 am She said that she is returning a call to [facility] about a lab draw for Hormone testing. (Sent to both Kellen and Angelica.. because I dont know if pt meant Kellen actually called her or if she was just checking in again) :) Pt calling and said she had pap last month, her PCP told her to see if you would order hormone testing- she said she's had hot flashes for about a decade and also having constant urination, always drinking and feeling thirsty. documented in this encounter [facility] 01-23-2024 Telephone encounter Note Pt calling and said she had pap last month, her PCP told her to see if you would order hormone testing- she said she's had hot flashes for about a decade and also having constant urination, always drinking and feeling thirsty. [facility] 11-20-2023 History of Present illness Narrative YEARLY HPI: This is a established patient. Chief Complaint Patient presents with Gynecologic Exam Here for annual exam. 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 complaints: no Changes in healthsince last visit: no Surgeries or hospitalizations since last visit: no control method: none Menses: none Last pap: 12/07/20 Other: History: Past Medical History: Diagnosis Date Acute angina (CMS/HCC) ADHD (attention deficit hyperactivity disorder) (CMS/HCC) Cholecystitis with cholelithiasis 2012 cholecystitis/cholelithiasis Depression (CMS/HCC) Family history of diabetes mellitus (DM) Memory loss CRUZ (obstructive sleep apnea) Other specified hearing loss of left ear, unspecified hearing status on contralateral side Periodic limb movement disorder Restless leg syndrome Thyroid disease (CMS/HCC) Past Surgical History: Procedure Laterality Date APPENDECTOMY BREAST BIOPSY SECTION, LOW TRANSVERSE 2006 CHOLECYSTECTOMY [address] ANGIOGRAM HEART CORONARY 04/17/2023 CT ANGIOGRAM HEART CORONARY 04/17/2023 FIBULA FRACTURE SURGERY 2002 FRACTURE SURGERY Right 2002 repair tib/fib fx Family History Problem Relation Name Age of Onset Hyperlipidemia Mother Tohkxog-Eqqib-Cifvs disease Mother Neuropathy Mother Heart disease Father Cancer Father Heart attack Father Mitral valve prolapse Brother Breast cancer Maternal Grandmother Heart attack Paternal Grandmother Alcohol abuse Other Family history Coronary artery disease Other Family history Allergies: Allergies Allergen Reactions Naproxen Hives Other Reaction(s): hives Medications: Current Outpatient Medications on File Prior to Visit Medication Sig Dispense Refill biotin 10 MG capsule Take 1 capsule by mouth in the morning and 1 capsule before bedtime. Bromelains (BROMELAIN PO) Take 1 tablet by mouth in the morning. desvenlafaxine succinate ER 25 MG 24 hour tablet Take 1 tablet by mouth in the morning. omega-3 1000 MG capsule capsule Take 1 tablet by mouth in the morning. TURMERIC PO Take 1 tablet by mouth in the morning. [DISCONTINUED] losartan (Cozaar) 25 MG tablet TAKE 1 TABLET BY MOUTH DAILY 100 tablet 1 [DISCONTINUED] thiamine (Vitamin B-1) 100 MG tablet Take 1 tablet (100 mg) by mouth Daily 30 tablet 11 No current facility-administered medications on file prior to visit. ROS: Review of Systems All other systems reviewed and are negative. Vitals: 11/20/23 1407 BP: 110/70 Physical exam: Physical Exam Vitals reviewed. Constitutional: Appearance: Normal appearance. HENT: Head: Normocephalic. Right Ear: Tympanic membrane normal. Left Ear: Tympanic membrane normal. Mouth/Throat: Mouth: Mucous membranes are moist. Eyes: Pupils: Pupils are equal, round, and reactive to light. Cardiovascular: Rate and Rhythm: Normal rate and regular rhythm. Pulses: Normal pulses. Heart sounds: Normal heart sounds. Pulmonary: Effort: Pulmonary effort is normal. Breath sounds: Normal breath sounds. Chest: Breasts: Right: Normal. Left: Normal. Abdominal: General: Abdomen is flat. Bowel sounds are normal. Palpations: Abdomen is soft. Tenderness: There is no abdominal tenderness. Genitourinary: General: Normal vulva. Exam position: Lithotomy position. Vagina: Normal. No tenderness. Cervix: Normal. No cervical motion tenderness. Uterus: Normal. Adnexa: Right adnexa normal and left adnexa normal. Musculoskeletal: General: Normal range of motion. Cervical back: Normal range of motion and neck supple. Skin: General: Skin is warm and dry. Neurological: General: No focal deficit present. Mental Status: She is alert and oriented to person, place, and time. Psychiatric: Mood and Affect: Mood normal. Assessment and Plan: 1. Annual exam 2. SBE discussed: Yes 3. Diet and exercise discussed: Yes 4. Wt control discussed: No 5. Safe sex discussed: No Yanique was seen today for gynecologic exam. Diagnoses and all orders for this visit: Normal gynecologic examination Screening for cervical cancer No follow-ups on file. There are no Patient Instructions on file for this visit. Ghislaine Ferraro MA, 11/20/2023 2:32 PM documented in this encounter [facility] 10-06-2023 Miscellaneous Notes RN called patient per request of Lindsey Dawn and informed her that MRI could not [...] Yolanda Gonzalez RN documented in this encounter [facility] 10-06-2023 Telephone encounter Note RN called patient per request of Lindsey Dawn and informed her that MRI could not [...] to call back tomorrow. Yolanda Gonzalez RN [facility] 10-06-2023 Telephone encounter Note RN called patient per request of Lindsey Dawn and informed her that MRI could not [...] to call back tomorrow. Yolanda Gonzalez RN [facility] 10-06-2023 Miscellaneous Notes RN called patient per request of Lindsey Dawn and informed her that MRI could not [...] to call back tomorrow. Yolanda Gonzalez RN Contacted pt regarding scheduled virtual visit; pt reports she was not aware of the visit. Pt expressed frustration with plan of care. Pt reports impression of plan was to get another MRI and then follow-up with Dr. Maldonado to obtain a diagnosis. Advised that per message from animal daycare provider insurance will not cover more than one MRI per year (last was 05/2023). Pt became emotional reporting immense frustration with the process. Reviewed plans from visits with Dr. Maldonado on 03/19/23 and 05/22/2023. Pt reported she completed the MRI and is awaiting local [employer] referrals from speech therapist to continue visits. Pt became increasingly upset with pscyhology referral was addressed stating No one here does that shit and I don't have the time. I don't have PTO or sick time to take away from my job to do these things . Pt reports financial resource strain; when MARKET RESEARCH INTERVIEWER attempted to address pt abruptly ended the call. Will discuss plan with medical team and request local speech therapies with [facility] therapist. DAVID Marquis documented in this encounter [facility] 10-06-2023 Telephone encounter Note Duplicate encounter opened in error. See previous telephone encounter for details of call. [facility] Work Phone: 10-06-2023 Miscellaneous Notes Duplicate encounter opened in error. See previous telephone encounter for details of call. documented in this encounter [facility] 10-06-2023 Telephone encounter Note Contacted pt regarding scheduled virtual visit; pt reports she was not aware of the visit. Pt expressed frustration with plan of care. Pt reports impression of plan was to get another MRI and then follow-up with Dr. Maldonado to obtain a diagnosis. Advised that per message from animal daycare provider insurance will not cover more than one MRI per year (last was 05/2023). Pt became emotional reporting immense frustration with the process. Reviewed plans from visits with Dr. Maldonado on 03/19/23 and 05/22/2023. Pt reported she completed the MRI and is awaiting local [employer] referrals from speech therapist to continue visits. Pt became increasingly upset with pscyhology referral was addressed stating No one here does that shit and I don't have the time. I don't have PTO or sick time to take away from my job to do these things . Pt reports financial resource strain; when MARKET RESEARCH INTERVIEWER attempted to address pt abruptly ended the call. Will discuss plan with medical team and request local speech therapies with [facility] therapist. DAVID Marquis [facility] Work Phone: 09-19-2023 Note HNO ID: [id number] Author: JARVIS BLOCK CCC-RECTANGULAR TANK COOPER Service: ? Author Type: Speech Language Pathologist Type: Progress Notes Filed: 09/19/2023 13:40 Note Text: [facility] Speech Language Pathology Progress Note September 19, 2023 Patient did not show for scheduled appointment. Called patient. No response and voice mailbox full. Patient returned this clinicians call within 5 minutes. She quickly became emotional and agitated when discussing requirements for virtual visits (i.e.access to [employer] for secure Zoom access). 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 Listened with HEART. Shared with patient that Dr. Maldonado placed a referral to social work and that social work attempted to connect with her on 09/13/2023 (phone call and [employer] message sent). Patient insists she received no call and again declared that she was unable to access information on [employer]. Given the aforementioned access issues, transfer of care to a Speech Language Pathologist closer to home is advised. Patient again reported feelings of helplessness and hopelessness. Empathy provided and patient encouraged to contact this clinician with any further questions or should circumstances change. Jarvis Block M.A. [facility] Speech Language Pathology Cell/Pager: [phone] [facility] 09-19-2023 History of Present illness Narrative [facility] Speech Language Pathology Progress Note September 19, 2023 Patient did not show for scheduled appointment. Called patient. No response and voice mailbox full. Patient returned this clinicians call within 5 minutes. She quickly became emotional and agitated when discussing requirements for virtual visits (i.e.access to [employer] for secure Zoom access). 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 Listened with HEART. Shared with patient that Dr. Maldonado placed a referral to social work and that social work attempted to connect with her on 09/13/2023 (phone call and [employer] message sent). Patient insists she received no call and again declared that she was unable to access information on [employer]. Given the aforementioned access issues, transfer of care to a Speech Language Pathologist closer to home is advised. Patient again reported feelings of helplessness and hopelessness. Empathy provided and patient encouraged to contact this clinician with any further questions or should circumstances change. Jarvis Block M.A. [facility] Speech Language Pathology Cell/Pager: [phone] Electronically signed by Jarvis Block [facility] at 09/19/2023 1:40 PM EDT documented in this encounter [facility] 09-13-2023 Telephone encounter Note Summary: Appointment 09/13/23 - [facility] message sent / reminder mailed for [facility] SW VV eval. - GL [facility] 09-13-2023 Miscellaneous Notes Summary: Appointment 09/13/23 - [facility], [facility] message sent / reminder mailed for [facility] VV eval. - GL documented in this encounter [facility] 09-12-2023 Instructions Jarvis Block CCC-SLP - 09/12/2023 2:03 PM EDT Speech Recommendations [...] demands are higher). documented in this encounter [facility] 09-12-2023 Note HNO ID: [id number] Author: JARVIS BLOCK CCC-SLP Service: ? Author Type: Speech Language Pathologist Type: Progress Notes Filed: 09/12/2023 14:13 Note Text: [facility] SPEECH-LANGUAGE PATHOLOGY RE-EVALUATION / RE-CERTIFICATION - [...] Dr. Maldonado to request referral within the [facility] - goal completed 09/12/2023 Patient will establish [...] strategies PLAN OF CARE UPDATE: Name: Yanique Kaur : May 22, [birth year]23 CC#: [id number] Referring physician: Madhav Maldonado Date of Onset: [...] ASSESSMENT: Summary of progress towards goals: Yanique Kaur is not progressing toward goals. Patient demonstrates [...] consecutive sessions. F (more content not included)... [facility] 09-12-2023 History of Present illness Narrative [facility] SPEECH-LANGUAGE PATHOLOGY RE-EVALUATION / RE-CERTIFICATION - [...] Dr. Maldonado to request referral within the [facility] - goal completed 09/12/2023 Patient will establish [...] strategies PLAN OF CARE UPDATE: Name: Yanique Kaur : May 22, 2023 CC#: [id number] Referring physician: Madhav Maldonado Date of Onset: [...] ASSESSMENT: Summary of progress towards goals: Yanique Kaur is not progressing toward goals. Patient demonstrates [...] care as listed above. Jarvis Block M.A. [facility] Speech Language Pathology Cell/Pager: [phone] PATIENT EDUCATION Results and recommendations, Plan of care, and Informational handouts Billing: Virtual Visit: Verified the correct individual and the ability to speak confidentially via name and date of . Patient consented to receive health care services via virtual visit for this encounter Patient has verified that they are currently in the [facility] during this virtual visit. Risks, benefits, and [...] Making: see assessment above Visit conducted from: [facility] SPEECH THERAPY Patient location at time of visit: [place] Virtual visit billable time: 40 minutes NEXT TREATMENT PRIORITY: - able to set an alarm and to improve organization / structure to papers - note writing (unified) - choosing a few things to complete - word finding strategies helpful? Jarvis Block M.A. [facility] [employer] Speech Language Pathology Cell/Pager: [phone] documented in this encounter [facility] 09-03-2023 Telephone encounter Note Patient called to inform her that she had MRI in May.--mail box is full will send [facility] message that The insurance does not usually pay for more than one MRI per year and we cannot request one at this point given last MRI in May per Dr. Maldonado. Yolanda Gonzalez RN [facility] 09-03-2023 Miscellaneous Notes Patient called to [...] Pateint would like a call to confirm [phone] documented in this encounter [facility] 09-03-2023 Telephone encounter Note General scheduling called - patient called to schedule MRI but no order on file - needs order placed. Pateint would like a call to confirm [phone] [facility] 05-22-2023 Instructions Jarvis Block CCC-RECTANGULAR TANK COOPER - 05/22/2023 3:23 PM EST Speech Recommendations [...] demands are higher). documented in this encounter [facility] 05-22-2023 Note HNO ID: [id number] Author: MADHAV MALDONADO MD Service: ? Author Type: Physician Type: Progress Notes Filed: 05/22/2023 14:02 Note Text: Ms.Lori Carla Kaur is a 58 year old woman here [...] clinical documentation and on counseling/educating the patient/family. [facility] 05-22-2023 History of Present illness Narrative Ms.Lori Carla Kaur is a 58 year old woman here [...] counseling/educating the patient/family. documented in this encounter [facility] 05-22-2023 Instructions Madhav Maldonado MD - [...] in daily routine documented in this encounter [facility] 05-22-2023 Nurse Note Yanique Kaur is a 58 year old year old woman accompanied by: patient. Do you have any changes or new concerns you would like to address at the visit today? No concerns Vital Signs: BP 119/70 Pulse 67 Wt 70.7 kg (155 lb 14.4 oz) LMP (LMP Unknown) BMI 22.37 kg/m documented in this encounter [facility] 05-22-2023 Note HNO ID: [id number] Author: JARVIS BLOCK, [facility] Service: ? Author Type: Speech Language Pathologist Type: Progress Notes Filed: 05/22/2023 19:57 Note Text: [facility] SPEECH LANGUAGE PATHOLOGY CONSULT COGNITIVE COMMUNICATION EVALUATION May 22, 2023 PLAN OF CARE UPDATE: Name: Yanique Kaur : May 22, [birth year]23 CC#: [id number] Referring physician: Madhav Maldonado Date of Onset: [...] RECOMMENDATIONS: Outpatient speech therapy Jarvis Block M.A. 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 VISION: Wears glasses HEARING: Appeared functional in a quiet room SOCIAL HISTORY: 17 year old son with Autism, [employer] business SOCIAL ENGAGEMENT / INTERESTS: - I [...] well formed, g (more content not included)... [facility] 05-22-2023 History of Present illness Narrative [facility] SPEECH LANGUAGE PATHOLOGY CONSULT COGNITIVE COMMUNICATION EVALUATION May 22, 2023 PLAN OF CARE UPDATE: Name: Yanique Aguirre Kaur : May 22, [birth year]23 CC#: [id number] Referring physician: Madhav Maldonado Date of Onset: [...] RECOMMENDATIONS: Outpatient speech therapy Jarvis Block M.A. 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 VISION: Wears glasses HEARING: Appeared functional in a quiet room SOCIAL HISTORY: 17 year old son with Autism, [employer] business SOCIAL ENGAGEMENT / INTERESTS: - I [...] on phone (primary), also carries around a corporate event planner housing notes / reminders, uses alarms [...] with consistent CPAP use? Jarvis Block M.A. [facility] Speech Language Pathology Cell/Pager: [phone] documented in this encounter [facility] 05-22-2023 History of Present illness Narrative Radiology Service Progress Note PATIENT NAME: Yanique Kaur DATE OF SERVICE: May 22, 2023 TIME: [...] PATIENT PRESENTS WITH AN IMPLANTABLE OR ATTACHED TILT TRAY DRIVER: No RADIOLOGY DEPARTMENT: MR; Exam(s) Completed: Head: Routine Brain +adni PERIPHERAL IV DATA: Not applicable SIGNED BY: RT Jenelle(R) May 22, 2023 8:37 AM documented in this encounter [facility] 05-22-2023 Note HNO ID: [id number] Author: MOHINI SWANSON RT(R) Service: Radiology Author Type: Technologist Type: Progress Notes Filed: 05/22/2023 08:46 Note Text: Radiology Service Progress Note PATIENT NAME: Yanique Kaur DATE OF SERVICE: May 22, 2023 TIME: [...] PATIENT PRESENTS WITH AN IMPLANTABLE OR ATTACHED TILT TRAY DRIVER: No RADIOLOGY DEPARTMENT: MR; Exam(s) Completed: Head: Routine Brain +adni PERIPHERAL IV DATA: Not applicable SIGNED BY: RT Jenelle(R) May 22, 2023 8:37 AM [facility] 05-01-2023 Miscellaneous Notes Received p/c from pt. Would like to start a carnivore Diet- States is all meats and animal products. Would like Dr.Malas graham. Diets of this nature are not necessarily recommended for long-term maintenance but rather perhaps short term weight loss in a rapid fashion The concern would be about excessive sodium as well as cholesterol intake, and insufficient plant based proteins, nutrients, fiber, and minerals Would recommend [place] [employer] diet which can be found on their website www.heart.org for balanced nutritional intake as opposed to predominantly meat based diet Please let us know if any further questions or concerns Thank you Response called to pt documented in this encounter [facility] 05-01-2023 Telephone encounter Note Received p/c from pt. Would like to start a carnivore Diet- States is all meats and animal products. Would like opinion. [facility] 05-01-2023 Telephone encounter Note Diets of this nature are not necessarily recommended for long-term maintenance but rather perhaps short term weight loss in a rapid fashion The concern would be about excessive sodium as well as cholesterol intake, and insufficient plant based proteins, nutrients, fiber, and minerals Would recommend [place] [employer] diet which can be found on their website www.heart.org for balanced nutritional intake as opposed to predominantly meat based diet Please let us know if any further questions or concerns Thank you [facility] 05-01-2023 Telephone encounter Note Response called to pt [facility] 03-19-2023 Note HNO ID: [id number] Author: Madhav Maldonado MD Service: ? Author Type: Physician Type: Progress Notes Filed: 03/20/2023 8:42 AM Note Text: Yanique Kaur 1965 [address] [facility] [address] March 19, 2023 Time: 11:48 AM EVALUATION/CONSULT NOTE History of Present Illness Yanique Kaur is a 57 year old right handed woman seen today for memory concerns. 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 [...] normal Name- able to give complete name Elizabeth Cognitive Assessment (MoCA) MoCA Past Scores MoCA 03/19/2023 MOCA TOTAL SCORE 21 out of 30 Visuospatial/ Executive 4 Naming 3 Attention 4 Language 2 Abstraction 2 Delayed Recall 0 Orientation 6 Education Level 0 DEMENTIA MSE Orientation - Alert: Normal - Attention:Normal - Name: Normal - Day:Normal - Date: Normal - Month: Normal - Year: Normal Repeat phrase: BETH RUIZ, [address] [place] [address] Memory - Who is the president now: Normal - Who was before him: Normal - Who was involved in [place]: Normal Calculation - $5.00 - ($0.40 X [...] 51: Abnormal - [address]: Abnormal - [place]: Normal Language Function - Naming : Normal [...] astereoagnosia, or neglect (more content not included)... [facility] 03-19-2023 History of Present illness Narrative Images from the original note were not included. Yanique Kaur 1965 [address] [facility] [address] March 19, 2023 Time: 11:48 AM EVALUATION/CONSULT NOTE History of Present Illness Yanique Kaur is a 57 year old right handed woman seen today for memory concerns. 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 [...] - Year: Normal Repeat phrase: BETH RUIZ, [address] [place] [address] Remote Memory - Who is the [place] president now: Normal - Who was before him: Normal - Who was involved in [place]: Normal Calculation - $5.00 - ($0.40 X [...] 51: Abnormal - Marker st: Abnormal - [place]: Normal Language Function - Naming : Normal [...] -Follow up after tests Madhav Maldonado MD [facility] I spent 80 min on the date of service which included preparing to see the patient, face to face patient care, performing medically appropriate examination, completing clinical documentation and on counseling/educating the patient/family. documented in this encounter [facility] 03-19-2023 Note HNO ID: [id number] Author: Delmy Farfan MD Service: ? Author Type: Physician Type: Progress Notes Filed: 04/02/2023 10:16 AM Note Text: No show Connection aborted at 10:20 [facility] 12-23-2022 Miscellaneous Notes Yanique called and left a message on the voicemail that she has the flu and needs to cancel her colonoscopy for 12/23/22. I returned the patient's call and we will reschedule the surgery. documented in this encounter [facility] 12-23-2022 Telephone encounter Note Yanique called and left a message on the voicemail that she has the flu and needs to cancel her colonoscopy for 12/23/22. [facility] 12-23-2022 Telephone encounter Note I returned the patient's call and we will reschedule the surgery. [facility] 02-08-2022 Note PROCEDURE: [employer] VCT 64, 5 mm slice axial images [...] signed by Cosme Valentin on 02/08/2022 1442 [facility] 12-14-2021 Note HISTORY: Short tern memory loss [...] signed by Cosme Valentin on 12/17/2021 1416 [facility] 10-05-2021 Note HISTORY: Right side headache x [...] signed by Cosme Valentin on 10/05/2021 0931 [facility] Evaluation note No assessment inform [facility] Work Phone: Evaluation note Diagnosis Cognitive impairment, mild, so stated- Primary Mild cognitive impairment, so stated documented in this encounter [facility] note* Diagnosis CRUZ on CPAP- Primary Obstructive sleep apnea (adult) (pediatric) documented in this encounter [facility] note* Diagnosis Cognitive communication deficit- Primary Cognitive impairment, mild, so stated Mild cognitive impairment, so stated documented in this encounter [facility] note* Diagnosis Cognitive impairment, mild, so stated Mild cognitive impairment, so stated documented in this encounter [facility] note* Diagnosis Cognitive impairment, mild, so stated- Primary Mild cognitive impairment, so stated Cognitive communication deficit documented in this encounter [facility] note* Diagnosis Cognitive impairment, mild, so stated- Primary Mild cognitive impairment, so stated documented in this encounter [facility] note* Diagnosis No-show for appointment- Primary documented in this encounter [facility] note* Diagnosis Normal gynecologic examination Screening for cervical cancer Screening for malignant neoplasm of the cervix Breast cancer screening by mammogram documented in this encounter [facility]InstructionsNot on filedocumented in this encounterProMedimo Health SystemInstructionsNot on filedocumented in this encounterProMer[facility] SystemInstructionsNot on filedocumented in this encounterProMer[facility] System Chief Complaint and Reason for Visit Chief Complaint Cognitive Disability Advance Directives Advance Directive Response Recorded Date/ Time Advance [...] stated Procedures CONSULT TO SPEECH THERAPY OFFICE/OUTPATIENT [facility] 60-74 MINUTES Madhav Maldonado MD [address] [place] [address] [facility] [place] [address] Referral ID Status Reason Start Date Expiration Date Visits Requested Visits Authorized [id number] Pending Review Auto-Generat ed Referral 3 03/18/2024 1 1 Specialty Diagnoses / Procedures Referred By Gracia andrea Referred To Contact Psychology Diagnoses Cognitive impairment, mild, so stated Procedures CONSULT TO PSYCHOLOGY OFFICE/OUTPATIENT [facility] 60-74 MINUTES Madhav Maldonado MD [address] [place] [address] Referral ID Status Reason Start Date Expiration Date Visits Requested Visits Authorized [id number] Pending Review PCP Requested Referral 3 03/18/2024 1 1 Specialty Diagnoses / Procedures Referred By Gracia andrea Referred To Contact MR IMAGING Diagnoses Cognitive impairment, mild, so stated Procedures MRI 3D POST PROCESSING 3D RENDERING W/INTERP&POSTPROC DIFF WORK STATION Madhav Maldonado MD [address] [place] [address] [facility] [place] [address] Referral ID Status Reason Start Date Expiration Date Visits Requested Visits Authorized [id number] Authorized Auto-Generat ed Referral 3 04/17/2024 1 1 Specialty Diagnoses / Procedures Referred By Contac t Referred To Contact MR IMAGING Diagnoses Cognitive impairment, mild, so stated Procedures MRI BRAIN W QUANT WO IVCON MRI BRAIN BRAIN STEM W/O CONTRAST MATERIAL Madhav Maldonado MD [address] [place] [address] [facility] [place] [address] Referral ID Status Reason Start Date Expiration Date Visits Requested Visits Authorized [id number] Pending Review Auto-Generat ed Referral 3 04/17/2024 1 1 Specialty Diagnoses / Procedures Referred By Contac t Referred To Contact Diagnoses CRUZ on CPAP Procedures CONSULT TO SLEEP MEDICINE - ADULT OFFICE/OUTPATIENT [facility] 60 MINUTES Madhav Maldonado MD [address] [place] [address] Referral ID Status Reason Start Date Expiration Date Visits Requested Visits Authorized [id number] Authorized PCP Requested Referral 05/22/2023 05/21/2024 1 1 Specialty Diagnoses / Procedures Referred By Trenaac t Referred To Contact [facility] Diagnoses Cognitive impairment, mild, so stated Cognitive communication deficit Procedures SPEECH REHAB FOLLOW UP ORDER TX SPEECH LANG VOICE COMMJ &/AUDITORY PROC IND Madhav Maldonado MD [address] [place] [address] [facility] [place] [address] Referral ID Status Reason Start Date Expiration Date Visits Requested Visits Authorized [id number] Pending Review PCP Requested Referral Auto-Generate d Referral 05/22/2023 08/20/2023 1 1 Referral ID Status Reason Start Date Expiration Date V isits Requested Visits Authorized [id number] Closed Auto-Generate d Referral 03/19/2023 04/17/2024 1 1 Referral ID Status Reason Start Date Expiration Date Visits Requested Visits Authorized [id number] Pending Peer to Peer Review Auto-Genera jeannie [...] Ghislaine Gross MD Primary Care Provider Active Hospital Staff Pharmacist Relationship Specialty Start Date End Date Ghislaine Gross [address] [facility] [place] [phone] PCP - General Family Medicine 05/25/17 Roque Johnston MD [address] [facility] [address] [place] [address], [place] [address] Referring Neurology 01/27/23 Hospital Staff Pharmacist Relationship Specialty Start Date End Date Ghislaine Gross MD [address] [facility] [place] [address] PCP - General Family Medicine 11/14/16 Hospital Staff Pharmacist Relationship Specialty Start Date End Date Ghislaine Gross [address] [place] [phone] PCP - General Family Medicine 05/25/17 Roque Johnston MD [address] [place] [address], [place] [address] Referring Neurology 01/27/23 Hospital Staff Pharmacist Relationship Specialty Start Date End Date Ghislaine Gross [address] [facility] [place] [phone] PCP - General Family Medicine 05/25/17 Roque Johnston MD [address], [place] [address] Referring Neurology 01/27/23 Hospital Staff Pharmacist Relationship Specialty Start Date End Date Ghislaine Gross [address] [place] [phone] PCP - General Family Medicine 05/25/17 Roque Johnston MD [address] T[address]z [address] [place] [address] Referring Neurology 01/27/23 Hospital Staff Pharmacist Relationship Specialty Start Date End Date Ghislaine Gross [facility] [place] [phone] PCP - General Family Medicine 05/25/17 Roque Johnston MD [address] [facility] [address] [place] [address], [place] [address] Referring Neurology 01/27/23 Hospital Staff Pharmacist Relationship Specialty Start Date End Date Ghislaine Gross [address] [place] [phone] PCP - General Family Medicine 05/25/17 Roque Johnston MD [address] [facility] [address] [place] [address], [place] [address] Referring Neurology 01/27/23 Hospital Staff Pharmacist Relationship Specialty Start Date End Date Ghislaine Gross [address] [place] [phone] PCP - General Family Medicine 05/25/17 Roque Johnston MD [address] [facility] [address] [place] [address], [place] [address] Referring Neurology 01/27/23 Hospital Staff Pharmacist Relationship Specialty Start Date End Date Renato Ghislaine Pack [address] [place] [phone] PCP - General Family Medicine 05/25/17 Roque Johnston MD [address] [facility] [address] [place] [address], [place] [address] Referring Neurology 01/27/23 Hospital Staff Pharmacist Relationship Specialty Start Date End Date Ghislaine Gross Ramone [address] [place] [phone] PCP - General Family Medicine 05/25/17 Roque Johnston MD [address] [facility] [address] [place] [address], [place] [address] Referring Neurology 01/27/23 Hospital Staff Pharmacist Relationship Specialty Start Date End Date Ghislaine Gross Ramone [address] [place] [phone] PCP - General Family Medicine 05/25/17 Roque Johnston MD [address] [place] [address], [place] [phone] Referring Neurology 01/27/23 Hospital Staff Pharmacist Relationship Specialty Start Date End Date Ghislaine Gross [address] [place] [phone] PCP - General Family Medicine 05/25/17 Roque Johnston MD [address] [facility] [address] [address] Referring Neurology 01/27/23 Hospital Staff Pharmacist Relationship Specialty Start Date End Date Shaikh Pool MD [address] [place] [phone] PCP - [facility] 09/29/23 Beth Roque MD [address] [place], [place] [phone] PCP - General Family [facility] 12/12/23 Hospital Staff Pharmacist Relationship Specialty Start Date End Date Ghislaine Gross MD [address] [place], [place] [phone] PCP - General Family Medicine 11/14/16 Hospital Staff Pharmacist Relationship Specialty Start Date End Date Shaikh Pool MD [address] [place] [phone] PCP - General Internal Medicine 04/21/23 12/11/23 Shaikh Pool MD [address] [place] [phone] PCP - [facility] 09/29/23 Hospital Staff Pharmacist Relationship Specialty Start Date End Date Shaikh Pool MD [address] [place] [address] PCP - General Internal Medicine 04/21/23 Shaikh Pool MD [address] [place] [address] [facility] - [facility] 09/29/23 Goals (unrecognized section and content) Goals may be documented in a n alternate sectionNot on filedocumented as of this encounterNot on filedocumented as of this encounterNot on filedocumented as of this encounter INFORMATION SOURCE (unrecogn ized section and content) DATE CREATED AUTHOR 09/17/2021 [facility] DATE CREATED AUTHOR AUTHOR'S ORGANIZ ATION 02/09/2022 [facility] Specialist DATE CREATED AUTHOR AUTHOR'S ORGANIZ ATION 07/16/2022 [facility] DATE CREATED AUTHOR AUTHOR'S ORGANIZ ATION 10/13/2023 [facility] DATE CREATED AUTHOR AUTHOR'S ORGANIZ ATION 11/06/2023 [facility] DATE CREATED AUTHOR AUTHOR'S ORGANIZ ATION 11/24/2023 [facility] Specialists [facility] DATE CREATED AUTHOR AUTHOR'S ORGANIZ ATION 12/17/2023 [facility] DATE CREATED AUTHOR AUTHOR'S ORGANIZ ATION 12/17/2023 [facility] Source Comments (unrecognize d section and content) In the event this informatio n is protected by the Federal Confidentiality of Alcohol and Drug Abuse Patient Records regulations: The Federal rules restrict any use of the information to criminally investigate or prosecute any alcohol or drug abuse patient.[facility] the event this information is protected by the Federal Confidentiality of Alcohol and Drug Abuse Patient Records regulations: The Federal rules restrict any use of the information to criminally investigate or prosecute any alcohol or drug abuse patient.[facility] the event this information is protected by the Federal Confidentiality of Alcohol and Drug Abuse Patient Records regulations: The Federal rules restrict any use of the information to criminally investigate or prosecute any alcohol or drug abuse patient.[facility] the event this information is protected by the Federal Confidentiality of Alcohol and Drug Abuse Patient Records regulations: The Federal rules restrict any use of the information to criminally investigate or prosecute any alcohol or drug abuse patient.[facility] the event this information is protected by the Federal Confidentiality of Alcohol and Drug Abuse Patient Records regulations: The Federal rules restrict any use of the information to criminally investigate or prosecute any alcohol or drug abuse patient.[facility] Hospital[facility] the event this information is protected by the Federal Confidentiality of Alcohol and Drug Abuse Patient Records regulations: The Federal rules restrict any use of the information to criminally investigate or prosecute any alcohol or drug abuse patient.[facility] Hospital[facility] the event this information is protected by the Federal Confidentiality of Alcohol and Drug Abuse Patient Records regulations: The Federal rules restrict any use of the information to criminally investigate or prosecute any alcohol or drug abuse patient.[facility] Hospital[facility] the event this information is protected by the Federal Confidentiality of Alcohol and Drug Abuse Patient Records regulations: The Federal rules restrict any use of the information to criminally investigate or prosecute any alcohol or drug abuse patient.[facility] Hospital[facility] the event this information is protected by the Federal Confidentiality of Alcohol and Drug Abuse Patient Records regulations: The Federal rules restrict any use of the information to criminally investigate or prosecute any alcohol or drug abuse patient.[facility] the event this information is protected by the Federal Confidentiality of Alcohol and Drug Abuse Patient Records regulations: The Federal rules restrict any use of the information to criminally investigate or prosecute any alcohol or drug abuse patient.[facility] Hospital[facility] the event this information is protected by the Federal Confidentiality of Alcohol and Drug Abuse Patient Records regulations: The Federal rules restrict any use of the information to criminally investigate or prosecute any alcohol or drug abuse patient.[facility] the event this information is protected by the Federal Confidentiality of Alcohol and Drug Abuse Patient Records regulations: The Federal rules restrict any use of the information to criminally investigate or prosecute any alcohol or drug abuse patient.[facility] Hospital[facility] the event this information is protected by the Federal Confidentiality of Alcohol and Drug Abuse Patient Records regulations: The Federal rules restrict any use of the information to criminally investigate or prosecute any alcohol or drug abuse patient.[facility] Hospital[facility] the event this information is protected by the Federal Confidentiality of Alcohol and Drug Abuse Patient Records regulations: The Federal rules restrict any use of the information to criminally investigate or prosecute any alcohol or drug abuse patient.[facility] Hospital[facility] the event this information is protected by the Federal Confidentiality of Alcohol and Drug Abuse Patient Records regulations: The Federal rules restrict any use of the information to criminally investigate or prosecute any alcohol or drug abuse patient.[facility] Reason for Visit (unrecogniz ed section and content) Reason Comments No Show Specialty Diagnoses / Procedures Referred By Gracia t Referred To Contact [facility] Diagnoses G31.84ICD-10-CM Cognitive impairment, mild, so stated Procedures THERAPEUTIC EXERCISES RE, EA 15 MIN. Madhav Maldonado MD [address] [place] [address] [facility] [place] [address] Referral ID Status Reason Start Date Expiration Date V isits Requested Visits Authorized [id number] Authorized 09/09/2023 01/29/2024 30 30 Reason Comments Follow Up Specialty Diagnoses / Procedures Referred By Gracia andrea Referred To Contact MR IMAGING Diagnoses Cognitive impairment, mild, so stated Procedures MRI BRAIN W QUANT WO IVCON MRI BRAIN BRAIN STEM W/[place] [address] [place] [address] Mr Imaging [place] [address] Referral ID Status Reason Start Date Expiration Date Visits Requested Visits Authorized [id number] Pending Peer to Peer Review Auto-Genera jeannie Referral Patient Cleared - Admin/Chair man/Directo r advise to proceed or did not respond 05/09/2023 07/08/2023 2 2 Reason Comments Speech Evaluation Specialty Diagnoses / Procedures Referred By Contac t Referred To Contact [facility] Diagnoses Cognitive impairment, mild, so stated Procedures CONSULT TO SPEECH THERAPY OFFICE/OUTPATIENT [facility] 60-74 MINUTES Madhav Maldonado MD [address] [place] [address] [facility] [place] [address] Referral ID Status Reason Start Date Expiration Date V isits Requested Visits Authorized [id number] Closed Auto-Generate d Referral 03/31/2023 03/30/2024 1 1 Reason Comments Radiology MRI Specialty Diagnoses / Procedures Referred By Contac t Referred To Contact MR IMAGING Diagnoses Cognitive impairment, mild, so stated Procedures MRI 3D POST PROCESSING 3D RENDERING W/INTERP&POSTPROC [place] [address] [place] [address] Mr [facility] [place] [address] Referral ID Status Reason Start Date Expiration Date V isits Requested Visits Authorized [id number] Closed Auto-Generate d Referral 03/19/2023 04/17/2024 1 1 Reason Comments MRI Order Reason Comments Speech Therapy Reason Comments Appointment 09/13/23 - [facility] ssage sent / reminder mailed for [facility] rg.- GL Reason Comments Appointment Reason Comments Returning Patient's Call Received voicem ail from patient requesting contact information for local speech providers. This information was previously provided to patient via [employer] and email on 09/19/2023. A second email listing the local speech providers was sent to patient on 10/03/2023 via email (patients preferred mode of communication). Called patient. Clarified that local speech providers were sent to her via email. Patient currently driving and planning to look at her email once home. Reason Comments Gynecologic Exam FOR RECORDS PERTAINING TO PATIENTS WHO ARE [...] BE BASED ON THE PRIMARY CLINICAL RECORDS. [id number] [facility]. provides no warranty or guarantee of the accuracy or completeness of information in this document.
[2024-03-23 08:02] LABS: Basophils Absolute Auto 0.1 10^3/uL (0.0-0.1); Basophils Percent Auto 1.4 % (0.2-2.0); Eosinophils Absolute Auto 0.2 10^3/uL (0.0-0.7); Eosinophils Percent Auto 5.6 % (0.9-7.0); Hematocrit 44.2 % (36.0-48.0); Hemoglobin 14.2 g/dL (12.0-16.0); Immature Granulocytes Abs Auto 0.01 10^3/uL (0.00-0.03); Immature Granulocytes Pct Auto 0.2 % (0.0-0.5); Lymphocytes Absolute Auto 1.4 10^3/uL (1.2-3.8); Lymphocytes Percent Auto 33.7 % (20.5-60.0); Mean Corpuscular HGB Conc 32.1 g/dL (29.9-35.2); Mean Corpuscular Hemoglobin 28.6 pg (26.7-34.0); Mean Corpuscular Volume 89.1 fL (81.0-99.0); Mean Platelet Volume 9.5 fL (9.5-13.5); Monocytes Absolute Auto 0.4 10^3/uL (0.3-0.8); Monocytes Percent Auto 8.4 % (1.7-12.0); Neutrophils Absolute Auto 2.2 10^3/uL (1.4-6.5); Neutrophils Percent Auto 50.7 % (43.0-75.0); Platelet Count 256 10^3/uL (150-450); Red Blood Count 4.96 10^6/uL (4.20-5.40); Red Cell Distribution Width 13.3 % (11.0-15.0); White Blood Count 4.3 10^3/uL (4.0-11.0)
[2024-03-23 08:52] LABS: Alanine Aminotransferase 19 U/L (14-59); Albumin Globulin Ratio 1.3; Alkaline Phosphatase 73 U/L (46-116); Anion Gap 10.6; Aspartate Amino Transferase 17 U/L (15-37); BUN Creatinine Ratio 22.5; Bilirubin Total 0.6 mg/dL (0.2-1.0); Carbon Dioxide 31.3 mmol/L (21.0-32.0); Chloride 104 mmol/L (98-107); Estimated GFR (African America >60 (>=60 mL/min/1.73m^2); Estimated GFR (Non-African Ame >60 (>=60 mL/min/1.73m^2); Globulin 3.2 g/dL; Glucose 107 mg/dL (74-106); Potassium 3.9 mmol/L (3.5-5.1); Sodium 142 mmol/L (136-145); Total Protein 7.2 g/dL (6.4-8.2)
== END 2024-03-23 07:44 | disposition home or self-care (01) ==
LOC: LAB 07:43
DX: G31.84 Mild cognitive impairment of uncertain or unknown etiology (principal); R63.1 Polydipsia; R51.9 Headache, unspecified
CPT/HCPCS: 36415; 80053; 85025

== ENCOUNTER 2024-05-22 21:38 | Emergency (ER) | payer OTHER, SELFPAY ==
[2024-05-22] VITALS (15 sets, daily range): BP systolic 133; BP diastolic 81; PULSE 66–82; TEMP 36.9; O2SAT 96–100; BMI 21.9
--- OUTSIDE RECORDS SUMMARY | 2024-05-22 21:44 | XMS_ITS | CCD ---
Author Organization [facility] Care Team Providers Care Senior Compensation Analyst Name Role Phone PhD Chaka Atwood Attending Provider [phone] MD Ghislaine Gross Primary Care Provider [phone] DR HUGO RUIZ Admitting Unavailable CINDY, DR HUGO Gongora Attending Unavailable CINDY, DR HUGO Gongora Consulting Unavailable PRISCILA, DR ELIDA Pack Admitting Unavailagusto FRANCOIS, DR ELIDA Pack Attending Unavailagusto FRANCOIS, DR ELIDA Pack Consulting Unavailabl BETI Palmer Consulting Unavailable BELEN MARIN Consulting Unavailable CINDY, DR HUGO Gongora Consulting Unavailable CINDY, DR HUGO Gongora Admitting Unavailable CINDY, DR HUGO Gongora Attending Unavailable RENATO, DR RAYA Primary Care Unavailable MARLENE LEACH Consulting Unavailable GHISLAINE GROSS Primary Care Unavailable EKTA Saez, WILBER Consulting Unavailable EKTA Saez, WILBER Admitting Unavailable WILBER PRINGLE Attending Unavailable AG PEACOCK Consulting Unavailable GHISLAINE GROSS Primary Care Unavailable PRISCILA, DR ELIDA Pack Admitting Unavailagusto FRANCOIS, DR ELIDA Pack Attending Unavailagusto RUIZ, DR HUGO Gongora Consulting Unavailable PRISCILA, DR ELIDA Pack Consulting Unavailabl e LUKE GUERRA Consulting Unavailable YOKASTA BAINS Consulting Unavailable NATACHA DASH Admitting Unavailable NATACHA DASH Attending Unavailable GHISLAINE GROSS Primary Care Unavailable KACY, DR HERRERA Consulting Unavailable NATACHA DASH Admitting Unavailable NATACHA DASH Attending Unavailable GHISLAINE GROSS Primary Care Unavailable KACY, DR HERRERA Consulting Unavailable Ghislaine Gross Primary Care Provider Preston CORBIN, Roque Middleton Unavailable Ghislaine Gross Primary Care Provider [phone] ERICA, MADHAV A Attending Unavailable ERICA, MADHAV A Referring Unavailable RENATO, [...] RENATO, GHISLAINE G Primary Care Unavailable CAMI QUINTANA Attending Unavailable RENATO, GHISLAINE G Referring Unavailable RENATO, GHISLAINE G Primary Care Unavailable CAMI QUINTANA Attending Unavailable RENATO, GHISLAINE G Referring Unavailable RENATO, GHISLAINE G Primary Care Unavailable CAMI QUINTANA Attending Unavailable GHISLAINE GROSS G Referring Unavailable RENATO, GHISLAINE G Primary Care Unavailable CAMI QUINTANA Attending Unavailable RENATO, GHISLAINE G Referring Unavailable RENATO, GHISLAINE G Primary Care Unavailable SHAIKH POOL Attending Unavailable SHAIKH POOL Attending Unavailable CARLITA GONZALEZ Attending Unavailable CAMI QUINTANA Attending Unavailable GHISLAINE GROSS G Referring Unavailable RENATO, GHISLAINE G Primary Care Unavailable MALAS, HAZEM Referring Unavailable RENATO, GHISLAINE G Primary Care Unavailable TraeslaGhislaine Armendariz Primary Care Un available Chaka Atwood Attending Unavailable Chaka Atwood Admitting Unavailable Shaikh Pool MD Unavailable Beth Roque MD Primary Care Provider Shaikh Pool MD Primary Care Provider Shaikh Pool MD Primary Care Provider Ghislaine Gross MD Primary Care Provider [phone] Allergies Allergy Classification Reported Allergen(s) Allergy Type Date of Onset Reaction(s) Facility NSAIDs (1 source) Naproxen Drug Allergy 05-24-2017 [facility] (5 sources) Naproxen; Translations: [NAPROXEN] Drug Allergy 11-14-2016 [facility] (20 sources) Naproxen Drug Allergy 11-14-2016 [facility] (1 source) Naproxen Drug Allergy 02-09-2021 [facility] Repository Medications Current Medications Medication Drug Class(es) Dates Sig (Normalized) Sig (Original) Amoxicillin (15 sources) Penicillin-class Antibacterial AMOXICILLIN ORAL Take by mouth. 0 Active Comment on above: Take by mouth. 24 hr amphetamine aspartate 2.5 mg / amphetamine sulfate 2.5 mg / dextroamphetamine saccharate 2.5 mg / dextroamphetamine sulfate 2.5 mg extended release oral capsule (4 sources) Central Nervous System Stimulant Start: 09-04-2023 take 1 capsule by mouth once daily in the morning amphetamine-dextro amphetamine XR (ADDERALL XR) 10 mg 24 hr capsule Indications: Attention and concentration deficit Take 1 capsule (10 mg total) by mouth in the morning. Max Daily Amount: 10 mg. 30 capsule 09/04/2023 Active ARIPiprazole 2 mg oral tablet (18 sources) Atypical Antipsychotic Start: 11-06-2022 End: 02-26-2023 take 1 tablet by mouth in the morning ARIPiprazole (ABILIFY) 2 mg tablet Take 1 tablet (2 mg total) by mouth in the morning. 30 tablet 5 02/26/2023 Active ARIPIPRAZOLE (AB ILIFY ORAL) Take by mouth. 0 Active Comment on above: Take by mouth. ascorbic acid 100 mg oral tablet (7 sources) Vitamin C take 1 tablet by mouth in the morning ascorbic acid, vitamin C, (VITAMIN C) 100 MG tablet Take 1 tablet (100 mg total) by mouth in the morning. Active biotin 10 mg oral capsule (12 sources) Start: 12-13-2021 take 1 tablet by mouth twice daily biotin 10,000 mcg capsule 1 tablet Orally two times daily for 30 day(s) 12/13/2021 Active take 1 capsule by mouth in the m orning biotin 10 MG capsule Take 1 capsule by mouth in the morning and 1 capsule before bedtime. Active Bromelains (19 sources) take 1 tablet by pattie th in the morning Bromelains (BROMELAIN PO) Take 1 tablet by mouth in the morning. Active bromelains (BROM ELAIN ORAL) Take by mouth. 0 Active Comment on above: Take by mouth. 24 hr buPROPion hydrochloride 150 mg extended release oral tablet (18 sources) Aminoketone Start: 12-31-2022 take 1 tablet [...] every morning. citalopram 20 mg oral tablet (18 sources) Serotonin Reuptake Inhibitor Start: 12-15-2023 take 1 tablet by mouth once daily citalopram (CeleXA) 20 mg tablet Take 1 tablet (20 mg total) by mouth nightly. 90 tablet 3 12/15/2023 Active CITALOPRAM HYDRO BROMIDE (CITALOPRAM ORAL) Take by mouth. 0 Active Comment on above: Take by mouth. DEXTROAMPHETAMINE/AMPHETA MINE (ADDERALL ORAL) (15 sources) DEXTROAMPHETAMIN E /AMPHETAMINE (ADDERALL ORAL) Take by mouth. 0 Active Comment on above: Take by mouth. docosahexaenoic acid 120 mg / eicosapentaenoic acid 180 mg oral capsule (5 sources) take 1 tablet by mouth in the morning omega-3 1000 MG capsule capsule Take 1 tablet by mouth in the morning. Active losartan potassium 25 mg oral tablet (20 sources) Angiotensin 2 Receptor Cj Start: 09-19-19 End: 11-20-19 take 1 tablet by mouth in the morning losartan (COZAAR) 25 mg tablet Take 1 tablet (25 mg total) by mouth in the morning. 09/18/2021 Active Comment on above: Take 25 mg by mouth once daily. Magnesium (7 sources) take 1 tablet by mouth in the morning MAGNESIUM ORAL Take 1 tablet by mouth in the morning. Active take 1 tablet by mouth in the mo rning MAGNESIUM ORAL Take 1 tablet by mouth in the morning. 0 Active metoprolol tartrate 25 mg oral tablet (2 sources) beta-Adrenergic Cj Start: 04-03-2023 metopr olol tartrate (LOPRESSOR) 25 mg tablet Take 1 tablet 12hrs and 1 tablet 2 hrs prior to test 2 tablet 0 04/03/2023 Active multivit with minerals/lutein (MULTIVITAMIN 50 PLUS ORAL) (7 sources) multivit with minerals/lutein (MULTIVITAMIN 50 PLUS ORAL) Multivitamin Active multivit with mi nerals/lutein (MULTIVITAMIN 50 PLUS ORAL) Multivitamin 0 Active omega 1-vbm-vuk-fish oil (Fish OiL) 300-1,000 mg capsule (7 sources) take 300-1000 mg by mouth in the morning omega 3-qks-rwi-fish oil (Fish OiL) 300-1,000 mg capsule Take 1 tablet by mouth in the morning. Active take 300-1000 mg by mouth in the morning omega 8-mbd-ubx-fish oil (Fish OiL) 300-1,000 mg capsule Take [...] on above: Take by mouth. Turmeric extract (20 sources) take 1 tablet by mouth in the morning TURMERIC PO Take 1 tablet by mouth in the morning. Active turmeric ([facility]) Completed/Discontinued Medications Medication Drug Class(es) Dates Sig (Normalized) Sig (Original) 24 hr desvenlafaxine succinate 50 mg extended release oral tablet (20 sources) Serotonin and Norepinephrine Reuptake Inhibitor Start: 09-04-2023 End: 12-15-2023 take 1 tablet by mouth every twenty-four hours in the morning desvenlafaxine (PRISTIQ) 50 mg 24 hr tablet Indications: Major depressive disorder, recurrent episode, moderate (CMS-HCC) Take 1 tablet (50 mg total) by mouth in the morning. 90 tablet 1 09/04/2023 12/15/2023 Discontinued (Reorder) Start: 04-28-2023 take 1 tablet by pattie th once daily in the morning, then take 1 tablet by mouth every twenty-four hours desvenlafaxine ER (PRISTIQ) 25 mg 24 hr tablet Take 25 mg by mouth every morning. 0 04/28/2023 Active Start: 12-31-2022 End: 12-25-2023 desvenlafaxine (PRISTIQ) 25 mg 24 hr tablet Indications: Major depressive disorder, recurrent episode, moderate (CMS-HCC) Take 1 tablet (25 mg total) by mouth in the morning for 10 days. Then discontinue the Desvenlafaxine (Pristiq). This is being replaced with Citalopram (Celexa).. 10 tablet 12/15/2023 12/25/2023 Active Comment on above: Take 25 mg by mouth every morning. gabapentin 800 mg oral tablet (3 sources) Anti-epileptic Agent Start: End: gabapentin (NEURONTIN) 800 mg tablet TAKE ONE-HALF TABLET - ONE TABLET BY MOUTH AT BEDTIME 08/08/2022 06/20/2023 Discontinued (Discontinued by another clinician) hydrocortisone 25 mg/ml topical cream (1 source) Corticosteroid Start: End: hydrocortisone (ANUSOL-HC) 2.5 % rectal cream Insert 1 Application into the rectum in the morning and at bedtime. 06/18/2022 02/11/2023 Discontinued (Therapy completed) sod sulf-pot chloride-mag sulf 1.479-0.188- 0.225 gram tablet (1 source) Start: End: sod sulf-pot chloride-mag sulf 1.479-0.188- 0.225 gram tablet Indications: History of colon polyps Please see instructional sheet given by physicians office. 24 tablet 08/05/2022 02/11/2023 Discontinued (Therapy completed) thiamine 100 mg oral tablet (3 sources) Start: End: take 1 tablet by mouth once daily thiamine (Vitamin B-1) 100 MG tablet Indications: Functional neurological symptom disorder with mixed symptoms (CMS/HCC) Take 1 tablet (100 mg) by mouth Daily 30 tablet 10/09/2023 11/20/2023 Discontinued (Therapy completed) Problems Active Problems Problem Classification Problem Date Documented Date Episodic/Chronic Acquired foot deformities (5 sources) Acquired hallux valgus; Translations: [Hallux valgus (acquired), unspecified foot] Onset: 06-29-2020 10-18-2022 Chronic Anxiety disorders (6 sources) Anxiety disorder, unspecified; Translations: [Anxiety] Onset: 01-12-2017 10-18-2022 Chronic Asthma (12 sources) Asthma; Translations: [Unspecified asthma, uncomplicated] Onset: 02-15-2022 10-18-2022 Chronic Attention-deficit, conduct, and disruptive behavior disorders (5 sources) Attention deficit hyperactivity disorder, predominantly inattentive type; Translations: [Attention-deficit hyperactivity disorder, predominantly inattentive type] Onset: 09-02-2015 10-18-2022 Chronic Blindness and vision defects (5 sources) Visual impairment; Translations: [Unspecified visual loss] Onset: 01-07-2017 10-18-2022 Chronic Disorders of lipid metabolism (5 sources) Hypertriglyceridemia; Translations: [Pure hyperglyceridemia] Onset: 07-15-2018 10-18-2022 Chronic Esophageal disorders (13 sources) Gastro-esophageal reflux disease without esophagitis; Translations: [Gastroesophageal reflux disease] Onset: 02-11-2022 10-18-2022 Chronic Essential hypertension (20 sources) Essential (primary) hypertension; Translations: [Benign essential hypertension] Onset: 09-29-2020 10-18-2022 Chronic Headache; including migraine (5 sources) New daily persistent headache; Translations: [New daily persistent headache (NDPH)] Onset: 10-18-2022 10-18-2022 Chronic Joint disorders and dislocations; trauma-related (5 sources) Chondromalacia of patella; Translations: [Chondromalacia patellae, unspecified knee] Onset: 02-07-2016 10-18-2022 Chronic Malaise and fatigue (5 sources) Fatigue; Translations: [Chronic fatigue, unspecified] Onset: 10-18-2022 10-18-2022 Chronic Menopausal disorders (5 sources) Menopausal flushing; Translations: [Menopausal and female climacteric states] Onset: 06-09-2023 06-09-2023 Chronic Miscellaneous mental health disorders (5 sources) Dissociative neurological symptom disorder; 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] Onset: 01-21-2023 01-21-2023 Chronic Mood disorders (20 sources) Major depressive disorder, recurrent, moderate; Translations: [Depressive disorder] Onset: 04-17-2017 10-18-2022 Chronic Osteoarthritis (5 sources) Osteoarthritis of right knee joint; Translations: [Unilateral primary osteoarthritis, right knee] Onset: 02-07-2016 10-18-2022 Chronic Other acquired deformities (5 sources) Contracture of joint of left ankle; Translations: [Contracture, left ankle] Onset: 06-29-2020 10-18-2022 Chronic Other aftercare (2 sources) Other custodial (current) drug therapy; Translations: [OTH ASSISTED LIVING ADMINISTRATOR CURRENT DRUG THERAPY] Onset: 09-17-2021 Episodic Other ear and sense organ disorders (5 sources) Decreased hearing ; Translations: [Unspecified hearing loss, unspecified ear] Onset: 10-18-2022 10-18-2022 Chronic Other ear and sense organ disorders (5 sources) Hearing loss in left ear; Translations: [Unspecified hearing loss, left ear] Onset: 11-19-2019 10-18-2022 Chronic Other ear and sense organ disorders (5 sources) Sensorineural hearing loss, bilateral; Translations: [Sensorineural hearing loss, bilateral] Onset: 12-15-2019 10-18-2022 Chronic Other hereditary and degenerative nervous system conditions (10 sources) Impaired cognition; Translations: [Mild cognitive impairment, so stated] Onset: 06-09-2023 03-19-2023 Chronic Other hereditary and degenerative nervous system conditions (14 sources) Mild cognitive impairment, so stated; Translations: [Mild cognitive impairment, so stated] Onset: 10-28-2022 10-28-2022 Chronic Other nervous system disorders (2 sources) Cognitive deficit in communication skills; Translations: [Cognitive communication deficit] 05-22-2023 Chronic Other nervous system disorders (1 source) Attention and concentration deficit; Translations: [Attention and concentration deficit] Onset: 04-17-2017 Chronic Other nervous system disorders (5 sources) Neuropathy; Translations: [Polyneuropathy, unspecified] Onset: 12-06-2016 10-18-2022 Chronic Other nervous system disorders (5 sources) Poor concentration; Translations: [Attention and concentration deficit] Onset: 04-17-2017 10-18-2022 Chronic Other nervous system disorders (10 sources) Chronic pain; Translations: [Other chronic pain] Onset: 08-17-2020 10-18-2022 Chronic Other nervous system disorders (7 sources) Disturbance of attention; Translations: [Attention and concentration deficit] Onset: 04-17-2017 04-17-2017 Chronic Residual codes; unclassified (4 sources) Obstructive sleep apnea (adult) (pediatric); Translations: [OBSTRUCTIVE SLEEP APNEA] Onset: 04-17-2022 Chronic Residual codes; unclassified (1 source) Hypersomnia, unspecified; Translations: [HYPERSOMNIA UNSPECIFIED] Onset: 03-28-2022 Chronic Residual codes; unclassified (6 sources) Obstructive sleep apnea syndrome; Translations: [Obstructive sleep apnea (adult) (pediatric)] Onset: 10-18-2022 05-22-2023 Chronic Residual codes; unclassified (5 sources) Hypersomnia; Translations: [Hypersomnia, unspecified] Onset: 10-18-2022 10-18-2022 Chronic Residual codes; unclassified (5 sources) Periodic limb movement disorder; Translations: [Periodic limb movement disorder] Onset: 10-21-2022 10-21-2022 Chronic Residual codes; unclassified (1 source) Acquired absence of other specified parts of digestive tract; Translations: [ACQ ABSENCE OTH PART DIGESTV TRACT] Onset: 07-15-2022 Episodic Residual codes; unclassified (1 source) Failed encounter; Translations: [No-show for appointment] 09-19-2023 Episodic Thyroid disorders (5 sources) Acquired hypothyroidism; Translations: [Hypothyroidism, unspecified] Onset: 09-02-2015 10-18-2022 Chronic Past or Other Problems Problem Classification Problem Date Documented Date Episodic/Chronic Abdominal pain (4 sources) Epigastric pain; Translations: [EPIGASTRIC PAIN] Onset: 02-07-2022 Episodic Appendicitis and other appendiceal conditions (12 sources) Acute appendicitis with generalized peritonitis; Translations: [Acute appendicitis with generalized peritonitis, without abscess] Onset: 02-08-2022 10-18-2022 Episodic Cardiac dysrhythmias (1 source) Palpitations; Translations: [Palpitations] Onset: 04-17-2023 Episodic Chronic obstructive pulmonary disease and bronchiectasis (4 sources) Bronchitis, not specified as acute or chronic; Translations: [BRONCHITIS NOT SPEC ACUTE/CHRON] Onset: 02-11-2021 Episodic Conditions associated with dizziness or vertigo (5 sources) Dizziness; Translations: [Dizziness and giddiness] Onset: 10-18-2022 10-18-2022 Episodic Headache; including migraine (5 sources) Headache; Translations: [Chronic nonintractable headache] Onset: 03-05-2023 03-05-2023 Episodic Nonspecific chest pain (17 sources) Chest pain, unspecified; Translations: [Precordial pain] Onset: 12-02-2020 Episodic Other connective tissue disease (5 sources) Pain in bilateral legs; Translations: [Pain in right leg] Onset: 03-05-2023 03-05-2023 Episodic Other female genital disorders (5 sources) Pruritus of vagina; Translations: [Other specified noninflammatory disorders of vagina] Onset: 10-18-2022 10-18-2022 Episodic Other lower respiratory disease (1 source) Snoring; Translations: [SNORING] Onset: 03-28-2022 Episodic Other nervous system disorders (1 source) Other symptoms and signs involving cognitive functions and awareness; Translations: [Other symptoms and signs involving cognitive functions and awareness] Onset: 01-13-2023 Episodic Other nervous system disorders (12 sources) Impaired cognition; Translations: [Other symptoms and signs involving cognitive functions and awareness] Onset: 11-27-2022 Resolved: 12-15-2023 12-04-2022 Episodic Other non-traumatic joint disorders (5 sources) Pain in wrist; Translations: [Pain in unspecified wrist] Onset: 06-11-2019 10-18-2022 Episodic Other screening for suspected conditions (not mental disorders or infectious disease) (10 sources) Abnormal electrocardiogram [ECG] [EKG]; Translations: [Patient encounter status] Onset: 03-05-2023 03-05-2023 Episodic Other skin disorders (5 sources) Multiple actinic keratoses; Translations: [Actinic keratosis] Onset: 09-02-2015 10-18-2022 Episodic Other upper respiratory infections (10 sources) Acute pharyngitis; Translations: [Acute pharyngitis, unspecified] [...] system] Onset: 04-17-2023 Episodic Residual codes; unclassified (5 sources) Insomnia; Translations: [Insomnia, unspecified] Onset: 10-18-2022 10-18-2022 Episodic Residual codes; unclassified (5 sources) Amnesia; Translations: [Other amnesia] Onset: 03-13-2021 10-18-2022 Episodic Results Test Name Value Interpretation Reference Range Facility ALL CBC WITH AUTO DIFFon BASOPHILS ABSOLUTE AUTO 0.1 [facility] Basophils/100 WBC (Bld) 1.4 % 0.2 - 2.0 % [facility] Eosinophils/100 WBC (Bld) 5.6 % 0.9 - 7.0 % [facility] Erythrocyte distribution width (RBC) [Ratio] 13.3 % 11.0 - 15.0 % [facility] Hematocrit (Bld) [Volume fraction] 44.2 % 36.0 - 48.0 % [facility] Hemoglobin (Bld) [Mass/Vol] 14.2 g/dL 12.0 - 16.0 g/dL [facility] IMMATURE GRANULOCYTES ABS AUTO 0.01 [facility] Immature granulocytes/100 WBC (Bld) 0.2 % 0.0 - 0.5 % [facility] LYMPHOCYTES ABSOLUTE AUTO 1.4 [facility] Lymphocytes/100 WBC (Bld) 33.7 % 20.5 - 60.0 % [facility] MCH (RBC) [Entitic mass] 28.6 pg 26.7 - 34.0 pg [facility] MCHC (RBC) [Mass/Vol] 32.1 g/dL 29.9 - 35.2 g/dL [facility] MCV (RBC) [Entitic vol] 89.1 fL 81.0 - 99.0 fL [facility] MONOCYTES ABSOLUTE AUTO 0.4 [facility] Monocytes/100 WBC (Bld) 8.4 % 1.7 - 12.0 % [facility] NEUTROPHILS ABSOLUTE AUTO 2.2 [facility] Neutrophils/100 WBC (Bld) 50.7 % 43.0 - 75.0 % [facility] Platelet mean volume (Bld) [Entitic vol] 9.5 fL 9.5 - 13.5 fL [facility] TBH EO # 0.2 [facility] PLT 256 [facility] RBC 4.96 [facility] WBC 4.3 [facility] Laboratory - Cytologyon 10-30 Learning Facilitator Cyto stain Nom (Cvx/Vag) [ID] [facility] Comment on above: , CT(ASCP) CT scre ening location: [place] [address]. [facility], CT(ASCP) CT scr [place]ening location: [place] [address]. Cytology study comment Cyto stain Alexi (Cvx/Vag) [Interp] [facility] Comment on above: This Pap test has be en evaluated with computer assisted technology. Microscopic observation Cyto stain Nom (Cvx) [facility] Comment on above: Cytology Results: Ne gative for intraepithelial lesion or malignancy. Atrophic pattern; predominantly parabasal cells Specimen source Cyto stain Nom (Cvx/Vag) [facility] Comment on above: None given Statement of adequacy Cyto stain (Cvx/Vag) [Interp] [facility] Comment on above: Satisfactory for sandie luation. Endocervical/transformation zone component present. Laboratory - Microbiology an d Antimicrobial susceptibilityon 11-26-2023 HPV 16+18+31+33+35+39+45 +51+52+56+58+59+66+6 8 DNA ADWOA+probe Ql (Cvx) Not detected NOT DETECTED [facility] Comment on above: Not Detected High Risk HPV types (16,18,31,33,35,39,45,51,52, 56,58,59,66,68) were not detected. Other HPV types which cause anogenital lesions may be present. The significance of the other types of HPV in malignant processes has not been established. Methodology: Real Time PCR No Panel Informationon 11-25 (ALWAYS MESSAGE) [facility] Comment on above: EXPLANATORY NOTE: The Pap [...] historic and current clinical information. Clinical information [facility] Comment on above: None given Date of previous biopsy [facility] Comment on above: NONE GIVEN Date of previous PAP smear [facility] Comment on above: NONE GIVEN Last menstrual period start date [facility] Comment on above: NONE GIVEN Performing Organization Information Site ID: [id number] Name: [facility] Address: [address] [place] [address] [place] [address] Director: Geoffrey Stratton M.D.,PhD Site ID: [id number] Name: [facility] Address: [address] [place] [id number] Director: Mynor Huizar MD [facility] 10-06-2023 [facility] Telephone (OTOLMN) YANIQUE KAUR ([id number]) 1965 [facility] Date Time Provider Department 10/06/23 JARVIS BLOCK [...] information was previously provided to patient via [employer] and email on 09/19/2023. A second email [...] Encounter Status:Closed by JARVIS BLOCK on 10/06/23 [facility] Telephone (WALLACE) YANIQUE KAUR ([id number]) 1965 F [facility] Date Time Provider Department [...] a diagnosis. Advised that per message from director of patient care insurance will not cover more than one MRI per year (last was 05/2023). Pt became emotional reporting immense frustration with the process. Reviewed plans from visits with Dr. Maldonado on 03/19/23 and 05/22/2023. Pt reported she completed the MRI and is awaiting local CONCESSION SUPERVISOR referrals from speech therapist to continue visits. Pt became increasingly upset with pscyhology referral was addressed stating No one here does that shit and I don't have the time. I don't have PTO or sick time to take away from my job to do these things . Pt reports financial resource strain; when NON LICENSED NUCLEAR EQUIPMENT OPERATOR attempted to address pt abruptly ended the [...] She should continue with speech therapy/cognitive therapy, loading manager her CRUZ with BIPAP and see [...] DAWN on (more content not included)... Normal [facility] Telephone (OTOLMN) YANIQUE KAUR ([id number]) 1965 F U[place] Date Time Provider Department 10/06/23 JARVIS BLOCK OTOLMN During your visit today, we recorded the following information about you: Jarvis Block CCC-CONCESSION SUPERVISOR 10/06/2023 2:35 PM Signed Duplicate encounter opened [...] Encounter Status:Closed by JARVIS BLOCK on 10/06/23 [facility] CNPN Telephone (NEMSMN) VINCENTYANIQUE ([id number]) 1965 F U[place] Date Time Provider Department 10/06/23 YOLANDA GONZALEZ [facility] During your visit today, we recorded the [...] - Hives Date Reviewed: 05/22/2023 Reviewed by: Angela, Irasema, OCCA - Fully Assessed Prescriptions as of [...] Encounter Status:Closed by YOLANDA GONZALEZ on 10/06/23 [facility] CNTHERAPYon 09-19-2023 CNTHERAPY OT/PT/Speech Visit (SPWCMN) YANIQUE KAUR ([id number]) 1965 F [place] Date Time Provider Department 09/19/23 1:00 PM [facility] Department Center 09/19/2023 1:00 PM [id number][facility] Sanchez Reason for Visit: No Show [1558] Primary [...] mouth. - AMOXICILLIN ORAL Take by mouth. [facility] Jayashree 09-13-2023 MOON Telephone (NIQ) YANIQUE KAUR ([id number]) 1965 F [place] Date Time Provider Department 09/13/23 LINDSEY DAWN During your visit today, we recorded the following information about you: Fran Rodríguez 09/13/2023 9:11 AM Signed 09/13/23 - Malvin message sent / reminder mailed for [facility] diez. - GL Allergies As of Date: 09/13/2023 Noted Allergy Reaction NAPROXEN 05/24/2017 4 - Hives Date Reviewed: 05/22/2023 Reviewed by: Irasema Miller OCCA - Fully Assessed Reason for Visit: Appointment [186] Cmt: 09/13/23 - [facility] message sent / reminder mailed for [facility] rg. - GL Prescriptions as of 09/13/2023 - [...] Encounter Status:Closed by FRAN RODRÍGUEZ on 09/13/23 [facility] Jayashree 09-12-2023 [facility] Telephone ([facility]) YANIQUE KAUR ([id number]) 1965 F [place] Date Time Provider Department 09/12/23 MADHAV MALDONADO During your visit today, we recorded the following information about you: Allergies As of Date: 09/12/2023 Noted Allergy Reaction NAPROXEN 05/24/2017 4 - Hives Date Reviewed: 05/22/2023 Reviewed by: Irasema Miller OCCA - Fully Assessed Primary Visit Diagnosis:Cognitive impairment, mild, so stated [G31.84] Order(s):CTR BRAIN HEALTH SOCIAL WORK CONSULT [[id number]] Order #: [id number]: 1 Prescriptions as of 09/12/2023 - desvenlafaxine [...] Encounter Status:Closed by MADHAV MALDONADO on 09/12/23 [facility] CNTHERAPYon 09-12-2023 CNTHERAPY OT/PT/Speech Visit (SPWCMN) YANIQUE KAUR ([id number]) 1965 F [place] Date Time Provider Department 09/12/23 1:00 PM [facility] Date [facility] Provider Department Center 09/12/2023 1:00 PM [id number][facility] Reason for Visit: Speech Therapy [7949] Primary Visit Diagnosis:Cognitive impairment, mild, so stated [...] - AMOXICILLIN ORAL [facility]. [facility] ([facility]) YANIQUE KAUR ([id number]) 1965 F [place] Date Time Provider Department 09/03/23 MADHAV MALDONADO During your visit today, we recorded the following information about you: Kirsten Damon 09/03/2023 3:46 PM Signed General scheduling called - patient called to schedule MRI but no order on file - needs order placed. Pateint would like a call to confirm [phone] Yolanda Gonzalez RN 09/03/2023 5:08 PM Signed [...] Signed Still unable to leave message. Yolanda Gnozalez RN Allergies As of Date: 09/03/2023 Noted [...] Encounter Status:Closed by YOLANDA GONZALEZ on 09/03/23 [facility] CNOVon 05-22-2023 CNOV Office Visit ([facility] ) YANIQUE KAUR ([id number]) 1965 F [place] Date Time Provider Department 05/22/23 12:00 PM [...] MD 05/22/2023 2:02 PM Signed Ms.Lori Carla Kaur is a 58 year [...] counseling/educating the patient/family. Referring Provider: MADHAV MALDONADO [[id number]] Allergies As of Date: 05/22/2023 Noted Allergy Reaction NAPROXEN 05/24/2017 4 - Hives Date Reviewed: 05/22/2023 Reviewed by: Irasema Miller OCCA - Fully Assessed Reason for Visit: Follow Up [171] Primary Visit Diagnosis:CRUZ on CPAP [G47.33] Order(s):CONSULT TO SLEEP MEDICINE - ADULT [[id number]] Order #: [id number]: 1 FUTURE Prescriptions as of 05/22/2023 - [...] routine Visit Notes: >> Irasema Miller OCCA [facility] May 22, 2023 11:51 AM Status: Signed [...] for Encounter Date Provider Department Center 05/22/2023 [id number] MALDONADO U Bldg Encounter Status:Closed by MADHAV MALDONADO on 05/22/23 [facility] CNTHERAPYon 05-22-2023 CNTHERAPY OT[facility] YANIQUE KAUR ([id number]) 1965 F [place] Date Time Provider Department 05/22/23 2:30 PM JARVIS BLOCK SPWN Date Time Provider Department Center 05/22/2023 2:30 PM [id number][facility] Layne C dg Reason for Visit: Speech Evaluation [1647] Primary Visit Diagnosis:Cognitive communication deficit [R41.841] Other [...] - AMOXICILLIN ORAL Take by mouth. Normal [facility] MRI 3D POST PROCESSINGon MRI 3D POST PROCESSING * * *Final Report* * * DATE OF EXAM: May 22 2023 8:49AM [facility] 0280 - MRI 3D POST PROCESSING / [...] = Focal Lesions 2 = Beginning of Morris 3 = Diffuse Involvement of Entire Region Basal Ganglia Lesions: 0 = No Lesions 1 = 1 Focal Lesion (>5mm) 2 = >1 Focal Lesion (>5mm) 3 = Confluent Lesions Malcolm Saenz et al. The clinical use of structural [...] results from the analysis charts for details. Utility Mechanic: PSCB Transcribe Date/Time: May 22 2023 9:37A Dictated by : ROXANNE PALAFOX MD This examination was interpreted and the report reviewed and electronically signed by: ROXANNE PALAFOX MD on May 22 2023 9:53AM EST [id number] Normal [facility] MRI BRAIN W QUANT WO IVCONon 05-22-2023 MRI BRAIN W QUANT WO IVCON * * *Final Report* * * DATE OF EXAM: May 22 2023 8:49AM [facility] 3015 - MRI BRAIN W QUANT WO [...] dementia protocol and 3-D post-processing using the Message[employer] software at an independent workstation with concurrent [...] = Focal Lesions 2 = Beginning of Morris 3 = Diffuse Involvement of Entire Region Basal Ganglia Lesions: 0 = No Lesions 1 = 1 Focal Lesion (>5mm) 2 = >1 Focal Lesion (>5mm) 3 = Confluent Lesions Malcolm Saenz et al. The clinical use of structural [...] results from the analysis charts for details. Utility Mechanic: MADDIE Transcribe Date/Time: May 22 2023 9:37A Dictated by : ROXANNE PALAFOX MD This examination was interpreted and the report reviewed and electronically signed by: ROXANNE PALAFOX MD on May 22 2023 9:53AM EST [id number] Normal [facility] No Panel Informationon 05-22 [facility] CT CTA COR ARTERIES W OR WO [...] the lungs were solely interpreted by Dr. Kasei Miller MD of the department of radiology. [...] Miller MD on 04/17/2023 4:28 PM Normal [facility] CBC W Auto Differential pane l (Bld)on 03-19-2023 Basophils (Bld) [#/Vol] 0.06 10*3/uL <0.11 k/uL [facility] Basophils/100 WBC (Bld) 1.0 % [facility] Differential cell count method Nom (Bld) Auto [facility] Eosinophils (Bld) [#/Vol] 0.49 10*3/uL High <0.46 k/uL [facility] Eosinophils/100 WBC (Bld) 8.0 % [facility] Erythrocyte distribution width (RBC) [Ratio] 12.6 % 11.5 - 15.0 % [facility] Hematocrit (Bld) [Volume fraction] 43.0 % 36.0 - 46.0 % [facility] Hemoglobin (Bld) [Mass/Vol] 13.8 g/dL 11.5 - 15.5 g/dL [facility] Immature granulocytes (Bld) [#/Vol] <0.10 k/uL [facility] Immature granulocytes/100 WBC (Bld) 0.3 % [facility] Lymphocytes (Bld) [#/Vol] 1.66 10*3/uL 1.00 - 4.00 k/uL [facility] Lymphocytes/100 WBC (Bld) 26.9 % [facility] MCH (RBC) [Entitic mass] 28.3 pg 26.0 - 34.0 pg [facility] MCHC (RBC) [Mass/Vol] 32.1 g/dL 30.5 - 36.0 g/dL [facility] MCV (RBC) [Entitic vol] 88.1 fL 80.0 - 100.0 fL [facility] Monocytes (Bld) [#/Vol] 0.36 10*3/uL <0.87 k/uL [facility] Monocytes/100 WBC (Bld) 5.8 % [facility] Neutrophils (Bld) [#/Vol] 3.57 10*3/uL 1.45 - 7.50 k/uL [facility] Neutrophils/100 WBC (Bld) 58.0 % [facility] Nucleated RBC (Bld) [#/Vol] <0.01 k/uL [facility] Nucleated RBC/100 WBC (Bld) [Ratio] 0.0 /100 WBC [facility] Platelet mean volume (Bld) [Entitic vol] 10.2 fL 9.0 - 12.7 fL [facility] Platelets (Bld) [#/Vol] 254 10*3/uL 150 - 400 k/uL [facility] RBC (Bld) [#/Vol] 4.88 10*6/uL 3.90 - 5.2 0 m/uL [facility] WBC (Bld) [#/Vol] 6.16 10*3/uL 3.70 - 11. 00 k/uL [facility] Basophils (Bld) [#/Vol] 0.06 10*3/uL Normal <0.11 [facility] Comment on above: Order Comment: Speci men Type: BLOOD SPECIMENOrdering Facility: [facility] Address: [address] [place] [address] Performed By: #### 5 7021-8, 4537-7 ####[facility] LABCLIA [id number] [place] [address] [place] Basophils/100 WBC (Bld) 1.0 % Normal [facility] Comment on above: Order Comment: Speci men Type: BLOOD SPECIMENOrdering Facility: [facility] Address: [address] [place] [address] Performed By: #### 5 7021-8, 4537-7 ####[facility] LABCLIA [id number] [place] [address] [place] Differential cell count method Nom (Bld) Auto Normal [facility] Comment on above: Order Comment: Speci men Type: BLOOD SPECIMENOrdering Facility: [facility] Address: [address] [place] [address] Performed By: #### 5 7021-8, 4537-7 ####[facility] LABCLIA [id number] [place] [address] [place] Eosinophils (Bld) [#/Vol] 0.49 10*3/uL High <0.46 [facility] Comment on above: Order Comment: Speci men Type: BLOOD SPECIMENOrdering Facility: [facility] Address: [address] [place] [address] Performed By: #### 5 7021-8, 4537-7 ####[facility] LABCLIA [id number] [place] [address] [place] Eosinophils/100 WBC (Bld) 8.0 % Normal [facility] Comment on above: Order Comment: Speci men Type: BLOOD SPECIMENOrdering Facility: [facility] Address: [address] [place] [address] Performed By: #### 5 7021-8, 7-7 ####[facility] LABIA [id number] [place] [address] [place] Erythrocyte distribution width (RBC) [Ratio] 12.6 % Normal 11.5-15.0 [facility] Comment on above: Order Comment: Speci men Type: BLOOD SPECIMENOrdering Facility: [facility] Address: [address] [place] [address] Performed By: #### 5 7021-8, 7-7 ####[facility] LABCLIA [id number] [place] [address] [place] Hematocrit (Bld) [Volume fraction] 43.0 % Normal 36.0-46.0 [facility] Comment on above: Order Comment: Speci men Type: BLOOD SPECIMENOrdering Facility: [facility] Address: [address] [place] [address] Performed By: #### 5 7021-8, 4537-7 ####[facility] LABCLIA [id number] [place] [address] [place] Hemoglobin (Bld) [Mass/Vol] 13.8 g/dL Normal 11.5-15.5 [facility] Comment on above: Order Comment: Speci men Type: BLOOD SPECIMENOrdering Facility: [facility] Address: [address] [place] [address] Performed By: #### 5 7021-8, 4537-7 ####[facility] LABCLIA [id number] [place] [address] [place] Immature granulocytes (Bld) [#/Vol] 10*3/uL Normal <0.10 [facility] Comment on above: Order Comment: Speci men Type: BLOOD SPECIMENOrdering Facility: [facility] Address: [address] [place] [address] Performed By: #### 5 7021-8, 4537-7 ####[facility] LABCLIA [id number] [place] [address] [place] Immature granulocytes/100 WBC (Bld) 0.3 % Normal [facility] Comment on above: Order Comment: Speci men Type: BLOOD SPECIMENOrdering Facility: [facility] Address: [address] [place] [address] Performed By: #### 5 7021-8, 7-7 ####[facility] LABCLIA [id number] [place] [address] [place] Lymphocytes (Bld) [#/Vol] 1.66 10*3/uL Normal 1.00-4.00 [facility] Comment on above: Order Comment: Speci men Type: BLOOD SPECIMENOrdering Facility: [facility] Address: [address] [place] [address] Performed By: #### 5 7021-8, 7-7 ####[facility] LABCLIA [id number] [place] [address] [place] Lymphocytes/100 WBC (Bld) 26.9 % Normal [facility] Comment on above: Order Comment: Speci men Type: BLOOD SPECIMENOrdering Facility: [facility] Address: [address] [place] [address] Performed By: #### 5 7021-8, 4536-7 ####[facility] LABIA [id number] [place] [address] [place] MCH (RBC) [Entitic mass] 28.3 pg Normal 26.0-34.0 [facility] Comment on above: Order Comment: Speci men Type: BLOOD SPECIMENOrdering Facility: [facility] Address: [address] [place] [address] Performed By: #### 5 7021-8, 7 ####[facility] [id number] [place] [address] [place] MCHC (RBC) [Mass/Vol] 32.1 g/dL Normal 30.5-36.0 [facility] Comment on above: Order Comment: Speci men Type: BLOOD SPECIMENOrdering Facility: [facility] Address: [address] [place] [address] Performed By: #### 5 7021-8, 7 ####[facility] [id number] [place] [address] [place] MCV (RBC) [Entitic vol] 88.1 fL Normal 80.0-100.0 [facility] Comment on above: Order Comment: Speci men Type: BLOOD SPECIMENOrdering Facility: [facility] Address: [address] [place] [address] Performed By: #### 5 7021-8, 7 ####[facility] LABIA [id number] [place] [address] [place] Monocytes (Bld) [#/Vol] 0.36 10*3/uL Normal <0.87 [facility] Comment on above: Order Comment: Speci men Type: BLOOD SPECIMENOrdering Facility: [facility] Address: [address] [place] [address] Performed By: #### 5 7021-8, 4536-09 ####[facility] LABCLIA [id number] [place] [address] [place] Monocytes/100 WBC (Bld) 5.8 % Normal [facility] Comment on above: Order Comment: Speci men Type: BLOOD SPECIMENOrdering Facility: [facility] Address: [address] [place] [address] Performed By: #### 5 7021-8, 7 ####[facility] LABCLIA [id number] [place] [address] [place] Neutrophils (Bld) [#/Vol] 3.57 10*3/uL Normal 1.45-7.50 [facility] Comment on above: Order Comment: Speci men Type: BLOOD SPECIMENOrdering Facility: [facility] Address: [address] [place] [address] Performed By: #### 5 7021-8, 7 ####[facility] LABCLIA [id number] [place] [address] [place] Neutrophils/100 WBC (Bld) 58.0 % Normal [facility] Comment on above: Order Comment: Speci men Type: BLOOD SPECIMENOrdering Facility: [facility] Address: [address] [place] [address] Performed By: #### 5 7021-8, 7 ####[facility] LABCLIA [id number] [place] [address] [place] Nucleated RBC (Bld) [#/Vol] 10*3/uL Normal <0.01 [facility] Comment on above: Order Comment: Speci men Type: BLOOD SPECIMENOrdering Facility: [facility] Address: [address] [place] [address] Performed By: #### 5 7021-8, 4536-7 ####[facility] LABCLIA [id number] [place] [address] [place] Nucleated RBC/100 WBC (Bld) [Ratio] 0.0 /100 WBC Normal [facility] Comment on above: Order Comment: Speci men Type: BLOOD SPECIMENOrdering Facility: [facility] Address: [address] [place] [address] Performed By: #### 5 7021-8, 4537-7 ####[facility] LABCLIA [id number] [place] [address] [place] Platelet mean volume (Bld) [Entitic vol] 10.2 fL Normal 9.0-12.7 [facility] Comment on above: Order Comment: Speci men Type: BLOOD SPECIMENOrdering Facility: [facility] Address: [address] [place] [address] Performed By: #### 5 7021-8, 4537-7 ####[facility] LABCLIA [id number] [place] [address] [place] Platelets (Bld) [#/Vol] 254 10*3/uL Normal 150-400 [facility] Comment on above: Order Comment: Speci men Type: BLOOD SPECIMENOrdering Facility: [facility] Address: [address] [place] [address] Performed By: #### 5 7021-8, 4536-7 ####[facility] LABCLIA [id number] [place] [address] [place] RBC (Bld) [#/Vol] 4.88 10*6/uL Normal 3.90-5.20 [facility] Comment on above: Order Comment: Speci men Type: BLOOD SPECIMENOrdering Facility: [facility] Address: [address] [place] [address] Performed By: #### 5 7021-8, 4537-7 ####[facility] LABCLIA [id number] [place] [address] [place] WBC (Bld) [#/Vol] 6.16 10*3/uL Normal 3.70-11.00 [facility] Comment on above: Order Comment: Anithaphilip diop Type: BLOOD SPECIMENOrdering Facility: [facility] Address: [address] [place] [address] Performed By: #### 5 7021-8, 4537-7 ####[facility] LABCLIA [id number] [id number] [id number] [facility] CNOVon 03-19-2023 CNOV [facility] YANIQUE KAUR ([id number]) 1965 F [place] Date Time Provider Department 03/19/23 10:00 AM MADHAV MALDONADO During your visit today, we recorded the following information about you: Madhav Maldonado MD 03/20/2023 8:42 AM Signed Yanique Carla Vincent 1965 [address] [facility] [address] March 19, 2023 Time: 11:48 AM EVALUATION/CONSULT NOTE History of Present Illness Yanique Kaur is a 57 year old right handed woman seen today for memory concerns. 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 [...] normal Name- able to give complete name [place] Cognitive Assessment (MoCA) MoCA Past Scores MoCA 03/19/2023 MOCA TOTAL SCORE 21 out of 30 Visuospatial/ Executive 4 Naming 3 Attention 4 Language 2 Abstraction 2 Delayed Recall 0 Orientation 6 Education Level 0 DEMENTIA MSE Orientation - Alert: Normal - Attention:Normal - Name: Normal - Day:Normal - Date: Normal - Month: Normal - Year: Normal Repeat phrase: BETH RUIZ, [address] [place] [address] Memory - Who is the president now: Normal - Who was before him: Normal - Who was involved in [place]: Normal Calculation - $5.00 - ($0.40 X [...] 51: Abnormal - Marker st: Abnormal - [place]: Normal Language Function - Naming : Normal [...] - Dyskines (more content not included)... Normal [facility] ESR Westergren method (Bld) [Velocity]on 03-19-2023 ESR (Bld) [Velocity] 2 mm/h 0 - 20 mm/hr [facility] ESR (Bld) [Velocity] 2 mm/h Normal 0-20 [facility] Comment on above: Order Comment: Speci men Type: BLOOD SPECIMENOrdering Facility: [facility] Address: [address] [place] [address] Performed By: #### 5 7021-8, 4537-7 ####[facility] LABCLIA [id number] [place] [address] [place] FOLATE SERUMon 03-19-2023 Folate [Mass/Vol] 6.0 ng/mL >4.7 ng/mL [facility] Folate SerPl-mCncon 12-20-20 23 Folate [Mass/Vol] 6.0 ng/mL Normal >4.7 [facility] Comment on above: Order Comment: Speci men Type: BLOOD SPECIMENOrdering Facility: [facility] Address: [address] [place] [address] Performed By: #### 2 132-9, 2284-8 ####[facility] LABCLIA [id number] [place] [address] [place] Methylmalonate SerPl-sCncon 03-19-2023 Methylmalonate [Moles/Vol] 0.15 umol/L Normal <=0.40 [facility] Comment on above: Order Comment: Speci men Type: BLOOD SPECIMENOrdering Facility: [facility] Address: [address] [place] [address] Result Comment: This test was developed and its performance characteristics determined by [facility]'s [facility] [place] ([facility]). It has not been cleared or approved by the FDA. -[facility] is regulated under CLIA as qualified to perform high-complexity testing. This test is used for clinical purposes. It should not be regarded as investigational or for research. Performed By: #### 1 3964-2 ####[facility] LABIA [id number] [place] [address] [place] Reagin and Treponema pallidu m IgG and IgM [Interp]on 03-19-2023 T. pallidum IgG+IgM IA Ql (S) Non-Reactive Nonreactive [facility] T. pallidum IgG+IgM IA Ql (S) Non-Reactive Normal Nonreactive [facility] Comment on above: Order Comment: Speci men Type: BLOOD SPECIMENOrdering Facility: [facility] Address: [address] [place] [address] Performed By: #### 7 3752-8 ####[facility] LABCLIA [id number] [place] [address] [place] Reagin+T pallidum IgG+IgM Se rPl-Impon 03-19-2023 Reagin and Treponema pallidum IgG and IgM [Interp] Cannot exclude recent Treponemal infection if specimen collected within 7-10 days after appearance of suspect lesions or 2-3 weeks after an exposure. Clinical correlation is required. Normal [facility] Comment on above: Order Comment: Speci men Type: BLOOD SPECIMENOrdering Facility: [facility] Address: [address] [place] [address] Performed By: #### 7 3752-8 ####[facility] LABCLIA [id number] [place] [address] [place] SYPHILIS TOTAL W/REFLEXon Reagin and Treponema pallidum IgG and IgM [Interp] Cannot exclude recent Treponemal infection if specimen collected within 7-10 days after appearance of suspect lesions or 2-3 weeks after an exposure. Clinical correlation is required. [facility] T4 FREE/FREE THYROXon 2022 Free T4 [Mass/Vol] 1.1 ng/dL 0.9 - 1.7 ng/dL [facility] T4 Free SerPl-mCncon 023 Free T4 [Mass/Vol] 1.1 ng/dL Normal 0.9-1.7 [facility] Comment on above: Order Comment: Speci men Type: BLOOD SPECIMENOrdering Facility: [facility] Address: [address] [place] [address] Performed By: #### 3 024-7, 3026-2, 3016-3 ####[facility] LABIA [id number] [place] [address] [place] T4 SerPl-mCncon 03-19-2023 T4 [Mass/Vol] 6.8 ug/dL Normal 5.5-10.2 [facility] Comment on above: Order Comment: Speci men Type: BLOOD SPECIMENOrdering Facility: [facility] Address: [address] [place] [address] Performed By: #### 3 024-7, 3026-2, 3016-3 ####[facility] LABCLIA [id number] [address] [address] [place] T4/THYROXINE BLOODon 023 T4 [Mass/Vol] 6.8 ug/dL 5.5 - 10.2 ug/dL [facility] TSH BLDon 03-19-2023 TSH Qn 1.190 m[IU]/L 0.270 - 4.200 mIU/L [facility] TSH SerPl-aCncon 03-19-2023 TSH Qn 1.190 m[IU]/L Normal 0.270-4.200 [facility] Comment on above: Order Comment: Speci men Type: BLOOD SPECIMENOrdering Facility: [facility] Address: [address] [place] [address] Performed By: #### 3 024-7, 3026-2, 3016-3 ####[facility] LABCLIA [id number] [place] [id number] [place] VITAMIN B1 (THIAMINE), WHOLE BLOODon 03-19-2023 Thiamine (Bld) [Moles/Vol] 183.6 nmol/L Normal 84.3-213.3 [facility] Comment on above: Order Comment: Speci men Type: BLOOD SPECIMENOrdering Facility: [facility] Address: [address] [place] [address] Result Comment: This assay measures the concentration of thiamine diphosphate (TDP), the primary active form of vitamin B1. Approximately 90 percent of vitamin B1 present in whole blood is TDP. Thiamine and thiamine monophosphate, which comprise the remaining 10 percent, are not measured. This test was developed and its performance characteristics determined by [facility]'s [facility] (-[facility]). It has not been cleared or approved by the FDA. -[facility] is regulated under CLIA as qualified to perform high-complexity testing. This test is used for clinical purposes. It should not be regarded as investigational or for research. Performed By: #### B 1WB ####[facility] LABCLIA [id number] [place] [id number] [place] VITAMIN B12 BLOODon 03-19-20 23 Cobalamin (Vitamin B12) [Mass/Vol] 638 pg/mL 232 - 1,245 pg/mL [facility] Vit B12 SerPl-ncon 023 Cobalamin (Vitamin B12) [Mass/Vol] 638 pg/mL Normal 232-1245 [facility] Comment on above: Order Comment: Speci men Type: BLOOD SPECIMENOrdering Facility: [facility] Address: [address] [place] [address] Performed By: #### 2 132-9, 2284-8 ####[facility] LABCLIA [id number] [facility] [address] [address] [place] BNPon 07-13-2022 Natriuretic peptide B (Bld) [Mass/Vol] 51.0 pg/mL Normal <=900.0 [facility] Comment on above: Performed By: #### B LOOM FIXER SUPERVISOR, CMADM, CMP #### [facility] [address] [place], [place] [address] Dr. Fawn Anthony CARDIAC HUGO ADMITon 023 CK [Catalytic activity/Vol] 51 U/L Normal 26-192 [facility] Comment on above: Performed By: #### B LOOM FIXER SUPERVISOR, CMADM, CMP ####[facility] [address] [place] [id number]. Fawn Anthony CK.MB [Mass/Vol] 1.15 ng/mL Normal <=3.60 [facility] Comment on above: Performed By: #### B LOOM FIXER SUPERVISOR, CMADM, CMP ####[facility] [address] [place] [address]Dr. Fawn Anthony HSTROP 4.1 pg/mL Normal 4.0-51.3 [facility] Comment on above: Result Comment: CUT- OFF POINTS HAVE BEEN ESTABLISHED BASED ON THE FOURTH UNIVERSAL DEFINITIONS OF MYOCARDIAL INFARCTION. THE UPPER REFERENCE LIMIT (URL) OF TROPONIN, DEFINED THE 99TH PERCENTILE OF cTnI DISTRIBUTION IN A REFERENCE POPULATION, HAS BEEN CONFIRMED THE DECISION THRESHOLD FOR VT DIAGNOSIS. Performed By: #### B LOOM FIXER SUPERVISOR, CMADM, CMP ####[facility] [address] [place] [id number] Anthony FREDDIE 29 ng/mL Normal 9-82 [facility] Comment on above: Performed By: #### B LOOM FIXER SUPERVISOR, CMADM, CMP ####[facility] [address] [place] [id number]. Fawn Anthony CBC AUTO DIFFon 07-13-2022 BASO # 0.1 103/ul Normal 0.0-0.1 [facility] Comment on above: Performed By: #### C BC #### [facility] [address] [place] [address] [address] Fawn Anthony Basophils/100 WBC (Bld) 1.1 % Normal 0.2-2.0 [facility] Comment on above: Performed By: #### C BC #### [facility] [address] [place] [address] Dr. Fawn Anthony EO # 0.3 103/ul Normal 0.0-0.7 [facility] Comment on above: Performed By: #### C BC #### [facility] [address] [place] [address] Dr. Fawn Anthony Eosinophils/100 WBC (Bld) 5.7 % Normal 0.9-7.0 [facility] Comment on above: Performed By: #### C BC #### [facility] [address] [place] [address] Dr. Fawn Anthony Erythrocyte distribution width (RBC) [Ratio] 13.0 % Normal 11.0-15.0 [facility] Comment on above: Performed By: #### C BC #### [facility] [address] [place] [address] Dr. Fawn Anthony Hematocrit (Bld) [Volume fraction] 39.7 % Normal 36.0-48.0 [facility] Comment on above: Performed By: #### C BC #### [facility] [address] [place] [address] Dr. Fawn Anthony Hemoglobin (Bld) [Mass/Vol] 13.0 g/dL Normal 12.0-16.0 [facility] Comment on above: Performed By: #### C BC #### [facility] [address] [place] [address] Dr. Fawn Anthony IG # 0.02 10e3/ul Normal 0.00-0.03 [facility] Comment on above: Performed By: #### C BC #### [facility] [address] [place] [address] Dr. Fawn Anthony IG % 0.4 % Normal 0.0-0.5 [facility] Comment on above: Performed By: #### C BC #### [facility] [address] [place] [address] Dr. Fawn Anthony LYMPH # 2.0 103/ul Normal 1.2-3.8 [facility] Comment on above: Performed By: #### C BC #### [facility] [address] [place] [address] Dr. Fawn Anthony Lymphocytes/100 WBC (Bld) 36.9 % Normal 20.5-60.0 [facility] Comment on above: Performed By: #### C BC #### [facility] [address] [place] [address] Dr. Fawn Anthony MANUAL DIFF REQ NO Normal [facility] Comment on above: Performed By: #### C BC #### [facility] [address] [place] [address] Dr. Fawn Anthony MCH (RBC) [Entitic mass] 28.7 pg Normal 26.7-34.0 [facility] Comment on above: Performed By: #### C BC #### [facility] [address] [place] [address] Dr. Fawn Anthony MCHC (RBC) [Mass/Vol] 32.7 g/dL Normal 29.9-35.2 [facility] Comment on above: Performed By: #### C BC #### [facility] [address] [place] [address] Dr. Fawn Anthony MCV (RBC) [Entitic vol] 87.6 fL Normal 81.0-99.0 [facility] Comment on above: Performed By: #### C BC #### [facility] [address] [place] [address] Dr. Fawn Anthony MONO # 0.4 103/ul Normal 0.3-0.8 [facility] Comment on above: Performed By: #### C BC #### [facility] [address] [place] [address] Dr. Fawn Anthony Monocytes/100 WBC (Bld) 8.1 % Normal 1.7-12.0 [facility] Comment on above: Performed By: #### C BC #### [facility] [address] [place] [address] Dr. Fawn Anthony NEUT # 2.6 103/ul Normal 1.4-6.5 [facility] Comment on above: Performed By: #### C BC #### [facility] [address] [place] [address] Dr. Fawn Anthony Neutrophils/100 WBC (Bld) 47.8 % Normal 43.0-75.0 [facility] Comment on above: Performed By: #### C BC #### [facility] [address] [place] [address] Dr. Fawn Anthony Platelet mean volume (Bld) [Entitic vol] 9.2 fL Critically low 9.5-13.5 [facility] Comment on above: Performed By: #### C BC #### [facility] [address] [place] [address] Dr. Fawn Anthony PLT 232 103/ul Normal 150-450 [facility] Comment on above: Performed By: #### C BC #### [facility] [address] [place] [address] Dr. Fawn Anthony RBC 4.53 106/ul Normal 4.20-5.40 [facility] Comment on above: Performed By: #### C BC #### [facility] [address] [place] [address] Dr. Fawn Anthony WBC 5.5 103/ul Normal 4.0-11.0 [facility] Comment on above: Performed By: #### C BC #### [facility] [address] [place] [address] Dr. Fawn Anthony PROF 14(COMP METB)on 023 Albumin [Mass/Vol] 3.8 g/dL Normal 3.4-5.0 [facility] Comment on above: Performed By: #### B LOOM FIXER SUPERVISOR, CMADM, CMP #### [facility] [address] [place] [address] [address] Fawn Anthony Albumin/Globulin [Mass ratio] 1.2 {ratio} Normal [facility] Comment on above: Performed By: #### B LOOM FIXER SUPERVISOR, CMADM, CMP #### [facility] [address] [place] [address] [address] Fawn Anthony ALP [Catalytic activity/Vol] 89 U/L Normal 46-116 [facility] Comment on above: Performed By: #### B LOOM FIXER SUPERVISOR, CMADM, CMP #### [facility] [address] [place] [address] [address] Fawn Anthony ALT [Catalytic activity/Vol] 22 U/L Normal 14-59 [facility] Comment on above: Performed By: #### B LOOM FIXER SUPERVISOR, CMADM, CMP #### [facility] [address] [place] [address] Dr. Fawn Anthony Anion gap [Moles/Vol] 9.5 mmol/L Normal [facility] Comment on above: Performed By: #### B LOOM FIXER SUPERVISOR, CMADM, CMP #### [facility] [address] [place] [address] Dr. Fawn Anthony AST [Catalytic activity/Vol] 15 U/L Normal 15-37 [facility] Comment on above: Performed By: #### B LOOM FIXER SUPERVISOR, CMADM, CMP #### [facility] [address] [place] [address] [address] Fawn Anthony Bilirubin [Mass/Vol] 0.3 mg/dL Normal 0.2-1.0 [facility] Comment on above: Performed By: #### B LOOM FIXER SUPERVISOR, CMADM, CMP #### [facility] [address] [place] [address] Dr. Fawn Anthony Calcium [Mass/Vol] 8.6 mg/dL Normal 8.5-10.1 [facility] Comment on above: Performed By: #### B LOOM FIXER SUPERVISOR, CMADM, CMP #### [facility] [address] [place] [address] Dr. Fawn Anthony Chloride [Moles/Vol] 102 mmol/L Normal 98-107 [facility] Comment on above: Performed By: #### B LOOM FIXER SUPERVISOR, CMADM, CMP #### [facility] [address] [place] [address] [address] Fawn Anthony CO2 [Moles/Vol] 31.0 mmol/L Normal 21.0-32.0 [facility] Comment on above: Performed By: #### B LOOM FIXER SUPERVISOR, CMADM, CMP #### [facility] [address] [place] [address] [address] Fawn Anthony Creatinine [Mass/Vol] 0.74 mg/dL Normal 0.55-1.02 [facility] Comment on above: Performed By: #### B LOOM FIXER SUPERVISOR, CMADM, CMP #### [facility] [address] [place] [address] Dr. Fawn Anthony EGFR-AF CYMRO >60 Normal >=60 [facility] Comment on above: Performed By: #### B LOOM FIXER SUPERVISOR, CMADM, CMP #### [facility] [address] [place] [address] Dr. Fawn Anthony EGFR-NON AF CYMRO >60 Normal >=60 [facility] Comment on above: Performed By: #### B LOOM FIXER SUPERVISOR, CMADM, CMP #### [facility] [address] [place] [address] [address] Fawn Anthony Globulin (S) [Mass/Vol] 3.2 g/dL Normal [facility] Comment on above: Performed By: #### B LOOM FIXER SUPERVISOR, CMADM, CMP #### [facility] [address] [place] [address] [address] Fawn Anthony Glucose [Mass/Vol] 100 mg/dL Normal 74-106 [facility] Comment on above: Performed By: #### B LOOM FIXER SUPERVISOR, CMADM, CMP #### [facility] [address] [place] [address] [address] Fawn Anthony Potassium [Moles/Vol] 3.5 mmol/L Normal 3.5-5.1 [facility] Comment on above: Performed By: #### B LOOM FIXER SUPERVISOR, CMADM, CMP #### [facility] [address] [place] [address] [address] Fawn Anthony Protein [Mass/Vol] 7.0 g/dL Normal 6.4-8.2 [facility] Comment on above: Performed By: #### B LOOM FIXER SUPERVISOR, SAMANTHA, CMP #### [facility] [address] [place] [address] [address] Fawn Anthony Sodium [Moles/Vol] 139 mmol/L Normal 136-145 [facility] Comment on above: Performed By: #### B LOOM FIXER SUPERVISOR, SAMANTHA, CMP #### [facility] [address] [place] [address] [address] Fawn Anthony Urea nitrogen [Mass/Vol] 14.0 mg/dL Normal 7.0-18.0 [facility] Comment on above: Performed By: #### B LOOM FIXER SUPERVISOR, SAMANTHA, CMP #### [facility] [address] [place] [address] Dr. Fawn Anthony Urea nitrogen/Creatinine [Mass ratio] 18.9 mg/mg Normal [facility] Comment on above: Performed By: #### B LOOM FIXER SUPERVISOR, SAMANTHA, CMP #### [facility] [address] [place] [address] [address] Fawn Anthony PROTIMEon 07-13-2022 INR Coag (PPP) [Relative time] 0.98 {INR} Normal [facility] Comment on above: Performed By: #### P TT, PT ####[facility] [address] [place] [address]DrSe Anthony INR GUIDELINES SEE BELOW Normal [facility] Comment on above: Result Comment: BROCK RED INR: 2.0 - 3.0 CONDITIONS NOT LISTED BELOW 2.5 - 3.5 FOR PROSTHETIC HEART VALVE REPLACEMENT 2.5 - 3.5 RECURRENT THROMBOSIS Performed By: #### P TT, PT ####[facility] [address] [place] [address]DrSe Anthony PT Coag (PPP) [Time] 10.4 s Normal 9.0-11.6 [facility] Comment on above: Performed By: #### P TT, PT ####[facility] [address] [place] [address]Dr. Fawn Anthony PTTon 07-13-2022 aPTT Coag (Bld) [Time] 30.1 s Normal 22.3-36.2 [facility] Comment on above: Performed By: #### P TT, PT ####[facility] [address] [place], [place] [address]AiDr. Fawn Anthony TROPONIN, HIGH SENSITIVITYon 07-13-2022 HSTROP 4.3 pg/mL Normal 4.0-51.3 [facility] Comment on above: Result Comment: CUT- OFF POINTS HAVE BEEN ESTABLISHED BASED ON THE FOURTH UNIVERSAL DEFINITIONS OF MYOCARDIAL INFARCTION. THE UPPER REFERENCE LIMIT (URL) OF TROPONIN, DEFINED THE 99TH PERCENTILE OF cTnI DISTRIBUTION IN A REFERENCE POPULATION, HAS BEEN CONFIRMED THE DECISION THRESHOLD FOR VT DIAGNOSIS. Performed By: #### H STROPN #### [facility] [address] [place] [address] Dr. Fawn Anthony TSHon 07-13-2022 TSH 3.430 uIU/mL Normal 0.358-3.740 [facility] Comment on above: Performed By: #### T SH #### [facility] [address] [place] [address] [address] Fawn Anthony XR CHEST 1 Von [...] AG PEACOCK Date: 2022-07-13 02:34 Normal [facility] CBC AUTO DIFFon 02-07-2022 BASO # 0.1 103/ul Normal 0.0-0.1 [facility] Comment on above: Performed By: #### C BC #### [facility] [address] [place] [address] [address] Fawn Anthony Basophils/100 WBC (Bld) 0.6 % Normal 0.2-2.0 [facility] Comment on above: Performed By: #### C BC #### [facility] [address] [place] [address] Dr. Fawn Anthony EO # 0.2 103/ul Normal 0.0-0.7 [facility] Comment on above: Performed By: #### C BC #### [facility] [address] [place] [address] Dr. Fawn Anthony Eosinophils/100 WBC (Bld) 1.8 % Normal 0.9-7.0 [facility] Comment on above: Performed By: #### C BC #### [facility] [address] [place] [address] Dr. Fawn Anthony Erythrocyte distribution width (RBC) [Ratio] 13.1 % Normal 11.0-15.0 [facility] Comment on above: Performed By: #### C BC #### [facility] [address] [place] [address] Dr. Fawn Anthony Hematocrit (Bld) [Volume fraction] 39.8 % Normal 36.0-48.0 [facility] Comment on above: Performed By: #### C BC #### [facility] [address] [place] [address] Dr. Fawn Anthony Hemoglobin (Bld) [Mass/Vol] 13.1 g/dL Normal 12.0-16.0 [facility] Comment on above: Performed By: #### C BC #### [facility] [address] [place] [address] Dr. Fawn Anthony IG # 0.04 10e3/ul Critically high 0.00-0.03 [facility] Comment on above: Performed By: #### C BC #### [facility] [address] [place] [address] Dr. Fawn Anthony IG % 0.4 % Normal 0.0-0.5 [facility] Comment on above: Performed By: #### C BC #### [facility] [address] [place] [address] Dr. Fawn Anthony LYMPH # 1.6 103/ul Normal 1.2-3.8 [facility] Comment on above: Performed By: #### C BC #### [facility] [address] [place] [address] Dr. Fawn Anthony Lymphocytes/100 WBC (Bld) 15.6 % Critically low 20.5-60.0 [facility] Comment on above: Performed By: #### C BC #### [facility] [address] [place] [address] Dr. Fawn Anthony MANUAL DIFF REQ NO Normal [facility] Comment on above: Performed By: #### C BC #### [facility] [address] [place] [address] Dr. Fawn Anthony MCH (RBC) [Entitic mass] 28.6 pg Normal 26.7-34.0 [facility] Comment on above: Performed By: #### C BC #### [facility] [address] [place] [address] Dr. Fawn Anthony MCHC (RBC) [Mass/Vol] 32.9 g/dL Normal 29.9-35.2 [facility] Comment on above: Performed By: #### C BC #### [facility] [address] [place] [address] Dr. Fawn Anthony MCV (RBC) [Entitic vol] 86.9 fL Normal 81.0-99.0 [facility] Comment on above: Performed By: #### C BC #### [facility] [address] [place] [address] Dr. Fawn Anthony MONO # 0.5 103/ul Normal 0.3-0.8 [facility] Comment on above: Performed By: #### C BC #### [facility] [address] [place] [address] Dr. Fawn Anthony Monocytes/100 WBC (Bld) 5.2 % Normal 1.7-12.0 [facility] Comment on above: Performed By: #### C BC #### [facility] [address] [place] [address] Dr. Fawn Anthony NEUT # 7.7 103/ul Critically high 1.4-6.5 [facility] Comment on above: Performed By: #### C BC #### [facility] [address] [place] [address] [address] Fawn Anthony Neutrophils/100 WBC (Bld) 76.4 % Critically high 43.0-75.0 [facility] Comment on above: Performed By: #### C BC #### [facility] [address] [place] [address] Dr. Fawn Anthony Platelet mean volume (Bld) [Entitic vol] 9.7 fL Normal 9.5-13.5 [facility] Comment on above: Performed By: #### C BC #### [facility] [address] [place] [address] Dr. Fawn Anthony PLT 257 103/ul Normal 150-450 [facility] Comment on above: Performed By: #### C BC #### [facility] [address] [place] [address] Dr. Fawn Anthony RBC 4.58 106/ul Normal 4.20-5.40 [facility] Comment on above: Performed By: #### C BC #### [facility] [address] [place] [address] Dr. Fawn Anthony WBC 10.1 103/ul Normal 4.0-11.0 [facility] Comment on above: Performed By: #### C BC #### [facility] [address] [place] [address] Dr. Fawn Anthony CTA CHEST WO W [...] YOKASTA BAINS Date: 2022-02-07 19:59 Normal [facility] PROF 14(COMP METB)on 02-07- 022 Albumin [Mass/Vol] 4.0 g/dL Normal 3.4-5.0 [facility] Comment on above: Performed By: #### H LAURA, CMP ####[facility] [address] [place] [id number]. Fawn Anthony Albumin/Globulin [Mass ratio] 1.3 {ratio} Normal [facility] Comment on above: Performed By: #### H LAURA, CMP ####[facility] [address] [place], [place] [address]So. Fawn Anthony ALP [Catalytic activity/Vol] 77 U/L Normal 46-116 [facility] Comment on above: Performed By: #### H LAURA, CMP ####[facility] [address] [place], [place] [address]Dz. Fawn Anthony ALT [Catalytic activity/Vol] 15 U/L Normal 14-59 [facility] Comment on above: Performed By: #### H LAURA, ERIC ####[facility] [address] [place] [address]Dr. Fawn Anthony Anion gap [Moles/Vol] 9.9 mmol/L Normal [facility] Comment on above: Performed By: #### H STROPN, CMP ####[facility] [address] [place] [address]Dr. Fawn Anthony AST [Catalytic activity/Vol] 13 U/L Critically low 15-37 [facility] Comment on above: Performed By: #### H STROPN, CMP ####[facility] [address] [place] [address]Dr. Fawn Anthony Bilirubin [Mass/Vol] 0.5 mg/dL Normal 0.2-1.0 [facility] Comment on above: Performed By: #### H LAURA, CMP ####[facility] [address] [place], [place] [address]Dr. Fawn Anthony Calcium [Mass/Vol] 9.2 mg/dL Normal 8.5-10.1 [facility] Comment on above: Performed By: #### H STROVAZQUEZ, CMP ####[facility] [address] [place], [place] [address]Dr. Fawn Anthony Chloride [Moles/Vol] 103 mmol/L Normal 98-107 [facility] Comment on above: Performed By: #### H LAURA, CMP ####[facility] [address] [place], [place] [address]Dr. Fawn Anthony CO2 [Moles/Vol] 27.5 mmol/L Normal 21.0-32.0 [facility] Comment on above: Performed By: #### H STROPN, CMP ####[facility] [address] [place], [place] [address]Dr. Fawn Anthony Creatinine [Mass/Vol] 0.71 mg/dL Normal 0.55-1.02 [facility] Comment on above: Performed By: #### H STROPN, CMP ####[facility] [address] [place] [address]Dr. Fawn Anthony EGFR-AF CYMRO >60 Normal >=60 [facility] Comment on above: Performed By: #### H STROPN, CMP ####[facility] [address] [place] [address]Dr. Fawn Anthony EGFR-NON AF CYMRO >60 Normal >=60 [facility] Comment on above: Performed By: #### H STROPN, CMP ####[facility] [address] [place] [address]Dr. Fawn Anthony Globulin (S) [Mass/Vol] 3.2 g/dL Normal [facility] Comment on above: Performed By: #### H STROPN, CMP ####[facility] [address] [place] [address]Dr. Fawn Anthony Glucose [Mass/Vol] 125 mg/dL Critically high 74-106 [facility] Comment on above: Performed By: #### H STROPN, CMP ####[facility] [address] [place], [place] [address]Dr. Fawn Anthony Potassium [Moles/Vol] 3.4 mmol/L Critically low 3.5-5.1 [facility] Comment on above: Performed By: #### H STROPN, CMP ####[facility] [address] [place], [place] [address]Dr. Fawn Anthony Protein [Mass/Vol] 7.2 g/dL Normal 6.4-8.2 [facility] Comment on above: Performed By: #### H STROPN, CMP ####[facility] [address] [place], [place] [address]Dr. Fawn Anthony Sodium [Moles/Vol] 137 mmol/L Normal 136-145 [facility] Comment on above: Performed By: #### H STROPN, CMP ####[facility] [address] [place], [place] [address]Dr. Fawn Anthony Urea nitrogen [Mass/Vol] 15.0 mg/dL Normal 7.0-18.0 [facility] Comment on above: Performed By: #### H STROPN, CMP ####[facility] [address] [place], [place] [address]Dr. Yijohn Anthony Urea nitrogen/Creatinine [Mass ratio] 21.1 mg/mg Normal [facility] Comment on above: Performed By: #### H LAURA, CMP ####[facility] [address] [place] [id number] Fawn Anthony TROPONIN, HIGH SENSITIVITYon 02-07-2022 HSTROP 4.8 pg/mL Normal 4.0-51.3 [facility] Comment on above: Result Comment: CUT- OFF POINTS HAVE BEEN ESTABLISHED BASED ON THE FOURTH UNIVERSAL DEFINITIONS OF MYOCARDIAL INFARCTION. THE UPPER REFERENCE LIMIT (URL) OF TROPONIN, DEFINED THE 99TH PERCENTILE OF cTnI DISTRIBUTION IN A REFERENCE POPULATION, HAS BEEN CONFIRMED THE DECISION THRESHOLD FOR VT DIAGNOSIS. Performed By: #### H LAURA #### [facility] [address] [address] Fawn Raj HSTROP 4.6 pg/mL Normal 4.0-51.3 [facility] Comment on above: Result Comment: CUT- OFF POINTS HAVE BEEN ESTABLISHED BASED ON THE FOURTH UNIVERSAL DEFINITIONS OF MYOCARDIAL INFARCTION. THE UPPER REFERENCE LIMIT (URL) OF TROPONIN, DEFINED THE 99TH PERCENTILE OF cTnI DISTRIBUTION IN A REFERENCE POPULATION, HAS BEEN CONFIRMED THE DECISION THRESHOLD FOR VT DIAGNOSIS. Performed By: #### H LAURA, CMP ####[facility] [id number] [place], [place] [address]Nk. Fawn Anthony XR CHEST 1 Von 02-07-2022 XR CHEST 1 V CHEST X-RAY, 1 VIEW HISTORY: Chest pain. COMPARISON: 09/13/2021. FINDINGS: The heart, pattie, and mediastinum are unremarkable. The lungs are grossly clear. There are no pleural effusions. There is no pneumothorax. IMPRESSION: No evidence of acute cardiopulmonary disease. Electronically authenticated by: LUKE GUERRA Date: 2022-02-07 18:39 Normal [facility] SCREENING MAMMOGRAM W/KALLI, BILATERAL*on 12-14-2021 SCREENING MAMMOGRAM [...] VERY IMPORTANT TO YOUR HEALTH. THE CURRENT [employer] GUIDELINES RECOMMENDS ANNUAL MAMMOGRAPHY BEGINNING AT AGE 40 THIS FACILITY USES A REMINDER SYSTEM TO ENSURE ALL PATIENTS RECEIVE REMINDER NOTIFICATIONS AT THE APPROPRIATE TIME BASED ON THE RECOMMENDATIONS OF THIS EXAM. Report reported and signed by Cosme Valentin on 12/17/2021 1400 Normal [facility] Specialist TROPONIN, HIGH SENSITIVITYon 09-14-2021 HSTROP 4.9 pg/mL Normal 4.0-51.3 [facility] Comment on above: Result Comment: CUT- OFF POINTS HAVE BEEN ESTABLISHED BASED ON THE FOURTH UNIVERSAL DEFINITIONS OF MYOCARDIAL INFARCTION. THE UPPER REFERENCE LIMIT (URL) OF TROPONIN, DEFINED THE 99TH PERCENTILE OF cTnI DISTRIBUTION IN A REFERENCE POPULATION, HAS BEEN CONFIRMED THE DECISION THRESHOLD FOR VT DIAGNOSIS. Performed By: #### H STROPN #### [facility] [address] [place] [address] Dr. Fawn Anthony XR CHEST 1 Von [...] MARLENE LEACH Date: 2021-09-13 22:08 Normal [facility] CBC AUTO DIFFon 09-13-2021 BASO # 0.1 103/ul Normal 0.0-0.1 [facility] Comment on above: Performed By: #### C BC #### [facility] [address] [place] [address] Dr. Fawn Anthony Basophils/100 WBC (Bld) 1.1 % Normal 0.2-2.0 [facility] Comment on above: Performed By: #### C BC #### [facility] [address] [address] [address] Fawn Anthony EO # 0.2 103/ul Normal 0.0-0.7 [facility] Comment on above: Performed By: #### C BC #### [facility] [address] [place] [address] Dr. Fawn Anthony Eosinophils/100 WBC (Bld) 4.3 % Normal 0.9-7.0 [facility] Comment on above: Performed By: #### C BC #### [facility] [address] [place] [address] Dr. Fawn Anthony Erythrocyte distribution width (RBC) [Ratio] 13.2 % Normal 11.0-15.0 [facility] Comment on above: Performed By: #### C BC #### [facility] [address] [place] [address] Dr. Fawn Anthony Hematocrit (Bld) [Volume fraction] 39.8 % Normal 36.0-48.0 [facility] Comment on above: Performed By: #### C BC #### [facility] [address] [place] [address] Dr. Fawn Anthony Hemoglobin (Bld) [Mass/Vol] 13.2 g/dL Normal 12.0-16.0 [facility] Comment on above: Performed By: #### C BC #### [facility] [address] [place] [address] Dr. Fawn Anthony IG # 0.02 10e3/ul Normal 0.00-0.03 [facility] Comment on above: Performed By: #### C BC #### [facility] [address] [place] [address] Dr. Fawn Anthony IG % 0.4 % Normal 0.0-0.5 [facility] Comment on above: Performed By: #### C BC #### [facility] [address] [place] [address] Dr. Fawn Anthony LYMPH # 1.9 103/ul Normal 1.2-3.8 [facility] Comment on above: Performed By: #### C BC #### [facility] [address] [place] [address] Dr. Fawn Anthony Lymphocytes/100 WBC (Bld) 34.3 % Normal 20.5-60.0 [facility] Comment on above: Performed By: #### C BC #### [facility] [address] [place] [address] Dr. Fawn Anthony MANUAL DIFF REQ NO Normal [facility] Comment on above: Performed By: #### C BC #### [facility] [address] [place] [address] Dr. Fawn Anthony MCH (RBC) [Entitic mass] 29.1 pg Normal 26.7-34.0 [facility] Comment on above: Performed By: #### C BC #### [facility] [address] [place] [address] Dr. Fawn Anthony MCHC (RBC) [Mass/Vol] 33.2 g/dL Normal 29.9-35.2 [facility] Comment on above: Performed By: #### C BC #### [facility] [address] [place] [address] Dr. Fawn Anthony MCV (RBC) [Entitic vol] 87.9 fL Normal 81.0-99.0 [facility] Comment on above: Performed By: #### C BC #### [facility] [address] [place] [address] Dr. Fawn Anthony MONO # 0.5 103/ul Normal 0.3-0.8 [facility] Comment on above: Performed By: #### C BC #### [facility] [address] [place] [address] Dr. Fawn Anthony Monocytes/100 WBC (Bld) 8.3 % Normal 1.7-12.0 [facility] Comment on above: Performed By: #### C BC #### [facility] [address] [place] [address] Dr. Fawn Anthony NEUT # 2.9 103/ul Normal 1.4-6.5 [facility] Comment on above: Performed By: #### C BC #### [facility] [address] [place] [address] Dr. Fawn Anthony Neutrophils/100 WBC (Bld) 51.6 % Normal 43.0-75.0 [facility] Comment on above: Performed By: #### C BC #### [facility] [address] [place] [address] Dr. Fawn Anthony Platelet mean volume (Bld) [Entitic vol] 9.4 fL Critically low 9.5-13.5 [facility] Comment on above: Performed By: #### C BC #### [facility] [address] [place] [address] Dr. Fawn Anthony PLT 245 103/ul Normal 150-450 [facility] Comment on above: Performed By: #### C BC #### [facility] [address] [place] [address] Dr. Fawn Anthony RBC 4.53 106/ul Normal 4.20-5.40 [facility] Comment on above: Performed By: #### C BC #### [facility] [address] [place] [address] Dr. Fawn Anthony WBC 5.5 103/ul Normal 4.0-11.0 [facility] Comment on above: Performed By: #### C BC #### [facility] [address] [place] [address] Dr. Fawn Anthony PROF 14(COMP METB)on 022 Albumin [Mass/Vol] 3.7 g/dL Normal 3.4-5.0 [facility] Comment on above: Performed By: #### H LAURA, CMP #### [facility] [address] [place] [address] Dr. Fawn Anthony Albumin/Globulin [Mass ratio] 1.1 {ratio} Normal [facility] Comment on above: Performed By: #### H TRACIPN, CMP #### [facility] [address] [place] [address] Dr. Fawn Anthony ALP [Catalytic activity/Vol] 79 U/L Normal 46-116 [facility] Comment on above: Performed By: #### H TRACIPN, CMP #### [facility] [address] [place] [address] Dr. Fawn Anthony ALT [Catalytic activity/Vol] 27 U/L Normal 14-59 [facility] Comment on above: Performed By: #### H TRACIPN, CMP #### [facility] [address] [address] [address] Fawn Anthony Anion gap [Moles/Vol] 9.4 mmol/L Normal [facility] Comment on above: Performed By: #### H STROPN, CMP #### [facility] [address] [address] [address] Fawn Anthony AST [Catalytic activity/Vol] 15 U/L Normal 15-37 [facility] Comment on above: Performed By: #### H STROPN, CMP #### [facility] [address] [address] [address] Fawn Anthony Bilirubin [Mass/Vol] 0.5 mg/dL Normal 0.2-1.0 [facility] Comment on above: Performed By: #### H STROPN, CMP #### [facility] [address] [place] [address] Dr. Fawn Anthony Calcium [Mass/Vol] 8.7 mg/dL Normal 8.5-10.1 [facility] Comment on above: Performed By: #### H STROPN, CMP #### [facility] [address] [address] [address] Fawn Anthony Chloride [Moles/Vol] 105 mmol/L Normal 98-107 [facility] Comment on above: Performed By: #### H STROPN, CMP #### [facility] [address] [address] [address] Fawn Anthony CO2 [Moles/Vol] 28.2 mmol/L Normal 21.0-32.0 [facility] Comment on above: Performed By: #### H STROPN, CMP #### [facility] [address] [address] [address] Fawn Anthony Creatinine [Mass/Vol] 0.92 mg/dL Normal 0.55-1.02 [facility] Comment on above: Performed By: #### H STROPN, CMP #### [facility] [address] [address] [address] Fawn Anthony EGFR-AF CYMRO >60 Normal >=60 [facility] Comment on above: Performed By: #### H STROPN, CMP #### [facility] [address] [address] [address] Fawn Anthony EGFR-NON AF CYMRO >60 Normal >=60 [facility] Comment on above: Performed By: #### H STROPN, CMP #### [facility] [address] [address] [address] Fawn Anthony Globulin (S) [Mass/Vol] 3.3 g/dL Normal [facility] Comment on above: Performed By: #### H STROPN, CMP #### [facility] [address] [address] [address] Fawn Anthony Glucose [Mass/Vol] 105 mg/dL Normal 74-106 [facility] Comment on above: Performed By: #### H STROPN, CMP #### [facility] [address] [place] [address] Dr. Fawn Anthony Potassium [Moles/Vol] 3.6 mmol/L Normal 3.5-5.1 [facility] Comment on above: Performed By: #### H STROPN, CMP #### [facility] [address] [address] [address] Fawn Anthony Protein [Mass/Vol] 7.0 g/dL Normal 6.4-8.2 [facility] Comment on above: Performed By: #### H STROPN, CMP #### [facility] [address] [address] [address] Fawn Anthony Sodium [Moles/Vol] 139 mmol/L Normal 136-145 [facility] Comment on above: Performed By: #### H STROPN, CMP #### [facility] [address] [address] [address] Fawn Anthony Urea nitrogen [Mass/Vol] 9.0 mg/dL Normal 7.0-18.0 [facility] Comment on above: Performed By: #### H STROPN, CMP #### [facility] [address] [address] [address] Fawn Anthony Urea nitrogen/Creatinine [Mass ratio] 9.8 mg/mg Normal [facility] Comment on above: Performed By: #### H STROPN, CMP #### [facility] [address] [place] [address] Dr. Fawn Anthony TROPONIN, HIGH SENSITIVITYon 09-13-2021 HSTROP 5.6 pg/mL Normal 4.0-51.3 [facility] Comment on above: Result Comment: CUT- OFF POINTS HAVE BEEN ESTABLISHED BASED ON THE FOURTH UNIVERSAL DEFINITIONS OF MYOCARDIAL INFARCTION. THE UPPER REFERENCE LIMIT (URL) OF TROPONIN, DEFINED THE 99TH PERCENTILE OF cTnI DISTRIBUTION IN A REFERENCE POPULATION, HAS BEEN CONFIRMED THE DECISION THRESHOLD FOR VT DIAGNOSIS. Performed By: #### H LAURA, CMP #### [facility] [address] [place] [address] Dr. Fawn Anthony CBC AUTO DIFFon 12-02-2020 BASO # 0.1 103/ul Normal 0.0-0.1 [facility] Comment on above: Performed By: #### C BC #### [facility] [address] [place] [address] Maricruz Kristen Basophils/100 WBC (Bld) 0.9 % Normal 0.2-2.0 [facility] Comment on above: Performed By: #### C BC #### [facility] [address] [place] [address] Maricruz Kristen EO # 0.2 103/ul Normal 0.0-0.7 [facility] Comment on above: Performed By: #### C BC #### [facility] [address] [place] [address] Maricruz Kristen Eosinophils/100 WBC (Bld) 3.3 % Normal 0.9-7.0 [facility] Comment on above: Performed By: #### C BC #### [facility] [address] [place] [address] Maricruz Kristen Erythrocyte distribution width (RBC) [Ratio] 12.7 % Normal 11.0-15.0 [facility] Comment on above: Performed By: #### C BC #### [facility] [address] [place] [address] Maricruz Kristen Hematocrit (Bld) [Volume fraction] 44.5 % Normal 36.0-48.0 [facility] Comment on above: Performed By: #### C BC #### [facility] [address] [id number] Maricruz Kristen Hemoglobin (Bld) [Mass/Vol] 14.2 g/dL Normal 12.0-16.0 [facility] Comment on above: Performed By: #### C BC #### [facility] [address] [id number] Maricruz Kristen IG # 0.05 10e3/ul Critically high 0.00-0.03 [facility] Comment on above: Performed By: #### C BC #### [facility] [address] [id number] Maricruz Kristen IG % 0.7 % Critically high 0.0-0.5 [facility] Comment on above: Performed By: #### C BC #### [facility] [address] [place] [address] Maricruz Kristen LYMPH # 1.8 103/ul Normal 1.2-3.8 [facility] Comment on above: Performed By: #### C BC #### [facility] [address] [place], [place] [id number] Maricruz Kristen Lymphocytes/100 WBC (Bld) 26.4 % Normal 20.5-60.0 [facility] Comment on above: Performed By: #### C BC #### [facility] [address] [place] [address] Maricruz Kristen MANUAL DIFF REQ NO Normal [facility] Comment on above: Performed By: #### C BC #### [facility] [address] [place], [place] [id number] Maricruz Kristen MCH (RBC) [Entitic mass] 29.1 pg Normal 26.7-34.0 [facility] Comment on above: Performed By: #### C BC #### [facility] [address] [place], [place] [id number] Maricruz Kristen MCHC (RBC) [Mass/Vol] 31.9 g/dL Normal 29.9-35.2 [facility] Comment on above: Performed By: #### C BC #### [facility] [address] [id number] Maricruzfuentes Peterson MCV (RBC) [Entitic vol] 91.2 fL Normal 81.0-99.0 [facility] Comment on above: Performed By: #### C BC #### [facility] [address] [id number] Maricruzfuentes Peterson MONO # 0.5 103/ul Normal 0.3-0.8 [facility] Comment on above: Performed By: #### C BC #### [facility] [address] [place], [place] [id number] Maricruzfuentes [place] Monocytes/100 WBC (Bld) 7.6 % Normal 1.7-12.0 [facility] Comment on above: Performed By: #### C BC #### [facility] [address] [place] [address] Maricruzfuentes Bustillosen NEUT # 4.3 103/ul Normal 1.4-6.5 [facility] Comment on above: Performed By: #### C BC #### [facility] [address] [place], [place] [id number] Maricruz Peterson Neutrophils/100 WBC (Bld) 61.1 % Normal 43.0-75.0 [facility] Comment on above: Performed By: #### C BC #### [facility] [address] [place], [place] [id number] Maricruzfuentes Peterson Platelet mean volume (Bld) [Entitic vol] 10.0 fL Normal 9.5-13.5 [facility] Comment on above: Performed By: #### C BC #### [facility] [address] [place], [place] [id number] Maricruz Kristen PLT 259 103/ul Normal 150-450 [facility] Comment on above: Performed By: #### C BC #### [facility] [address] [place], [place] [id number] Maricruz Kristen RBC 4.88 106/ul Normal 4.20-5.40 [facility] Comment on above: Performed By: #### C BC #### [facility] [address] [place], [place] [id number] Maricruz Kristen WBC 7.0 103/ul Normal 4.0-11.0 [facility] Comment on above: Performed By: #### C BC #### [facility] [address] [place], [place] [id number] Maricruzfuentes Peterson PROF 14(COMP METB)on 021 Albumin [Mass/Vol] 4.1 g/dL Normal 3.5-5.0 [facility] Comment on above: Performed By: #### C UCHE HSTROPN #### [facility] [address] [place], [place] [id number] Maricruz Kristen Albumin/Globulin [Mass ratio] 1.0 {ratio} Normal [facility] Comment on above: Performed By: #### C UCHE HSTROPN #### [facility] [address] [place] [address] Maricruz Kristen ALP [Catalytic activity/Vol] 96 U/L Normal 38-126 [facility] Comment on above: Performed By: #### C UCHE HSTROPN #### [facility] [address] [place] [address] Maricruz Kristen ALT [Catalytic activity/Vol] 83 U/L Critically high 9-52 [facility] Comment on above: Performed By: #### C UCHE HSTROPN #### [facility] [address] [place] [address] Maricruz Kristen Anion gap [Moles/Vol] 13.2 mmol/L Normal [facility] Comment on above: Performed By: #### C UCHE HSTROPN #### [facility] [address] [place] [address] Maricruz Kristen AST [Catalytic activity/Vol] 40 U/L Critically high 14-36 [facility] Comment on above: Performed By: #### C UCHE HSTROPN #### [facility] [address] [place], [place] [id number] Maricruz Kristen Bilirubin [Mass/Vol] 0.5 mg/dL Normal 0.2-1.3 [facility] Comment on above: Performed By: #### C UCHE HSTROPN #### [facility] [address] [address] Maricruz Kristen Calcium [Mass/Vol] 9.0 mg/dL Normal 8.4-10.2 [facility] Comment on above: Performed By: #### C UCHE, HSTROPN #### [facility] [address] [address] Maricruz Kristen Chloride [Moles/Vol] 104 mmol/L Normal 98-107 [facility] Comment on above: Performed By: #### C UCHE, HSTROPN #### [facility] [address] [place] [address] Maricruz Kristen CO2 [Moles/Vol] 29.6 mmol/L Normal 22.0-30.0 [facility] Comment on above: Performed By: #### C UCHE, HSTROPN #### [facility] [address] [place] [address] Maricruz Kristen Creatinine [Mass/Vol] 0.80 mg/dL Normal 0.52-1.04 [facility] Comment on above: Performed By: #### C UCHE, HSTROPN #### [facility] [address] [place] [address] Maricruz Kristen EGFR-AF CYMRO >60 Normal >=60 [facility] Comment on above: Performed By: #### C UCHE, HSTROPN #### [facility] [address] [place] [address] Maricruz Kristen EGFR-NON AF CYMRO >60 Normal >=60 [facility] Comment on above: Performed By: #### C UCHE, HSTROPN #### [facility] [address] [place] [address] Maricruz Kristen Globulin (S) [Mass/Vol] 4.0 g/dL Normal [facility] Comment on above: Performed By: #### C UCHE, HSTROPN #### [facility] [address] [place] [address] Maricruz Kristen Glucose [Mass/Vol] 98 mg/dL Normal 74-106 [facility] Comment on above: Performed By: #### C UCHE, HSTROPN #### [facility] [address] [place], [place] [address] Maricruz Kristen Potassium [Moles/Vol] 3.8 mmol/L Normal 3.4-5.0 [facility] Comment on above: Performed By: #### C MP, HSTROPN #### [facility] [address] [place], [place] [address] Maricruz Kristen Protein [Mass/Vol] 8.1 g/dL Normal 6.1-8.2 [facility] Comment on above: Performed By: #### C MP, HSTROPN #### [facility] [address] [place], [place] [address] Maricruz Kristen Sodium [Moles/Vol] 143 mmol/L Normal 137-145 [facility] Comment on above: Performed By: #### C MP, HSTROPN #### [facility] [address] [place] [address] Maricruz Kristen Urea nitrogen [Mass/Vol] 9.0 mg/dL Normal 7.0-17.0 [facility] Comment on above: Performed By: #### C MP, HSTROPN #### [facility] [address] [place] [id number] Maricruz Kristen Urea nitrogen/Creatinine [Mass ratio] 11.2 mg/mg Normal [facility] Comment on above: Performed By: #### C MP, HSTROPN #### [facility] [address] [place], [place] [id number] Maricruz Kristen TROPONIN, HIGH SENSITIVITYon 12-02-2020 HSTROP <4.0 Normal 4.0-35.5 [facility] Comment on above: Result Comment: CUT- OFF POINTS HAVE BEEN ESTABLISHED BASED ON THE FOURTH UNIVERSAL DEFINITIONS OF MYOCARDIAL INFARCTION. THE UPPER REFERENCE LIMIT (URL) OF TROPONIN, DEFINED THE 99TH PERCENTILE OF cTnI DISTRIBUTION IN A REFERENCE POPULATION, HAS BEEN CONFIRMED THE DECISION THRESHOLD FOR [place] DIAGNOSIS. Performed By: #### C MP, HSTROPN #### [facility] [address] [place] [address] Maricruz Kristen XR CHEST 2 Von 12-02-2020 XR CHEST 2 V CHEST X RAY, 2 VIEWS CLINICAL INFORMATION: Chest pain. COMPARISONS: Chest x-ray dated 05/12/2014. FINDINGS: No focal consolidation to suggest pneumonia. No pleural effusions or pneumothorax. No overt pulmonary edema. Cardiomediastinal silhouette within normal limits. IMPRESSION: 1. No acute cardiopulmonary disease. Electronically authenticated by: BELEN MARIN Date: 2020-12-02 16:43 Normal [facility] Vital Signs Date Time Vital Sign Value Performing Clinician Jerardo bianchi 11-20-2023 14:07-0400 Body mass index (BMI) [Ratio] 21.34 kg/m2 Carilta Zincho CN Work Phone: [facility] 11-20-2023 14:07-0400 Body weight 69.4 kg Carlita Gayleo CNM Work Phone: [facility] 11-20-2023 14:07-0400 Diastolic blood pressure 70 mm[Hg] Carlita Zincho CNM Work Phone: [facility] 11-20-2023 14:07-0400 Systolic blood pressure 110 mm[Hg] Carlita Zincho CNM Work Phone: [facility] 05-22-2023 11:50-0500 Body weight 70.72 kg Madhav Maldonado MD Work Phone: [facility] 05-22-2023 11:50-0500 Diastolic blood pressure 70 mm[Hg] Madhav Maldonado MD Work Phone: [facility] 05-22-2023 11:50-0500 Heart rate 67 /min Madhav Maldonado MD Work Phone: [facility] 05-22-2023 11:50-0500 Systolic blood pressure 119 mm[Hg] Madhav Maldonado MD Work Phone: [facility] Encounters Encounter Date Encounter Type Care Provider Facility Start: 03-23-2024 End: 03-23-2024 Clinisync Result Encounter Generic External Data Provider [facility] External Department Unsolicited Start: 03-23-2024 End: 03-23-2024 Clinisync Result Encounter Generic External Data Provider [facility] External Department Unsolicited Start: 02-24-2024 End: 03-02-2024 Telephone encounter [facility]ch [facility] Start: 01-23-2024 End: 01-26-2024 Telephone encounter Carlita Gonzalez CNM Work Phone: [facility] Start: 12-26-2023 End: 12-26-2023 Telephone encounter Dana Garcia [facility] Comment on above: Waitlist Maintenance Start: 12-15-2023 End: 12-15-2023 ambulatory CAMI Mccormick [facility] Start: 12-15-2023 End: 12-15-2023 Office outpatient visit 25 minutes Cami Quintana MD Work Phone: [facility] Comment on above: Major depressive dis order, recurrent episode, moderate (CMS- HCC) (Primary Dx); MCI (mild cognitive impairment) with memory loss Start: 11-20-2023 End: 11-20-2023 Bamboo flowsheet Carlita Gonzalez CNM Work Phone: [facility] Start: 11-20-2023 End: 11-20-2023 Bamboo flowsheet Carlita Gonzalez CNM Work Phone: [facility] Start: 11-20-2023 End: 11-20-2023 Gynecological examination normal Carlita Gonzalez CNM Work Phone: [facility] Start: 11-20-2023 End: 11-20-2023 Periodic preventive med est patient 40-64yrs Carlita Gayleo CNM Work Phone: [facility] Comment on above: Normal gynecologic e xamination; Screening for cervical cancer; Breast cancer screening by mammogram Start: 11-20-2023 End: 11-20-2023 ambulatory CARLITA GAYLEO Not Available Start: 11-04-2023 End: 11-04-2023 ambulatory [facility] Start: 10-20-2023 End: 10-22-2023 [facility] [facility] Comment on above: AWAITING REFERRAL Start: 10-15-2023 End: 10-15-2023 ambulatory CAMI QUINTANA [facility] Start: 10-06-2023 Telephone encounter Lindsey HERNANDEZ Work Phone: Neurology Comment on above: Appointment Returning Patient's Call (Received voicemail from patient requesting contact information for local speech providers. This information was previously provided to patient via [employer] and email on 09/19/2023. A second email listing the local speech providers was sent to patient on 10/03/2023 via email (patients preferred mode of communication). Called patient. Clarified that local speech providers were sent to her via email. Patient currently driving and planning to look at her email once home. ) Start: 09-19-2023 End: 09-19-2023 ambulatory Jarvis Block CCC-CONCESSION SUPERVISOR Work Phone: [facility] Start: 09-19-2023 End: 09-19-2023 Patient encounter procedure Jarvis Block CCC-CONCESSION SUPERVISOR Work Phone: [facility] Comment on above: No-show for appointm ent (Primary Dx) Start: 09-16-2023 E-mail encounter fro m caregiver Jarvis Block CCC-CONCESSION SUPERVISOR Work Phone: [facility] Start: 09-16-2023 Patient encounter procedure Jarvis Block CCC-CONCESSION SUPERVISOR Work Phone: [facility] Comment on above: Virtual Visit 09/18 Start: 09-13-2023 Telephone encounter Lindsey HERNANDEZ Work Phone: Neurology Comment on above: Appointment (09/13/23 - [facility], message sent / reminder mailed for [facility] OLENA cervantesal./- GL /) Start: 09-12-2023 Telephone encounter Madhav musa MD Work Phone: Neurology Start: 09-12-2023 End: 09-12-2023 ambulatory Jarvis Block CCC-CONCESSION SUPERVISOR Work Phone: [facility] Start: 09-12-2023 End: 09-12-2023 Patient encounter procedure Jarvis Block CCC-CONCESSION SUPERVISOR Work Phone: [facility] Therapy Comment on above: Cognitive impairment , mild, so stated (Primary Dx); Cognitive communication deficit Start: 09-04-2023 End: 09-04-2023 ambulatory [facility] Start: 09-03-2023 ambulatory Jarvis Block Eulalio CC-CONCESSION SUPERVISOR Work Phone: Otolaryngology Comment on above: Speech Therapy Start: 09-03-2023 E-mail encounter todd m caregiver Jarvis Block CCC-CONCESSION SUPERVISOR Work Phone: Otolaryngology Start: 09-03-2023 Telephone encounter Madhav musa MD Work Phone: Neurology Comment on above: MRI Order Start: 06-20-2023 End: 06-20-2023 ambulatory [facility] Start: 06-09-2023 End: 06-09-2023 ambulatory SHAIKH KAROLINE Not Available Start: 05-22-2023 End: 05-22-2023 Patient encounter procedure Madhav Maldonado MD Work Phone: Neurology Comment on above: CRUZ on CPAP (Primary Dx) Start: 05-22-2023 End: 05-22-2023 ambulatory Jarvis Block CCC-CONCESSION SUPERVISOR Work Phone: [facility] Speech Therapy Comment on above: Cognitive communicat ion deficit (Primary Dx); Cognitive impairment, mild, so stated Start: 05-22-2023 End: 05-22-2023 Subsequent hospital visit by physician Drake Gonzalez (I-Stat/3t) Work Phone: Radiology Comment on above: Cognitive impairment , mild, so stated [G31.84] Start: 05-01-2023 Telephone encounter Colleen Ryan RN [facility] Start: 04-17-2023 End: 04-17-2023 ambulatory [facility] Start: 04-03-2023 Refill Marisela Daniel 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 TENDER [facility] Comment on above: Med Refill Start: 03-19-2023 End: 03-19-2023 ambulatory MADHAV MALDONADO Facility:[facility] Start: 03-19-2023 End: 03-19-2023 Patient encounter procedure Madhav Maldonado MD Work Phone: Neurology Comment on above: Cognitive impairment , mild, so stated (Primary Dx) Start: 03-19-2023 End: 03-19-2023 ambulatory DELMY FARFAN Facility:[facility] Start: 03-05-2023 End: 03-05-2023 ambulatory SHAIKH KAROLINE Not Available Start: 12-23-2022 End: 02-03-2024 Telephone encounter Andrew Salomon DO Work Phone: [facility] Start: 07-13-2022 End: 07-13-2022 ambulatory GHISLAINE GROSS Facility:[facility] Start: 04-17-2022 End: 04-18-2022 ambulatory NATACHA DASH Facility:[facility] Start: 03-20-2022 End: 03-21-2022 ambulatory NATACHA DASH Facility:[facility] Start: 02-07-2022 End: 02-07-2022 ambulatory GHISLAINE GROSS Facility:[facility] Start: 09-13-2021 End: 09-14-[address] HUGO RUIZ Facility:[facility] Start: 05-29-2021 End: 05-29-2021 ambulatory Ghislaine Gross Facility:[facility] Start: 05-29-2021 End: 05-29-2021 Patient encounter procedure PhD Chaka Atwood Work Phone: [facility] Start: 02-11-2021 End: 02-11-[address] HUGO RUIZ Facility:[facility] Start: 12-02-2020 End: 12-02-[address] ELIDA FRANCOIS Facility:[facility] Procedures Date Procedure Procedure Detail Performing Clinician Start: 03-23-2024 ALL CBC WITH AUTO DIFF Generic External Data Provider Start: 11-20-2023 THINPREP IMAGING PAP AND HPV DNA REFLEX HPV 16,18 Carlita Gonzalez CNM Work Phone: Start: 05-22-2023 3d rendering w/interp&postproc diff work station Madhav Maldonado MD Work Phone: Start: 05-22-2023 Mri brain brain stem w/o contrast material Madhav Maldonado MD Work Phone: Start: 12-14-2021 Mammography Carlita Fl marlen CNM Work Phone: Start: 11-14-2016 Colonoscopy Jarvis Evgeny pete CCC-CONCESSION SUPERVISOR Work Phone: Plan of Treatment Date Care Activity Detail Author Start: 11-14-2026 Screening for malign ant neoplasm of colon [facility] Start: 02-28-2026 Screening for malign ant neoplasm of colon [facility] Start: 12-07-2025 Screening for malign ant neoplasm of cervix [facility] Start: 12-14-2024 Tobacco Screening Tobacco Screening [facility] Start: 04-22-2024 End: 04-22-2024 Patient encounter procedure 04/22/2024 9:30 AM EST Office Visit [facility] [address] [place] [address] Sherman Busch, [address] [place] [address] [facility] Start: 04-05-2024 End: 04-05-2024 Patient encounter procedure 04/05/2024 8:40 AM EST Office Visit [facility] [address] [place] [address] Roque Johnston MD [address] Tamez [address] [place] [address] [facility] Start: 03-26-2024 End: 03-26-2024 Patient encounter procedure 03/26/2024 4:00 PM EST Office Visit [facility] [address] [facility] [place] [address] Candie Hutchins MD [address] [place] [address], [address] [place] [phone] [facility] Start: 02-12-2024 Adult BMI Screening Adult BMI Screen ing [facility] Start: 02-12-2024 Tobacco Screening Tobacco Screening [facility] Start: 01-08-2024 End: 01-08-2024 Patient encounter procedure 01/08/2024 8:30 AM EDT Office Visit [facility] [address] [place] [phone] Candie Hutchins MD [address] [place] [address], [address] [place] [address] [facility] Start: 12-17-2023 End: 12-17-2023 Patient encounter procedure 12/17/2023 10:00 AM EDT Office Visit Neurology [address] [place] [address] Madhav Maldonado MD [address] [place], [place] [id number] [facility] Neurology Comment on above: Memory Loss Start: 11-30-2023 COVID-19 Vaccine ( season) COVID-19 Vaccine () [facility] Start: 11-30-2023 COVID-19 Vaccine ( season) COVID-19 Vaccine ( season) [facility] Start: 11-30-2023 Influenza [facility] Start: 11-20-2023 End: 01-19-2025 DBT Breast - bilateral screening Bilateral screening mammogram with tomosynthesis Imaging Routine Breast cancer screening by mammogram Expected: 11/20/2023, Expires: 01/19/2025 [facility] Work Phone: Comment on above: Expected: 11/20/2023 , Expires: 01/19/2025 Start: 11-20-2023 End: 11-20-2023 Patient encounter procedure 11/20/2023 2:00 PM EDT Office Visit [facility] [address] [place] [address] Carlita Gonzalez CNM [address] [place] [address] Arrived [facility] Comment on above: Arrived Start: 10-06-2023 End: 10-06-2023 Social Work 10/06/2023 1:00 PM EDT Social Work Neurology [address] [id number] Lindsey Dawn LISW [address] [address] [facility] Neurology Comment on above: [facility] eval Start: 09-26-2023 End: 09-26-2023 Patient encounter procedure 09/26/2023 1:00 PM EDT OT/PT/Speech Visit [facility] [address] [place] [address] Jarvis Block, [facility]-CONCESSION SUPERVISOR [address] [place], [place] [phone] SPEECH [facility] Comment on above: SPEECH Start: 09-19-2023 End: 09-19-2023 Patient encounter procedure 09/19/2023 1:00 PM EDT OT/PT/Speech Visit [facility] [address] [place] [address] Jarvis Block, CCC-CONCESSION SUPERVISOR [address] [place] [address] SPEECH [facility] Comment on above: SPEECH Start: 09-12-2023 End: 09-12-2023 Patient encounter procedure 09/12/2023 1:00 PM EDT OT/PT/Speech Visit [facility] Therapy [address] [place] [address] Jarvis Block, CCC-CONCESSION SUPERVISOR [address] [place], [place] [phone] SPEECH [facility] Comment on above: SPEECH Start: 09-05-2023 End: 09-05-2023 Patient encounter procedure 09/05/2023 1:00 PM EDT OT/PT/Speech Visit [facility] [address] [place] [address] Jarvis Block, [facility]-CONCESSION SUPERVISOR [address] [place], [place] [phone] SPEECH [facility] Comment on above: SPEECH Start: 04-17-2023 End: 04-17-2023 Patient encounter procedure 04/17/2023 8:30 AM EST Appointment [facility] [place] [address] [place] [phone] [facility] Start: 03-31-2023 Behavioral Health Screening Behavioral Health Screening [facility] Start: 03-31-2023 Depression Assessment Depression Ass [facility] Start: 03-19-2023 End: 06-18-2023 Methylmalonate [Moles/volume] in Serum or Plasma [facility] Work Phone: Comment on above: Expected: 03/19/2023 , Expires: 06/18/2023 Start: 03-19-2023 End: 06-18-2023 VITAMIN B1 (THIAMINE), WHOLE BLOOD [facility] Work Phone: Comment on above: Expected: 03/19/2023 , Expires: 06/18/2023 Start: 12-14-2022 Screening for malign ant neoplasm of breast [facility] Start: 11-29-2022 Covid-19 Vaccine ( season) Covid-19 Vaccine () [facility] Start: 11-29-2022 COVID-19 Vaccine () COVID-19 Vaccine () [facility] Start: 11-29-2022 Influenza vaccination [facility] Start: 03-31-2022 [facility] Start: 05-24-2020 Diabetes Screening Diabetes Screenin g [facility] Start: 11-14-2017 Screening for malign ant neoplasm of colon Colonoscopy [facility] Start: 2016 Administration of varicella zoster vaccine Zoster (Shingles) Vaccine (1 of 2) [facility] Start: 2016 Shingrix Vaccine (1 of 2) Shingrix Vaccine (1 of 2) [facility] Start: 2011 Lipid panel Lipid Screening [facility] Start: 2011 Screening for malign ant neoplasm of colon [facility] Start: 2006 Screening for malign ant neoplasm of breast Mammogram Screening [facility] Start: 1996 Screening for malign ant neoplasm of cervix HPV Testing [facility] Start: 1987 Screening for malign ant neoplasm of cervix [facility] Start: 1985 DTaP,Tdap and Td Vaccines (1 - Tdap) DTaP,Tdap and Td Vaccines (1 - Tdap) [facility] Start: 1985 Hepatitis B Vaccine (1 of 3 - 19+ 3-dose series) Hepatitis B Vaccine (1 of 3 - 19+ 3-dose series) [facility] Start: 1985 Urine microalbumin profile DTaP,Tdap,Td Vaccine (1 - Tdap) [facility] Start: 1984 Hepatitis C screening Hepatitis C Sc reening [facility] Start: 1984 HIV screening HIV Screening [facility] Start: 1978 Depression Screening Depression Scre [facility] Start: 1966 Covid-19 Vaccine (#1) Covid-19 Vacci ne (#1) [facility] Start: 1966 Hepatitis B Vaccine (1 of 3 - 3-dose series) Hepatitis B Vaccine (1 of 3 - 3-dose series) [facility] Start: 1966 Screening for malign ant neoplasm of colon [facility] End: 04-17-2024 MRI 3D POST PROCESSING MRI 3D POST PROCESSING Radiology Routine Cognitive impairment, mild, so stated 1 Occurrences starting 03/19/2023 until 04/17/2024 [facility] Work Phone: Comment on above: 1 Occurrences starti ng 03/19/2023 until 04/17/2024 End: 04-17-2024 MRI BRAIN W QUANT WO IVCON MRI BRAIN W QUANT WO IVCON Radiology Routine Cognitive impairment, mild, so stated 1 Occurrences starting 03/19/2023 until 04/17/2024 [facility] Work Phone: Comment on above: 1 Occurrences starti ng 03/19/2023 until 04/17/2024 SPEECH PLAN OF CARE CERTIFICATION SPEECH PLAN OF CARE CERTIFICATION Procedures Routine Cognitive impairment, mild, so stated Cognitive communication deficit Ordered: 05/22/2023 [facility] Work Phone: Comment on above: Ordered: 05/22/2023 SPEECH PLAN OF CARE CERTIFICATION SPEECH PLAN OF CARE CERTIFICATION Procedures Routine Cognitive impairment, mild, so stated Cognitive communication deficit Ordered: 09/12/2023 [facility] Work Phone: Comment on above: Ordered: 09/12/2023 [facility] Immunizations Immunization Date Immunization Notes Care Provider [facility] 01-27-2020 influenza virus vaccine, unspecified formulation Marisela Sanchez [facility] Payers Date Payer Category Payer Medicaid [facility] [id number] 2022 Medicaid [id number] 2022 Private Health Insurance [facility] [id number] 1966 Unknown [id number] 2.16.840.1.015354.3.579.2. 593 1966 Unknown [id number] 2.16840.1.604130.3.579.2. 593 1966 Unknown [id number] 2.16.840.1.218215.3.579.2. 593 1966 Unknown [id number] 2.16.840.1.050342.3.579.2. 593 1966 Unknown [id number] 2.16.840.1.909507.3.579.2. 593 1966 Unknown [id number] 2.16840.1.273007.3.579.2. 593 1966 Unknown [id number] 2.16.840.1.980176.3.579.2. 593 1966 Unknown [id number] 2.16.840.1.257845.3.579.2. 1286 1966 Unknown [id number] 2.16.840.1.248106.3.579.2. 128 1966 Unknown [id number] 2.16.840.1.154827.3.579.2. 128 1966 Unknown [id number] 2.16840.1.784358.3.579.2. 128 1966 Unknown [id number] 2.16.840.1.506600.3.579.2. 1259 1966 Unknown [id number] 2.16.840.1.603620.3.579.2. 1259 1966 Unknown [id number] 2.16.840.1.786634.3.579.2. 1259 1966 Unknown [id number] 2.16.840.1.362253.3.579.2. 1286 1966 Unknown [id number] 2.16.840.1.038894.3.579.2. 1286 1959 Private Health Insurance [id number] 1959 Private Health Insurance [id number] 1959 Self-pay [id number] 1959 Unknown [id number] Unknown [id number] [id number]. 531 Social History Date Type Detail [facility] Work Phone: Start: 1965 Sex Assigned At Female F [facility] Start: 08-05-2022 End: 03-19-2023 Tobacco smoking status NHIS Never smoked tobacco [facility] Start: 08-05-2022 End: 03-19-2023 Tobacco use and exposure Smokeless tobacco non-user [facility] Start: 03-19-2023 End: 12-15-2023 Alcohol intake Current non-drinker of alcohol (finding) [facility] Start: 05-02-2020 End: 03-19-2023 History of Social function [facility] Start: 05-02-2020 End: 03-19-2023 Tobacco use panel [facility] National Score (1-10 0), lower number is lower risk 60 [facility] Start: 1965 Sex Assigned At Not on file [facility] Start: 06-09-2023 End: 11-20-2023 Alcoholic beverage intake Lifetime non-drinker (finding) [facility] Do you belong to any clubs or organizations such as religion groups, unions, fraternal or athletic groups, or [...] Comment caffeine 1-2 c ups per day [facility] Start: 11-03-2014 Sex Female (finding) [facility] NEGATED: Highlighted rowStart: RUSSELL History of tobacco use Passive smoker [facility] Clinical Notes 10-05-2021 to 02-24-2024 Telephone Encounter - Julietarita Isaac - 02/24/2024 1:09 PM ESTTelephone Encounter - Sherman Busch DO - 02/24/2024 1:09 PM ESTTelephone Encounter - Julietarita Isaac - 02/24/2024 1:09 PM EST Note Date & Type Note Facility 02-24-2024 Miscellaneous Notes Is looking for a new pcp, got diagnosed with dementia. Will you accept Okay documented in this encounter [facility] 02-24-2024 Telephone encounter Note Is looking for a new pcp, got diagnosed with dementia. Will you accept [facility] 02-24-2024 Telephone encounter Note Okay [facility] Work Phone: 01-26-2024 Telephone encounter Note Pt called today and left a vm at 11:48 am She said that she is returning a call to [facility] about a lab draw for Hormone testing. (Sent to both Kellen and Angelica.. because I dont know if pt meant Kellen actually called her or if she was just checking in again) :) [facility] 01-26-2024 Miscellaneous Notes Pt called today and left a vm at 11:48 am She said that she is returning a call to [facility] about a lab draw for Hormone [...] and feeling thirsty. documented in this encounter [facility] 01-23-2024 Telephone encounter Note Pt calling and said she had pap last month, her PCP told her to see if you would order hormone testing- she said she's had hot flashes for about a decade and also having constant urination, always drinking and feeling thirsty. [facility] 12-26-2023 Miscellaneous Notes Wait list reschedule. - Patient's mailbox if full New, established, or hospital f/u: - NEW Provider: - LASHAWN Date(s) to move appointment to: - OPENINGS IN JANUARY Time slot amount: - 60 Please reschedule if still available. documented in this encounter [facility] 12-26-2023 Telephone encounter Note Wait list reschedule. - Patient's mailbox if full New, established, or hospital f/u: - NEW Provider: - LASHAWN Date(s) to move appointment to: - OPENINGS IN JANUARY Time slot amount: - 60 Please reschedule if still available. [facility] 12-15-2023 Miscellaneous Notes [address] [place] [place] [phone] Patient: Yanique Kaur Date of : 1965 Encounter Date: 12/15/2023 Video Visit via Real-time Synchronous Audiovisual Provider Location: [facility] [address] [place] [address] Patient Location: Patient's home Video Visit Consent Statement: I discussed risks, benefits, and alternatives of a real-time synchronous audiovisual consultation with the patient (and any accompanying persons) including the risks that the patient's personal health details and medical records will be discussed over real-time, synchronous, interactive video/audio/telecommunication technology, the visit will not be recorded without the express consent of both the provider and the patient, and that there are some limitations compared to [id number] evaluations. The patient consented to the presence of additional virtual and/or in-person participants. We elected to proceed. History of Present Illness/Psychiatric Review of Symptoms/Medical Review of Systems: The patient is a 58 y.o. female, established patient, and is here for follow-up visit. HPI: Yanique states that she is interested in switching the Pristiq to an alternative antidepressant medication due to an increase in blood pressure that has been evaluated by her family physician. The family physician has recommended this switch due to the effect on her blood pressure. Reviewed the risks and benefits during the session today. There is the risk of worsening depression with discontinuing the antidepressant medication and for some patients continuing the antidepressant medication if it works well for them and starting a blood pressure medicine or having the current dosage of blood pressure medicine increase may be the options that they would choose. Alternatively, we can switch the antidepressant from an SNRI, the does venlafaxine, to an SSRI, such as the citalopram which she was taking previously. Although she initially believed that the citalopram was causing cognitive impairment, further testing showed evidence of reduced hippocampal volume that was likely the reason for the cognitive impairment problems and she is in favor of starting the citalopram again as opposed to trying an alternative antidepressant medicine that she has not taken in the past. Reviewed the risks and benefits of the medication changes including symptoms watch for regarding withdrawal symptoms. We will do a steady cross taper-see instructions below. Patient complains of constitutional, neurological, or gastrointestinal symptoms or other adverse effects possibly from the medication: Increase in blood pressure Past Medical, Family, and Social History Update: The following portions of the patient's history were reviewed and updated as appropriate: allergies, current medications, past family history, past medical history, past social history, past surgical history and problem list. Past Medical History: Diagnosis Date Asthma GERD (gastroesophageal reflux disease) Hypertension Impaired cognitive ability 11/27/2022 Past Surgical History: Procedure Laterality Date BREAST BIOPSY Right OVER 10 YEARS AGO BENIGN BREAST BIOPSY Right OVER 10 YEARS AGO BENIGN CHOLECYSTECTOMY COLONOSCOPY N/A 11/14/2016 Performed by Crispin Harrington MD at [facility] COLONOSCOPY AND POLYPECTOMY 11/14/2016 Performed by Crispin Harrington MD at [facility] DAVINCI APPENDECTOMY N/A 02/08/2022 Performed by Andrew Salomon DO at [facility] ORIF TIBIA & FIBULA FRACTURES Current Outpatient Medications Medication Sig Dispense Refill amphetamine-dextroamphetamine XR (ADDERALL XR) 10 mg 24 hr capsule Take 1 capsule (10 mg total) by mouth in the morning. Max Daily Amount: 10 mg. 30 capsule 0 ascorbic acid, vitamin C, (VITAMIN C) 100 MG tablet Take 1 tablet (100 mg total) by mouth in the morning. biotin 10,000 mcg capsule 1 tablet Orally two times daily for 30 day(s) citalopram (CeleXA) 20 mg tablet Take 1 tablet (20 mg total) by mouth nightly. 90 tablet 3 desvenlafaxine (PRISTIQ) 25 mg 24 hr tablet Take 1 tablet (25 mg total) by mouth in the morning for 10 days. Then discontinue the Desvenlafaxine (Pristiq). This is being replaced with Citalopram (Celexa).. 10 tablet 0 losartan (COZAAR) 25 mg tablet Take 1 tablet (25 mg total) by mouth in the morning. MAGNESIUM ORAL Take 1 tablet by mouth in the morning. multivit with minerals/lutein (MULTIVITAMIN 50 PLUS ORAL) Multivitamin omega 8-lnx-zyl-fish oil (Fish OiL) 300-1,000 mg capsule Take 1 tablet by mouth in the morning. No current facility-administered medications for this visit. (All medications reviewed and updated by provider since last office visit or hospitalization) Allergies: Naproxen Tobacco History: Social History Tobacco Use Smoking Status Never Smokeless Tobacco Never (If patient a smoker, smoking cessation counseling offered) Social History: Social History Substance and Sexual Activity Alcohol Use No Problem List: Patient Active Problem List Diagnosis Major depressive disorder, recurrent episode, moderate (CMS-HCC) Attention and concentration deficit Acute appendicitis with generalized peritonitis, without abscess, unspecified whether gangrene present, unspecified whether perforation present Asthma GERD (gastroesophageal reflux disease) Hypertension MCI (mild cognitive impairment) with memory loss Physical Exam: There were no vitals taken for this visit. Mental Status Examination: Alertness: good Orientation: good Psychomotor: good Affect: Appropriate cooperative Speech: good Thought Process: good Associations: good Thought Content: Appropriately focused on concerns Suicidal Ideation: None Reported Attention: Appears intact Memory: Partially impaired. Patient has difficulty recalling historical treatments. Insight/Judgment: Appears intact Assessment and Plan: Diagnoses and all orders for this visit: Major depressive disorder, recurrent episode, moderate (CMS-HCC) - desvenlafaxine (PRISTIQ) 25 mg 24 hr tablet; Take 1 tablet (25 mg total) by mouth in the morning for 10 days. Then discontinue the Desvenlafaxine (Pristiq). This is being replaced with Citalopram (Celexa).. MCI (mild cognitive impairment) with memory loss Other orders - citalopram (CeleXA) 20 mg tablet; Take 1 tablet (20 mg total) by mouth nightly. Treatment plan: Taper off of and discontinue the Pristiq-see instructions above. Start citalopram 20 mg nightly. Titrate steadily as tolerated to effective dosage. Of note, patient previously was taking 40 mg daily. Risks and benefits of medication reviewed. YES, including drowsiness dizziness restlessness insomnia headache nausea and sexual side effects Patient voiced understanding and agreement with the treatment plan. YES Follow-up: 6-8 weeks Cami Quintana MD [facility] Progress note Formatting of t his note is different from the original. [address] [facility] [address] Patient: Yainque Kaur Date of : 1965 Encounter Date: 12/15/2023 Video Visit via Real-time Synchronous Audiovisual Provider Location: [facility] [address] [place] [address] Patient Location: Patient's home Video Visit Consent Statement: I discussed risks, benefits, and alternatives of a real-time synchronous audiovisual consultation with the patient (and any accompanying persons) including the risks that the patient's personal health details and medical records will be discussed over real-time, synchronous, interactive video/audio/telecommunication technology, the visit will not be recorded without the express consent of both the provider and the patient, and that there are some limitations compared to [id number] evaluations. The patient consented to the presence of additional virtual and/or in-person participants. We elected to proceed. History of Present Illness/Psychiatric Review of Symptoms/Medical Review of Systems: The patient is a 58 y.o. female, established patient, and is here for follow-up visit. HPI: Yanique states that she is interested in switching the Pristiq to an alternative antidepressant medication due to an increase in blood pressure that has been evaluated by her family physician. The family physician has recommended this switch due to the effect on her blood pressure. Reviewed the risks and benefits during the session today. There is the risk of worsening depression with discontinuing the antidepressant medication and for some patients continuing the antidepressant medication if it works well for them and starting a blood pressure medicine or having the current dosage of blood pressure medicine increase may be the options that they would choose. Alternatively, we can switch the antidepressant from an SNRI, the does venlafaxine, to an SSRI, such as the citalopram which she was taking previously. Although she initially believed that the citalopram was causing cognitive impairment, further testing showed evidence of reduced hippocampal volume that was likely the reason for the cognitive impairment problems and she is in favor of starting the citalopram again as opposed to trying an alternative antidepressant medicine that she has not taken in the past. Reviewed the risks and benefits of the medication changes including symptoms watch for regarding withdrawal symptoms. We will do a steady cross taper-see instructions below. Patient complains of constitutional, neurological, or gastrointestinal symptoms or other adverse effects possibly from the medication: Increase in blood pressure Past Medical, Family, and Social History Update: The following portions of the patient's history were reviewed and updated as appropriate: allergies, current medications, past family history, past medical history, past social history, past surgical history and problem list. Past Medical History: Diagnosis Date Asthma GERD (gastroesophageal reflux disease) Hypertension Impaired cognitive ability 11/27/2022 Past Surgical History: Procedure Laterality Date BREAST BIOPSY Right OVER 10 YEARS AGO BENIGN BREAST BIOPSY Right OVER 10 YEARS AGO BENIGN CHOLECYSTECTOMY COLONOSCOPY N/A 11/14/2016 Performed by Crispin Harrington MD at [facility] COLONOSCOPY AND POLYPECTOMY 11/14/2016 Performed by Crispin Harrington MD at [facility] DAVINCI APPENDECTOMY N/A 02/08/2022 Performed by Andrew Salomon DO at [facility] ORIF TIBIA & FIBULA FRACTURES Current Outpatient Medications Medication Sig Dispense Refill amphetamine-dextroamphetamine XR (ADDERALL XR) 10 mg 24 hr capsule Take 1 capsule (10 mg total) by mouth in the morning. Max Daily Amount: 10 mg. 30 capsule 0 ascorbic acid, vitamin C, (VITAMIN C) 100 MG tablet Take 1 tablet (100 mg total) by mouth in the morning. biotin 10,000 mcg capsule 1 tablet Orally two times daily for 30 day(s) citalopram (CeleXA) 20 mg tablet Take 1 tablet (20 mg total) by mouth nightly. 90 tablet 3 desvenlafaxine (PRISTIQ) 25 mg 24 hr tablet Take 1 tablet (25 mg total) by mouth in the morning for 10 days. Then discontinue the Desvenlafaxine (Pristiq). This is being replaced with Citalopram (Celexa).. 10 tablet 0 losartan (COZAAR) 25 mg tablet Take 1 tablet (25 mg total) by mouth in the morning. MAGNESIUM ORAL Take 1 tablet by mouth in the morning. multivit with minerals/lutein (MULTIVITAMIN 50 PLUS ORAL) Multivitamin omega 9-kdr-izc-fish oil (Fish OiL) 300-1,000 mg capsule Take 1 tablet by mouth in the morning. No current facility-administered medications for this visit. (All medications reviewed and updated by provider since last office visit or hospitalization) Allergies: Naproxen Tobacco History: Social History Tobacco Use Smoking Status Never Smokeless Tobacco Never (If patient a smoker, smoking cessation counseling offered) Social History: Social History Substance and Sexual Activity Alcohol Use No Problem List: Patient Active Problem List Diagnosis Major depressive disorder, recurrent episode, moderate (CMS-HCC) Attention and concentration deficit Acute appendicitis with generalized peritonitis, without abscess, unspecified whether gangrene present, unspecified whether perforation present Asthma GERD (gastroesophageal reflux disease) Hypertension MCI (mild cognitive impairment) with memory loss Physical Exam: There were no vitals taken for this visit. Mental Status Examination: Alertness: good Orientation: good Psychomotor: good Affect: Appropriate cooperative Speech: good Thought Process: good Associations: good Thought Content: Appropriately focused on concerns Suicidal Ideation: None Reported Attention: Appears intact Memory: Partially impaired. Patient has difficulty recalling historical treatments. Insight/Judgment: Appears intact Assessment and Plan: Diagnoses and all orders for this visit: Major depressive disorder, recurrent episode, moderate (CMS-HCC) - desvenlafaxine (PRISTIQ) 25 mg 24 hr tablet; Take 1 tablet (25 mg total) by mouth in the morning for 10 days. Then discontinue the Desvenlafaxine (Pristiq). This is being replaced with Citalopram (Celexa).. MCI (mild cognitive impairment) with memory loss Other orders - citalopram (CeleXA) 20 mg tablet; Take 1 tablet (20 mg total) by mouth nightly. Treatment plan: Taper off of and discontinue the Pristiq-see instructions above. Start citalopram 20 mg nightly. Titrate steadily as tolerated to effective dosage. Of note, patient previously was taking 40 mg daily. Risks and benefits of medication reviewed. YES, including drowsiness dizziness restlessness insomnia headache nausea and sexual side effects Patient voiced understanding and agreement with the treatment plan. YES Follow-up: 6-8 weeks Cami Quintana MD [facility] 11-20-2023 History of Present illness Narrative YEARLY HPI: This is a established patient. Chief Complaint Patient presents with Gynecologic Exam Here for annual exam. 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 STUDIO PRODUCER complaints: no Changes in healthsince last visit: [...] BREAST BIOPSY SECTION, LOW TRANSVERSE 2006 CHOLECYSTECTOMY [address] ANGIOGRAM HEART CORONARY 04/17/2023 CT ANGIOGRAM HEART CORONARY 04/17/2023 FIBULA FRACTURE SURGERY 2002 FRACTURE SURGERY Right 2002 repair tib/fib fx Family History Problem Relation Name Age of Onset Hyperlipidemia Mother Stviguz-Noora-Gafpn disease Mother Neuropathy Mother Heart disease Father [...] 11/20/2023 2:32 PM documented in this encounter [facility] 10-20-2023 Miscellaneous Notes Patient contacted our office to schedule appointment, however, we have not received patients referral. Cotton Buyer explained that in order to schedule we would need a referral, office notes and a updated demographics sheet. Cotton Buyer also gave patient the referrals fax number of [phone]. Patient was understanding. Please advise Please ask the following questions to the new patient that you are schedulin. IS THIS DUE TO AN ACCIDENT? - NO 2. IS THIS WORKER'S COMP? PLEASE VERIFY IF THIS IS WORKERS COMP AND DOCUMENT (We do not accept any new workers comp cases) - NO 3. WHAT INSURANCE? - [facility] [place] 4. HAVE YOU EVER BEEN SEEN BY A NEUROLOGIST BEFORE? IF YES, WHO AND WHEN? IS THIS A SECOND OPINION? - YES, [facility] 5. ANY CHANCE OF NOW OR BEFORE YOUR APPOINTMENT? - NO 6. OFFERED TEVIN FOR SOONER APPOINTMENT? - NO 7. PATIENT IS SCHEDULED ON/WITH: - 01/07 AT 8:30AM WITH documented in this encounter [facility] 10-20-2023 Telephone encounter Note Patient contacted our office to schedule appointment, however, we have not received patients referral. Cotton Buyer explained that in order to schedule we would need a referral, office notes and a updated demographics sheet. Cotton Buyer also gave patient the referrals fax number of [phone]. Patient was understanding. Please advise [facility] 10-20-2023 Telephone encounter Note Please ask the following questions to the new patient that you are schedulin. IS THIS DUE TO AN ACCIDENT? - NO 2. IS THIS WORKER'S COMP? PLEASE VERIFY IF THIS IS WORKERS COMP AND DOCUMENT (We do not accept any new workers comp cases) - NO 3. WHAT INSURANCE? - [employer] MEDICA[employer] 4. HAVE YOU EVER BEEN SEEN BY A NEUROLOGIST BEFORE? IF YES, WHO AND WHEN? IS THIS A SECOND OPINION? - YES, [facility] 5. ANY CHANCE OF NOW OR BEFORE YOUR APPOINTMENT? - NO 6. OFFERED TEVIN FOR SOONER APPOINTMENT? - NO 7. PATIENT IS SCHEDULED ON/WITH: - 01/07 AT 8:30AM WITH [facility] 10-06-2023 Miscellaneous Notes RN called patient per [...] Yolanda Gonzalez RN documented in this encounter [facility] 10-06-2023 Telephone encounter Note RN called patient [...] to call back tomorrow. Yolanda Gonzalez RN [facility] 10-06-2023 Telephone encounter Note RN called patient [...] to call back tomorrow. Yolanda Gonzalez RN [facility] 10-06-2023 Miscellaneous Notes RN called patient per [...] asked me to call back tomorrow. Yolanda Gonzalez, RN Contacted pt regarding scheduled virtual visit; pt reports she was not aware of the visit. Pt expressed frustration with plan of care. Pt reports impression of plan was to get another MRI and then follow-up with Dr. Maldonado to obtain a diagnosis. Advised that per message from director of patient care insurance will not cover more than one MRI per year (last was 05/2023). Pt became emotional reporting immense frustration with the process. Reviewed plans from visits with Dr. Maldonado on 03/19/23 and 05/22/2023. Pt reported she completed the MRI and is awaiting local CONCESSION SUPERVISOR referrals from speech therapist to continue visits. Pt became increasingly upset with pscyhology referral was addressed stating No one here does that shit and I don't have the time. I don't have PTO or sick time to take away from my job to do these things . Pt reports financial resource strain; when DAVID attempted to address pt abruptly ended the call. Will discuss plan with medical team and request local speech therapies with [facility] therapist. DAVID Marquis documented in this encounter [facility] 10-06-2023 Telephone encounter Note Duplicate encounter opened in error. See previous telephone encounter for details of call. [facility] Work Phone: 10-06-2023 Miscellaneous Notes Duplicate encounter opened in error. See previous telephone encounter for details of call. documented in this encounter [facility] 10-06-2023 Telephone encounter Note Contacted pt regarding scheduled virtual visit; pt reports she was not aware of the visit. Pt expressed frustration with plan of care. Pt reports impression of plan was to get another MRI and then follow-up with Dr. Maldonado to obtain a diagnosis. Advised that per message from director of patient care insurance will not cover more than one MRI per year (last was 05/2023). Pt became emotional reporting immense frustration with the process. Reviewed plans from visits with Dr. Maldonado on 03/19/23 and 05/22/2023. Pt reported she completed the MRI and is awaiting local CONCESSION SUPERVISOR referrals from speech therapist to continue visits. Pt became increasingly upset with pscyhology referral was addressed stating No one here does that shit and I don't have the time. I don't have PTO or sick time to take away from my job to do these things . Pt reports financial resource strain; when NON LICENSED NUCLEAR EQUIPMENT OPERATOR attempted to address pt abruptly ended the call. Will discuss plan with medical team and request local speech therapies with [facility] therapist. DAVID Marquis [facility] Work Phone: 09-19-2023 Note HNO ID: [id number] Author: JARVIS BLOCK [facility]-CONCESSION SUPERVISOR Service: ? Author Type: Speech Language Pathologist Type: Progress Notes Filed: 09/19/2023 13:40 Note Text: [facility] Speech Language Pathology Progress Note September 19, 2023 Patient did not show for scheduled appointment. Called patient. No response and voice mailbox full. Patient returned this clinicians call within 5 minutes. She quickly became emotional and agitated when discussing requirements for virtual visits (i.e.access to [employer] for secure Zoom access). 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 Listened with HEART. Shared with patient that Dr. Maldonado placed a referral to social work and that social work attempted to connect with her on 09/13/2023 (phone call and [employer] message sent). Patient insists she received no call and again declared that she was unable to access information on [employer]. Given the aforementioned access issues, transfer of care to a Speech Language Pathologist closer to home is advised. Patient again reported feelings of helplessness and hopelessness. Empathy provided and patient encouraged to contact this clinician with any further questions or should circumstances change. Jarvis Block M.A. [facility]-CONCESSION SUPERVISOR Speech Language Pathology Cell/Pager: [phone] [facility] 09-19-2023 History of Present illness Narrative [facility] Speech Language Pathology Progress Note September 19, 2023 Patient did not show for scheduled appointment. Called patient. No response and voice mailbox full. Patient returned this clinicians call within 5 minutes. She quickly became emotional and agitated when discussing requirements for virtual visits (i.e.access to [employer] for secure Zoom access). 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 Listened with HEART. Shared with patient that Dr. Maldonado placed a referral to social work and that social work attempted to connect with her on 09/13/2023 (phone call and [employer] message sent). Patient insists she received no call and again declared that she was unable to access information on [employer]. Given the aforementioned access issues, transfer of care to a Speech Language Pathologist closer to home is advised. Patient again reported feelings of helplessness and hopelessness. Empathy provided and patient encouraged to contact this clinician with any further questions or should circumstances change. Jarvis Block M.A. [facility]-CONCESSION SUPERVISOR Speech Language Pathology Cell/Pager: [phone] documented in this encounter [facility] 09-13-2023 Telephone encounter Note Summary: Appointment 09/13/23 - [facility], message sent / reminder mailed for [facility] VV eval. - GL [facility] 09-13-2023 Miscellaneous Notes Summary: Appointment 09/13/23 - F, message sent / reminder mailed for [facility] VV eval. - GL documented in this encounter [facility] 09-12-2023 Instructions Jarvis Block CCC-CONCESSION SUPERVISOR - 09/12/2023 2:03 PM EDT Speech Recommendations [...] demands are higher). documented in this encounter [facility] 09-12-2023 Note HNO ID: [id number] Author: JARVIS BLOCK CCC-SLP Service: ? Author Type: Speech Language Pathologist Type: Progress Notes Filed: 09/12/2023 14:13 Note Text: [facility] SPEECH-LANGUAGE PATHOLOGY RE-EVALUATION / RE-CERTIFICATION - VIRTUAL [...] Dr[facility]donado [facility] - goal completed 09/12/2023 Patient will establish [...] Yanique Kaur : May 22, 2022 CC#: [id number] Referring physician: Madhav Maldonado Date of Onset: [...] consecutive sessions. F (more content not included)... [facility] 09-12-2023 History of Present illness Narrative [facility] SPEECH-LANGUAGE PATHOLOGY RE-EVALUATION / RE-CERTIFICATION - VIRTUAL [...] exercises more often, as advised by Dr. Erica - everything I have to do to [...] Dr. Maldonado [facility] - goal completed 09/12/2023 Patient will establish [...] Yanique Kaur : May 22, 2022 CC#: [id number] Referring physician: Madhav Maldonado Date of Onset: [...] care as listed above. Jarvis Block M.A. [facility]-CONCESSION SUPERVISOR Speech Language Pathology Cell/Pager: [phone] PATIENT EDUCATION Results and recommendations, Plan of care, and Informational handouts Billing: Virtual Visit: Verified the correct individual and the ability to speak confidentially via name and date of . Patient consented to receive health care services via virtual visit for this encounter Patient has verified that they are currently in the [facility] during this virtual visit. Risks, benefits, [...] Making: see assessment above Visit conducted from: [facility] SPEECH THERAPY Patient location at time of visit: [place] Virtual visit billable time: 40 minutes NEXT TREATMENT PRIORITY: - able to set an alarm and to improve organization / structure to papers - note writing (unified) - choosing a few things to complete - word finding strategies helpful? Jarvis Block M.A. CCC-CONCESSION SUPERVISOR Speech Language Pathology Cell/Pager: [phone] documented in this encounter [facility] 09-03-2023 Telephone encounter Note Patient called to inform her that she had MRI in May.--mail box is full will send [facility] message that The insurance does not usually pay for more than one MRI per year and we cannot request one at this point given last MRI in May per Dr. Maldonado. Yolanda Gonzalez RN [facility] 09-03-2023 Miscellaneous Notes Patient called to inform [...] Pateint would like a call to confirm [phone] documented in this encounter [facility] 09-03-2023 Telephone encounter Note General scheduling called - patient called to schedule MRI but no order on file - needs order placed. Pateint would like a call to confirm [phone] [facility] 05-22-2023 Instructions Jarvis Block CCC-CONCESSION SUPERVISOR - 05/22/2023 3:23 PM EST Speech Recommendations [...] demands are higher). documented in this encounter [facility] 05-22-2023 Note HNO ID: [id number] Author: MADHAV MALDONADO MD Service: ? Author [...] clinical documentation and on counseling/educating the patient/family. [facility] 05-22-2023 History of Present illness Narrative Ms.Lori [...] counseling/educating the patient/family. documented in this encounter [facility] 05-22-2023 Instructions Madhav Maldonado MD - 05/22/2023 [...] in daily routine documented in this encounter [facility] 05-22-2023 Nurse Note Yanique Kaur is a 58 year old year old woman accompanied by: patient. Do you have any changes or new concerns you would like to address at the visit today? No concerns Vital Signs: BP 119/70 Pulse 67 Wt 70.7 kg (155 lb 14.4 oz) LMP (LMP Unknown) BMI 22.37 kg/m documented in this encounter [facility] 05-22-2023 Note HNO ID: [id number] Author: JARVIS BLOCK [facility]-CONCESSION SUPERVISOR Service: ? Author Type: Speech Language Pathologist Type: Progress Notes Filed: 05/22/2023 19:57 Note Text: [facility] SPEECH LANGUAGE PATHOLOGY CONSULT COGNITIVE COMMUNICATION EVALUATION May 22, 2023 PLAN OF CARE UPDATE: Name: Yanique Kaur : May 22, 2023 CC#: [id number] Referring physician: Madhav Maldonado Date of Onset: [...] RECOMMENDATIONS: Outpatient speech therapy Jarvis Block M.A. 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 VISION: Wears glasses HEARING: Appeared functional in [...] well formed, g (more content not included)... [facility] 05-22-2023 History of Present illness Narrative [facility] SPEECH LANGUAGE PATHOLOGY CONSULT COGNITIVE COMMUNICATION EVALUATION May 22, 2023 PLAN OF CARE UPDATE: Name: Yanique Kaur : May 22, 2023 CC#: [id number] Referring physician: Madhav Maldonado Date of Onset: [...] RECOMMENDATIONS: Outpatient speech therapy Jarvis Block M.A. 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 VISION: Wears glasses HEARING: Appeared functional in a quiet room SOCIAL HISTORY: 17 year old son with Autism, [email or web address] business SOCIAL ENGAGEMENT / INTERESTS: - I [...] on phone (primary), also carries around a town planner housing notes / reminders, uses alarms [...] with consistent CPAP use? Jarvis Block M.A. [facility]-CONCESSION SUPERVISOR Speech Language Pathology Cell/Pager: [phone] documented in this encounter [facility] 05-22-2023 History of Present illness Narrative Radiology [...] PATIENT PRESENTS WITH AN IMPLANTABLE OR ATTACHED HOSTEL MANAGER: No RADIOLOGY DEPARTMENT: MR; Exam(s) Completed: Head: Routine Brain +adni PERIPHERAL IV DATA: Not applicable SIGNED BY: RT Jenelle(R) May 22, 2023 8:37 AM documented in this encounter [facility] 05-22-2023 Note HNO ID: [id number] Author: MOHINI SWANSON RT(R) Service: Radiology Author [...] PATIENT PRESENTS WITH AN IMPLANTABLE OR ATTACHED HOSTEL MANAGER: No RADIOLOGY DEPARTMENT: MR; Exam(s) Completed: Head: Routine Brain +adni PERIPHERAL IV DATA: Not applicable SIGNED BY: RT Jenelle(R) May 22, 2023 8:37 AM [facility] 05-01-2023 Miscellaneous Notes Received p/c from pt. [...] proteins, nutrients, fiber, and minerals Would recommend [place] [employer] diet which can be found on their website www.heart.org for balanced nutritional intake as opposed to predominantly meat based diet Please let us know if any further questions or concerns Thank you Response called to pt documented in this encounter [facility] 05-01-2023 Telephone encounter Note Received p/c from pt. Would like to start a carnivore Diet- States is all meats and animal products. Would like Dr.Malas graham. [facility] 05-01-2023 Telephone encounter Note Diets of this nature are not necessarily recommended for long-term maintenance but rather perhaps short term weight loss in a rapid fashion The concern would be about excessive sodium as well as cholesterol intake, and insufficient plant based proteins, nutrients, fiber, and minerals Would recommend [place] [employer] diet which can be found on their website www.heart.org for balanced nutritional intake as opposed to predominantly meat based diet Please let us know if any further questions or concerns Thank you [facility] 05-01-2023 Telephone encounter Note Response called to pt [facility] 04-03-2023 Miscellaneous Notes Pt calls states her CTA was cancelled today as the machine is not working, she needs new script for Metoprolol sent in as she had taken doses for today's test documented in this encounter [facility] 04-03-2023 Telephone encounter Note Pt calls states her CTA was cancelled today as the machine is not working, she needs new script for Metoprolol sent in as she had taken doses for today's test [facility] 03-19-2023 Note HNO ID: [id number] Author: Madhav Maldonado MD Service: ? Author Type: Physician Type: Progress Notes Filed: 03/20/2023 8:42 AM Note Text: Yanique Kaur 1965 [address] [facility] [address] March 19, 2023 Time: 11:48 AM EVALUATION/CONSULT NOTE History of Present Illness Yanique Kaur is a 57 year old right handed woman seen today for memory concerns. 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 [facility] 03-19-2023 History of Present illness Narrative Images from the original note were not included. Yanique Kaur 1965 [address] [facility] [address] March 19, 2023 Time: 11:48 AM EVALUATION/CONSULT NOTE History of Present Illness Yanique Kaur is a 57 year old right handed woman seen today for memory concerns. 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 [...] - Year: Normal Repeat phrase: BETH RUIZ, [address], [place] Remote Memory - Who is the [place] president now: Normal - Who was before him: Normal - Who was involved in [employer]: Normal Calculation - $5.00 - ($0.40 X [...] 51: Abnormal - Marker st: Abnormal - [place]: Normal Language Function - Naming : Normal [...] -Follow up after tests Madhav Maldonado MD [facility] I spent 80 min on the date of service which included preparing to see the patient, face to face patient care, performing medically appropriate examination, completing clinical documentation and on counseling/educating the patient/family. documented in this encounter [facility] 03-19-2023 Note HNO ID: [id number] Author: Delmy Farfan MD Service: ? Author Type: Physician Type: Progress Notes Filed: 04/02/2023 10:16 AM Note Text: No show Connection aborted at 10:20 KGR [facility] 12-23-2022 Miscellaneous Notes Yanique called and left a message on the voicemail that she has the flu and needs to cancel her colonoscopy for 12/23/22. I returned the patient's call and we will reschedule the surgery. documented in this encounter [facility] 12-23-2022 Telephone encounter Note Yanique called and left a message on the voicemail that she has the flu and needs to cancel her colonoscopy for 12/23/22. [facility] 12-23-2022 Telephone encounter Note I returned the patient's call and we will reschedule the surgery. [facility] 02-08-2022 Note PROCEDURE: [employer] peed VCT 64, 5 mm slice axial images [...] signed by Cosme Valentin on 02/08/2022 1442 [facility] Specialist 12-14-2021 Note HISTORY: Short tern [...] signed by Cosme Valentin on 12/17/2021 1416 [facility] Floor Director 10-05-2021 Note HISTORY: Right side headache x [...] signed by Cosme Valentin on 10/05/2021 0931 [facility] Floor Director Evaluation note No assessment inform [facility] Work Phone: Evaluation note Diagnosis Cognitive impairment, mild, so stated- Primary Mild cognitive impairment, so stated [facility] Diagnosis CRUZ on CPAP- Primary Obstructive sleep apnea (adult) (pediatric) [facility] Diagnosis Cognitive communication deficit- Primary Cognitive impairment, mild, so stated Mild cognitive impairment, so stated [facility]* Diagnosis Cognitive impairment, mild, so stated Mild cognitive impairment, so stated [facility]* Diagnosis Cognitive impairment, mild, so stated- Primary Mild cognitive impairment, so stated Cognitive communication deficit [facility]* Diagnosis Cognitive impairment, mild, so stated- Primary Mild cognitive impairment, so stated documented in this encounter [facility] note* Diagnosis No-show for appointment- Primary documented in this encounter [facility] note* Diagnosis Normal gynecologic examination Screening for cervical cancer Screening for malignant neoplasm of the cervix Breast cancer screening by mammogram [facility] Diagnosis Major depressive disorder, recurrent episode, moderate (CMS-HCC)- Primary Major depressive disorder, recurrent episode, moderate MCI (mild cognitive impairment) with memory loss Mild cognitive impairment, so stated [facility] filedocumented in this [facility] filedocumented in this [facility] filedocumented in this [facility] filedocumented in [facility] filedocumented in this [facility] Chief Complaint and Reason for Visit [...] stated Procedures CONSULT TO SPEECH THERAPY OFFICE/OUTPATIENT [facility] 60-74 MINUTES Madhav Maldonado MD [address] [place] [address] [facility] [place] [address] Referral ID Status Reason Start Date Expiration Date Visits Requested Visits Authorized [id number] Pending Review Auto-Generat ed Referral 3 03/18/2024 1 1 Specialty Diagnoses / Procedures Referred By Gracia t Referred To Contact Psychology Diagnoses Cognitive impairment, mild, so stated Procedures CONSULT TO PSYCHOLOGY OFFICE/OUTPATIENT [facility] 60-74 MINUTES Madhav Maldonado MD [address] [place] [id number] Referral ID Status Reason Start Date Expiration Date Visits Requested Visits Authorized [id number] Pending Review PCP Requested Referral 3 03/18/2024 1 1 Specialty Diagnoses / Procedures Referred By Contac t Referred To Contact MR IMAGING Diagnoses Cognitive impairment, mild, so stated Procedures MRI 3D POST PROCESSING 3D RENDERING W/INTERP&POSTPROC DIFF WORK STATION Madhav Maldonado MD [address] [place] [address] Mr Imaging [place] [address] Referral ID Status Reason Start Date Expiration Date Visits Requested Visits Authorized [id number] Authorized Auto-Generat ed Referral 3 04/17/2024 1 1 Specialty Diagnoses / Procedures Referred By Contac t Referred To Contact MR IMAGING Diagnoses Cognitive impairment, mild, so stated Procedures MRI BRAIN W QUANT WO IVCON MRI BRAIN BRAIN STEM W/O CONTRAST MATERIAL Madhav Maldonado MD [address] [place] [address] Mr Imaging [place] [address] Referral ID Status Reason Start Date Expiration Date Visits Requested Visits Authorized [id number] Pending Review Auto-Generat ed Referral 3 04/17/2024 1 1 Specialty Diagnoses / Procedures Referred By Contac t Referred To Contact Diagnoses CRUZ on CPAP Procedures CONSULT TO SLEEP MEDICINE - ADULT OFFICE/OUTPATIENT [facility] 60 MINUTES Madhav Maldonado MD [address] [place] [address] Referral ID Status Reason Start Date Expiration Date Visits Requested Visits Authorized [id number] Authorized PCP Requested Referral 05/22/2023 05/21/2024 1 1 Specialty Diagnoses / Procedures Referred By Contac t Referred To Contact [facility] Diagnoses Cognitive impairment, mild, so stated Cognitive communication deficit Procedures SPEECH REHAB FOLLOW UP ORDER TX SPEECH LANG VOICE COMMJ &/AUDITORY PROC IND Madhav Maldonado MD [address] [place] [address] [facility] [address] [place] [address] Referral ID Status Reason Start Date Expiration Date Visits Requested Visits Authorized [id number] Pending Review PCP Requested Referral Auto-Generate d Referral 05/22/2023 08/20/2023 1 1 Referral ID Status Reason Start Date Expiration Date V isits Requested Visits Authorized [id number] Closed Auto-Generate d Referral 03/19/2023 04/17/2024 1 1 Referral ID Status Reason Start Date Expiration Date Visits Requested Visits Authorized [id number] Pending Peer to Peer Review Auto-Genera jeannie [...] Ghislaine Gross MD Primary Care Provider Active Senior Compensation Analyst Relationship Specialty Start Date End Date Ghislaine Gross [address] [place] [address] PCP - General Family Medicine 05/25/17 Roque Johnston MD [address] [place] [address] Referring Neurology 01/27/23 Senior Compensation Analyst Relationship Specialty Start Date End Date Ghislaine Gross [address] [place] [address] PCP - General Family Medicine 05/25/17 Roque Johnston MD [address] [place] [address] Referring Neurology 01/27/23 Senior Compensation Analyst Relationship Specialty Start Date End Date Ghislaine Gross [address] [facility] [place] [address] PCP - General Family Medicine 05/25/17 Roque Johnston MD [address] [place] [address], [place] [address] Referring Neurology 01/27/23 Senior Compensation Analyst Relationship Specialty Start Date End Date Renato Ghislaine G [address] [facility] [place] [address] PCP - General Family Medicine 05/25/17 Roque Johnston MD [address] [place] [address] Referring Neurology 01/27/23 Senior Compensation Analyst Relationship Specialty Start Date End Date RenatoAlyssaGhislaine G [address] [facility] [address] PCP - General Family Medicine 05/25/17 Roque Johnston MD [address] [place] [address], [place] [address] Referring Neurology 01/27/23 Senior Compensation Analyst Relationship Specialty Start Date End Date RenatoGhislaine cartagena [address] [facility] [place] [address] PCP - General Family Medicine 05/25/17 Roque Johnston MD [address] [place] [address] Referring Neurology 01/27/23 Senior Compensation Analyst Relationship Specialty Start Date End Date Ghislaine Gross [address] [facility] [address] PCP - General Family Medicine 05/25/17 Roque Johnston MD [address] [place] [id number] Referring Neurology 01/27/23 Senior Compensation Analyst Relationship Specialty Start Date End Date RenatoGhislaine cartagena [address] [place] [address] PCP - General Family Medicine 05/25/17 Roque Johnston MD [address] [place] [address] Referring Neurology 01/27/23 Senior Compensation Analyst Relationship Specialty Start Date End Date Ghislaine Gross [address] [place] [address] PCP - General Family Medicine 05/25/17 Roque Johnston MD [address] [place] [address] Referring Neurology 01/27/23 Senior Compensation Analyst Relationship Specialty Start Date End Date Ghislaine Gross [address] [place] [address] PCP - General Family Medicine 05/25/17 Roque Johnston MD [address] [place] [address] Referring Neurology 01/27/23 Senior Compensation Analyst Relationship Specialty Start Date End Date Ghislaine Gross [address] [facility] [place] [id number] PCP - General Family Medicine 05/25/17 Roque Johnston MD [address] [facility] [address] [address] Referring Neurology 01/27/23 Senior Compensation Analyst Relationship Specialty Start Date End Date Shaikh Pool MD [address] [place] [address] PCP - [facility] 09/29/23 Beth Roque MD [address] [place] [address] PCP - General Family Medicine 12/12/23 Senior Compensation Analyst Relationship Specialty Start Date End Date Shaikh Pool MD [address] [place] [address] PCP - General Internal Medicine 04/21/23 12/11/23 Shaikh Pool MD [address] [place] [address] PCP [facility] 09/29/23 Senior Compensation Analyst Relationship Specialty Start Date End Date Shaikh Pool MD [address] [place] [phone] PCP - General Internal Medicine 04/21/23 Shaikh Pool MD [address] [place] [address] PCP - [facility] 09/29/23 Senior Compensation Analyst Relationship Specialty Start Date End Date Shaikh Pool MD [address] [place] [address] PCP - [facility] 09/29/23 Beth Roque MD [address] [place] [address] PCP - General Family [facility] 12/12/23 Senior Compensation Analyst Relationship Specialty Start Date End Date Ghislaine Gross MD [address] [place] [address] PCP - General Family Medicine 11/14/16 Senior Compensation Analyst Relationship Specialty Start Date End Date Ghislaine Gross MD [address] [place] [address] PCP - General Family Medicine 11/14/16 Senior Compensation Analyst Relationship Specialty Start Date End Date Ghislaine Gross MD [address] [place] [address] PCP - General Family Medicine 11/14/16 Senior Compensation Analyst Relationship Specialty Start Date End Date Ghislaine Gross MD [address] [place] [address] PCP - General Family Medicine 11/14/16 Goals (unrecognized section and content) Goals may [...] and content) DATE CREATED AUTHOR 09/17/2021 [facility] DATE CREATED AUTHOR AUTHOR'S ORGANIZ ATION 02/09/2022 [facility] dical Specialist DATE CREATED AUTHOR AUTHOR'S ORGANIZ ATION 07/16/2022 [facility] DATE CREATED AUTHOR AUTHOR'S ORGANIZ ATION 10/13/2023 [facility] DATE CREATED AUTHOR AUTHOR'S ORGANIZ ATION 11/06/2023 [facility] DATE CREATED AUTHOR AUTHOR'S ORGANIZ ATION 11/24/2023 [facility] dical Specialists EPIC DATE CREATED AUTHOR AUTHOR'S ORGANIZ ATION 12/17/2023 [facility] DATE CREATED AUTHOR AUTHOR'S ORGANIZ ATION 12/17/2023 [facility] Source Comments (unrecognize d section and content) In the event this informatio n is protected by the Federal Confidentiality of Alcohol and Drug Abuse Patient Records regulations: The Federal rules restrict any use of the information to criminally investigate or prosecute any alcohol or drug abuse patient.[facility] the event this information is protected by the Federal Confidentiality of Alcohol and Drug Abuse Patient Records regulations: The Federal rules restrict any use of the information to criminally investigate or prosecute any alcohol or drug abuse patient.[facility] Center[facility] the event this information is protected by the Federal Confidentiality of Alcohol and Drug Abuse Patient Records regulations: The Federal rules restrict any use of the information to criminally investigate or prosecute any alcohol or drug abuse patient.[facility] Center[facility] the event this information is protected by the Federal Confidentiality of Alcohol and Drug Abuse Patient Records regulations: The Federal rules restrict any use of the information to criminally investigate or prosecute any alcohol or drug abuse patient.[facility] CenterIn the event this information is protected by the Federal Confidentiality of Alcohol and Drug Abuse Patient Records regulations: The Federal rules restrict any use of the information to criminally investigate or prosecute any alcohol or drug abuse patient.[facility] Center[facility] the event this information is protected by the Federal Confidentiality of Alcohol and Drug Abuse Patient Records regulations: The Federal rules restrict any use of the information to criminally investigate or prosecute any alcohol or drug abuse patient.[facility] Center[facility] the event this information is protected by the Federal Confidentiality of Alcohol and Drug Abuse Patient Records regulations: The Federal rules restrict any use of the information to criminally investigate or prosecute any alcohol or drug abuse patient.[facility] Center[facility] the event this information is protected by the Federal Confidentiality of Alcohol and Drug Abuse Patient Records regulations: The Federal rules restrict any use of the information to criminally investigate or prosecute any alcohol or drug abuse patient.[facility] Center[facility] the event this information is protected by the Federal Confidentiality of Alcohol and Drug Abuse Patient Records regulations: The Federal rules restrict any use of the information to criminally investigate or prosecute any alcohol or drug abuse patient.[facility] CenterIn the event this information is protected by the Federal Confidentiality of Alcohol and Drug Abuse Patient Records regulations: The Federal rules restrict any use of the information to criminally investigate or prosecute any alcohol or drug abuse patient.[facility] Center[facility] the event this information is protected by the Federal Confidentiality of Alcohol and Drug Abuse Patient Records regulations: The Federal rules restrict any use of the information to criminally investigate or prosecute any alcohol or drug abuse patient.[facility] CenterIn the event this information is protected by the Federal Confidentiality of Alcohol and Drug Abuse Patient Records regulations: The Federal rules restrict any use of the information to criminally investigate or prosecute any alcohol or drug abuse patient.[facility] CenterIn the event this information is protected by the Federal Confidentiality of Alcohol and Drug Abuse Patient Records regulations: The Federal rules restrict any use of the information to criminally investigate or prosecute any alcohol or drug abuse patient.[facility] CenterIn the event this information is protected by the Federal Confidentiality of Alcohol and Drug Abuse Patient Records regulations: The Federal rules restrict any use of the information to criminally investigate or prosecute any alcohol or drug abuse patient.[facility] CenterIn the event this information is protected by the Federal Confidentiality of Alcohol and Drug Abuse Patient Records regulations: The Federal rules restrict any use of the information to criminally investigate or prosecute any alcohol or drug abuse patient.[facility] Reason for Visit (unrecogniz ed section and content) Reason Comments No Show Specialty Diagnoses / Procedures Referred By Gracia andrea Referred To Contact [facility] Diagnoses G31.84ICD-10-CM Cognitive impairment, mild, so stated Procedures THERAPEUTIC EXERCISES RE, EA 15 MIN. Madhav Maldonado MD [address] [place] [address] [facility] [place] [address] Referral ID Status Reason Start Date Expiration Date V isits Requested Visits Authorized [id number] Authorized 09/09/2023 01/29/2024 30 30 Reason Comments Follow Up Specialty Diagnoses / Procedures Referred By Gracia andrea Referred To Contact [facility] Diagnoses Cognitive impairment, mild, so stated Procedures MRI BRAIN W QUANT WO IVCON MRI BRAIN BRAIN STEM W/O CONTRAST MATERIAL Madhav Maldonado MD [address] [place] [address] Mr Imaging [place] [address] Referral ID Status Reason Start Date Expiration Date Visits Requested Visits Authorized [id number] Pending Peer to Peer Review Auto-Genera jeannie Referral Patient Cleared - Admin/Chair man/Directo r advise to proceed or did not respond 05/09/2023 07/08/2023 2 2 Reason Comments Speech Evaluation Specialty Diagnoses / Procedures Referred By Contac t Referred To Contact [facility] Diagnoses Cognitive impairment, mild, so stated Procedures CONSULT TO SPEECH THERAPY OFFICE/OUTPATIENT [facility] 60-74 MINUTES Madhav Maldonado MD [address] [place] [address] [facility] [place] [address] Referral ID Status Reason Start Date Expiration Date V isits Requested Visits Authorized [id number] Closed Auto-Generate d Referral 03/31/2023 03/30/2024 1 1 Reason Comments Radiology MRI Specialty Diagnoses / Procedures Referred By Contac t Referred To Contact MR IMAGING Diagnoses Cognitive impairment, mild, so stated Procedures MRI 3D POST PROCESSING 3D RENDERING W/INTERP&POSTPROC DIFF WORK STATION Madhav Maldonado MD [address] [place] [address] Mr Imaging [id number] Referral ID Status Reason Start Date Expiration Date V isits Requested Visits Authorized [id number] Closed Auto-Generate d Referral 03/19/2023 04/17/2024 1 1 Reason Comments MRI Order Reason Comments Speech Therapy Reason Comments Appointment 09/13/23 - JERICHO Coombs sent / reminder mailed for [facility].- GL Reason Comments Appointment Reason Comments Returning Patient's Call Received voicem ail from patient requesting contact information for local speech providers. This information was previously provided to patient via [employer] and email on 09/19/2023. A second email listing the local speech providers was sent to patient on 10/03/2023 via email (patients preferred mode of communication). Called patient. Clarified that local speech providers were sent to her via email. Patient currently driving and planning to look at her email once home. Reason Comments Gynecologic Exam Reason Onset Date Comments Med Refill 04/03/2023 Reason Onset Date Comments AWAITING REFERRAL 10/20/2023 Reason Onset Date Comments Waitlist Maintenance 12/26/2023 FOR RECORDS PERTAINING TO PATIENTS WHO ARE [...] BE BASED ON THE PRIMARY CLINICAL RECORDS. [employer] [facility]. provides no warranty or guarantee of the accuracy or completeness of information in this document.
--- NOTE | 2024-05-22 21:51 | ECG_ITS ---
[facility] Test Date: 2024-05-22 Pat Name: DOMINGA KAUR Department: Room: - Gender: Female Vice President Research: : 1965 Requested By: [id number] Order Number: [id number] Reading MD: LUCY MORA Measurements Intervals [place] Rate: 74 P: 70 [place]: 162 QRS: 84 QRSD: 92 T: 42 QT: 396 QTc: 423 Interpretive Statements 1100 Sinus rhythm 9110 normal ECG Compared to ECG 12/11/2023 07:05:44 No significant changes Electronically Signed On 05-23-2024 7:55:11 EST by LUCY MORA
[2024-05-22 22:10] LABS: Basophils Absolute Auto 0.1 10^3/uL (0.0-0.1); Basophils Percent Auto 1.1 % (0.2-2.0); Eosinophils Absolute Auto 0.4 10^3/uL (0.0-0.7); Eosinophils Percent Auto 6.3 % (0.9-7.0); Hematocrit 39.8 % (36.0-48.0); Hemoglobin 12.9 g/dL (12.0-16.0); Immature Granulocytes Abs Auto 0.01 10^3/uL (0.00-0.03); Immature Granulocytes Pct Auto 0.2 % (0.0-0.5); Lymphocytes Absolute Auto 1.4 10^3/uL (1.2-3.8); Mean Corpuscular HGB Conc 32.4 g/dL (29.9-35.2); Mean Corpuscular Hemoglobin 29.3 pg (26.7-34.0); Mean Corpuscular Volume 90.5 fL (81.0-99.0); Mean Platelet Volume 9.6 fL (9.5-13.5); Monocytes Absolute Auto 0.6 10^3/uL (0.3-0.8); Monocytes Percent Auto 8.7 % (1.7-12.0); Neutrophils Percent Auto 61.7 % (43.0-75.0); Platelet Count 222 10^3/uL (150-450); White Blood Count 6.5 10^3/uL (4.0-11.0)
--- NOTE | 2024-05-22 22:16 | ED.CHESTPAI1 ---
HPI - Chest Pain General Chief Complaint: Chest Pain Stated Complaint: SEARING CHEST PAIN Time Seen by Provider: 05/22/24 21:45 Source: patient Mode of arrival: walk-in History of Present Illness HPI narrative: 59-year-old female to the emergency department with chief complaint of chest pain. Patient reports she has had episodic intermittent chest pain that is been ongoing for years. She has been evaluated by cardiology for this and was told everything looked okay about a year ago with a construction site manager in [place]. She reports that maybe 3 times a month she will get an episode of 10 to 20 minutes of severe chest pain. It resolves and she is fine then. Seems to happen more at night. No nausea vomiting associated. She cannot provoke it. No other associated symptoms. It does not radiate. Related Data Home Medications ?Medication ?Instructions ?Recorded ?Confirmed desvenlafaxine succinate 25 mg 25 mg PO DAILY 12/11/23 12/11/23 tablet,extended release 24 hr Previous Rx's ?Medication ?Instructions ?Recorded famotidine 20 mg tablet 20 mg PO BID 4 weeks #56 tabs 05/23/24 methylprednisolone 4 mg tablets in 4 mg PO DAILY #21 ea 05/23/24 a dose pack (Medrol (Emmett)) Allergies Allergy/AdvReac Type Severity Reaction Status Date / Time No Known Drug Allergies Allergy Verified 12/11/23 07:03 Review of Systems ROS Status of ROS 10 or more systems reviewed and unremarkable except as noted in history and below [facility] Medical History Depression ?F32.A - Depression, unspecified (ICD-10) Fracture of left tibia and fibula ?S82.202A - Unspecified fracture of shaft of left tibia, initial encounter for closed fracture (ICD-10) ?S82.402A - Unspecified fracture of shaft of left fibula, initial encounter for closed fracture (ICD-10) Memory loss of unknown cause ?R41.3 - Other amnesia (ICD-10) Family History Father Family history of cancer Family history of myocardial infarction Grandmother Family history of diabetes mellitus Family history of hypertension Family history of myocardial infarction Social History Within the past year, how often did you have a drink containing alcohol: never Score interpretation: A score less than 3 is consistent with normal alcohol consumption. 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 Known occupational exposures/hazards: No Highest level of school completed/degree received: Bachelor's degree Are you now , , , , never or living with a partner: never In a typical week, how many times do you talk on the telephone with family, friends, or neighbors: 3 or more times per week How often do you get together with friends or relatives: 3 or more times per week How often do you attend adventism or uatsdin services: never Do you belong to any clubs or organizations such as adventism groups unions, [employer]OVE Guides or athletic groups, or school groups: no Total score: 1 Score interpretation: A score of less than or equal to 1 indicates the most socially isolated. Little interest or pleasure in doing things: not at all Feeling down, depressed, or hopeless: not at all Feel stressed/tense/nervous/anxious/difficulty sleeping: very much Life stressors: other Life stressor details: memory loss Do you think of yourself as: straight/heterosexual Gender Identity: female Exam Narrative Exam Narrative: VITALS: I have reviewed the triage vital signs. GENERAL: Well developed, well appearing adult in no acute distress. NEURO: Alert and oriented. Moves all extremities. Face is symmetric and expressive. EYES: PERRL. No scleral icterus or conjunctival injection. No discharge. HENT: Normocephalic, atraumatic. Hearing is grossly intact. Nares grossly patent and without discharge. Mucous membranes moist. NECK: No JVD. Patient moves neck without restriction. CARDIO: Rhythm regular. Normal rate. No murmur, rub, or gallop. Pulses equal bilaterally in the upper and lower extremity. No lower extremity edema. PULM: Lungs clear to auscultation in all husain. No wheezes, rales, or rhonchi. No conversational dyspnea. No splinting, stridor, or accessory muscle use. GI/: Abdomen is soft and non-tender. Normoactive bowel sounds. EXTREMITIES: Symmetric muscle bulk. No joint swelling. No clubbing, cyanosis, or deformity. SKIN: Warm and dry. Normal turgor. No rash or lesions appreciated. PSYCH: Mood, affect, and interaction is appropriate to the setting. Constitutional Vital Signs, click to edit/add: Last Vital Signs Temp 98.4 F 05/22/24 21:43 Pulse 67 05/22/24 23:30 Resp 14 05/22/24 23:30 BP 133/81 05/22/24 21:46 Pulse Ox 98 05/22/24 23:30 O2 Del Method Room Air 05/22/24 21:43 Course Vital Signs Vital signs: Vital Signs Temperature 98.4 F 05/22/24 21:43 Pulse Rate 80 05/22/24 21:43 Respiratory Rate 16 05/22/24 21:43 Blood Pressure 133/81 05/22/24 21:43 Pulse Oximetry 97 05/22/24 21:43 Oxygen Delivery Method Room Air 05/22/24 21:43 Temperature 98.4 F 05/22/24 21:43 Pulse Rate 67 05/22/24 23:30 Respiratory Rate 14 05/22/24 23:30 Blood Pressure 133/81 05/22/24 21:46 Pulse Oximetry 98 05/22/24 23:30 Oxygen Delivery Method Room Air 05/22/24 21:43 MDM - Chest Pain MDM Narrative Medical decision making narrative: 59-year-old female to the emergency department with chief complaint of chest pain. Vital stable, the patient is afebrile. Pain resolved prior to arrival. Cardiac workup is initiated. Chest x-ray without acute findings. EKG is without evidence of ischemia. Lab work is unremarkable. Troponin is undetectable x 2. Findings were discussed with the patient. Low risk by heart score, she is appropriate for outpatient workup. She will follow-up with her PCP. We discussed possible GI etiology. Will refer for upper endoscopy. Trial of Pepcid to see if this affects symptoms. She also believes she has some bronchitis with a cough, Medrol Dosepak as prescribed. Return precautions were discussed. All questions were answered. The patient was discharged home. Heart Score for Major Cardiac Event History: Example factors for history - pattern of chest pain, onset, duration, relation with exercise, stress or cold, localization, concomitant symptoms. reaction to sublingual nitrates, [] Highly suspicious +2 [] Moderately suspicious +1 [x] Slightly suspicious 0 EKG: [] Significant ST-Depression +2 [] Non specific repolarization disturbance +1 [x] Normal 0 Age: [] >= 65 +2 [x] 45-65 + 1 [] <45 0 Risk Factors: (HLD, HTN, DM, Cigarette Smoking, Pos Family Hx, Obesity) [] >3 risk factors or hx of atherosclerotic disease + 2 [] 1-2 risk factors + 1 [x] No risk factors known 0 Troponin: [] >= 3X normal + 2 [] 1-3X normal + 1 [x] <= Normal 0 [x] 0-3 Points 0.9 - 1.7% risk of major adverse cardiac event in 6 weeks [] 4-6 Points 12-16.6% risk of major adverse cardiac event in 6 weeks [] 7-10 Points 50-65% risk of major adverse cardiac event in 6 weeks [] 0-3 Points with 2 sets of negative cardiac markers <1% risk of major adverse cardiac event in 30 days. Medical Records Data Attestation: I reviewed the patient's medical records. Lab Data Attestation: I reviewed the patient's lab results. Labs: Lab Results 05/22/24 05/22/24 05/22/24 Range/Units 21:56 22:15 23:34 WBC 6.5 (4.0-11.0) 10^3/uL RBC 4.40 (4.20-5.40) 10^6/uL Hgb 12.9 (12.0-16.0) g/dL Hct 39.8 (36.0-48.0) % MCV 90.5 (81.0-99.0) fL MCH 29.3 (26.7-34.0) pg MCHC 32.4 (29.9-35.2) g/dL RDW 13.0 (11.0-15.0) % Plt Count 222 (150-450) 10^3/uL MPV 9.6 (9.5-13.5) fL Neut % (Auto) 61.7 (43.0-75.0) % Lymph % (Auto) 22.0 (20.5-60.0) % Kaufman % (Auto) 8.7 (1.7-12.0) % Eos % (Auto) 6.3 (0.9-7.0) % Baso % (Auto) 1.1 (0.2-2.0) % Neut # (Auto) 4.0 (1.4-6.5) 10^3/uL Lymph # (Auto) 1.4 (1.2-3.8) 10^3/uL Kaufman # (Auto) 0.6 (0.3-0.8) 10^3/uL Eos # (Auto) 0.4 (0.0-0.7) 10^3/uL Baso # (Auto) 0.1 (0.0-0.1) 10^3/uL Abs Immat Gran (auto) 0.01 (0.00-0.03) 10^3/uL Imm/Tot Granulo (auto) 0.2 (0.0-0.5) % Sodium 140 (136-145) mmol/L Potassium 3.6 (3.5-5.1) mmol/L Chloride 106 (98-107) mmol/L Carbon Dioxide 27.5 (21.0-32.0) mmol/L Anion Gap 10.1 BUN 15.0 (7.0-18.0) mg/dL Creatinine 0.94 (0.55-1.02) mg/dL Est GFR ( Amer) >60 (>=60 mL/min/1.73m^2) Est GFR (Non-Af Amer) >60 (>=60 mL/min/1.73m^2) BUN/Creatinine Ratio 16.0 Glucose 116 H (74-106) mg/dL Calcium 8.5 (8.5-10.1) mg/dL Troponin I High Sens <4.0 L <4.0 L (4.0-51.3) pg/mL Influenza Type A Ag Negative Influenza Type B Ag Negative SARS-CoV-2 Ag (CV2AG) Negative (NEGATIVE) Imaging Data Chest x-ray: Attestation: I have reviewed the pertinent imaging results. Radiologist's impression: See document in PACS ECG Data Attestation: I personally reviewed and interpreted this ECG as follows: (Normal sinus rhythm at a rate of 74. No STEMI. Normal QTc at 423.) Discharge Plan Discharge Chief Complaint: Chest Pain Clinical Impression: Atypical chest pain Patient Disposition: Home, Self-Care Time of Disposition Decision: 00:18 Condition: Good Mode of Transportation: Private Vehicle Prescriptions / Home Meds: New methylprednisolone [Medrol (Emmett)] 4 mg tablets,dose pack 4 mg PO DAILY Qty: 21 0RF Rx Instructions: TAKE PER DOSEPAK INSTRUCTIONS famotidine 20 mg tablet 20 mg PO BID 28 Days Qty: 56 0RF No Action desvenlafaxine succinate 25 mg tablet extended release 24 hr 25 mg PO DAILY Print Language: Sudanese Instructions: Chest Pain (ED) Additional Instructions: Call the office of your primary care doctor to arrange for follow-up within the above-stated timeframe. Your ED visit was focused on your acute issue and does not replace primary care. You should review your labs, imaging, and diagnoses from this ED visit with your primary care physician. There may be non-emergent/ incidental findings that need further evaluation. You should review your vital signs including blood pressure with your PCP. If you were prescribed medications you should discuss possible side-effects and drug interactions with your pharmacist. Call 911 or go to the nearest Emergency Department if you develop any new or worsening symptoms. Seek immediate medical attention if you develop: worsening chest pain, new chest pain, nausea, vomiting, weakness, numbness, tingling, excessive sweating, shortness of breath, difficulty breathing, loss of motion in your arms or legs, or any new or worsening symptoms. Referrals: Andrew Mercado MD [Physician] - 1 week (Call to discuss upper endoscopy for reflux) MICHELLE MOSER [Primary Care Provider] - 1 week
[2024-05-22 22:30] LABS: Anion Gap 10.1; Calcium 8.5 mg/dL (8.5-10.1); Carbon Dioxide 27.5 mmol/L (21.0-32.0); Chloride 106 mmol/L (98-107); Estimated GFR (African America >60 (>=60 mL/min/1.73m^2); Estimated GFR (Non-African Ame >60 (>=60 mL/min/1.73m^2); Glucose 116 mg/dL (74-106); Potassium 3.6 mmol/L (3.5-5.1); Sodium 140 mmol/L (136-145); Troponin I High Sensitivity <4.0 pg/mL (4.0-51.3)
[2024-05-22 22:48] LABS: Influenza Virus A Antigen Negative; Influenza Virus B Antigen Negative; Internal Control Within Normal Limits; SARS-CoV-2 Ag NEGATIVE (NEGATIVE)
[2024-05-23] LABS: Troponin I High Sensitivity <4.0 pg/mL (4.0-51.3)
== END 2024-05-23 00:33 | disposition home or self-care (01) ==
PROVIDERS: Emergency Provider Student in an Organized Health Care Education/Training Program
DX: R07.89 Other chest pain (principal)
CPT/HCPCS: 36415; 71046; 80048; 84484; 85025; 87804; 87811; 93005; 99285